=== PATIENT | male | born 1975 | race Caucasian/White ===

== ENCOUNTER 2022-02-27 11:15 | Outpatient (RCR) | payer OTHER, SELFPAY ==
--- NOTE | 2022-01-15 12:59 | OT.OPOE ---
OT Outpatient Ortho Eval OT Outpatient Ortho Eval Start: 01/15/22 12:11 Freq: Status: Active Protocol: Document 01/15/22 12:11 LCN (Rec: 01/15/22 12:46 LCN [id number]) E-signed By Baylee Ledezma, OTR/L, CLT OT OP Ortho Eval Details Type Type Eval Complexity Low Insurance Information Insurance Information [facility] Out[facility] History/Precautions Current Condition/Medical Diagnosis Referring Provider Steven Sutherland MD Treatment Diagnosis R lateral epicondylitis Date of Onset 01/09/22 Medical Conditions Depression Other Conditions H/O frozen shoulder with pt described surgical manipulation and PT. Similar small episode in R shoulder. Chronic pelvic pain after prostatitis, manages with Urology and Pelvic PT/[facility]. ( last episode 1 year ago). Pt noticing some distal ulnar wrist pain at TFCC area today as well. Bi Polar disorder. L QL SI pain episodes that come and go. 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 Fitness lighting free weights at home inclined bench and nesting dumb scott set Oriented Mental Status No Concerns Mental Status Comments Gets anxious in big box stores . Ortho Subjective Subjective Subjective Homero Patel is an active 46 y /o male who has been having increasing R lateral epicondyle, triceps insert and medial epicondyle pain in the past 6 months. 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 Terminal elbow extension and elbow extended gripping of R side is painful, 3-4/10. Pain Assessment Pain Present Pain Present Pain Reported Location R elbow Description Pressure,Dull, Achy,Throbbing, Pulling,With Movement Intensity 4 Goniometric Comments Goniometric Comments Goniometric Comments Pos 1 Gameplay Programmer is 78# R (2/10 tender at lat epicondyle) and 90 # L. Pos 2 is 18# R (2/10 tender at lat epicondyle) and 82# L. Bundy pinch is 21# R and 25# L, 3 point pinch is 20# B, no pain with pinching. MMT is 5/5 SH FL, ABD, IR and biceps flexion for R UE; SH ER and EL EX are 4+/ 5 with 3/ 10 tender at lat epicondyle and triceps insert. WR EX, RD and pronation are WNL 5/5 no pain. WR FL ( triceps insert /10), UD ( medial epic 3/10) and supination 4+/5 with 2/10 tender at lat epicondyle. Palpation-- moderate tenderness along posterior superior asp of lateral and medial epicondyle, triceps insert of R side. Also, L TFCC area during resisted pronation. OT Objective Data Hand Hand Dominance Right Observations/Posture Objective Observations No evidence of hypermobility, but moves quickly, hikes shoulder with motor patterns and muscle testing, Needs to work on core stabilization and scapular stability to support reduction of compensatory movement patterns. Upper Extremity Special Tests Upper Extremity Special Tests Comments Comments Provocative with Pos 2 Gripping. Placement of compression cuff at R lateral forearm reduces pn patttern and improves strength back to 90# in pos 1 and 86# in pos 2. OT Problems Problems Problems Decreased Strength,Decreased Range of Motion,Sensory Sensitivity,Lifting,Gripping, Pinching Other Problems Opening Containers,Fasteners Assessment Assessment Assessment Given Homero's s diagnosis of R lateral epicondylitis and ? difficulty with edema, pain, ROM and strength loss of R wrist/elbow, he would benefit from skilled OT to address these areas. Pt's history of using free weights at home with prior shoulder injuries support further need to work on core control/proximal stabilization more deeply to reduce compensatory patterns at distal wrist/forearm/elbow planes. Occupational Therapy Treatment Plan - OP Potential Rehabilitation Potential Good Set Goals Goals Set with Patient Yes Goals Goals In 12 weeks, pt will demonstrate:? 1) Decreased pn to <2/10 80% of the time with sustained gripping, carrying groceries, reading books and playing guitar. 2) I HEP for stretching, gradual strengthening ( including core/scapular stability) and self mgmt strategies. 3) improved R track laying supervisor strength to 85# in pos1 and pos 2 with R EL pain < 1/10. 4) ??Pt to be fit with functional bracing (for elbow, wrist,) and use adaptive strategies to protect joint integrity to support less pain with ADL. Target Date 04/16/22 Progress set Treatment Plan Treatment Plan Evaluation,Edema Control, Iontophoresis,Joint Mobilization,Manual Therapy, Splinting,Ultrasound, Therapeutic Exercise,Self-Care /Home Management,Education Expected Frequency 1-2x Week Expected Duration 8-10 Weeks Certification Certification I Certify That: Therapy Services Provided, Therapy Plan Established, Therapy Plan Reviewed
== END 2022-11-01 23:59 | disposition home or self-care (01) ==
PROVIDERS: PCP Family Medicine; Visit Provider Family Medicine
DX: M77.11 Lateral epicondylitis, right elbow (principal); Z51.89 Encounter for other specified aftercare
CPT/HCPCS: 97033; 97035; 97110; 97140; 97165; 97535; X5282

== ENCOUNTER 2022-11-16 13:06 | Outpatient (CLI) | payer OTHER, SELFPAY | END 2022-11-16 13:07 | disposition home or self-care (01) | PROVIDERS: PCP Family Medicine; Visit Provider Family Medicine | DX: Z00.00 Encounter for general adult medical examination without abnormal findings (principal); E53.8 Deficiency of other specified B group vitamins; R82.90 Unspecified abnormal findings in urine; F41.9 Anxiety disorder, unspecified; F31.9 Bipolar disorder, unspecified; Z13.6 Encounter for screening for cardiovascular disorders | CPT/HCPCS: 80053; 80061; 87086 ==

== ENCOUNTER 2022-12-06 15:26 | Outpatient (CLI) | payer OTHER, SELFPAY ==
--- NOTE | 2022-12-06 15:45 | CRLHL7_ITS ---
For Patients: As a result of the Century Cures Act, medical imaging exams and procedure reports are released immediately into your electronic medical record. You may view this report before your referring provider. If you have questions, please contact your health care provider. Indication: Skin anesthesia. Technique: Multiplanar, multisequence MRI of the lumbar spine was performed without intravenous contrast. Comparison: None relevant available. Findings: There are 5 lumbar type vertebral segments identified. The vertebral body heights are maintained without evidence of fracture. There is no discrete T1 hypointense marrow infiltrating process. The conus medullaris terminates at T12-L1, normal. Cauda equina appears unremarkable. T12-L1: No spinal canal or neural foraminal stenosis. L1-2: No spinal canal or neural foraminal stenosis. L2-3: No spinal canal or neural foraminal stenosis. L3-4: Mild disc degeneration. Minimal disc bulge with minimal spinal canal narrowing. There is a small left foraminal disc protrusion which abuts the exiting left L3 nerve. Mild right neural foraminal narrowing. Mild to moderate left facet arthropathy with small facet joint effusion and slight reactive osseous and soft tissue edema. L4-5: Mild disc degeneration. Minimal disc bulge with minimal spinal canal narrowing. Mild neural foraminal narrowing secondary to disc bulging facet hypertrophy. Mild facet arthropathy. L5-S1: Mild disc degeneration. Minimal disc bulge without spinal canal narrowing. Mild neural foraminal narrowing. Mild facet arthropathy. The visualized sacroiliac joints appear patent. Impression: 1. At L3-4, small left foraminal disc protrusion abuts the exiting left L3 nerve. 2. At L4-5 and L5-S1, mild neural foraminal narrowing. 3. Mild to moderate lower lumbar spine facet arthropathy. Dictated by Santana Bunn MD @ 12/07/2022 9:57:38 AM (Electronically Signed)
== END 2022-12-06 15:27 | disposition home or self-care (01) ==
LOC: MRI 15:26
PROVIDERS: PCP Family Medicine; Visit Provider Family Medicine
DX: R20.0 Anesthesia of skin (principal); M51.26 Other intervertebral disc displacement, lumbar region; M51.27 Other intervertebral disc displacement, lumbosacral region
CPT/HCPCS: 72148

== ENCOUNTER 2023-06-12 11:00 | Outpatient (CLI) | payer OTHER, SELFPAY | END 2023-06-12 11:01 | disposition home or self-care (01) | PROVIDERS: PCP Family Medicine; Visit Provider Family Medicine | DX: E53.8 Deficiency of other specified B group vitamins (principal); R10.11 Right upper quadrant pain | CPT/HCPCS: 80053; 83516; 86140 ==

== ENCOUNTER 2023-06-20 10:40 | Outpatient (CLI) | payer OTHER, SELFPAY ==
--- NOTE | 2023-06-20 11:00 | CT_ITS ---
[facility] Facility:?[facility] Patient ID:?[id number] Site Patient ID:?[id number]. Site :?[id number] Study:?CT-Abdomen/Pelvis w/ 103cc [id number]/7/2024 11:26:49 AM Ordering Physician:?Steven Olivares Final Report: Indication: Right upper quadrant pain Technique: CT Abdomen/Pelvis w/ 103cc [id number] Please note that all CT scans at this facility use dose modulation, iterative reconstruction, and/or weight-based dosing when appropriate to reduce radiation dose to as low as reasonably achievable. Comparison: 02/10/2020 Findings: Lung bases are clear with the exception of minimal atelectasis within the left lower lobe. No intrahepatic mass. Normal gallbladder. Spleen normal. Normal pancreas. Adrenal glands and kidneys normal. No adenopathy. Bladder normal. No pelvic mass. Normal appendix. No free air, free fluid or abscess. No adenopathy. No bowel obstruction. Minimal spurring at both hips. Impression: Unremarkable CT of the abdomen and pelvis. No acute findings. Please note that all CT scans at this facility use dose modulation, iterative reconstruction, and/or weight-based dosing when appropriate to reduce radiation dose to as low as reasonably achievable. Dictated by Sly Valencia MD @ 06/20/2023 12:06:58 PM Signed by:?Sly Valencia MD @06/20/2023 12:06:58 PM (Electronic Signature)
== END 2023-06-20 10:41 | disposition home or self-care (01) ==
LOC: CT 10:40
PROVIDERS: PCP Family Medicine; Visit Provider Family Medicine
DX: R10.11 Right upper quadrant pain (principal)
CPT/HCPCS: 74177; Q9967

== ENCOUNTER 2023-07-03 13:11 | Outpatient (CLI) | payer OTHER, SELFPAY | END 2023-07-03 13:12 | disposition home or self-care (01) | LOC: NFLDREF 07-05 08:40 | PROVIDERS: PCP Family Medicine; Referring Provider Family Medicine; Visit Provider Family Medicine | DX: R31.9 Hematuria, unspecified (principal); R10.11 Right upper quadrant pain; R80.9 Proteinuria, unspecified | CPT/HCPCS: 87086 ==

== ENCOUNTER 2023-07-22 08:05 | Outpatient (CLI) | payer OTHER, SELFPAY ==
--- NOTE | 2023-07-22 08:00 | CT_ITS ---
Patient: CHRIS RODRIGUEZ Facility:?[facility] Patient ID:?[id number] Site Patient ID:?[id number] Site :?[id number] Study:?CT-Chest 75CC ISOVUE 370-07/22/2023 8:52:29 AM Ordering Physician:?DR. MAGDALENO Final Report: INDICATION: Weight loss. Follow-up abnormal CT. TECHNIQUE: CT chest was acquired with 75 cc Isovue 370 IV contrast. COMPARISON: None. FINDINGS: Lungs and pleura: Trace atelectasis at the left posterior lung base. Lungs otherwise clear. No suspicious nodules or infiltrates. Airways patent. No pleural effusions, pleural thickening, or pneumothorax. Heart and vasculature: Heart size is normal. Thoracic aorta and pulmonary artery are normal in caliber. Lymph nodes/mediastinum: No mediastinal, hilar, or axillary adenopathy. Chest wall: No masses. Upper abdomen: Normal. Bones: Unremarkable for age. IMPRESSION: Trace subsegmental atelectasis at the left posterior lung base. Lungs otherwise clear. Please note that all CT scans at this facility use dose modulation, iterative reconstruction, and/or weight-based dosing when appropriate to reduce radiation dose to as low as reasonably achievable. Dictated by Jhon Pichardo MD @ 07/22/2023 9:35:46 AM Signed by:?Jhon Pichardo MD @07/22/2023 9:35:46 AM (Electronic Signature)
--- OUTSIDE RECORDS SUMMARY | 2023-07-22 08:10 | XMS_ITS | Encounter Summary ---
Author Name Unknown Organization [facility] Address [address] [place] [id number] Care Team Providers Care Toll Collector Name Role Phone Elsewhere, Pcp Primary Care Provider Unavailabl e Reason for Referral * Outpatient (Routine) - Closed Specialty Diagnoses / Procedures Referred By Beatrice boss Referred To Contact Diagnoses Snoring Procedures Home sleep apnea test (HSAT) Eagle Bee III, M.D. 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 [address] [place] [phone] [facility] Referral ID Status Reason Start Date Expiration Date Visits Re quested Visits Authorized [id number] Closed 03/26/2023 03/25/2024 1 1 Encounter Details Date Type Department Care Team (Latest Contact Info) Description 04/16/2023 11:30 AM FIREFIGHTER MARINE - 04/19/2023 11:59 PM FIREFIGHTER MARINE [facility] [place], [place] [address] [place] [phone] Eagle Bee III, M.D. [address] [place] [phone] Snoring Discharge Disposition: Home or Self Care Social History Tobacco Use Types Packs/Day Years Used Date Smoking Tobacco: Former Cigarettes 0 04/15/2002 - 04/15/2009 Smokeless Tobacco: Never Alcohol Use Standard Drinks/Week Comments Yes 0 (1 standard drink = 0.6 oz pur e alcohol) once a month Humiliation, Afraid, Rape, and Kick questionnair e Answer Date Recorded Within the last year, have y ou been afraid of your partner or ex-partner? No 06/09/2022 Within the last year, have y ou been humiliated or emotionally abused in other ways by your partner or ex-partner? No Within the last year, have y ou been kicked, hit, slapped, or otherwise physically hurt by your partner or ex-partner? No 06/09/2022 Within the last year, have y ou been raped or forced to have any kind of sexual activity by your partner or ex-partner? No 06/09/2022 Social Connection and Isolation Panel [NHANES] A nswer Date Recorded In a typical week, how many times do you talk on the phone with family, friends, or neighbors? Three times a week 06/09/2022 How often do you get togethe r with friends or relatives? Never 06/09/2022 How often do you attend chur or christian services? Never 06/09/2022 Do you belong to any clubs o r organizations such as zoroastrian groups, unions, fraternal or athletic groups, or school groups? No 06/09/2022 How often do you attend meet ings of the clubs or organizations you belong to? Patient declined 06/09/2022 Are you , , di vorced, , never , or living with a partner? 06/09/2022 AUDIT-C Answer Date Recorded Q1: How often do you have a drink containing alc ohol? Never 06/09/2022 Q2: How many drinks containi ng alcohol do you have on a typical day when you are drinking? 1 or 2 06/09/2022 Q3: How often do you have six or more drinks on one occasion? Never 06/09/2022 Overall Financial Resource Strain (CARDIA) Answe r Date Recorded How hard is it for you to pa y for the very basics like food, housing, medical care, and heating? Not hard at all 06/09/2022 [facility] Occupational Stress Questionnaire Answer Date Recorded Do you feel stress - tense, restless, nervous, or anxious, or unable to sleep at night because your mind is troubled all the time - these days? Only a little 06/09/2022 Exercise Vital Sign Answer Date Recorde d On average, how many days pe r week do you engage in moderate to strenuous exercise (like a brisk walk)? 1 day 06/09/2022 On average, how many minutes do you engage in exercise at this level? 40 min 06/09/2022 Hunger Vital Sign Answer Date Recorded Within the past 12 months, y ou worried that your food would run out before you got the money to buy more. Never true 06/09/19 23 Within the past 12 months, t he food you bought just didn't last and you didn't have money to get more. Never true 06/09/2022 PRAPARE - Transportation Answer Date Re corded In the past 12 months, has l ack of transportation kept you from medical appointments or from getting medications? No 05/17 In the past 12 months, has l ack of transportation kept you from meetings, work, or from getting things needed for daily living? No 06/09/2022 Housing Stability Vital Sign Answer Robert e Recorded In the last 12 months, was t here a time when you were not able to pay the mortgage or rent on time? No 06/09/2022 In the last 12 months, how many places have you lived? 1 06/09/2022 In the last 12 months, was t here a time when you did not have a steady place to sleep or slept in a residential (including now)? No 06/09/2022 Nutrition Answer Date Recorded Nutrition: EVOO Fat Source Yes 06/09 On average, how many serving s of fruits and vegetables do you eat per day (serving size is equal to 1 cup or approximately the size of a tennis ball)? 2-3 06/09/2022 Dental Answer Date Recorded Dental: Regular Dentist Yes 04/30/19 Employment Answer Date Recorded Employment status Unemployed/not in th e paid workforce but seeking employment 06/09/2022 Education Answer Date Recorded What is the highest level of school you have completed or the highest degree you have received? Bachelor's degree (e.g., BA, AB, BS) 02/18/2019 Sex and Gender Information Value Date Recorded Sex Assigned at Male 06/23/2017 6:13 PM CDT Gender Identity Male 06/23/2017 6:13 PM CDT Sexual Orientation Straight 06/23/2017 6: 13 PM CDT documented as of this encounter Medications at Time of Discharge Medication Sig Dispensed Refills Start Date End Date buPROPion XL (WELLBUTRIN XL) 150 mg 24 hr tablet Take 1 tablet (150 mg total) by mouth every morning. 90 tablet 0 09/18/2022 clindamycin phos/benzoyl perox (CLINDAMYCIN-BENZOYL PEROXIDE TOP) Apply topically. 0 11/19/2022 clindamycin-benzoyl peroxide (BENZACLIN) 1-5 % gelIndications:Acne Vulgaris APPLY TOPICALLY TO FACE DAILY 50 g 11 01/28/2023 clobetasoL (TEMOVATE) 0.05 % ointment Apply 1 application topically 2 (two) times a day. Apply to areas of eczema as needed/ 0 doxycycline hyclate (VIBRAMYCIN) 100 mg capsule Take 100 mg by mouth 2 (two) times a day. for 7 days 0 10/28/2022 gabapentin (NEURONTIN) 300 mg capsule Take 300 mg by mouth 3 (three) times a day. 0 11/19/2022 lamoTRIgine (LaMICtaL) 200 mg tablet Take 1 tablet (200 mg total) by mouth 2 (two) times a day. 60 tablet 2 10/08/2022 latanoprost (XALATAN) 0.005 % ophthalmic solution INSTILL 1 DROP IN BOTH EYES AT BEDTIME 10 mL 3 01/21/2023 multivitamin/iron/fol ic acid (CENTRUM ORAL) 0 12/28/2019 oxymetazoline (Rhofade) 1 % cream creamIndications:Afrida cea Apply 1 application topically daily. Apply to face for rosacea. 30 g 3 05/22/2021 QUEtiapine (SEROquel) 200 mg tablet Take 1 tablet (200 mg total) by mouth at bedtime. 90 tablet 0 12/17/2022 tretinoin (RETIN-A) 0.05 % creamIndications:Prur itus,Acne Vulgaris Apply 1 application topically at bedtime. Apply to face. 45 g 11 11/08/2020 triamcinolone (KENALOG) 0.1 % creamIndications:Derm atitis Apply 1 application topically 2 (two) times a day. Apply to affected areas 2 times a day as needed after Clobetasol treatment. 45 g 11 05/22/2021 zolpidem (AMBIEN) 5 mg tablet Takes 5 mg sometimes, other times 10 mg. 0 04/10/2022 buPROPion XL (WELLBUTRIN XL) 150 mg 24 hr tablet 2 (two) times a day. 0 06/01/2022 03/0 07/2023 gabapentin (NEURONTIN) 300 mg capsule Take 1 capsule (300 mg total) by mouth 3 (three) times a day. 90 capsule 5 11/19/2022 06/17/2023 lamoTRIgine (LaMICtaL) 150 mg tablet Take 200 mg by mouth 2 (two) times a day. 0 05/31/2022 06/17/2023 QUEtiapine (SEROquel) 50 mg tablet 5 tablets once daily 0 05/08/2022 03 024 QUEtiapine (SEROquel) 50 mg tablet Take 1 tablet (50 mg total) by mouth at bedtime as needed. 90 tablet 0 09/18/2022 06/17/2023 documented as of this encounter Plan of Treatment Upcoming Encounters Date Type Department Care Team (Latest Contact Info) Description 07/29/2023 9:00 AM CDT Clinical Communication Virtual Review in [place], [place] [address] [place] [address] 07/31/2023 7:30 AM CDT Ancillary Procedure Department of Op[facility]mology in [place], [place] [address] [place] [phone] Annie Lamas O.D. [address] [place] [phone] 07/31/2023 8:00 AM CDT Ancillary Procedure [facility] in [place], [place] [address] [place] [phone] Annie Lamas O.D. [address] [place] [phone] 07/31/2023 8:30 AM CDT Ancillary Procedure [facility] in [place], [place] [address] [place] [phone] Annie Lamas O.D. [address] [place] [phone] 07/31/2023 9:00 AM CDT Office Visit [facility] of [facility] in [place], [place] [address] [place] [phone] Annie Lamas O.D. [address] [place] [phone] documented as of this encounter Procedures Procedure Name Priority Date/Time Associated Diagnosis Comments MA HOME SLEEP TEST TYPE KEYANNA 4 Routine 04/22/2023 7:33 AM FIREFIGHTER MARINE Snoring documented in this encounter Results * Home sleep apnea test (HSAT) (04/22/2023 7:33 AM FIREFIGHTER MARINE) Narrative ONBASE - 04/23/2023 9:11 AM FIREFIGHTER MARINE SUMMARY: Home sleep apnea test was performed utilizing the ABB[employer] Language ServicesPAT device. The device recorded a total sleep time of 477.5 minutes. ??Patient slept for a majority of the time in the left side position. ??The device recorded an pAHI of 3.4 and an pRDI of 14.3. ??Supine pAHI was 12.0. ??Snoring was heard for 10.6 % of time . ??The mean oxygen saturation was 94 %. ??The nancy was 85 %. ??A total of ??0.2 minutes were spent with saturation below 88%. CLINICAL INTERPRETATION: Home sleep apnea test performed utilizing the WatchPAT device was suggestive of mild obstructive sleep apnea, more severe supine and in REM sleep.. Eagle Bee III, M.D. SLEEP KERRY TER ORDERABLES ONBASE NA documented in this encounter Visit Diagnoses Diagnosis Snoring documented in this encounter Care Teams Toll Collector Relationship Specialty Start Date End Date Elsewhere, Pcp PCP - General Family Medicine 08/21/17 documented as of this encounter
--- OUTSIDE RECORDS SUMMARY | 2023-07-22 08:10 | XMS_ITS | Encounter Summary ---
Author Name Unknown Organization [facility] Address [address] [place] [address] Care Team Providers Care Box Order Person Name Role Phone Elsewhere, Pcp Primary Care Provider Unavailabl e Reason for Visit * Reason Comments Prostatitis * Appointment Request (Routine) - Closed Specialty Diagnoses / Procedures Referred By Beatrice t Referred To Contact Urology Referral ID Status Reason Start Date Expiration Date Visits Re quested Visits Authorized [id number] Closed 06/17/2023 06/16/2024 1 1 Encounter Details Date Type Department Care Team (Late st Contact Info) Description 06/17/2023 11:30 AM MINING PLANT OPERATOR Office Visit Department of Urology in [place] [address] [place] [address] Kristal Leon, JD, C.N.P. [address] [phone] Prostatitis Chronic (Primary Dx); Pain Pelvic Male Social History Tobacco Use Types Packs/Day Years Used Date Smoking Tobacco: Former Cigarettes 0 04/15/2002 - 04/15/2009 Smokeless Tobacco: Never Alcohol Use Standard Drinks/Week Comments Yes 0 (1 standard drink = 0.6 oz pur e alcohol) once a month [facility] Utilities Answer Date Recorded In the past 12 months has e electric, gas, oil, or water company threatened to shut off services in your home? No 06/17/2023 Humiliation, Afraid, Rape, and Kick questionnair e [...] How often do you attend chur or jewish services? Never 06/09/2022 Do you belong to any clubs o r organizations such as holiness groups, unions, fraternal or athletic groups, or [...] and heating? Not hard at all 06/09/2022 [facility] Occupat ional Health - Occupational Stress Questionnaire Answer Date Recorded [...] to strenuous exercise (like a brisk walk)? 2 days 06/17/2023 On average, how many minutes do you engage in exercise at this level? 30 min 06/17/2023 Hunger Vital Sign Answer Date Recorded Within the past 12 months, y ou worried that your food would run out before you got the money to buy more. Never true 06/17/19 24 Within the past 12 months, t he food you bought just didn't last and you didn't have money to get more. Never true 06/17/2023 PRAPARE - Transportation Answer Date Re corded In the past 12 months, has l ack of transportation kept you from medical appointments or from getting medications? No 07/2023 In the past 12 months, has l ack of transportation kept you from meetings, work, or from getting things needed for daily living? No 06/17/2023 Nutrition Answer Date Recorded Nutrition: EVOO Fat Source Yes 06/16 On average, how many serving s of fruits and vegetables do you eat per day (serving size is equal to 1 cup or approximately the size of a tennis ball)? 0-2 06/17/2023 Dental Answer Date Recorded Dental: Regular Dentist Yes 04/30/19 Employment Answer Date Recorded Employment status Temporarily disabled Housing Stability Answer Date Recorded What is your living situation today? I have a [facility] place to live 06/17/2023 Education Answer Date Recorded What is the highest level of school you have completed or the highest degree you have received? Bachelor's degree (e.g., BA, AB, BS) 02/18/2019 Sex and Gender Information Value Date Recorded Sex Assigned at Male 06/23/2017 6:13 PM CDT Gender Identity Male 06/23/2017 6:13 PM CDT Sexual Orientation Straight 06/23/2017 6: 13 PM CDT documented as of this encounter Progress Notes * Kristal Leon APRN, C.N.P. - 06/17/2023 11:30 AM CST SUBJECTIVE CHIEF COMPLAINT/REASON FOR VISIT Chief Complaint Patient presents with Prostatitis HISTORY OF PRESENT ILLNESS Homero is a pleasant 47-year-old male here today for an acute visit. He has history of chronic prostatitis, 1st diagnosed in 2010. He has had numerous recurrences in the past, last in October of last year. He states that he started having pain on Saturday. His urine is more dark, with more bubbles and foam. He reports pain in the bladder, pain in the testicles. His bowels have been regular. He states he has had quite a bit of stress lately. He denies any pain with ejaculation or erections. He feels like it takes him longer to empty his bladder, often needing to double void. His stream is generally fairly strong. Starting last night he was having pain in the epididymis. He drinks 2 cups of coffee and 4-5 16 ounces glasses of water. His Seroquel dosage was increased about 3-1/2 weeks ago. In the last month or so he has been exercising more and has been doing more squats and core exercises. He has attended pelvic floor physical therapy in the past. The following portions of the patient's history were reviewed and updated as appropriate: allergies, current medications, family history, medical history, social history, surgical history, and problem list. REVIEW OF SYSTEMS Gastrointestinal: - Negative for constipation and diarrhea. Genitourinary: Positive for pain with urination. OBJECTIVE There were no vitals filed for this visit. PHYSICAL EXAM Vitals and nursing note reviewed. General: Well developed, well nourished, well groomed male in no acute distress. Neurological: Alert, cooperative, oriented x3. Appropriate mood and affect. Abdomen: Soft, non-tender, non-distended Extremities: Warm, without edema or ulcerations. ASSESSMENT / PLAN 1. Prostatitis Chronic 2. Pain Pelvic Male Prescription for Bactrim twice daily for 21 days is sent to his pharmacy. If symptoms do not improve, he should contact us. He is encouraged to have follow- up with physical therapy to make sure that the exercises he has been working on are not causing his pelvic floor to have more tension and pain.Follow-up as needed. All questions answered today. Signed by: Kristal Leon APRN, C.N.P. 06/17/2023 7:44 PM MINING PLANT OPERATOR NG PLANT OPERATOR documented in this encounter Plan of Treatment Upcoming Encounters Date Type Department Care Team (Latest Contact Info) Description 07/29/2023 9:00 AM CDT Clinical Communication Virtual Review in [place], [place] [address] [place] [address] 07/31/2023 7:30 AM CDT Ancillary Procedure Department of Ophthalmology in [place], [place] [address] [place] [phone] Annie Lamas O.D. [address] [place] [phone] 07/31/2023 8:00 AM CDT Ancillary Procedure Department of Ophthalmology in [place], [place] [address] [place] [phone] Annie Lamas O.D. [address] [place] [phone] 07/31/2023 8:30 AM CDT Ancillary Procedure Department of Ophthalmology in [place], [place] [address] [place] [phone] Annie Lamas O.D. [address] [place] [phone] 07/31/2023 9:00 AM CDT Office Visit Department of Ophthalmology in [address] [phone] Annie Lamas O.D. [address] [place] [phone] documented as of this encounter Visit Diagnoses Diagnosis Prostatitis Chronic- Primary Pain Pelvic Male documented in this encounter Care Teams Box Order Person Relationship Specialty Start Date End Date Elsewhere, Pcp PCP - General Family Medicine 08/21/17 documented as of this encounter
--- OUTSIDE RECORDS SUMMARY | 2023-07-22 08:10 | XMS_ITS | Encounter Summary ---
Author Name Unknown Organization [facility] Address [address] [place] [id number] Care Team Providers Care X Ray Inspector Name Role Phone Elsewhere, Pcp Primary Care Provider Unavailabl e Reason for Referral * Outpatient (Routine) - Authorized Specialty Diagnoses / Procedures Referred By Beatrice boss Referred To Contact Sleep Eagle Ponce III, M.D. [address] [place] [phone] [facility] Referral ID Status Reason Start Date Expiration Date V isits Requested Visits Authorized [id number] Authorized 06/06/2023 12/05/2024 1 1 OR TUG CAPTAIN Reason for Visit * Outpatient (Routine) - Closed Specialty Diagnoses / Procedures Referred By Beatrice boss Referred To Contact Sleep Eagle Ponce III, M.D. [address] [place] [phone] [facility] Referral ID Status Reason Start Date Expiration Date Visits Re quested Visits Authorized [id number] Closed 04/30/2023 04/29/2026 1 1 Encounter Details Date Type Department Care Team (Latest Contact Info) Description 06/06/2023 11:00 AM HARBOR TUG CAPTAIN [facility] in [place], [place] [address] [place] [address] Eagle Bee III, M.D. [address] [place] [phone] Obstructive Sleep Apnea Adult (Primary Dx); Insomnia Mental Disorder Related; Stenosis Nasal Valve; Chronic Insomnia Disorder; Bipolar Disorder Current Episode Mixed Mild (HCC); Obstruction Nasal; Cannabis Use Unspecified Uncomplicated Social History Tobacco Use Types Packs/Day Years [...] Never 06/09/2022 How often do you attend formerly [facility] or zoroastrianism services? Never 06/09/2022 Do you belong to any clubs o r organizations such as orthodox groups, unions, fraternal or athletic groups, or [...] and heating? Not hard at all 06/09/2022 [facility] - Occupational Stress Questionnaire Answer Date [...] place to sleep or slept in a alf (including now)? No 06/09/2022 Nutrition Answer Date [...] as of this encounter Progress Notes * Eagle Bee III, M.D. - 06/06/2023 11:00 AM CST SUBJECTIVE REASON FOR VISIT Follow-up for managing obstructive sleep apnea. Follow-up conducted via real-time audio/video technology by Eagle Bee III, M.D. in [facility] to the patient in the patient's home. HISTORY OF PRESENT ILLNESS Homero Patel is a 47 y.o. male tells me that he tried the Flonase for couple of weeks and did not make any difference in his nasal airflow function. He is tried Neti pot in the past without benefit. He has not interested in further surgery after a good discussion with Dr. Timo Gage in ENT sleep medicine. He wants to discuss what is next. STANDARDIZED INSTRUMENTS: EPWORTH SCORE: 0 (06/06/23 1054 : Patient, Online Services) Scores of less than 10 are considered within the normal range. DETAILS: () - would never doze; 1 - slight chance of dozing; - moderate chance of dozing; 3 - high chance ofdozing) Sitting and readin - Would never doze Watching TV: 0 - Would never doze Sitting inactive in a public place (e.g. A theater or meetin - Would never doze As a passenger in a car for an hour without a break: 0 - Would never doze Lying down to rest in the afternoon when circumstances permit: 0 - Would never doze Sitting and talking to someone: 0 - Would never doze Sitting quietly after a lunch without alcohol: 0 - Would never doze In a car, while stopped for a few minutes in traffic: 0 - Would never doze Leela Segura., A new method for measuring daytime sleepiness: the Vallejo sleepiness scale. Sleep, 1991. 14(6): p. 540-5. Current Outpatient Medications Medication Sig Dispense Refill buPROPion XL (WELLBUTRIN XL) 150 mg 24 hr tablet 2 (two) times a day. buPROPion XL (WELLBUTRIN XL) 150 mg 24 hr tablet Take 1 tablet (150 mg total) by mouth every morning. 90 tablet 0 clindamycin-benzoyl peroxide (BENZACLIN) 1-5 % gel APPLY TOPICALLY TO FACE DAILY 50 g 11 clobetasoL (TEMOVATE) 0.05 % ointment Apply 1 application topically 2 (two) times a day. Apply to areas of eczema as needed/ DME CPAP DME Order 1 each 0 doxycycline hyclate (VIBRAMYCIN) 100 mg capsule Take 100 mg by mouth 2 (two) times a day. for 7 days fluticasone propionate (FLONASE) 50 mcg/actuation nasal spray Administer 2 sprays into each nostrildaily. Prior to sleep gabapentin (NEURONTIN) 300 mg capsule Take 300 mg by mouth 3 (three) times a day. gabapentin (NEURONTIN) 300 mg capsule Take 1 capsule (300 mg total) by mouth 3 (three) times a day.90 capsule 5 lamoTRIgine (LaMICtaL) 150 mg tablet Take 200 mg by mouth 2 (two) times a day. lamoTRIgine (LaMICtaL) 200 mg tablet Take 1 tablet (200 mg total) by mouth 2 (two) times a day. 60 tablet 2 latanoprost (XALATAN) 0.005 % ophthalmic solution INSTILL 1 DROP IN BOTH EYES AT BEDTIME 10 mL 3 multivitamin/iron/folic acid (CENTRUM ORAL) oxymetazoline (Rhofade) 1 % cream cream Apply 1 application topically daily. Apply to face for rosacea. 30 g 3 QUEtiapine (SEROquel) 200 mg tablet Take 1 tablet (200 mg total) by mouth at bedtime. 90 tablet 0 QUEtiapine (SEROquel) 50 mg tablet 5 tablets once daily QUEtiapine (SEROquel) 50 mg tablet Take 1 tablet (50 mg total) by mouth at bedtime as needed. 90 tablet 0 tretinoin (RETIN-A) 0.05 % cream Apply 1 application topically at bedtime. Apply to face. 45 g 11 triamcinolone (KENALOG) 0.1 % cream Apply 1 application topically 2 (two) times a day. Apply to affected areas 2 times a day as needed after Clobetasol treatment. 45 g 11 zolpidem (AMBIEN) 5 mg tablet No current facility-administered medications for this visit. Allergies Allergen Reactions Levofloxacin Other (see comments) leg pain, panic attack Milk Other (see comments) showed on blood allergy testing Pollen Extracts Other (see comments) OBJECTIVE PHYSICAL EXAMINATION Wt Readings from Last 1 Encounters: 03/26/23 95.6 kg Temp Readings from Last 1 Encounters: 12/28/20 36.1 ??C (Tympanic) BP Readings from Last 1 Encounters: 03/26/23 126/70 Pulse Readings from Last 1 Encounters: 03/26/23 66 BMI Readings from Last 1 Encounters: 03/26/23 28.83 kg/m?? Appearance: Well groomed, in no apparent distress. Good eye contact. No abnormal movements noted. Consciousness: Alert and oriented, without psychomotor abnormalities. Cooperation: Cooperative, reliable informant. Mood: Euthymic mood, with a mood-congruent and fully-reactive affect. Speech: Of regular rate, rhythm, prosody and volume. Thought Form: Goal-oriented and linear with no indication of a formal-thought disorder. Cognition: Cognition was not formally assessed, but based on the form and content of the interview and discussion appears intact. Attention: No apparent abnormalities in attention or concentration. Fund of Knowledge: Knowledge base appears within normal limits. Abstraction: Abstraction abilities appear within normal limits. Insight: Good insight and motivation. ASSESSMENT / PLAN #1 Obstructive Sleep Apnea Adult #2 Insomnia Mental Disorder Related #3 Stenosis Nasal Valve #4 Chronic Insomnia Disorder #5 Bipolar Disorder Current Episode Mixed Mild (HCC) #6 Obstruction Nasal #7 Cannabis Use Unspecified Uncomplicated Homero Patel is a 47 y.o. male has mild obstructive sleep apnea that has not responded to nonsurgical efforts to improve his nasal airflow and nasal obstruction. We discussed the following options: Obstructive sleep apnea: Options for addressing obstructive sleep apnea: Do nothing. This is not recommended based on management of cardiovascular and glucose tolerance risk as well as sleep symptomatology. Optimize weight. This is recommended. Medical and surgical strategies are available. Upper airway exercises. Evidence for this approach is emerging as an adjunct. Positional Therapy CPAP. 80% of people can achieve satisfactory results with coaching and support. Oral appliance therapy. 75% of people can achieve satisfactory result. Upper airway surgery. Consultation with an ENT sleep specialist would be the 1st step to pursue this. Upper airway stimulation therapy. There are certain criteria to consider prior to this referral. He is not interested in oral appliance because he is already having expensive dental work done on his teeth. I offered for him to work on the upper airway exercises diligently as the next step but he acknowledged that it is probably time to proceed with CPAP therapy. He said he thinks his would push for him to go ahead and do something now. He will identify for me the DME provider he wants to use and send that through a portal message. I will prescribe auto PAP 5-20 cm of water pressure and set up a follow-up visit once he has the device. I urged him to allow us to project coach him during this initiation phase to achieve optimal outcome. He said he would like a another psychiatric opinion including I would only bipolar disorder but an obsessive disorder that is emerged for which he is aware that ERPT is the standard. His mother works at the [facility] at [facility] and he says his works at [employer] as well. He will get back to me whether he wants to proceed with the evaluation at the mood Center and I canassure him it would be someone besides his family involved. PATIENT EDUCATION Learning needs assessment was performed. No learning barriers were identified. Explained diagnosis and treatment plan. Patient expressed understanding and was able to teach back. I personally spent 30 minutes in care of the patient today. Time includes both non face to face andface to face patient care. Eagle Bee III, M.D. OR TUG CAPTAIN documented in this encounter Plan of Treatment Upcoming Encounters Date Type Department Care Team (Latest Contact Info) Description 07/29/2023 9:00 AM CDT Clinical Communication Virtual Review in [address] [address] 07/31/2023 7:30 AM CDT Ancillary Procedure Department of Ophthalmology in [place], [place] [address] [place] [address] Annie Lamas O.D. [address] [place] [phone] 07/31/2023 8:00 AM CDT Ancillary Procedure Department of Ophthalmology in [place], [place] [address] [place] [phone] Annie Lamas O.D. [address] [place] [phone] 07/31/2023 8:30 AM CDT Ancillary Procedure Department of Ophthalmology in [place], [place] [address] [place] [phone] Annie Lamas O.D. [address] [place] [phone] 07/31/2023 9:00 AM CDT Office Visit Department of Ophthalmology in [place], [place] [address] [place] [phone] Annie Lamas O.D. [address] [place] [phone] Scheduled Referrals Name Type Priority Associated Diagnoses Orde r Schedule Sleep Medicine office visit (clinic) Outpatient Referral Routine Expected: 06/06/2024 (Approximate), Expires: 09/03/2024 documented as of this encounter Visit Diagnoses Diagnosis Obstructive Sleep Apnea Adult- Primary Insomnia Mental Disorder Related Stenosis Nasal Valve Chronic Insomnia Disorder Bipolar Disorder Current Episode Mixed Mild (HCC) Obstruction Nasal Cannabis Use Unspecified Uncomplicated documented in this encounter Care Teams X Ray Inspector Relationship Specialty Start Date End Date Elsewhere, Pcp PCP - General Family Medicine 08/21/17 documented as of this encounter
--- OUTSIDE RECORDS SUMMARY | 2023-07-22 08:10 | XMS_ITS | Encounter Summary ---
Author Name Unknown Organization [facility] Address [address] [place] [address] Care Team Providers Care Cleaner And Trimmer Name Role Phone Elsewhere, Pcp Primary Care Provider Unavailabl e Encounter Details Date Type Department Care Team (Late Contact Info) Description 2017 [facility] [address] [place] [address] Milo Albarado M.D. [address], [place] [phone] Personal History Of Other Diseases Of Male Genital Organs (Primary Dx); Torsion Testis Social History Tobacco Use Types Packs/Day Years Used Date Smoking Tobacco: Unknown Smokeless Tobacco: Never Alcohol Use Standard Drinks/Week Comments Yes 0 (1 standard drink = 0.6 oz pur e alcohol) twice a month Sex and Gender Information Value Date Recorded Sex Assigned at Male 06/23/2017 6:13 PM CDT Gender Identity Male 06/23/2017 6:13 PM CDT Sexual Orientation Straight 06/23/2017 6: 13 PM CDT documented as of this encounter Plan of Treatment Upcoming Encounters Date Type Department Care Team (Latest Contact Info) Description 07/29/2023 9:00 AM CDT Clinical Communication Virtual Review in [place], [place] [address] [place] [address] 07/31/2023 7:30 AM CDT Ancillary Procedure Department of Ophthalmology in [place], [place] [address] [place] [phone] Annie Lamas O.D. [address] [place] [phone] 07/31/2023 8:00 AM CDT Ancillary Procedure Department of Ophthalmology in [place], [place] [address] [place] [phone] Annie Lamas O.D. [address] [place] [phone] 07/31/2023 8:30 AM CDT Ancillary Procedure Department of Ophthalmology in [place], [place] [address] [place] [phone] Annie Lamas O.D. [address] [place] [phone] 07/31/2023 9:00 AM CDT Office Visit Department of Ophthalmology in [place], [place] [address] [place] [phone] Annie Lamas O.D. [address] [place] [phone] documented as of this encounter Visit Diagnoses Diagnosis Personal History Of Other Diseases Of Male Genital Organs- Primary Torsion Testis documented in this encounter Care Teams Cleaner And Trimmer Relationship Specialty Start Date End Date Elsewhere, Pcp PCP - General Family Medicine 08/21/17 documented as of this encounter
--- OUTSIDE RECORDS SUMMARY | 2023-07-22 08:10 | XMS_ITS | Encounter Summary ---
Author Name Unknown Organization [facility] Address [address] [place] [address] Care Team Providers Care Consulting Manager Name Role Phone Elsewhere, Pcp Primary Care Provider Unavailabl e Reason for Referral * Outpatient (Routine) - Closed Specialty Diagnoses / Procedures Referred By Beatrice boss Referred To Contact Sleep Medicine Eagle Bee III, M.D. [address] [place] [phone] [facility] Referral ID Status Reason Start Date Expiration Date Visits Re quested Visits Authorized [id number] Closed 04/30/2023 04/29/2026 1 1 LY CHAIN TECHNICIAN Reason for Visit * Reason Comments Sleep Apnea * Outpatient (Routine) - Closed Specialty Diagnoses / Procedures Referred By Beatrice boss Referred To Contact Sleep Eagle Ponce III, M.D. [address] [place] [phone] [facility] Referral ID Status Reason Start Date Expiration Date Visits Re quested Visits Authorized [id number] Closed 03/26/2023 03/25/2026 1 1 Encounter Details Date Type Department Care Team (Latest Contact Info) Description 04/30/2023 9:00 AM SUPPLY CHAIN TECHNICIAN [facility] in [place], [place] [address] [place] [phone] Eagle Bee III, M.D. [address] [place] [address] [place] [phone] Obstructive Sleep Apnea Adult (Primary Dx); Snoring; Chronic Insomnia Disorder; Bipolar Disorder Current Episode Mixed Mild (HCC); Insomnia Mental Disorder Related; Stenosis Nasal Valve; Obstruction Nasal; Cannabis Use Unspecified Uncomplicated Social [...] How often do you attend chur or oriental orthodox services? Never 06/09/2022 Do you belong to any clubs o r organizations such as latter-day groups, unions, fraternal or athletic groups, or [...] and heating? Not hard at all 06/09/2022 [facility] - Occupational Stress Questionnaire Answer Date Recorded [...] place to sleep or slept in a [place] health care facility (including now)? No 06/09/2022 Nutrition Answer Date [...] Notes * Eagle Bee III, M.D. - 04/30/2023 9:00 AM CST SUBJECTIVE REASON FOR VISIT Chief Complaint Patient presents with Sleep Apnea Follow-up conducted via real-time audio/video technology by Eagle Bee III, M.D. in [facility] to the patient in the patient's home. HISTORY OF PRESENT ILLNESS Homero Patel is a 47 y.o. male who has been struggling with snoring and snort arousals and sleep disruption for quite some time. He has had careful care from Dr. Timo Gage in ENT. Mr. Patel is not interested in further surgical intervention. He agrees with my observation that the snoring and disordered breathing are likely disruptive. He sleeps mostly on his side but he does notice that if he physically stretches his cheeks around his nose his airway opens more. Breathe right and other interventions have not been affective. This visit is to review home sleep apnea test. Current Outpatient Medications Medication Sig Dispense Refill [...] Apply to areas of eczema as needed/ doxycycline hyclate (VIBRAMYCIN) 100 mg capsule Take [...] and motivation. 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 male continues to experience disruptive snoring and stop breathingepisodes. I personally reviewed with him interpreted the home sleep apnea test that was done April 19 2023. Please see home sleep apnea test report for further detail #1 Mild obstructive sleep apnea. SUMMARY: Home sleep apnea test was performed utilizing the WatchPAT device. The device recorded a total sleep time of 477.5 minutes. Patient slept for a majority of the time in the left side position. The device recorded an pAHI of 3.4 and an pRDI of 14.3. Supine pAHI was 12.0. Snoring was heard for 10.6 % of time . The mean oxygen saturation was 94 %. The nancy was 85 %. A total of 0.2 minutes were spent with saturation below 88%. CLINICAL INTERPRETATION: Home sleep apnea test performed utilizing the WatchPAT device was suggestive of mild obstructive sleep apnea, more severe supine and in REM sleep.. We collaboratively agreed that the next step would be for him to try Flonase before bedtime every night for couple of weeks. He will let me know if that has helped things substantially. In the past he is tried Neti pot and says that is just produced more nasal airflow and has not beenhelpful. He asked if we could visit again in a few weeks and I placed an order for a video visit in a few weeks. In the meantime he will use the portal to communicate. He is open to considering CPAP if need be. He qualifies that based on the home sleep apnea test done April 2023.. He is also open to consider an oral appliance if we need to go in that direction even though he says he has a very sensitive mouth in his dentist did not think he could tolerate an oral appliance when they discussed it past. #2 Chronic Insomnia Disorder #3 Bipolar Disorder Current Episode Mixed Mild (HCC) #4 Insomnia Mental Disorder Related With regard insomnia, he said the since gabapentin was started for pain his sleep has been much improved he does not feel the need for further focus on insomnia with CBT I at this time. PATIENT EDUCATION Learning needs assessment was performed. No learning barriers were identified. Explained diagnosis and treatment plan. Patient expressed understanding and was able to teach back. I personally spent 30 minutes in care of the patient today. Time includes both non face to face andface to face patient care. Eagle Bee III, M.D. LY CHAIN TECHNICIAN documented in this encounter Plan of Treatment Upcoming Encounters Date Type Department Care Team (Latest Contact Info) Description 07/29/2023 9:00 AM CDT Clinical Communication Virtual Review in [place], [place] [address] [place] [address] 07/31/2023 7:30 AM CDT Ancillary Procedure Department of Ophthalmology in [address] [phone] Annie Lamas O.D. [address] [place] [phone] 07/31/2023 8:00 AM CDT Ancillary Procedure Department of Ophthalmology in [place], [place] [address] [place] [address] Annie Lamas O.D. [address] [place] [phone] 07/31/2023 8:30 AM CDT Ancillary Procedure Department of Ophthalmology in [place], [place] [address] [place] [phone] Annie Lamas O.D. [address] [place] [phone] 07/31/2023 9:00 AM CDT Office Visit Department of Ophthalmology in [place], [place] [address] [place] [address] Annie Lamas O.D. [address] [place] [phone] Scheduled Referrals Name Type Priority Associated Diagnoses Orde r Schedule Sleep Medicine office visit (clinic) Outpatient Referral Routine Expected: 05/21/2023 (Approximate), Expires: 07/29/2024 documented as of this encounter Visit Diagnoses Diagnosis Obstructive Sleep Apnea Adult- Primary Snoring Chronic Insomnia Disorder Bipolar Disorder Current Episode Mixed Mild (HCC) Insomnia Mental Disorder Related Stenosis Nasal Valve Obstruction Nasal Cannabis Use Unspecified Uncomplicated documented in this encounter Care Teams Consulting Manager Relationship Specialty Start Date End Date Elsewhere, Pcp PCP - General Family Medicine 08/21/17 documented as of this encounter
--- OUTSIDE RECORDS SUMMARY | 2023-07-22 08:10 | XMS_ITS | Referral Summary ---
Author Name Unknown Organization [facility] Address [address] [place] [address] Care Team Providers Care Deicer Inspector Pneumatic Name Role Phone Elsewhere, Pcp Primary Care Provider Unavailabl e Source Comments Patient records contain information from all sites at [facility]. For routine questions regarding patient records, call [phone] during business hours, M-F 8:00 AM - 5:00 PM Central Time. Record requests for emergency care only can be directed to [phone] at any time.[facility] Encounters Date Type Department Care Team Description 07/18/2023 [facility] [address] [place] [address] Steven Olivares M.D. Family History Of Malignant Neoplasm Of Trachea Bronchus And Lung (Primary Dx); Loss Weight Abnormal 06/17/2023 11:30 AM DIRECT SUPPORT PROFESSIONAL CAREGIVER Office Visit Department of Urology in [place], [place] [address] [place] [phone] Kristal Leon APRN, C.N.P. Prostatitis Chronic (Primary Dx); Pain Pelvic Male 06/17/2023 Clinical Communication Department of Urology in [place], [place] [address] [place] [address] Kristal Leon APRN, C.N.P. 06/06/2023 11:00 AM DIRECT SUPPORT PROFESSIONAL CAREGIVER [facility] in [place], [place] [address] [place] [address] Eagle Bee III, M.D. Obstructive Sleep Apnea Adult (Primary Dx); Insomnia Mental Disorder Related; Stenosis Nasal Valve; Chronic Insomnia Disorder; Bipolar Disorder Current Episode Mixed Mild (HCC); Obstruction Nasal; Cannabis Use Unspecified Uncomplicated 04/30/2023 9:00 AM [facility] Telemedicine [facility] in [place], [place] [address] [place] [address] Eagle Bee III, M.D. Obstructive Sleep Apnea Adult (Primary Dx); Snoring; Chronic Insomnia Disorder; Bipolar Disorder Current Episode Mixed Mild (HCC); Insomnia Mental Disorder Related; Stenosis Nasal Valve; Obstruction Nasal; Cannabis Use Unspecified Uncomplicated 04/22/2023 7:30 AM DIRECT SUPPORT PROFESSIONAL CAREGIVER - 04/25/2023 11:59 PM [facility] Hospital Encounter [facility] in [place], [place] [address] [place] [address] Eagle Bee III, M.D. Discharge Disposition: Home or Self Care from Last 3 Months Allergies Active Allergy Reactions Criticality Noted Date Comments Levofloxacin Other (see comments) 10/15/2016 leg pain, panic attack Milk Other (see comments) 12/21/2016 showed on blood allergy testing Pollen Extracts Other (see comments) 10/15/2016 Medications Medication Sig Dispensed Refills Start Date End Date Status tretinoin (RETIN-A) 0.05 % creamIndications:Pr uritus,Acne Vulgaris Apply 1 application topically at bedtime. Apply to face. 45 g 11 11/08/2020 Active multivitamin/iron/f olic acid (CENTRUM ORAL) 0 12/28/2019 Active triamcinolone (KENALOG) 0.1 % creamIndications:De rmatitis Apply 1 application topically 2 (two) times a day. Apply to affected areas 2 times a day as needed after Clobetasol treatment. 45 g 11 05/22/2021 Active Additional Information Patient not taking.Reported on 06/17/2023 oxymetazoline (Rhofade) 1 % cream creamIndications:Ro sacea Apply 1 application topically daily. Apply to face for rosacea. 30 g 3 05/22/2021 Active zolpidem (AMBIEN) 5 mg tablet Takes 5 mg sometimes, other times 10 mg. 0 04/10/2022 Active clobetasoL (TEMOVATE) 0.05 % ointment Apply 1 application topically 2 (two) times a day. Apply to areas of eczema as needed/ 0 Active doxycycline hyclate (VIBRAMYCIN) 100 mg capsule Take 100 mg by mouth 2 (two) times a day. for 7 days 0 10/28/2022 Active gabapentin (NEURONTIN) 300 mg capsule Take 300 mg by mouth 3 (three) times a day. 0 11/19/2022 Active buPROPion XL (WELLBUTRIN XL) 150 mg 24 hr tablet Take 1 tablet (150 mg total) by mouth every morning. 90 tablet 0 09/18/2022 Active QUEtiapine (SEROquel) 200 mg tablet Take 1 tablet (200 mg total) by mouth at bedtime. 90 tablet 0 12/17/2022 Active lamoTRIgine (LaMICtaL) 200 mg tablet Take 1 tablet (200 mg total) by mouth 2 (two) times a day. 60 tablet 2 10/08/2022 Active latanoprost (XALATAN) 0.005 % ophthalmic solution INSTILL 1 DROP IN BOTH EYES AT BEDTIME 10 mL 3 01/21/2023 Active clindamycin-benzoyl peroxide (BENZACLIN) 1-5 % gelIndications:Acne Vulgaris APPLY TOPICALLY TO FACE DAILY 50 g 11 01/28/2023 Active fluticasone propionate (FLONASE) 50 mcg/actuation nasal spray Administer 2 sprays into each nostril daily. Prior to sleep 0 Active DME CPAPIndications:Obs tructive Sleep Apnea Adult,Insomnia Mental Disorder Related,Stenosis Nasal Valve,Chronic Insomnia Disorder,Bipolar Disorder Current Episode Mixed Mild (HCC),Cannabis Use Unspecified Uncomplicated DME Order 1 each 0 06/06/2023 Active Additional Information Patient not taking.Reported on 06/17/2023 clindamycin phos/benzoyl perox (CLINDAMYCIN-BENZOY L PEROXIDE TOP) Apply topically. 0 11/19/2022 Act ky QUEtiapine (SEROquel) 100 mg tablet Take 100 mg by mouth at bedtime. 0 Active sulfamethoxazole-tr imethoprim (BACTRIM DS) 800-160 mg per tablet Take 1 tablet by mouth every 12 (twelve) hours for 21 days. 42 tablet 0 06/17/2023 07/08/2023 Active Problems Problem Noted Date Diagnosed Date Obstructive Sleep Apnea Adult 04/30/2023 Snoring 03/26/2023 Insomnia Mental Disorder Related 03/26/2023 Chronic Insomnia Disorder 03/26/2023 Bipolar Disorder Current Episode Mixed Mild 03/15 Pain Shoulder Left 03/26/2023 Cannabis Use Unspecified Uncomplicated Obstruction Nasal 12/26/2017 Overview: Added automatically from request for surgery [id number] Tendonitis Ankle Left 10/14/2017 Prostatitis Chronic 10/14/2017 Pain Shoulder 10/08/2016 Social History Tobacco Use Types Packs/Day Years Used Date Smoking Tobacco: Former Cigarettes 0 04/15/2002 - 04/15/2009 Smokeless Tobacco: Never Tobacco Cessation:Counseling Given: Not Answered Alcohol Use Standard Drinks/Week Comments Yes 0 (1 standard drink = 0.6 oz pur e alcohol) once a month [facility] [employer] Answer Date Recorded In the past 12 months has e [employer], gas, oil, or water [employer] threatened to shut off services in your [...] 06/09/2022 How often do you attend [facility] or hoahaoism services? Never 06/09/2022 Do you belong to any clubs o r organizations such as religious groups, unions, fraternal or athletic groups, or [...] and heating? Not hard at all 06/09/2022 [facility] - Occupational Stress Questionnaire Answer Date Recorded [...] your living situation today? I have a [facility] place to live 06/17/2023 Education Answer Date Recorded What is the highest level of school you have completed or the highest degree you have received? Bachelor's degree (e.g., BA, AB, BS) 02/18/2019 Sex and Gender Information Value Date Recorded Sex Assigned at Male 06/23/2017 6:13 PM CDT Gender Identity Male 06/23/2017 6:13 PM CDT Sexual Orientation Straight 06/23/2017 6: 13 PM CDT Last Filed Vital Signs Vital Sign Reading Time Taken Comments Blood Pressure 126/70 03/26/2023 2:10 PM DIRECT SUPPORT PROFESSIONAL CAREGIVER Pulse 66 03/26/2023 2:10 PM DIRECT SUPPORT PROFESSIONAL CAREGIVER Temperature 36.1 ??C (97 ??F) 12/28/2020 2:47 PM CDT Respiratory Rate 15 07/04/2020 1:45 PM CDT Oxygen Saturation 95% 07/04/2020 1:45 PM CDT Inhaled Oxygen Concentration - - Weight 95.6 kg (210 lb 12.2 oz) 03/26/2023 2:10 PM DIRECT SUPPORT PROFESSIONAL CAREGIVER Height 182.1 cm (5' 11.69) 03/26/2023 2:[address] Body Mass Index 28.83 03/26/2023 2:10 PM DIRECT SUPPORT PROFESSIONAL CAREGIVER Plan of Treatment Upcoming Encounters Date Type Department Care Team (Latest Contact Info) Description 07/29/2023 9:00 AM CDT Clinical Communication Virtual Review in [place], [place] [address] [place], [place] [phone] 07/31/2023 7:30 AM CDT Ancillary Procedure Department of Ophthalmology in [place], [place] [address] [place] [phone] Annei Lamas O.D. [address] [place] [phone] 07/31/2023 8:00 AM CDT Ancillary Procedure Department of Ophthalmology in [place], [place] [address] [place] [phone] Annie Lamas O.D. [address] [place] [phone] 07/31/2023 8:30 AM CDT Ancillary Procedure Department of Ophthalmology in [place], [place] [address] [place] [phone] Annie Lamas O.D. [address] [place] [phone] 07/31/2023 9:00 AM CDT Office Visit Department of Ophthalmology in [place], [place] [address] [place] [phone] Annie Lamas O.D. [address] [place] [phone] Procedures Procedure Name Priority Date/Time Associated Diagnosis Comments IA HOME SLEEP TEST TYPE KEYANNA 4 Routine 04/22/2023 7:33 AM DIRECT SUPPORT PROFESSIONAL CAREGIVER Snoring from Last 3 Months Results * Home sleep apnea test (HSAT) (04/22/2023 7:33 AM DIRECT SUPPORT PROFESSIONAL CAREGIVER) Narrative ONBASE - 04/23/2023 9:11 AM DIRECT SUPPORT PROFESSIONAL CAREGIVER SUMMARY: Home sleep apnea test was performed utilizing the NichePAT device. The device recorded a total sleep [...] M.D. SLEEP KERRY TER ORDERABLES ONBASE NA from Last 3 Months Care Teams Deicer Inspector Pneumatic Relationship Specialty Start Date End Date Elsewhere, Pcp PCP - General Family Medicine 08/21/17
--- OUTSIDE RECORDS SUMMARY | 2023-07-22 08:10 | XMS_ITS | Encounter Summary ---
Author Name Unknown Organization [facility] Address [address] [place] [address] Care Team Providers Care Product Planner Name Role Phone Elsewhere, Pcp Primary Care Provider Unavailabl e Encounter Details Date Type Department Care Team (Late st Contact Info) Description 10/29/2017 [facility] [address] [place] [address] Steven Olivares M.D. [address], [place] [address] Tendonitis Ankle Left (Primary Dx) Social History Tobacco Use Types Packs/Day Years Used Date Smoking Tobacco: Former Smokeless Tobacco: Never Alcohol Use Standard Drinks/Week Comments Yes 0 (1 standard drink = 0.6 oz pur e alcohol) once a month Sex and Gender Information Value [...] Virtual Review in [place], [place] [address] [place] [address] 07/31/2023 7:30 AM CDT Ancillary Procedure Department of Ophthalmology in [place], [place] [address] [place] [phone] Annie Lamas O.D. [address] [place] [phone] 07/31/2023 8:00 AM CDT Ancillary Procedure Department of Ophthalmology in [place], [place] [address] [place] [phone] Annie Lamas O.D. [address] [place] [phone] 07/31/2023 8:30 AM CDT Ancillary Procedure Department of Ophthalmology in [place], [place] [address] [place] [phone] Annie Lamas O.D. [address] [place] [phone] 07/31/2023 9:00 AM CDT Office Visit Department of Ophthalmology in [place], [place] [address] [place] [phone] Annie Lamas O.D. [address] [place] [phone] documented as of this encounter Visit Diagnoses Diagnosis Tendonitis Ankle Left- Primary documented in this encounter Care Teams Product Planner Relationship Specialty Start Date End Date Elsewhere, Pcp PCP - General Family Medicine 08/21/17 documented as of this encounter
--- OUTSIDE RECORDS SUMMARY | 2023-07-22 08:10 | XMS_ITS ---
Author Name Unknown Organization [facility] Address [address] [place] [address] Care Team Providers Care Solder Making Laborer Name Role Phone Unavailable Unavailable Unavailable Surgery Details Not on file Complications Check Surgery Details section. Procedure Estimated Blood Loss Check Surgery Details section. Procedure Findings Check Surgery Details section. Procedure Specimens Taken Check Surgery Details section.
--- OUTSIDE RECORDS SUMMARY | 2023-07-22 08:10 | XMS_ITS | Encounter Summary ---
Author Name Unknown Organization [facility] Address [address] [place] [address] Care Team Providers Care Ultrasound Tech Name Role Phone Elsewhere, Pcp Primary Care Provider Unavailabl e Reason for Referral * Outpatient (Routine) - Closed Specialty Diagnoses / Procedures Referred By Contac t Referred To Contact Otorhinolaryngology Diagnoses Obstructive Sleep Apnea Adult Snoring Congestion Nasal Kelby Fuentes M.D. [address] [place] [address] [facility] Referral ID Status Reason Start Date Expiration Date Visits Re quested Visits Authorized [id number] Closed 12/19/2017 12/19/2018 1 1 Encounter Details Date Type Department Care Team (Late st Contact Info) Description 12/18/2017 [facility] [address] [place] [address] Kelby Fuentes M.D. [address] [place] [address] Obstructive Sleep Apnea Adult (Primary Dx); Snoring; Congestion Nasal Social History Tobacco Use Types Packs/Day Years [...] AM CDT Clinical Communication Virtual Review in [address] [address] 07/31/2023 7:30 AM CDT Ancillary Procedure Department of Ophthalmology in [address] [phone] Annie Lamas O.D. [address] [place] [phone] 07/31/2023 8:00 AM CDT Ancillary Procedure Department of Ophthalmology in [address] [phone] Annie Lamas O.D. [address] [place] [phone] 07/31/2023 8:30 AM CDT Ancillary Procedure Department of Ophthalmology in [address] [phone] Annie Lamas O.D. [address] [place] [phone] 07/31/2023 9:00 AM CDT Office Visit Department of Ophthalmology in [address] [phone] Annie Lamas O.D. [address] [place] [phone] Scheduled Referrals Name Type Priority Associated Diagnoses Order Schedule Otolaryngology Referral Outpatient Referral Routine Obstructive Sleep Apnea Adult Snoring Congestion Nasal Expected: 12/19/2017 (Approximate), Expires: 12/19/2020 documented as of this encounter Visit Diagnoses Diagnosis Obstructive Sleep Apnea Adult- Primary Snoring Congestion Nasal documented in this encounter Care Teams Ultrasound Tech Relationship Specialty Start Date End Date Elsewhere, Pcp PCP - General Family Medicine 08/21/17 documented as of this encounter
--- OUTSIDE RECORDS SUMMARY | 2023-07-22 08:10 | XMS_ITS | Encounter Summary ---
Author Name Unknown Organization [facility] Address [address] [place] [address] Care Team Providers Care Environmental Health Specialist Name Role Phone Elsewhere, Pcp Primary Care Provider Unavailabl e Encounter Details Date Type Department Care Team (Late st Contact Info) Description 07/18/2023 [facility] [address] [place] [address] Steven Olivares M.D. [address], [place] [phone] Family History Of Malignant Neoplasm Of Trachea Bronchus And Lung (Primary Dx); Loss Weight Abnormal Social History Tobacco Use Types Packs/Day Years Used Date Smoking Tobacco: Former Cigarettes 0 04/15/2002 - 04/15/2009 Smokeless Tobacco: Never Alcohol Use Standard Drinks/Week Comments Yes 0 (1 standard drink = 0.6 oz pur e alcohol) once a month [facility] Utilities Answer Date Recorded In the past 12 months has e [employer], gas, oil, or water [employer] threatened to shut off services in your [...] 06/09/2022 How often do you attend chur ch or sikh services? Never 06/09/2022 Do you belong to any clubs o r organizations such as protestant groups, unions, fraternal or athletic groups, or [...] Not hard at all 06/09/2022 [facility] [place] of Occupat ional Health - Occupational Stress [...] have a [facility] place to live 06/17/2023 Education Answer Date [...] AM CDT Clinical Communication Virtual Review in [place], [place] [address] [place] [address] 07/31/2023 7:30 AM CDT Ancillary Procedure Department of Ophthalmology in [place], [place] [address] [place] [phone] Annie Lamas O.D. [address] [place] [phone] 07/31/2023 8:00 AM CDT Ancillary Procedure Department of Ophthalmology in [place], [place] [address] [place] [address] Annie Lamas O.D. [address] [place] [phone] 07/31/2023 8:30 AM CDT Ancillary Procedure Department of Ophthalmology in [place], [place] [address] [place] [phone] Annie Lamas O.D. [address] [place] [phone] 07/31/2023 9:00 AM CDT Office Visit Department of Ophthalmology in [place], [place] [address] [place] [phone] Annie Lamas O.D. [address] [place] [phone] documented as of this encounter Visit Diagnoses Diagnosis Family History Of Malignant Neoplasm Of Trachea Bronchus And Lung- Primary Loss Weight Abnormal documented in this encounter Care Teams Environmental Health Specialist Relationship Specialty Start Date End Date Elsewhere, Pcp PCP - General Family Medicine 08/21/17 documented as of this encounter
--- OUTSIDE RECORDS SUMMARY | 2023-07-22 08:10 | XMS_ITS | Clinical Summary ---
Author Name Unknown Organization [facility] Address [address] [place] [address] Care Team Providers Care Physical Education Professor Name Role Phone Elsewhere, Pcp Primary Care Provider Unavailabl e Source Comments Patient records contain information from all sites at [facility]. For routine questions regarding patient records, call [phone] during business hours, M-F 8:00 AM - 5:00 PM Central Time. Record requests for emergency care only can be directed to [phone] at any time.[facility] Allergies Active Allergy Reactions Criticality Noted Date [...] Overview: Added automatically from request for surgery [id number] Tendonitis Ankle Left 10/14/2017 Prostatitis Chronic 10/14/2017 Pain Shoulder 10/08/2016 Encounters Date Type Department Care Team Description 07/18/2023 [facility] [address] [place] [address] Steven Olivares M.D. Family History Of Malignant Neoplasm Of Trachea Bronchus And Lung (Primary Dx); Loss Weight Abnormal 06/17/2023 11:30 AM HAT MODEL Office Visit Department of Urology in [place], [place] [address] [place] [address] Kristal Leon APRN, C.N.P. Prostatitis Chronic (Primary Dx); Pain Pelvic Male 06/17/2023 Clinical Communication Department of Urology in [place], [place] [address] [address] Kristal Leon APRN, C.N.P. 06/06/2023 11:00 AM HAT MODEL [facility] in [place], [place] [address] [place] [phone] Eagle Bee III, M.D. Obstructive Sleep Apnea Adult (Primary Dx); Insomnia Mental Disorder Related; Stenosis Nasal Valve; Chronic Insomnia Disorder; Bipolar Disorder Current Episode Mixed Mild (HCC); Obstruction Nasal; Cannabis Use Unspecified Uncomplicated 04/30/2023 9:00 AM [facility] in [place], [place] [address] [place] [phone] Eagle Bee III, M.D. Obstructive Sleep Apnea Adult (Primary Dx); Snoring; Chronic Insomnia Disorder; Bipolar Disorder Current Episode Mixed Mild (HCC); Insomnia Mental Disorder Related; Stenosis Nasal Valve; Obstruction Nasal; Cannabis Use Unspecified Uncomplicated 04/22/2023 7:30 AM HAT MODEL - 04/25/2023 11:59 PM [facility] Hospital Encounter [facility] in [place], [place] [address] [place] [address] Eagle Bee III, M.D. Discharge Disposition: Home or Self Care from Last 3 Months Family History Medical History Relation Name Comments Leukemia Father Mickey Carrero can't remember the type, is curable with expensive pills, not severe Lung cancer Father Mickey Carrero Skin cancer Father Mickey Carrero Suicide Attempts Maternal Grandfather laws Hypertension Mother Jeannette Carrero Lung cancer Mother Jeannette Carrero Skin cancer Mother Jeannette Carrero Coronary artery disease Mother's Brother 1 braulio Coronary artery disease Mother's Brother 2 joesph Coronary artery disease Mother's Sister 1 jaunita Diabetes Mother's Sister 2 lori Suicide Attempts Mother's Sister 3 betsy Lung cancer Paternal Grandfather Reagan Carrero Dementia Paternal Grandmother yash carrero Relation Name Status Comments Father Mickey Carrero Maternal Grandfather laws Mother Jeannette Carrero Mother's Brother 1 braulio Mother's Brother 2 joesph Mother's Sister 1 jaunita Mother's Sister 2 lori Mother's Sister 3 betsy Paternal Grandfather Reagan Carrero Paternal Grandmother yash carrero Social History Tobacco Use Types Packs/Day Years Used Date Smoking Tobacco: Former Cigarettes 0 04/15/2002 - 04/15/2009 Smokeless Tobacco: Never Tobacco Cessation:Counseling Given: Not Answered Alcohol Use Standard Drinks/Week Comments Yes 0 (1 standard drink = 0.6 oz pur e alcohol) once a month [facility] Utilities Answer Date Recorded In the past 12 months has e [employer], gas, oil, or water [employer] threatened to shut off services in your [...] How often do you attend chur or yazidi services? Never 06/09/2022 Do you belong to any clubs o r organizations such as anabaptism groups, unions, fraternal or athletic groups, or [...] and heating? Not hard at all 06/09/2022 [facility] of Occupat ional Health - Occupational Stress [...] your living situation today? [facility] 06/17/2023 Education Answer [...] Comments Blood Pressure 126/70 03/26/2023 2:10 PM HAT MODEL Pulse 66 03/26/2023 2:10 PM HAT MODEL Temperature 36.1 ??C (97 ??F) 12/28/2020 2:47 PM CDT Respiratory Rate 15 07/04/2020 1:45 PM CDT Oxygen Saturation 95% 07/04/2020 1:45 PM CDT Inhaled Oxygen Concentration - - Weight 95.6 kg (210 lb 12.2 oz) 03/26/2023 2:10 PM HAT MODEL Height 182.1 cm (5' 11.69) 03/26/2023 2:10 PM C Body Mass Index 28.83 03/26/2023 2:10 PM HAT MODEL Plan of Treatment Upcoming Encounters Date Type Department Care Team (Latest Contact Info) Description 07/29/2023 9:00 AM CDT Clinical Communication Virtual Review in [place], [place] 200 [place] [address] 07/31/2023 7:30 AM CDT Ancillary Procedure Department of Ophthalmology in [address] [phone] Annie Lamas O.D. [address] [place] [phone] 07/31/2023 8:00 AM CDT Ancillary Procedure Department of Ophthalmology in [address] [phone] Annie Lamas O.D. [address] [place] [phone] 07/31/2023 8:30 AM CDT Ancillary Procedure Department of Ophthalmology in [address] [phone] Annie Lamas O.D. [address] [place] [phone] 07/31/2023 9:00 AM CDT Office Visit Department of Ophthalmology in [address] [phone] Annie Lamas O.D. [address] [place] [phone] Health Maintenance Due Date Last Done Comments CT Colonography 1973 Cologuard 1975 FIT 1973 Lipid (Cholesterol) Screening 1973 Hepatitis A Vaccines (1 of 2 - Risk 2-dose series) 1992 Hepatitis B Vaccines (1 of 3 - 19+ 3-dose series) 1992 Depression Screening (Annual PHQ-2) 04/15/2023 Fasting Glucose for Diabetes Screening 11/09/2023 11/08/2020 DTaP,Tdap,and Td Vaccines (2 - Td or Tdap) 11/13/2025 11/14/2015 Colonoscopy 07/04/2030 07/04/2020, 07/04/2020 Colorectal Cancer Screening 07/04/2030 HIV Screening Completed 11/08/2020 COVID-19 Vaccine Completed 01/08/2023, , 07/13/2021, Additional history exists Influenza Vaccine Completed 01/08/2023, , 01/01/2022, Additional history exists Pneumococcal vaccine (0-64 years) Aged Out No longer eligible based on patient's age to complete this topic Procedures Procedure Name Priority Date/Time Associated Diagnosis Comments DC HOME SLEEP TEST TYPE KEYANNA 4 Routine 04/22/2023 7:33 AM HAT MODEL Snoring from Last 3 Months Results * Home sleep apnea test (HSAT) (04/22/2023 7:33 AM HAT MODEL) Narrative ONBASE - 04/23/2023 9:11 AM HAT MODEL SUMMARY: Home sleep apnea test was performed [...] NA from Last 3 Months Care Teams Physical Education Professor Relationship Specialty Start Date End Date Elsewhere, Pcp PCP - General Family Medicine 08/21/17
--- OUTSIDE RECORDS SUMMARY | 2023-07-22 08:10 | XMS_ITS | Encounter Summary ---
Author Name Unknown Organization [facility] Address [address] [place] [address] Care Team Providers Care Jewelry Sales Name Role Phone Elsewhere, Pcp Primary Care Provider Unavailabl e Reason for Visit * Outpatient (Routine) - Closed Specialty Diagnoses / Procedures Referred By Contac t Referred To Contact Diagnoses Snoring Procedures Home sleep apnea test (HSAT) Eagle Bee III, M.D. [address] [place] [phone] [facility] Referral ID Status Reason Start Date Expiration Date Visits Re quested Visits Authorized [id number] Closed 03/26/2023 03/25/2024 1 1 Encounter Details Date Type Department Care Team (Latest Contact Info) Description 04/22/2023 7:30 AM FISH LIVER SORTER - 04/25/2023 11:[address] [facility] Hospital En[facility] in [place], [place] [address] [place] [phone] Eagle Bee III, M.D. [address] [place] [phone] Discharge Disposition: Home or Self Care Social [...] How often do you attend chur or catholic services? Never 06/09/2022 Do you belong to [...] and heating? Not hard at all 06/09/2022 [facility] of Occupat ional Health - Occupational Stress [...] money to buy more. Never true 06/09/19 Within the past 12 months, t he [...] place to sleep or slept in a prison (including now)? No 06/09/2022 Nutrition Answer Date [...] 0 12/28/2019 oxymetazoline (Rhofade) 1 % cream creamIndications:Farida cea Apply 1 application topically daily. Apply [...] tablet 5 tablets once daily 0 05/08/2022 024 QUEtiapine (SEROquel) 50 mg tablet Take 1 tablet (50 mg total) by mouth at bedtime as needed. 90 tablet 0 09/18/2022 06/17/2023 documented as of this encounter Plan of Treatment Upcoming Encounters Date Type Department Care Team (Latest Contact Info) Description 07/29/2023 9:00 AM CDT Clinical Communication Virtual Review in [place], [place] 200 [place] [address] 07/31/2023 7:30 AM CDT Ancillary Procedure Department of Ophthalmology in [address] [phone] Annie Lamas O.D. [address] [place] [phone] 07/31/2023 8:00 AM CDT Ancillary Procedure Department of Ophthalmology in [address] [phone] Annie Lamas O.D. [address] [place] [phone] 07/31/2023 8:30 AM CDT Ancillary Procedure Department of Ophthalmology in [address] [phone] Annie Lamas O.D. [address] [place] [address] 07/31/2023 9:00 AM CDT Office Visit Department of Ophthalmology in [place], [place] [address] [place] [address] Annie Lamas O.D. [address] [place] [address] documented as of this encounter Procedures Procedure Name Priority Date/Time Associated Diagnosis Comments NE HOME SLEEP TEST TYPE KEYANNA 4 Routine 04/22/2023 7:33 AM FISH LIVER SORTER Snoring documented in this encounter Results * Home sleep apnea test (HSAT) (04/22/2023 7:33 AM FISH LIVER SORTER) Narrative ONBASE - 04/23/2023 9:11 AM FISH LIVER SORTER SUMMARY: Home sleep apnea test was performed [...] NA documented in this encounter Visit Diagnoses Not on filedocumented in this encounter Care Teams Jewelry Sales Relationship Specialty Start Date End Date Elsewhere, Pcp PCP - General Family Medicine 08/21/17 documented as of this encounter
--- OUTSIDE RECORDS SUMMARY | 2023-07-22 08:10 | XMS_ITS | Encounter Summary ---
Author Name Unknown Organization [facility] Address [address] [place] [address] Care Team Providers Care Commercial Lines Assistant Name Role Phone Elsewhere, Pcp Primary Care Provider Unavailabl e Encounter Details Date Type Department Care Team (Late st Contact Info) Description 06/17/2023 Clinical Communication Department of Urology in [place], [place] [address] [phone] Kristal Leon, JD, C.N.P. [address] [place] [address] [phone] Social History Tobacco Use Types Packs/Day Years Used Date Smoking Tobacco: Former Cigarettes 0 04/15/2002 - 04/15/2009 Smokeless Tobacco: Never Alcohol Use Standard Drinks/Week Comments Yes 0 (1 standard drink = 0.6 oz pur e alcohol) once a month [facility] Utilities Answer Date Recorded In the past 12 months has [employer], gas, oil, or water [employer] threatened to shut off services in your [...] often do you attend chur ch or nondenominational services? Never 06/09/2022 Do you belong to any clubs o r organizations such as episcopalian groups, unions, fraternal or athletic groups, or [...] and heating? Not hard at all 06/09/2022 [facility] [place] of Occupat ional Health - Occupational Stress [...] your living situation today? I have a [facility] place to live 06/17/2023 Education Answer [...] AM CDT Clinical Communication Virtual Review in [place], [place] [address] [place] [address] 07/31/2023 7:30 AM CDT Ancillary Procedure Department of Ophthalmology in [place], [place] [address] [place] [phone] Annie Lamas O.D. [address] [place] [phone] 07/31/2023 8:00 AM CDT Ancillary Procedure Department of Ophthalmology in [place], [place] [address] [place] [address] Annie Lamas O.D. [address] [place] [phone] 07/31/2023 8:30 AM CDT Ancillary Procedure Department of Ophthalmology in [place], [place] [address] [place] [phone] Annie Lamas O.D. [address] [place] [phone] 07/31/2023 9:00 AM CDT Office Visit Department of Ophthalmology in [place], [place] [address] [place] [phone] Annie Lamas O.D. [address] [place] [phone] documented as of this encounter Visit Diagnoses Not on filedocumented in this encounter Care Teams Commercial Lines Assistant Relationship Specialty Start Date End Date Elsewhere, Pcp PCP - General Family Medicine 08/21/17 documented as of this encounter
== END 2023-07-22 08:06 | disposition home or self-care (01) ==
PROVIDERS: PCP Family Medicine; Visit Provider Family Medicine
DX: R63.4 Abnormal weight loss (principal); J98.11 Atelectasis; Z80.1 Family history of malignant neoplasm of trachea, bronchus and lung
CPT/HCPCS: 71260; Q9967

== ENCOUNTER 2023-08-01 12:04 | Outpatient (CLI) | payer OTHER, SELFPAY ==
--- NOTE | 2023-08-01 12:00 | NM_ITS ---
Patient: CHRIS Aleman [facility] Facility:?[facility] Patient ID:?[id number] Site Patient ID:?[id number]. Site :?1975 Study:?NM-Gallbladder Procedure ZOË martinez/ GBEF-08/01/2023 2:53:30 PM Ordering Physician:WEN CHAVEZ Final Report: Indication: Right upper quadrant pain Technique: Nuclear medicine hepatobiliary scan with gallbladder ejection fraction per protocol after the intravenous administration of 5.2 millicuries technetium 99 M Mebrofenin and 1.9 micrograms of Kinevac. No symptoms with CCK. Comparison: CT abdomen and pelvis June 20, 2023 Findings: Normal hepatic extraction and excretion of the radiopharmaceutical is present. There is prompt visualization of the common bile duct followed by the gallbladder and then the small-bowel. Visually there is decreased contractility of the gallbladder. Calculated gallbladder ejection fraction is 18 percent. Impression: Gallbladder dysfunction. Dictated by Malik Cunningham MD @ 08/01/2023 5:17:38 PM Signed by:?Malik Cunningham MD @08/01/2023 5:17:38 PM (Electronic Signature)
--- OUTSIDE RECORDS SUMMARY | 2023-08-01 12:07 | XMS_ITS | Clinical Summary ---
Author Name Unknown Organization [facility] Address [address] [place] [address] Care Team Providers Care Cage/Vault Supervisor Name Role Phone Elsewhere, Pcp Primary Care Provider Unavailabl e Source Comments Patient records contain information from all sites at [facility]. For routine questions regarding patient records, call [phone] during business hours, M-F 8:00 AM - 5:00 PM Central Time. Record requests for emergency care only can be directed to [phone] at any time.[facility] Allergies Active Allergy Reactions Criticality Noted [...] 11/08/2020 Active multivitamin/iron/f olic acid (CENTRUM ORAL) 12/28/2019 Active triamcinolone (KENALOG) 0.1 % creamIndications:De [...] 5 mg sometimes, other times 10 mg. 04/10/2022 Active clobetasoL (TEMOVATE) 0.05 % ointment Apply 1 application topically 2 (two) times a day. Apply to areas of eczema as needed/ Active doxycycline hyclate (VIBRAMYCIN) 100 mg capsule Take 100 mg by mouth 2 (two) times a day. for 7 days 10/28/2022 Active gabapentin (NEURONTIN) 300 mg capsule Take 300 mg by mouth 3 (three) times a day. 11/19/2022 Active buPROPion XL (WELLBUTRIN XL) 150 mg 24 hr tablet Take 1 tablet (150 mg total) by mouth every morning. 90 tablet 09/18/2022 Active QUEtiapine (SEROquel) 200 mg tablet Take 1 tablet (200 mg total) by mouth at bedtime. 90 tablet 12/17/2022 Active lamoTRIgine (LaMICtaL) 200 mg tablet [...] into each nostril daily. Prior to sleep Active DME CPAPIndications:Obs tructive Sleep Apnea Adult,Insomnia Mental Disorder Related,Stenosis Nasal Valve,Chronic Insomnia Disorder,Bipolar Disorder Current Episode Mixed Mild (HCC),Cannabis Use Unspecified Uncomplicated DME Order 1 each 06/06/2023 Active Additional Information Patient not taking.Reported on 06/17/2023 clindamycin phos/benzoyl perox (CLINDAMYCIN-BENZOY L PEROXIDE TOP) Apply topically. 11/19/2022 Act ky QUEtiapine (SEROquel) 100 mg tablet Take 100 mg by mouth at bedtime. Active sulfamethoxazole-tr imethoprim (BACTRIM DS) 800-160 mg per tablet Take 1 tablet by mouth every 12 (twelve) hours for 21 days. 42 tablet 06/17/2023 07/08/2023 Active Problems Problem Noted Date Diagnosed Date Obstructive Sleep Apnea Adult 04/30/2023 Snoring 03/26/2023 Insomnia Mental Disorder Related 03/26/2023 Chronic Insomnia Disorder 03/26/2023 Bipolar Disorder Current Episode Mixed Mild 03/15 Pain Shoulder Left 03/26/2023 Cannabis Use Unspecified Uncomplicated Obstruction Nasal 12/26/2017 Overview: Added automatically from request for surgery [id number] Tendonitis Ankle Left 10/14/2017 Prostatitis Chronic 10/14/2017 Pain Shoulder 10/08/2016 Encounters Date Type Department Care Team Description 08/01/2023 Clinical Communication Department of Urology in [place], [place] [address] [place] [address] Kristal Leon APRN, C.N.P. Urgent Appt Request 07/18/2023 [facility] [address] [place] [address] Steven Olivares M.D. Family History Of Malignant Neoplasm Of Trachea Bronchus And Lung (Primary Dx); Loss Weight Abnormal 06/17/2023 11:30 AM INSIDE SALES DIRECTOR Office Visit Department of Urology in [place], [place] [address] [place] [address] Kristal Leon APRN, C.N.P. Prostatitis Chronic (Primary Dx); Pain Pelvic Male 06/17/2023 Clinical Communication Department of Urology in [place], [place] [address] [place] [address] Kristal Leon APRN, C.N.P. 06/06/2023 11:00 AM INSIDE SALES DIRECTOR [facility] in [place], [place] [address] [place] [address] Eagle Bee III, M.D. Obstructive Sleep Apnea Adult (Primary Dx); Insomnia Mental Disorder Related; Stenosis Nasal Valve; Chronic Insomnia Disorder; Bipolar Disorder Current Episode Mixed Mild (HCC); Obstruction Nasal; Cannabis Use Unspecified Uncomplicated from Last 3 Months Family History Medical [...] oz pur e alcohol) once a month [facility] Utilities Answer Date Recorded In the past 12 months has e [employer], gas, oil, or water [employer] threatened to shut off services in your [...] often do you attend chur ch or sabianism services? Never 06/09/2022 Do you belong to any clubs o r organizations such as caodaism groups, unions, fraternal or athletic groups, or [...] and heating? Not hard at all 06/09/2022 [facility] of Occupat ional Health - Occupational Stress [...] your living situation today? I have a [facility] place to live 06/17/2023 Education Answer [...] Comments Blood Pressure 126/70 03/26/2023 2:10 PM INSIDE SALES DIRECTOR Pulse 66 03/26/2023 2:10 PM INSIDE SALES DIRECTOR Temperature 36.1 ??C (97 ??F) 12/28/2020 2:47 PM CDT Respiratory Rate 15 07/04/2020 1:45 PM CDT Oxygen Saturation 95% 07/04/2020 1:45 PM CDT Inhaled Oxygen Concentration - - Weight 95.6 kg (210 lb 12.2 oz) 03/26/2023 2:10 PM INSIDE SALES DIRECTOR Height 182.1 cm (5' 11.69) 03/26/2023 2:[address] Body Mass Index 28.83 03/26/2023 2:10 PM INSIDE SALES DIRECTOR Plan of Treatment Upcoming Encounters Date Type Department Care Team (Late st Contact Info) Description 09/02/2023 11:00 AM CDT Office Visit Department of Urology in [address] [phone] Kristal Leon APRN, C.N.P. [address] [place] [phone] Health Maintenance Due Date Last Done Comments [...] Procedure Name Priority Date/Time Associated Diagnosis Comments BASIC METABOLIC PANEL, S/P Routine 11/08/2020 11:55 AM CDT Pruritus HIV-1/-2 AG AND AB SCREEN, PLASMA Routine 11/08/2020 11:55 AM CDT Pruritus COLONOSCOPY Routine 07/04/2020 12:39 PM CDT Abdominal Pain Constipation from Last 3 Months or Most Recently Relevant to Health Maintenance Results * HIV-1/-2 Ag and Ab Screen, Plasma (11/08/2020 11:55 AM CDT) HIV-1/-2 Ag and Ab Screen, P Negative Negative 11/08/2020 4:24 PM CDT [facility] Comment: Negative result does not rule out HIV infection. If exposure to HIV infection occurred <14 days ago, contact the laboratory to request addition of HIV-1 RNA detection / quantification test (HIVQN). Blood (Blood, Venous) 11/08/2020 11:55 AM CDT 11/08/2020 3:50 PM CDT Sylvie Sidhu M.D. LAB MICROBIOLOGY - BLOOD ORDERABLES [facility] [address] [place] [address] [facility] Dept. of Laboratory Medicine and Pathology [address] [place] [address] * (ABNORMAL) Basic Metabolic Panel (11/08/2020 11:55 AM CDT) Potassium, S 4.3 3.6 - 5.2 mmol/L 11/08/2020 1:00 PM CDT DTL Sodium, S 147(H) 135 - 145 mmol/L 11/08/2020 1:00 PM CDT DTL Chloride, S 104 98 - 107 mmol/L 11/08/2020 1:00 PM CDT DTL Bicarbonate, S 30(H) 22 - 29 mmol/L 11/08/2020 1:00 PM CDT DTL Anion Gap 13 7 - 15 11/08/2020 1:00 PM CDT DTL BUN (Blood Urea Nitrogen), S 13 8 - 24 mg/dL 11/08/2020 1:00 PM CDT DTL Creatinine 0.99 0.74 - 1.35 mg/dL 11/08/2020 1:00 PM CDT DTL eGFR-Non Black/ >90 >=60 mL/min/BSA 11/08/2020 1:00 PM CDT DTL Comment: ----ADDITIONAL INFORMATION---- Estimated GFR calculated using the 2009 CKD_EPI creatinine equation. eGFR-Black/Afri can [place] >90 >=60 mL/min/BSA 11/08/2020 1:00 PM CDT DTL Comment: ----ADDITIONAL INFORMATION---- Estimated GFR calculated using the 2009 CKD_EPI creatinine equation. Calcium, Total, S 10.3(H) 8.6 - 10.0 mg/dL 11/08/2020 1:00 PM CDT DTL Glucose, S 96 70 - 140 mg/dL 11/08/2020 1:00 PM CDT DTL Blood (Blood, Venous) 11/08/2020 11:55 AM CDT 11/08/2020 12:11 PM CDT Sylvie Sidhu M.D. LAB BLOOD ADD-ON [facility] [address] [place] [address], [facility] [address] [place] [address] from Last 3 Months or Most Recently Relevant to Health Maintenance Care Teams Cage/Vault Supervisor Relationship Specialty Start Date End Date Elsewhere, Pcp PCP - General Family Medicine 08/21/17
--- OUTSIDE RECORDS SUMMARY | 2023-08-01 12:07 | XMS_ITS | Encounter Summary ---
Author Name Unknown Organization [facility] Address [address] [place] [address] Care Team Providers Care Player Development Executive Name Role Phone Elsewhere, Pcp Primary Care Provider Unavailabl e Reason for Referral * Outpatient (Routine) - Authorized Specialty Diagnoses / Procedures Referred By Beatrice boss Referred To Contact Sleep Eagle Ponce III, M.D. [address] [place] [phone] [facility] Referral ID Status Reason Start Date Expiration Date V isits Requested Visits Authorized [id number] Authorized 06/06/2023 12/05/2024 1 1 OMIZER Reason for Visit * Outpatient (Routine) - Closed Specialty Diagnoses / Procedures Referred By Beatrice boss Referred To Contact Sleep Eagle Ponce III, M.D. [address] [place] [phone] [facility] Referral ID Status Reason Start Date Expiration Date Visits Re quested Visits Authorized [id number] Closed 04/30/2023 04/29/2026 1 1 Encounter Details Date Type Department Care Team (Latest Contact Info) Description 06/06/2023 11:00 AM CUSTOMIZER [facility] in [place], [place] [address] [place] [address] Eagle Bee III, M.D. [address] [place] [phone] Obstructive Sleep Apnea Adult (Primary Dx); Insomnia [...] Never 06/09/2022 How often do you attend [facility] or shinto services? Never 06/09/2022 Do you belong to any clubs o r organizations such as confucianism groups, unions, fraternal or athletic groups, or [...] and heating? Not hard at all 06/09/2022 [facility] - Occupational Stress Questionnaire Answer Date Recorded [...] place to sleep or slept in a fpc (including now)? No 06/09/2022 Nutrition Answer Date [...] technology by Eagle Bee III, M.D. in [facility] to the patient in the patient's [...] new method for measuring daytime sleepiness: the [place] sleepiness scale. Sleep, 1991. 14(6): p. 540-5. [...] I urged him to allow us to executive business coach him during this initiation phase to achieve optimal outcome. He said he would like a another psychiatric opinion including I would only bipolar disorder but an obsessive disorder that is emerged for which he is aware that ERPT is the standard. His mother works at the [facility] at [facility] and he says his works at [employer] as well. He will get back to [...] face patient care. Eagle Bee III, M.D. OMIZER documented in this encounter Plan of Treatment Upcoming Encounters Date Type Department Care Team (Late st Contact Info) Description 09/02/2023 11:00 AM CDT Office Visit Department of Urology in [address] [phone] ZiKristal davis APRN, C.N.P. [address] [phone] Scheduled Referrals Name Type Priority Associated Diagnoses [...] Uncomplicated documented in this encounter Care Teams Player Development Executive Relationship Specialty Start Date End Date Elsewhere, Pcp PCP - General Family Medicine 08/21/17 documented as of this encounter
--- OUTSIDE RECORDS SUMMARY | 2023-08-01 12:07 | XMS_ITS | Encounter Summary ---
Author Name Unknown Organization [facility] Address [address] [place] [address] Care Team Providers Care Mosaicist Name Role Phone Elsewhere, Pcp Primary Care Provider Unavailabl e Reason for Referral * Outpatient (Routine) - Closed Specialty Diagnoses / Procedures Referred By Contac t Referred To Contact Otorhinolaryngology Diagnoses Obstructive Sleep Apnea Adult Snoring Congestion Nasal Kelby Fuentes M.D. [address] [place] [address] [facility] Referral ID Status Reason Start Date Expiration Date Visits Re quested Visits Authorized [id number] Closed 12/19/2017 12/19/2018 1 1 Encounter Details Date Type Department Care Team (Late st Contact Info) Description 12/18/2017 [facility] [address] [place] [address] Kelby Fuentes M.D. [address] [place] [address] Obstructive Sleep Apnea Adult (Primary [...] CDT Office Visit Department of Urology in [address] [phone] Kristal Leon, JD, C.N.P. [address] [phone] Scheduled Referrals Name Type Priority Associated Diagnoses Order Schedule Otolaryngology Referral Outpatient Referral Routine Obstructive Sleep Apnea Adult Snoring Congestion Nasal Expected: 12/19/2017 (Approximate), Expires: 12/19/2020 documented as of this encounter Visit Diagnoses Diagnosis Obstructive Sleep Apnea Adult- Primary Snoring Congestion Nasal documented in this encounter Care Teams Mosaicist Relationship Specialty Start Date End Date Elsewhere, Pcp PCP - General Family Medicine 08/21/17 documented as of this encounter
--- OUTSIDE RECORDS SUMMARY | 2023-08-01 12:07 | XMS_ITS | Referral Summary ---
Author Name Unknown Organization [facility] Address [address] [place] [address] Care Team Providers Care Bed And Breakfast Cook Name Role Phone Elsewhere, Pcp Primary Care Provider Unavailabl e Source Comments Patient records contain information from all sites at [facility]. For routine questions regarding patient records, call [phone] during business hours, M-F 8:00 AM - 5:00 PM Central Time. Record requests for emergency care only can be directed to [phone] at any time.[facility] Encounters Date Type Department Care Team Description 08/01/2023 Clinical Communication Department of Urology in [place], [place] [address] [place] [phone] Kristal Leon APRN, C.N.P. Urgent Appt Request 07/18/2023 [facility] [address] [place] [address] Steven Olivares M.D. Family History Of Malignant Neoplasm Of Trachea Bronchus And Lung (Primary Dx); Loss Weight Abnormal 06/17/2023 11:30 AM ENGLISH FACULTY MEMBER Office Visit Department of Urology in [place], [place] [address] [place] [phone] Kristal Leon APRN, C.N.P. Prostatitis Chronic (Primary Dx); Pain Pelvic Male 06/17/2023 Clinical Communication Department of Urology in [place], [place] [address] [place] [address] Kristal Leon APRN, COusmaneNOusmaneP. 06/06/2023 11:00 AM [facility] Tele[facility]icine Center for [facility] Medicine in [place], [place] [address] [place] [address] Eagle Bee III, M.D. Obstructive Sleep Apnea Adult (Primary Dx); Insomnia Mental Disorder Related; Stenosis Nasal Valve; Chronic Insomnia Disorder; Bipolar Disorder Current Episode Mixed Mild (HCC); Obstruction Nasal; Cannabis Use Unspecified Uncomplicated from Last 3 Months Allergies Active Allergy [...] Overview: Added automatically from request for surgery [id number] Tendonitis Ankle Left 10/14/2017 Prostatitis Chronic 10/14/2017 Pain Shoulder 10/08/2016 Social History Tobacco Use Types Packs/Day Years Used Date Smoking Tobacco: Former Cigarettes 0 04/15/2002 - 04/15/2009 Smokeless Tobacco: Never Tobacco Cessation:Counseling Given: Not Answered Alcohol Use Standard Drinks/Week Comments Yes 0 (1 standard drink = 0.6 oz pur e alcohol) once a month [facility] [employer] Answer Date Recorded In the past 12 months has e [employer], oil, or water [employer] threatened to shut off services in your [...] Never 06/09/2022 How often do you attend [facility] or taoist services? Never 06/09/2022 Do you belong to any clubs o r organizations such as amish groups, unions, fraternal or athletic groups, or [...] and heating? Not hard at all 06/09/2022 [facility] - Occupational Stress Questionnaire Answer [...] your living situation today? [facility] 06/17/2023 Education Answer Date [...] Comments Blood Pressure 126/70 03/26/2023 2:10 PM ENGLISH FACULTY MEMBER Pulse 66 03/26/2023 2:10 PM ENGLISH FACULTY MEMBER Temperature 36.1 ??C (97 ??F) 12/28/2020 2:47 PM CDT Respiratory Rate 15 07/04/2020 1:45 PM CDT Oxygen Saturation 95% 07/04/2020 1:45 PM CDT Inhaled Oxygen Concentration - - Weight 95.6 kg (210 lb 12.2 oz) 03/26/2023 2:10 PM ENGLISH FACULTY MEMBER Height 182.1 cm (5' 11.69) 03/26/2023 2:[address] Body Mass Index 28.83 03/26/2023 2:10 PM ENGLISH FACULTY MEMBER Plan of Treatment Upcoming Encounters Date Type Department Care Team (Late st Contact Info) Description 09/02/2023 11:00 AM CDT Office Visit Department of Urology in [address] [phone] Kristal Leon, JD, C.N.P. [address] [place] [phone] Procedures Procedure Name Priority Date/Time Associated Diagnosis Comments BASIC METABOLIC PANEL, S/P Routine 11/08/2020 11:55 AM CDT Pruritus HIV-1/-2 AG AND AB SCREEN, PLASMA Routine 11/08/2020 11:55 AM CDT Pruritus COLONOSCOPY Routine 07/04/2020 12:39 PM CDT Abdominal Pain Constipation from Last 3 Months or Most Recently Relevant to Health Maintenance Results * HIV-1/-2 Ag and Ab Screen, Plasma (11/08/2020 11:55 AM CDT) Pathologist [facility] HIV-1/-2 Ag and Ab Screen, P Negative Negative 11/08/2020 4:24 PM CDT [facility] Comment: Negative result does not rule out HIV infection. If exposure to HIV infection occurred <14 days ago, contact the laboratory to request addition of HIV-1 RNA detection / quantification test (HIVQN). Blood (Blood, Venous) 11/08/2020 11:55 AM CDT 11/08/2020 3:50 PM CDT Sylvie Sidhu M.D. LAB MICROBIOLOGY - BLOOD ORDERABLES [facility] [address] [place] [address] [facility] Dept. of Laboratory Medicine and Pathology [address] [place] [address] * (ABNORMAL) Basic Metabolic Panel (11/08/2020 11:55 AM CDT) Pathologist [facility] Potassium, S 4.3 3.6 - 5.2 mmol/L [...] the 2009 CKD_EPI creatinine equation. eGFR-Black/Afri can [place] >90 >=60 mL/min/BSA 11/08/2020 1:00 PM CDT DTL Comment: ----ADDITIONAL INFORMATION---- Estimated GFR calculated using the 2009 CKD_EPI creatinine equation. Calcium, Total, S 10.3(H) 8.6 - 10.0 mg/dL 11/08/2020 1:00 PM CDT DTL Glucose, S 96 70 - 140 mg/dL 11/08/2020 1:00 PM CDT DTL Blood (Blood, Venous) 11/08/2020 11:55 AM CDT 11/08/2020 12:11 PM CDT Sylvie Sidhu M.D. LAB BLOOD ADD-ON [facility] [address] [place] [address], [facility] [address] [place] [address] from Last 3 Months or Most Recently Relevant to Health Maintenance Care Teams Bed And Breakfast Cook Relationship Specialty Start Date End Date Elsewhere, Pcp PCP - General Family Medicine 08/21/17
--- OUTSIDE RECORDS SUMMARY | 2023-08-01 12:07 | XMS_ITS | Encounter Summary ---
Author Name Unknown Organization [facility] Address [address] [place] [address] Care Team Providers Care Delivery Truck Driver Name Role Phone Elsewhere, Pcp Primary Care Provider Unavailabl e Encounter Details Date Type Department Care Team (Late st Contact Info) Description 06/17/2023 Clinical Communication Department of Urology in [place], [place] [address] [phone] Kristal Leon, JD, C.N.P. [address] [phone] Social History Tobacco Use Types Packs/Day Years Used Date Smoking Tobacco: Former Cigarettes 0 04/15/2002 - 04/15/2009 Smokeless Tobacco: Never Alcohol Use Standard Drinks/Week Comments Yes 0 (1 standard drink = 0.6 oz pur e alcohol) once a month [facility] Utilities Answer Date Recorded In the past 12 months has [employer], gas, oil, or water [employer] threatened to shut off services in your [...] often do you attend chur ch or roman catholic services? Never 06/09/2022 Do you belong to any clubs o r organizations such as synagogue groups, unions, fraternal or athletic groups, or [...] and heating? Not hard at all 06/09/2022 [facility] [place] of Occupat ional Health - Occupational Stress [...] your living situation today? I have a [facility] place to live 06/17/2023 Education Answer [...] CDT Office Visit Department of Urology in [address] [phone] Kristal Leon APRN, C.N.P. [address] [phone] documented as of this encounter Visit Diagnoses Not on filedocumented in this encounter Care Teams Delivery Truck Driver Relationship Specialty Start Date End Date Elsewhere, Pcp PCP - General Family Medicine 08/21/17 documented as of this encounter
--- OUTSIDE RECORDS SUMMARY | 2023-08-01 12:07 | XMS_ITS | Encounter Summary ---
Author Name Unknown Organization [facility] Address [address] [place] [address] Care Team Providers Care Field Service Technician Name Role Phone Elsewhere, Pcp Primary Care Provider Unavailabl e Reason for Referral * Outpatient (Routine) - Closed Specialty Diagnoses / Procedures Referred By Beatrice boss Referred To Contact Sleep Medicine Eagle Bee III, M.D. [address] [place] [phone] [facility] Referral ID Status Reason Start Date Expiration Date Visits Re quested Visits Authorized [id number] Closed 04/30/2023 04/29/2026 1 1 THER Reason for Visit * Reason Comments Sleep Apnea * Outpatient (Routine) - Closed Specialty Diagnoses / Procedures Referred By Beatrice boss Referred To Contact Sleep Eagle Ponce III, M.D. [address] [place] [phone] [facility] Referral ID Status Reason Start Date Expiration Date Visits Re quested Visits Authorized [id number] Closed 03/26/2023 03/25/2026 1 1 Encounter Details Date Type Department Care Team (Latest Contact Info) Description 04/30/2023 9:00 AM SHEATHER [facility] in [place], [place] [address] [place] [phone] Eagle Bee III, M.D. [address] [place] [address] [place] [address] Obstructive Sleep Apnea Adult (Primary Dx); Snoring; [...] How often do you attend chur or mu-ism services? Never 06/09/2022 Do you belong to any clubs o r organizations such as baptism groups, unions, fraternal or athletic groups, or [...] and heating? Not hard at all 06/09/2022 [facility] - Occupational Stress Questionnaire Answer Date [...] technology by Eagle Bee III, M.D. in [facility] to the patient in the patient's [...] face patient care. Eagle Bee III, M.D. THER documented in this encounter Plan of Treatment Upcoming Encounters Date Type Department Care Team (Late st Contact Info) Description 09/02/2023 11:00 AM CDT Office Visit Department of Urology in [place], [place] [address] [place] [address] Kristal Leon, JD, C.N.P. [address] [facility] [place] [phone] Scheduled Referrals Name Type Priority Associated Diagnoses [...] Uncomplicated documented in this encounter Care Teams Field Service Technician Relationship Specialty Start Date End Date Elsewhere, Pcp PCP - General Family Medicine 08/21/17 documented as of this encounter
--- OUTSIDE RECORDS SUMMARY | 2023-08-01 12:07 | XMS_ITS | Encounter Summary ---
Author Name Unknown Organization [facility] Address [address] [place] [address] Care Team Providers Care Medical Device Sales Consultant Name Role Phone Elsewhere, Pcp Primary Care Provider Unavailabl e Reason for Visit * Reason Comments Prostatitis * Appointment Request (Routine) - Closed Specialty Diagnoses / Procedures Referred By Beatrice t Referred To Contact Urology Referral ID Status Reason Start Date Expiration Date Visits Re quested Visits Authorized [id number] Closed 06/17/2023 06/16/2024 1 1 Encounter Details Date Type Department Care Team (Late st Contact Info) Description 06/17/2023 11:30 AM LABORATORY GENETICIST Office Visit Department of Urology in [place] [address] [place] [address] Kristal Leon, JD, C.N.P. [address] [phone] Prostatitis Chronic (Primary Dx); Pain Pelvic Male Social History Tobacco Use Types Packs/Day Years Used Date Smoking Tobacco: Former Cigarettes 0 04/15/2002 - 04/15/2009 Smokeless Tobacco: Never Alcohol Use Standard Drinks/Week Comments Yes 0 (1 standard drink = 0.6 oz pur e alcohol) once a month [facility] Utilities Answer Date Recorded In the [...] How often do you attend chur or latter-day services? Never 06/09/2022 Do you belong to any clubs o r organizations such as jehovah's witness groups, unions, fraternal or athletic groups, or [...] and heating? Not hard at all 06/09/2022 [facility] [place] of Occupat ional Health - Occupational Stress [...] your living situation today? I have a [facility] place to live 06/17/2023 Education Answer Date [...] Kristal Leon APRN, C.N.P. 06/17/2023 7:44 PM LABORATORY GENETICIST RATORY GENETICIST documented in this encounter Plan of Treatment Upcoming Encounters Date Type Department Care Team (Late st Contact Info) Description 09/02/2023 11:00 AM CDT Office Visit Department of Urology in [place], [place] [address] [place] [address] Kristal Leon, JD, C.N.P. 0 [place] [phone] documented as of this encounter Visit Diagnoses Diagnosis Prostatitis Chronic- Primary Pain Pelvic Male documented in this encounter Care Teams Medical Device Sales Consultant Relationship Specialty Start Date End Date Elsewhere, Pcp PCP - General Family Medicine 08/21/17 documented as of this encounter
--- OUTSIDE RECORDS SUMMARY | 2023-08-01 12:07 | XMS_ITS | Encounter Summary ---
Author Name Unknown Organization [facility] Address [address] [place] [address] Care Team Providers Care Sustainable Design Consultant Name Role Phone Elsewhere, Pcp Primary Care Provider Unavailabl e Encounter Details Date Type Department Care Team (Late Contact Info) Description 10/29/2017 [facility] [address] [place] [address] Steven Olivares M.D. [address] [place] [phone] Tendonitis Ankle Left (Primary Dx) Social History [...] CDT Office Visit Department of Urology in [place], [place] [address] [place] [address] Kristal Leon APRN, C.N.P. [address], [place] [address] documented as of this encounter Visit Diagnoses Diagnosis Tendonitis Ankle Left- Primary documented in this encounter Care Teams Sustainable Design Consultant Relationship Specialty Start Date End Date Elsewhere, Pcp PCP - General Family Medicine 08/21/17 documented as of this encounter
--- OUTSIDE RECORDS SUMMARY | 2023-08-01 12:07 | XMS_ITS | Encounter Summary ---
Author Name Unknown Organization [facility] Address [address] [place] [address] Care Team Providers Care Jacquard Card Cutter Name Role Phone Elsewhere, Pcp Primary Care Provider Unavailabl e Encounter Details Date Type Department Care Team (Late st Contact Info) Description 07/18/2023 [facility] [address] [place] [address] Steven Olivares M.D. [address] [place] [address] Family History Of Malignant Neoplasm Of Trachea Bronchus And Lung (Primary Dx); Loss Weight Abnormal Social History Tobacco Use Types Packs/Day Years Used Date Smoking Tobacco: Former Cigarettes 0 04/15/2002 - 04/15/2009 Smokeless Tobacco: Never Alcohol Use Standard Drinks/Week Comments Yes 0 (1 standard drink = 0.6 oz pur e alcohol) once a month [facility] Utilities Answer Date Recorded In the past 12 months has e [employer], gas, oil, or water [employer] threatened to shut off services in your [...] often do you attend chur ch or christian services? Never 06/09/2022 Do you belong to any clubs o r organizations such as jew groups, unions, fraternal or athletic groups, or [...] and heating? Not hard at all 06/09/2022 [facility] [place] of Occupat ional Health - Occupational Stress [...] your living situation today? I have a [facility] place to live 06/17/2023 Education Answer Date [...] CDT Office Visit Department of Urology in [address] [phone] Kristal Leon APRN, C.N.P. [address] [place] [phone] documented as of this encounter Visit Diagnoses Diagnosis Family History Of Malignant Neoplasm Of Trachea Bronchus And Lung- Primary Loss Weight Abnormal documented in this encounter Care Teams Jacquard Card Cutter Relationship Specialty Start Date End Date Elsewhere, Pcp PCP - General Family Medicine 08/21/17 documented as of this encounter
--- OUTSIDE RECORDS SUMMARY | 2023-08-01 12:07 | XMS_ITS | Encounter Summary ---
Author Name Unknown Organization [facility] Address [address] [place] [address] Care Team Providers Care Brand Ambassadors Promotional Sales Name Role Phone Elsewhere, Pcp Primary Care Provider Unavailabl e Encounter Details Date Type Department Care Team (Late Contact Info) Description 2017 [facility] [address] [place] [address] Milo Albarado M.D. [address], [place] [phone] Personal History Of Other Diseases Of Male [...] Encounters Date Type Department Care Team (Late Contact Info) Description 09/02/2023 11:00 AM CDT Office Visit Department of Urology in [address] [phone] Kristal Leon APRN, C.N.P. [address] [place] [phone] documented as of this encounter Visit Diagnoses Diagnosis Personal History Of Other Diseases Of Male Genital Organs- Primary Torsion Testis documented in this encounter Care Teams Brand Ambassadors Promotional Sales Relationship Specialty Start Date End Date Elsewhere, Pcp PCP - General Family Medicine 08/21/17 documented as of this encounter
--- OUTSIDE RECORDS SUMMARY | 2023-08-01 12:07 | XMS_ITS ---
Author Name Unknown Organization [facility] Address [address] [place] [address] Care Team Providers Care Centerpuncher Name Role Phone Unavailable Unavailable Unavailable Surgery Details Not on file Complications Check Surgery Details section. Procedure Estimated Blood Loss Check Surgery Details section. Procedure Findings Check Surgery Details section. Procedure Specimens Taken Check Surgery Details section.
--- OUTSIDE RECORDS SUMMARY | 2023-08-01 12:07 | XMS_ITS | Encounter Summary ---
Author Name Unknown Organization [facility] Address [address] [place] [address] Care Team Providers Care Awning Maker And Installer Name Role Phone Elsewhere, Pcp Primary Care Provider Unavailabl e Reason for Visit * Outpatient (Routine) - Closed Specialty Diagnoses / Procedures Referred By Contac t Referred To Contact Diagnoses Snoring Procedures Home sleep apnea test (HSAT) Eagle Bee III, M.D. [address] [place] [phone] [facility] Referral ID Status Reason Start Date Expiration Date Visits Re quested Visits Authorized [id number] Closed 03/26/2023 03/25/2024 1 1 Encounter Details Date Type Department Care Team (Latest Contact Info) Description 04/22/2023 7:30 AM POURER CRANE LADLE - 04/25/2023 11:59 PM [facility] in [place], [place] [address] [place] [phone] Eagle Bee III, M.D. [address] [place] [phone] Discharge Disposition: Home or Self Care Social [...] How often do you attend chur or druze services? Never 06/09/2022 Do you belong to any clubs o r organizations such as buddhist groups, unions, fraternal or athletic groups, or [...] and heating? Not hard at all 06/09/2022 [facility] [place] of Occupat ional Health - Occupational Stress [...] place to sleep or slept in a long term (including now)? No 06/09/2022 Nutrition Answer Date [...] by mouth every morning. 90 tablet 09/18/2022 clindamycin phos/benzoyl perox (CLINDAMYCIN-BENZOYL PEROXIDE TOP) Apply topically. 11/19/2022 clindamycin-benzoyl peroxide (BENZACLIN) 1-5 % gelIndications:Acne Vulgaris APPLY TOPICALLY TO FACE DAILY 50 g 11 01/28/2023 clobetasoL (TEMOVATE) 0.05 % ointment Apply 1 application topically 2 (two) times a day. Apply to areas of eczema as needed/ doxycycline hyclate (VIBRAMYCIN) 100 mg capsule Take 100 mg by mouth 2 (two) times a day. for 7 days 10/28/2022 gabapentin (NEURONTIN) 300 mg capsule Take 300 mg by mouth 3 (three) times a day. 11/19/2022 lamoTRIgine (LaMICtaL) 200 mg tablet Take 1 tablet (200 mg total) by mouth 2 (two) times a day. 60 tablet 2 10/08/2022 latanoprost (XALATAN) 0.005 % ophthalmic solution INSTILL 1 DROP IN BOTH EYES AT BEDTIME 10 mL 3 01/21/2023 multivitamin/iron/fol ic acid (CENTRUM ORAL) 12/28/2019 oxymetazoline (Rhofade) 1 % cream creamIndications:Farida cea Apply 1 application topically daily. Apply to face for rosacea. 30 g 3 05/22/2021 QUEtiapine (SEROquel) 200 mg tablet Take 1 tablet (200 mg total) by mouth at bedtime. 90 tablet 12/17/2022 tretinoin (RETIN-A) 0.05 % creamIndications:Prur itus,Acne [...] mg sometimes, other times 10 mg. 04/10/2022 buPROPion XL (WELLBUTRIN XL) 150 mg 24 hr tablet 2 (two) times a day. 06/01/2022 03/07/2023 gabapentin (NEURONTIN) 300 mg capsule Take 1 capsule (300 mg total) by mouth 3 (three) times a day. 90 capsule 5 11/19/2022 06/17/2023 lamoTRIgine (LaMICtaL) 150 mg tablet Take 200 mg by mouth 2 (two) times a day. 05/31/2022 06/17/2023 QUEtiapine (SEROquel) 50 mg tablet 5 tablets once daily 05/08/2022 024 QUEtiapine (SEROquel) 50 mg tablet Take 1 tablet (50 mg total) by mouth at bedtime as needed. 90 tablet 09/18/2022 06/17/2023 documented as of this encounter Plan of Treatment Upcoming Encounters Date Type Department Care Team (Late st Contact Info) Description 09/02/2023 11:00 AM CDT Office Visit Department of Urology in [address] [phone] Kristal Leon, JD, C.N.P. [address] [phone] documented as of this encounter Procedures Procedure Name Priority Date/Time Associated Diagnosis Comments IN HOME SLEEP TEST TYPE KEYANNA 4 Routine 04/22/2023 7:33 AM POURER CRANE LADLE Snoring documented in this encounter Results * Home sleep apnea test (HSAT) (04/22/2023 7:33 AM POURER CRANE LADLE) Narrative ONBASE - 04/23/2023 9:11 AM POURER CRANE LADLE SUMMARY: Home sleep apnea test was performed [...] on filedocumented in this encounter Care Teams Awning Maker And Installer Relationship Specialty Start Date End Date Elsewhere, Pcp PCP - General Family Medicine 08/21/17 documented as of this encounter
--- OUTSIDE RECORDS SUMMARY | 2023-08-01 12:07 | XMS_ITS | Encounter Summary ---
Author Name Unknown Organization [facility] Address [address] [place] [address] Care Team Providers Care Policy Advisor Name Role Phone Elsewhere, Pcp Primary Care Provider Unavailabl e Reason for Visit * Reason Onset Date Comments Urgent Appt Request 08/01/2023 Encounter Details Date Type Department Care Team (Latest Contact Info) Description 08/01/2023 Clinical Communication Department of Urology in [address] [phone] Kristal Leon, EMPLOYEE DEVELOPMENT SPECIALIST, C.N.P. [address] [phone] Urgent Appt Request Social History Tobacco Use Types Packs/Day Years Used Date Smoking Tobacco: Former Cigarettes 0 04/15/2002 - 04/15/2009 Smokeless Tobacco: Never Alcohol Use Standard Drinks/Week Comments Yes 0 (1 standard drink = 0.6 oz pur e alcohol) once a month [facility] Utilities Answer Date Recorded In the [...] How often do you attend chur or spiritism services? Never 06/09/2022 Do you belong to any clubs o r organizations such as congregation groups, unions, fraternal or athletic groups, or [...] and heating? Not hard at all 06/09/2022 [facility] of Occupat ional Health - Occupational [...] your living situation today? I have a [facility] place to live 06/17/2023 Education Answer [...] CDT Office Visit Department of Urology in [address] [phone] Kristal Leon APRN, C.N.P. [address], [place] [address] documented as of this encounter Visit Diagnoses Not on filedocumented in this encounter Care Teams Policy Advisor Relationship Specialty Start Date End Date Elsewhere, Pcp PCP - General Family Medicine 08/21/17 documented as of this encounter
== END 2023-08-01 12:05 | disposition home or self-care (01) ==
LOC: NM 12:05
PROVIDERS: PCP Family Medicine; Visit Provider Family Medicine
DX: R10.11 Right upper quadrant pain (principal); K82.9 Disease of gallbladder, unspecified
CPT/HCPCS: 78227; A9537; J2805

== ENCOUNTER 2023-12-18 07:40 | Outpatient (CLI) | payer OTHER, SELFPAY ==
--- OUTSIDE RECORDS SUMMARY | 2023-12-18 07:44 | XMS_ITS | Encounter Summary ---
Author Organization [facility] Address [address] [place] [address] Care Team Providers Care Home Office Representative Name Role Phone Elsewhere, Pcp Primary Care Provider Unavailabl e Reason for Visit * Auth/Cert (Routine) Specialty Diagnoses / Procedures Referred By Beatrice boss Referred To Contact Diagnoses Colic Biliary Colic Biliary [K80.50] Procedures [place] LAPAROSCOPY CHOLECYSTECTOMY LAPAROSCOPIC CHOLECYSTECTOMY Vinh Light M.D. Referral ID Status Reason Start Date Expiration Date Visits Re quested Visits Authorized [id number] 1 1 Encounter Details Date Type Department Care Team (Late st Contact Info) Description 11/01/2023 7:37 AM CDT - 11/01/2023 10:30 AM CDT Surgery [facility] OR [address] [place] [phone] Olga Gold M.D. [address] [place] [address] LAPAROSCOPIC CHOLECYSTECTOMY Social History Tobacco Use Types Packs/Day Years Used Date Smoking Tobacco: Former Cigarettes 0 04/15/2002 - 04/15/2009 Smokeless Tobacco: Never Alcohol Use Standard Drinks/Week Comments Yes 0 (1 standard drink = 0.6 oz pur e alcohol) once a month [facility] Utilities Answer Date Recorded In the past 12 months has e electric, gas, oil, or water [employer] threatened to shut off services in your [...] How often do you attend chur or pentecostalism services? Never 06/09/2022 Do you belong to any clubs o r organizations such as scientologist groups, unions, fraternal or athletic groups, or [...] heating? Not hard at all 06/09/2022 [facility] [place] of Occupat ional Health - Occupational Stress [...] living? No 06/17/2023 Nutrition Answer Date Recorded On average, how many serving s of [...] PM CDT documented as of this encounter Last Filed Vital Signs Vital Sign Reading Time Taken Comments Blood Pressure 115/62 11/01/2023 7:07 AM CDT Pulse 75 11/01/2023 7:07 AM CDT Temperature 36.5 ??C (97.7 ??F) 11/01/2023 7:07 AM CD T Respiratory Rate 17 11/01/2023 7:07 AM CDT Oxygen Saturation 100% 11/01/2023 7:07 AM CDT Inhaled Oxygen Concentration - - Weight 90.7 kg (199 lb 15.3 oz) 11/01/2023 7:07 AM CDT Height 183 cm (6' 0.05) 11/01/2023 7:07 AM CDT Body Mass Index 27.08 11/01/2023 7:07 AM CDT documented in this encounter Medications at Time of Discharge Medication Sig Dispensed Refills Start Date End Date acetaminophen (TylenoL) 500 mg tablet Take 2 tablets (1,000 mg total) by mouth every 6 (six) hours as needed for pain. Take on a scheduled basis for the first 3 days after surgery. Then as needed. 11/01/2023 buPROPion XL (WELLBUTRIN XL) 150 mg 24 [...] to areas of eczema as needed/ DME CPAPIndications:Obstruc tive Sleep Apnea Adult,Insomnia Mental Disorder Related,Stenosis Nasal Valve,Chronic Insomnia Disorder,Bipolar Disorder Current Episode Mixed Mild (HCC),Cannabis Use Unspecified Uncomplicated DME Order 1 each 06/06/2023 fluticasone propionate (FLONASE) 50 mcg/actuation nasal spray Administer 2 sprays into each nostril daily. Prior to sleep gabapentin (NEURONTIN) 300 mg capsule Take 300 mg by mouth 3 (three) times a day. 11/19/2022 ibuprofen 200 mg capsule Take 3 capsules (600 mg total) by mouth every 6 (six) hours as needed for pain. Alternate with Tylenol every 3 hours on a scheduled basis for the first 3 days. 11/01/2023 lamoTRIgine (LaMICtaL) 200 mg tablet Take 1 tablet (200 mg total) by mouth 2 (two) times a day. 60 tablet 2 10/08/2022 latanoprost (XALATAN) 0.005 % ophthalmic solution INSTILL 1 DROP IN BOTH EYES AT BEDTIME 10 mL 3 01/21/2023 multivitamin/iron/folic acid (CENTRUM ORAL) 12/28/2019 oxyCODONE (Roxicodone) 5 mg immediate release tabletIndications:Acute Pain Take 1 tablet (5 mg total) by mouth every 4 (four) hours as needed for pain Indication: Acute Pain. 5 tablet 11/01/2023 oxymetazoline (Rhofade) 1 % cream creamIndications:Rosace a Apply 1 application topically daily. Apply to face for rosacea. 30 g 3 05/22/2021 QUEtiapine (SEROquel) 100 mg tablet Take 100 mg by mouth at bedtime. QUEtiapine (SEROquel) 200 mg tablet Take 1 tablet (200 mg total) by mouth at bedtime. 90 tablet 12/17/2022 QUEtiapine (SEROqueL) 50 mg tablet 10/13/2023 sennosides (senna) 8.6 mg tablet Take 1 tablet (8.6 mg total) by mouth daily. Take while using prescription pain medication to avoid constipation. 11/01/2023 tretinoin (RETIN-A) 0.05 % creamIndications:Prurit us,Acne Vulgaris Apply 1 application topically at bedtime. Apply to face. 45 g 11 11/08/2020 triamcinolone (KENALOG) 0.1 % creamIndications:Dermat itis Apply 1 application topically 2 (two) times a day. Apply to affected areas 2 times a day as needed after Clobetasol treatment. 45 g 11 05/22/2021 zolpidem (Ambien) 10 mg tablet TAKE 1 TABLET BY MOUTH DAILY AT BEDTIME NEEDED 09/13/2023 documented as of this encounter H&P Notes * Olga Gold M.D. - 11/01/2023 8:10 AM CDT INTERVAL HISTORY AND PHYSICAL PRE-PROCEDURE UPDATE H&P reviewed. The patient was examined and there are no significant changes to the H&P. Discussed technical aspects of laparoscopic cholecystectomy, as well as benefits, risks, and alternatives. Risks include but are not limited to anesthesia (heart attack, stroke, thromboembolic events, and ), bleeding, infection/abscess requiring percutaneous drain placement or additional operative procedures, bile leak requiring ERCP and stent placement, bile duct injury requiring additionaloperative intervention, hernia, and converting to open procedure. We discussed postoperative expectations as well as lifting restrictions. Additionally, discussed the potential for post cholecystectomy syndrome. This is characterized by diarrhea, particularly with fatty foods. In 1% of the population this is a permanent occurrence. If permanent, the condition can be managed with prescription medication. Olga Gold M.D., FACS Window Unit Air Conditioning Mechanic Operating Room Scheduler Division of Trauma, Critical Care, and General Surgery Department of Surgery Pager: [phone] Email: [email or web address] Olga Gold M.D. Source Note - Angel Mcdaniel M.D. - 10/16/2023 1:00 PM CDT History and Physical CHIEF COMPLAINT/REASON FOR VISIT: Recurring episodes of right upper quadrant pain. SUBJECTIVE Homero Patel is a 48 y.o. male who presents for evaluation of recurrent episodes of right upper quadrant pain. Describes the pain as burning/throbbing/cramping. The pain is intermittent in nature, when it comes in episodes it fluctuates from a 4/10 to a 8/10 during the episode. Patient denies radiation of pain. There is associated nausea with episodes. The pain is exacerbated by some foods (pasta). It is relieved by analgesics. Patient underwent a HIDA scan, ejection fraction of the gallbladder was 18%, no stones found. Pertinent History Review: MEDICAL HISTORY 1. OCD 2. Depressive disorder 3. Bipolar 4. Eczema 5. GERD 6. Headaches 7. Multiple episodes of pneumonia 8. LUIS EDUARDO (on CPAP) 9. Chronic prostatitis SURGICAL HISTORY Arthroscopy shoulder acromioplasty in 2017, reduction turbinate bilateral and septoplasty in 2019. CURRENT MEDICATIONS Pertinent Medications: Bupropion, gabapentin, lamotrigine, quetiapine, and zolpidem. Denies use of blood thinners or immunomodulators including steroids. ALLERGIES/CONTRAINDICATIONS Pertinent allergies to current consultation: Levofloxacin, milk, pollen. SOCIAL HISTORY Smokes Marijuana. Minimal alcohol intake (once a month or two). No other illicit drugs. Full History per EMR: Past Medical History: Diagnosis Date Depressive Disorder 2009 Eczema 1988 toes, fingers Gastroesophageal Reflux Disease NOS 2008 Headache Unspecified Pain Abdominal NOS Pneumonia may 2015, nov 2015, 1987, 19xx? Past Surgical History: Procedure Laterality Date ARTHROSCOPY SHOULDER Left 12/21/2016 arthroscopy shoulder ARTHROSCOPY SHOULDER ACROMIOPLASTY Left 12/21/2016 arthroscopy shoulder acromioplasty OTHER SURGICAL HISTORY 2016 oct adhesive capsulitis release REDUCTION TURBINATE Bilateral 11/27/2018 Procedure: REDUCTION TURBINATE.; Surgeon: Timo Gage M.D.; Location: [facility] OR SEPTOPLASTY N/A 11/27/2018 Procedure: SEPTOPLASTY.; Surgeon: Timo Gage M.D.; Location: [facility] OR Current Outpatient Medications: buPROPion XL (WELLBUTRIN XL) 150 mg 24 hr tablet, Take 1 tablet (150 mg total) by mouth every morning., Disp: 90 tablet, Rfl: 0 clindamycin phos/benzoyl perox (CLINDAMYCIN-BENZOYL PEROXIDE TOP), Apply topically., Disp: , Rfl: clindamycin-benzoyl peroxide (BENZACLIN) 1-5 % gel, APPLY TOPICALLY TO FACE DAILY, Disp: 50 g, Rfl:11 clobetasoL (TEMOVATE) 0.05 % ointment, Apply 1 application topically 2 (two) times a day. Apply to areas of eczema as needed/, Disp: , Rfl: DME CPAP, DME Order, Disp: 1 each, Rfl: 0 fluticasone propionate (FLONASE) 50 mcg/actuation nasal spray, Administer 2 sprays into each nostril daily. Prior to sleep, Disp: , Rfl: gabapentin (NEURONTIN) 300 mg capsule, Take 300 mg by mouth 3 (three) times a day., Disp: , Rfl: lamoTRIgine (LaMICtaL) 200 mg tablet, Take 1 tablet (200 mg total) by mouth 2 (two) times a day., Disp: 60 tablet, Rfl: 2 latanoprost (XALATAN) 0.005 % ophthalmic solution, INSTILL 1 DROP IN BOTH EYES AT BEDTIME, Disp: 10mL, Rfl: 3 multivitamin/iron/folic acid (CENTRUM ORAL), , Disp: , Rfl: oxymetazoline (Rhofade) 1 % cream cream, Apply 1 application topically daily. Apply to face for rosacea., Disp: 30 g, Rfl: 3 QUEtiapine (SEROquel) 100 mg tablet, Take 100 mg by mouth at bedtime., Disp: , Rfl: QUEtiapine (SEROquel) 200 mg tablet, Take 1 tablet (200 mg total) by mouth at bedtime., Disp: 90 tablet, Rfl: 0 QUEtiapine (SEROqueL) 50 mg tablet, , Disp: , Rfl: tretinoin (RETIN-A) 0.05 % cream, Apply 1 application topically at bedtime. Apply to face., Disp: 45 g, Rfl: 11 triamcinolone (KENALOG) 0.1 % cream, Apply 1 application topically 2 (two) times a day. Apply to affected areas 2 times a day as needed after Clobetasol treatment., Disp: 45 g, Rfl: 11 zolpidem (Ambien) 10 mg tablet, TAKE 1 TABLET BY MOUTH DAILY AT BEDTIME NEEDED, Disp: , Rfl: Allergies Allergen Reactions Levofloxacin Other (see comments) leg pain, panic attack Milk Other (see comments) showed on blood allergy testing Pollen Extracts Other (see comments) reports that he quit smoking about 14 years ago. His smoking use included cigarettes. He started smoking about 21 years ago. He has never used smokeless tobacco. He reports current alcohol use. He reports that he does not use drugs. family history includes Coronary artery disease in his mother's brother, mother's brother, and mother's sister; Dementia in his paternal grandmother; Diabetes in his mother's sister; Hypertension in his mother; Leukemia in his father; Lung cancer in his father, mother, and paternal grandfather; Skin cancer in his father and mother; Suicide Attempts in his maternal grandfather and mother's sister. REVIEW OF SYSTEMS A complete 10 system review of systems was completed. Pertinent positive and negative are noted in the HPI above, all other systems were reviewed and were negative. OBJECTIVE PHSYICAL EXAM Constitutional General: He is awake. Appearance: Normal appearance. Interventions: Face mask in place. Abdominal General: Abdomen is flat. Bowel sounds are normal. There is no distension. Palpations: Abdomen is soft. There is no hepatomegaly or mass. Tenderness: There is no abdominal tenderness. Negative signs include Miller's sign. Neurological Mental Status: He is alert. Psychiatric Behavior: Behavior is cooperative. DIAGNOSTICS No recent labs. IMAGING HIDA scan shows 18% EF gallbladder. ASSESSMENT / PLAN #1 Other Specified Diseases Of Gallbladder #2 Abnormal Results Of Function Studies Of Other Organs And Systems #3 Pain Shoulder #4 Tendinitis Ankle Left #5 Prostatitis Chronic #6 Obstruction Nasal #7 Snoring #8 Insomnia Mental Disorder Related #9 Chronic Insomnia Disorder #10 Bipolar Disorder Current Episode Mixed Mild (HCC) #11 Pain Shoulder Left #12 Cannabis Use Unspecified Uncomplicated #13 Obstructive Sleep Apnea Adult Mr. Patel is a 48-year-old male who presented to the clinic for a consult regarding recurrent rightupper quadrant pain. He displayed typical signs and symptoms of biliary colic. No significant findings on his abdominal exam. His HIDA scan showed an ejection fraction of 18% for his gallbladder. We have discussed that his symptoms might be relieved with a cholecystectomy and therefore it is reasonable moving ahead. Vice versa, it is also possible that some symptom of pain might persist despite the procedure and we can not guarantee of being 100% successful from this perspective. We have discussed the risks and benefits for a minimally invasive cholecystectomy which entails butare not limited to bleeding possibly requiring transfusion, conversion to open, infection, hernia. The patient wishes to think more on the surgical plan before booking an operative date. PLAN: - not scheduled for surgery for now - patient has the HSS B card - he will book another appointment at the end of the summer to rediscuss the surgical option should he be interested in proceeding with surgery. Discussed with Dr. Clinton, who was in agreement. Angel Mcdaniel MD PGY-1 General Surgery resident (prelim). Pager: [phone] Sandip Saini PGY5 documented in this encounter OR Notes * Op Note - Olga Gold M.D. - 11/01/2023 8:52 AM CDT Pre-op Diagnosis Colic Biliary Post-op Diagnosis Colic Biliary [employer] Data Entry A sampler first actively participated and was necessary for one or more of the following: opening, exposure and visualization, maintaining hemostasis, wound closure resulting in its safe and expeditious completion. Findings Critical view of safety Right hepatic artery branch within fossa, protected and preserved Complications None Operative Note Narrative Patient was brought to OR 105 where he was correctly identified and placed supine on the operating table. After successful induction of general endotracheal anesthesia, the patient was prepped and draped in the usual sterile fashion. A procedural pause was performed to identify correct patient, proc edure, operative site, and administration of antibiotics. I was present for the entirety of the case. A right subcostal 10-mm transverse incision was created after infiltration of local anesthetic in the skin and subcutaneous tissue. The anterior rectus fascia was exposed and divided with electrocautery. The rectus muscle was spread atraumatically. The posterior fascia was identified, incised sharply, and the abdomen was entered safely. A Cristofer trocar was placed, and pneumoperitoneum was established. A 30-degree laparoscope was inserted. Initial exploration of the abdomen revealed safe initialtrocar placement. Two additional 5-mm trocars were placed in the right upper quadrant and one additional 5 mm trocar was placed to the right of the umbilicus. All trocars were placed under direct visualization. The gallbladder was normal in appearance, consistent with diagnosis of biliary dyskinesia. The peritoneum overlying the hepatocystic triangle was then incised, extending medially and laterally along the gallbladder fossa. With a combination of blunt dissection and electrocautery, the cystic duct and cystic artery were isolated. During dissection, mild oozing was encountered while dissecting the cystic artery. This was controlled with a combination of Surgicel resident programs assistant direct pressure, and eventually a distal 5 mm clip on the artery to prevent black bleeding. The critical view of safety was obtained. The cystic duct was triply clipped with Hem-o-elba clips and transected sharply, leaving 2 clips in situ. The cystic artery was then triply clipped and divided leaving 2 clips in situ. The gallbladderwas dissected from the hepatic fossa with a combination of electrocautery and blunt dissection. During dissection, a large tubular structure was seen within the gallbladder fossa. Blunt dissection was carried out predominantly around this structure to avoid injury. [place] through dissection, we could see that this structure was pulsatile, likely either the right hepatic artery, or large branch ofthe right hepatic artery. This was preserved and no bleeding was encountered from this arterial branch. During dissection, a small cholecystotomy was created due to the thin wall of the gallbladder. Bile was spilled, but promptly aspirated. No stones or sludge was noted to emanate from the gallbladder. The gallbladder was placed in an EndoCatch bag and removed through the Crsitofer port. Bleeding points on the liver were minimal and controlled with electrocautery. The clips were reinspected and found to be intact. We removed the 5 mm ports under direct vision, no bleeding noted. Laparoscopic Exparel TAP blocks were performed. Pneumoperitoneum was released. The Cristofer port site was closed in layers, posterior and anterior fascia, using 0-Vicryl suture in a [id number] fashion. All port sites were closed with running 4-0 Monocryl. Dermabond applied. There were no immediate complications.The patient tolerated the operation well. Sponge, instrument, and needle counts were correct. The patient emerged from anesthesia in a satisfactory manner and was transported to the PACU in stable condition. Olga Gold M.D. * Brief Op Note - Olga Gold M.D. - 11/01/2023 8:52 AM CDT Pre-op Diagnosis Colic Biliary Post-op Diagnosis Colic Biliary Findings Critical view of safety Right hepatic artery branch within fossa, protected and preserved Complications None Olga Gold M.D. documented in this encounter Plan of Treatment Upcoming Encounters Date Type Department Care Team (Late st Contact Info) Description 12/23/2023 11:30 AM CDT Appointment Department of Radiology in [address] [phone] Kristal Leon APRN, C.N.P. [address] [place] [phone] Discharge Disposition: Home or Self Care Scheduled Referrals Name Type Priority Associated Diagnoses Orde r Schedule Trauma Critical Care and General Surgery - Nurse phone visit (clinic) Outpatient Referral Routine Expected: 11/15/2023 (Approximate), Expires: 10/31/2026 documented as of this encounter Procedures Procedure Name Priority Date/Time Associated Diagnosis Comments ADULT OXYGEN THERAPY Routine 11/01/2023 10:49 AM CDT SURGICAL PATHOLOGY, [facility]EN LAB Routine 11/01/2023 10:17 AM CDT Colic Biliary BLOCK - TRANSVERSUS ABDOMINIS PLANE 11/01/2023 7:53 AM CDT Colic Biliary LAPAROSCOPIC CHOLECYSTECTOMY 11/01/2023 7:53 AM CDT Colic Biliary documented in this encounter Results * Surgical Pathology, Frozen Lab (11/01/2023 10:17 AM CDT) 11/04/2023 3:43 PM CDT [facility] Participated in the Interpretation Latosha Blackwell M.D.-Pathology Fellow 11/04/2023 3:43 PM CDT [facility] Report electronically signed by David Dodge M.D. I verify that I have examined all relevant slides/materials for the specimen(s) and rendered or confirmed the diagnosis. 11/04/2023 3:43 PM CDT [facility] Gross Description A. ??Received fresh labeled gallbladder is a 6.3 x 3.2 x 0.3 cm gallbladder with a 0.2 cm maximum wall thickness, and patent cystic duct. ??A cystic duct lymph node is not identified. ??No stones are present within the lumen. Cholesterolosis is identified. ??No masses are identified. Hemorrhagic mucosa present. ??Flatwork Finisher Hand tissue submitted for permanent sections. ??Grossed by Sj Tejada M.D.-Pathology Resident / Marko Shaw M.S., PA([facility]). 11/04/2023 3:43 PM CDT [facility] Block Summary A Gallbladder A1 Gallbladder 11/04/2023 3:43 PM CDT [facility] Interpretation FINAL DIAGNOSIS A. ??Gallbladder, cholecystectomy: ??Chronic cholecystitis with cholesterolosis. Digital imaging was used in the diagnostic assessment of this case. 11/04/2023 3:43 PM CDT [facility] Tissue (Gallbladder) 11/01/2023 10:17 AM CDT Olga Gold M.D. LAB SURG PATH ORD ERABLES [facility] [address] [place] [address], [facility] [address] [place] [address] documented in this encounter Visit Diagnoses Diagnosis Colic Biliary Colic Biliary documented in this encounter Administered Medications Inactive Administered Medications - up to 3 most recent administrations Medication Order MAR Action Action Date Dose Rate Site acetaminophen injection 1,000 mg 1,000 mg, intravenous, at 400 mL/hr, Administer over 15 Minutes, Once as needed, other, If patient has not received in previous 6 hours, Starting on Sat11/01/23 at 1049, For 1 dose, PACU (only), Oral unless RASS less than -1 or nausea/vomiting. Do not use if given in last 6 hours, Restriction Criteria (Pharmacy will review and approve if criteria met): Unable to take or tolerate medications administered via the enteral route or orally (not just NPO) acetaminophen tablet 1,000 mg (TylenoL) 1,000 mg, oral, Once as needed, other, If patient has not received in the previous 6 hours, Starting on Sat11/01/23 at 1049, For 1 dose, PACU (only), Oral unless RASS less than -1 or nausea/vomiting. Do not use if given in last 6 hours acetaminophen tablet 1,000 mg (TylenoL) 1,000 mg, oral, Once, On Sat11/01/23 at 0730, For 1 dose, Pre-Op Given 11/01/2023 7:34 AM CDT 1,000 mg BUPivacaine liposome (PF) 20 mL, BUPivacaine 30 mL 50 mL injection As needed, Starting on Sat11/01/23 at 1019, Intra-Op Given 11/01/2023 10:19 AM CDT 50 mL Abdominal Tissue caffeine tablet 200 mg 200 mg, oral, Once, On Sat11/01/23 at 0730, For 1 dose, Pre-Op Given 11/01/2023 7:34 AM CDT 200 mg cellulose, oxidized 2 X 3 pad (Surgicel) As needed, Starting on Sat11/01/23 at 0915, Intra-Op Given 11/01/2023 9:15 AM CDT 1 each Abdominal Tissue chlorhexidine 0.12 % mouthwash 15 mL (Peridex) 15 mL, swish & spit, Once as needed, Chlorhexidine mouthwash (Peridex) should be given if patient did not complete oral care, if completion is greater than 4 hours prior to surgery or procedure start time and they do not have the opportunity to brush their teeth now (or at this time)., Starting on Sat11/01/23 at 0654, For 1 dose, Pre-Op, Instruct patient to swish entire content of Chlorhexidine 0.12% mouthwash (PERIDEX) 15 mL cup for 30 seconds, then spit, swish & spit. If patient is at risk for aspiration, apply Chlorhexidine 0.12% mouthwash to a swab and gently swab the patient's teeth and gums. Ensure swab is not oversaturated. fentaNYL injection 25 mcg (Sublimaze) 25 mcg, intravenous, Every 2 min PRN, For pain 4 or greater (maximum 100 mcg). If max dose of Fentanyl is reached and if pain is greater than 4, discontinue Fentanyl: give Hydromorphone, Starting on Sat11/01/23 at 1049, PACU (only) Given 11/01/2023 11:12 AM CDT 25 mcg Given 11/01/2023 11:09 AM CDT 25 mcg Given 11/01/2023 11:03 AM CDT 25 mcg indocyanine green injection 1.875 mg (IC Green) 1.875 mg, intravenous, Once, On Sat11/01/23 at 0715, For 1 dose, Pre-Op, Reconstitution of 25 mg of ICG and 10 mL of sterile water (concentration: 2.5 mg/mL). Administer in pre-op area Given 11/01/2023 7:37 AM CDT 1.875 mg metoprolol tablet 12.5 mg (Lopressor) 12.5 mg, oral, Once as needed, if patient did not take their last scheduled dose of beta santiago prior to arrival, Starting on Sat11/01/23 at 0654, For 1 dose, Pre-Op, Do not give if patient does not take scheduled beta blockers, if patient is receiving intravenous vasopressors or inotropes, if heart rate is less than 50 beats per minute, if systolic blood pressure is less than 90 mmHg or if diastolic blood pressure is less than 40 mmHg, or if patient has an allergy to metoprolol. oxyCODONE IR tablet 5 mg (Roxicodone) 5 mg, oral, Once as needed, For pain 4 or greater, Starting on Sat11/01/23 at 1049, For 1 dose, PACU (only) Given 11/01/2023 11:17 AM CDT 5 mg sodium chloride 0.9 % injection 10 mL 10 mL, intravenous, As needed, line care, Starting on Sat11/01/23 at 0654, Pre-Op, Peripheral Intravenous Catheter and Rapid Infusion Catheter, prior to blood sampling, post blood transfusion or post blood sampling sodium chloride 0.9 % injection 3 mL 3 mL, intravenous, As needed, line care, Starting on Sat11/01/23 at 0654, Pre-Op, Prior to and following infusion and between multiple consecutive infusions: sodium chloride 0.9 % injection sodium chloride 0.9 % injection 3 mL 3 mL, intravenous, Every 12 hours scheduled, First dose on Sat11/01/23 at 0900, Pre-Op, Peripheral Intravenous Catheter and Rapid Infusion Catheter, when no infusion to maintain patency documented in this encounter Active and Recently Administered Medications Times are shown in CDT. Scheduled Medication Order 10/30/2023 10/31/2023 11/01/2023 acetaminophen tablet 1,000 mg (TylenoL) (COMPLETED) 1,000 mg, oral, Once, On Sat11/01/23 at 0730, For 1 dose, Pre-Op 0734 (Given - Provid er: Leeann Wang, R.N.) caffeine tablet 200 mg (COMPLETED) 200 mg, oral, Once, On Sat11/01/23 at 0730, For 1 dose, Pre-Op 0734 (Given - Provid er: Leeann Wang, R.N.) ceFAZolin injection 2,000 mg (Ancef) (COMPLETED) 2,000 mg (rounded from 2,260 mg = 25 mg/kg ? 90.4 kg), intravenous, Once, On Sat11/01/23 at 0800, For 1 dose, Intra-Op, Administer within 1 hour prior to surgical incision For immediate IV push administration, reconstitute vial per IVAG or package insert instructions. See IVAG for administration guidelines., Drug Monitoring Program: Pharmacist to adjust medication dosing based on indication and drug clearance factors., Indications: Prophylaxis, surgical 0840 (Given - Provid er: Carlos A Olivas, Avila., B.A.O.) heparin (porcine) injection 5,000 Units (COMPLETED) 5,000 Units, subcutaneous, Once, On Sat11/01/23 at 0800, For 1 dose, Intra-Op, Administer prior to induction of anesthesia. 0840 (Given - Provid er: Carlos A Olivas, Cata, B.A.O.) indocyanine green injection 1.875 mg (IC Green) (COMPLETED) 1.875 mg, intravenous, Once, On Sat11/01/23 at 0715, For 1 dose, Pre-Op, Reconstitution of 25 mg of ICG and 10 mL of sterile water (concentration: 2.5 mg/mL). Administer in pre-op area 0737 (Given - Provid er: Leeann Wang R.N.) sodium chloride 0.9 % injection 3 mL 3 mL, intravenous, Every 12 hours scheduled, First dose on Sat11/01/23 at 0900, Pre-Op, Peripheral Intravenous Catheter and Rapid Infusion Catheter, when no infusion to maintain patency 0900 (Due) Continuous Medication Order 10/30/2023 10/31/2023 11/01/2023 Lactated Ringer's 20 mL/hr, intravenous, Continuous, Starting on Sat11/01/23 at 0930, PACU & Post-Op 0930 (Due) PRN Medication Order 10/30/2023 10/31/2023 11/01/2023 acetaminophen injection 1,000 mg(Linked Group 1) 1,000 mg, intravenous, at 400 mL/hr, Administer over 15 Minutes, Once as needed, other, If patient has not received in previous 6 hours, Starting on Sat11/01/23 at 1049, For 1 dose, PACU (only), Oral unless RASS less than -1 or nausea/vomiting. Do not use if given in last 6 hours, Restriction Criteria (Pharmacy will review and approve if criteria met): Unable to take or tolerate medications administered via the enteral route or orally (not just NPO) acetaminophen tablet 1,000 mg (TylenoL)(Linked Group 1) 1,000 mg, oral, Once as needed, other, If patient has not received in the previous 6 hours, Starting on Sat11/01/23 at 1049, For 1 dose, PACU (only), Oral unless RASS less than -1 or nausea/vomiting. Do not use if given in last 6 hours BUPivacaine liposome (PF) 20 mL, BUPivacaine 30 mL 50 mL injection (CANCELED) As needed, Starting on Sat11/01/23 at 1019, Intra-Op 1019 (Given - Provid er: Jose Mock M.D.) cellulose, oxidized 2 X 3 pad (Surgicel) (CANCELED) As needed, Starting on Sat11/01/23 at 0915, Intra-Op 0915 (Given - Provid er: Jose Mock M.D.) chlorhexidine 0.12 % mouthwash 15 mL (Peridex) 15 mL, swish & spit, Once as needed, Chlorhexidine mouthwash (Peridex) should be given if patient did not complete oral care, if completion is greater than 4 hours prior to surgery or procedure start time and they do not have the opportunity to brush their teeth now (or at this time)., Starting on Sat11/01/23 at 0654, For 1 dose, Pre-Op, Instruct patient to swish entire content of Chlorhexidine 0.12% mouthwash (PERIDEX) 15 mL cup for 30 seconds, then spit, swish & spit. If patient is at risk for aspiration, apply Chlorhexidine 0.12% mouthwash to a swab and gently swab the patient's teeth and gums. Ensure swab is not oversaturated. fentaNYL injection 25 mcg (Sublimaze) 25 mcg, intravenous, Every 2 min PRN, For pain 4 or greater (maximum 100 mcg). If max dose of Fentanyl is reached and if pain is greater than 4, discontinue Fentanyl: give Hydromorphone, Starting on Sat11/01/23 at 1049, PACU (only) 1103 (Given - Provid er: Angi Antunez R.N.)1109 (Given - Provider: Angi Antunez R.N.)1112 (Given - Provider: Uday Stroud haloperidol lactate injection 1 mg (HaldoL) 1 mg, intravenous, Every 6 hours PRN, nausea, vomiting, Starting on Sat11/01/23 at 1049, PACU (only), Total of 3 doses in 24 hour period. RASS must be -2 or higher to administer. If nausea and vomiting persists, move to granisteron. (order of antiemetic administration - ondansetron then haloperidol then granisetron) HYDROmorphone (PF) injection 0.2 mg (Dilaudid) 0.2 mg, intravenous, Every 5 min PRN, moderate pain or score 4-6 of 10, severe pain or score 7-10 of 10, Starting on Sat11/01/23 at 1049, PACU (only), Up to maximum total dose of 2 mg ipratropium-albuteroL 0.5-2.5 mg/3 mL nebulizer solution 3 mL (DuoNeb) 3 mL, nebulization, Once as needed, shortness of breath, Starting on Sat11/01/23 at 1049, For 1 dose, PACU (only) meperidine (PF) injection 12.5 mg (DemeroL) 12.5 mg, intravenous, Every 2 min PRN, shivering, May repeat once, Starting on Sat11/01/23 at 1049, For 2 doses, PACU (only), Restriction Criteria (Pharmacy will review and approve if criteria met): Prevention or treatment of post-anesthesia shivering metoprolol tablet 12.5 mg (Lopressor) 12.5 mg, oral, Once as needed, if patient did not take their last scheduled dose of beta santiago prior to arrival, Starting on Sat11/01/23 at 0654, For 1 dose, Pre-Op, Do not give if patient does not take scheduled beta blockers, if patient is receiving intravenous vasopressors or inotropes, if heart rate is less than 50 beats per minute, if systolic blood pressure is less than 90 mmHg or if diastolic blood pressure is less than 40 mmHg, or if patient has an allergy to metoprolol. ondansetron (PF) injection 4 mg (Zofran) 4 mg, intravenous, Every 6 hours PRN, nausea, vomiting, (If patient has not received in the previous 6 hours), Starting on Sat11/01/23 at 1049, PACU (only), Administer first. If nausea and vomiting persists, proceed with haloperidol. (order of antiemetic administration - ondansetron then haloperidol then granisetron) oxyBUTYnin tablet 5 mg (Ditropan) 5 mg, oral, Once as needed, If patient is not required to void prior to dismissal, Starting on Sat11/01/23 at 1049, For 1 dose, PACU (only) oxyCODONE IR tablet 5 mg (Roxicodone) (COMPLETED) 5 mg, oral, Once as needed, For pain 4 or greater, Starting on Sat11/01/23 at 1049, For 1 dose, PACU (only) 1117 (Given - Provid er: Angi Antunez R.N.) sodium chloride 0.9 % injection 10 mL 10 mL, intravenous, As needed, line care, Starting on Sat11/01/23 at 0654, Pre-Op, Peripheral Intravenous Catheter and Rapid Infusion Catheter, prior to blood sampling, post blood transfusion or post blood sampling sodium chloride 0.9 % injection 3 mL 3 mL, intravenous, As needed, line care, Starting on Sat11/01/23 at 0654, Pre-Op, Prior to and following infusion and between multiple consecutive infusions: sodium chloride 0.9 % injection Linked Groups Order Group 1: acetaminophen tablet 1,000 mg (TylenoL)Jump to med 1,000 mg, oral, Once as needed, other, If patient has not received in the previous 6 hours, Starting on Sat11/01/23 at 1049, For 1 dose, PACU (only), Oral unless RASS less than -1 or nausea/vomiting. Do not use if given in last 6 hours Or acetaminophen injection 1,000 mgJump to med 1,000 mg, intravenous, at 400 mL/hr, Administer over 15 Minutes, Once as needed, other, If patient has not received in previous 6 hours, Starting on Sat11/01/23 at 1049, For 1 dose, PACU (only), Oral unless RASS less than -1 or nausea/vomiting. Do not use if given in last 6 hours, Restriction Criteria (Pharmacy will review and approve if criteria met): Unable to take or tolerate medications administered via the enteral route or orally (not just NPO) documented in this encounter Care Teams Home Office Representative Relationship Specialty Start Date End Date Elsewhere, Pcp PCP - General Family Medicine 08/21/17 documented as of this encounter
--- OUTSIDE RECORDS SUMMARY | 2023-12-18 07:44 | XMS_ITS | Encounter Summary ---
Author Organization [facility] Address [address] [place] [address] Care Team Providers Care Business Process Architect Name Role Phone Elsewhere, Pcp Primary Care Provider Unavailabl e Reason for Visit * Reason Onset Date Comments Post Hospital Follow-up 11/14/2023 * Outpatient (Routine) - Closed Specialty Diagnoses / Procedures Referred By Beatrice boss Referred To Contact Jose Mock M.D. [address] [place] [address] [facility] Referral ID Status Reason Start Date Expiration Date Visits Re quested Visits Authorized [id number] Closed 11/01/2023 05/02/2025 1 1 Encounter Details Date Type Department Care Team (Latest Contact Info) Description 11/14/2023 1:45 PM CDT Clinical Communication Division of Trauma Critical Care and General Surgery in [place], [place] [address] [place] [address] [phone] Jose Mock M.D. [address] [place] [address] [phone] Post Hospital Follow-up Social History Tobacco Use Types Packs/Day Years Used Date Smoking Tobacco: Former Cigarettes 0 04/15/2002 - 04/15/2009 Smokeless Tobacco: Never Alcohol Use Standard Drinks/Week Comments Yes 0 (1 standard drink = 0.6 oz pur e alcohol) once a month [facility] Utilities Answer Date Recorded In the past 12 months has [facility] [employer] gas, oil, or water [employer] threatened to shut off services in your [...] often do you attend chur ch or synagogue services? Never 06/09/2022 Do you belong to [...] and heating? Not hard at all 06/09/2022 [facility] [employer] - Occupational Stress [...] your living situation today? I have a [facility] place to live 06/17/2023 Education [...] PM CDT documented as of this encounter Miscellaneous Notes * Telephone Encounter - Meredith Voss R.N. - 11/19/2023 8:53 AM CDT SUBJECTIVE CHIEF COMPLAINT / REASON FOR CALL Post Hospital Follow-up INFORMATION DISCUSSED Homero Patel is a 48 y.o. male How are you feeling today: better Pain level (0-10): 2 patient reports he still has a sensation of the gallbladder squeezing. How is your pain: intermittent Narcotic usage: none Fever: None Surgical wound status: healing well Incisional drainage:none Nausea/vomiting: None Eating/drinking tolerance: within normal limits Urination: within normal limits Bowel function: within normal limits Post surgical activity: able to return to pre-surgical daily routines following recommended restrictions Case specific questions: Jaundice No and Pathology: Patient Aware of results. I have suggested to the patient that he should reach back to his local PCP to assist him with the diagnostic of the abdominal discomfort. PLAN Disposition/Recommendation: self-care appropriate at this time and dismissed from care. If concerns, call number indicated in discharge packet. Education: patient/caller able to teach back Caller agreeable to plan of care: yes The following references were used: nursing clinical judgement * Telephone Encounter - Roe Brown - 11/14/2023 3:04 PM CDT Patient has questions about how much pain they should still have. They can get to a 3-4 out of 10 when getting up from a chair. They also still have swelling and throbbing under the incisions. Patient is no longer taking any medication for pain. Please call back and advise. Thank you * Telephone Encounter - Meredith Voss R.N. - 11/14/2023 2:57 PM CDT Attempted to contact the patient twice today for post-hospitalization follow-up phone call. After confirming all information and verification of phone number, I left a message with voice mail to return call if questions or concerns. Following contact information given: Laurita, . documented in this encounter Plan of Treatment Upcoming Encounters Date Type Department Care Team (Late st Contact Info) Description 12/23/2023 11:30 AM CDT Appointment Department of Radiology in [place], [place] [address] [place] [address] Kristal Leon APRN, C.N.P. [address] [place] [phone] Discharge Disposition: Home or Self Care documented as of this encounter Visit Diagnoses Diagnosis Cholecystectomy Laparoscopic Status Post- Primary documented in this encounter Care Teams Business Process Architect Relationship Specialty Start Date End Date Elsewhere, Pcp PCP - General Family Medicine 08/21/17 documented as of this encounter
--- OUTSIDE RECORDS SUMMARY | 2023-12-18 07:44 | XMS_ITS ---
Author Organization [facility] Address [address] [place] [address] Care Team Providers Care Mud Jack Operator Name Role Phone Unavailable Unavailable Unavailable Surgery Details Not on file Complications Check Surgery Details section. Procedure Estimated Blood Loss Check Surgery Details section. Procedure Findings Check Surgery Details section. Procedure Specimens Taken Check Surgery Details section.
--- OUTSIDE RECORDS SUMMARY | 2023-12-18 07:44 | XMS_ITS | Referral Summary ---
Author Organization [facility] Address [address] [place] [address] Care Team Providers Care Configuration Developer Name Role Phone Elsewhere, Pcp Primary Care Provider Unavailabl e Source Comments Patient records contain information from all sites at [facility]. For routine questions regarding patient records, call [phone] during business hours, M-F 8:00 AM - 5:00 PM Central Time. Record requests for emergency care only can be directed to [phone] at any time.[facility] Encounters Date Type Department Care Team Description 12/06/2023 2:30 PM CDT Office Visit Department of Urology in [place], [place] [address] [phone] Kristal Leon, JD, C.N.P. Pain Scrotum (Primary Dx) 11/14/2023 1:45 PM CDT Clinical Communication Division of Trauma Critical Care and General Surgery in [address] [phone] Jose Mock M.D. Post Hospital Follow-up 11/01/2023 8:10 AM CDT Ancillary Procedure Department of General Surgery 11/01/2023 8:13 AM CDT Anesthesia Event [facility] OR [address] [place] [phone] Addi Meng M.D. 11/01/2023 7:37 AM CDT - 11/01/2023 10:30 AM CDT Surgery [facility] OR [address] [place] [phone] Olga Gold M.D. LAPAROSCOPIC CHOLECYSTECTOMY 11/01/2023 6:46 AM CDT - 11/01/2023 1:10 PM CDT Hospital Encounter [facility] [address] [place] [phone] Rikki Birmingham M.D. Colic Biliary Discharge Disposition: Home or Self Care 10/21/2023 Clinical Communication Division of Trauma Critical Care and General Surgery in [address] [phone] Vinh Light M.D. 10/18/2023 Clinical Communication Division of Trauma Critical Care and General Surgery in [address] [phone] Sly Clinton M.D., Ph.D. 10/16/2023 1:00 PM CDT Comprehensive Visit Division of Trauma Critical Care and General Surgery in [address] [phone] Steven Olivares M.D. Sly Clinton M.D., Ph.D. Other Specified Diseases Of Gallbladder; Abnormal Results Of Function Studies Of Other Organs And Systems from Last 3 Months Allergies Active Allergy Reactions Criticality Noted Date Comments Levofloxacin Other (see comments) 10/15/2016 leg pain, panic attack Milk Other (see comments) 12/21/2016 showed on blood allergy testing Pollen Extracts Other (see comments) 10/15/2016 Medications Medication Sig Dispensed Refills Start Date End Date Status tretinoin (RETIN-A) 0.05 % creamIndications:Pru ritus,Acne Vulgaris Apply 1 application topically at bedtime. Apply to face. 45 g 11 11/08/2020 Active multivitamin/iron/fo lic acid (CENTRUM ORAL) 12/28/2019 Active triamcinolone (KENALOG) 0.1 % creamIndications:Alo matitis Apply 1 application topically 2 (two) times a day. Apply to affected areas 2 times a day as needed after Clobetasol treatment. 45 g 11 05/22/2021 Active oxymetazoline (Rhofade) 1 % cream creamIndications:Ros acea Apply 1 application topically daily. Apply to face for rosacea. 30 g 3 05/22/2021 Active clobetasoL (TEMOVATE) 0.05 % ointment Apply 1 application topically 2 (two) times a day. Apply to areas of eczema as needed/ Active gabapentin (NEURONTIN) 300 mg capsule Take [...] nostril daily. Prior to sleep Active DME CPAPIndications:Obst ructive Sleep Apnea Adult,Insomnia Mental Disorder Related,Stenosis Nasal Valve,Chronic Insomnia Disorder,Bipolar Disorder Current Episode Mixed Mild (HCC),Cannabis Use Unspecified Uncomplicated DME Order 1 each 06/06/2023 Active clindamycin phos/benzoyl perox (CLINDAMYCIN-BENZOYL PEROXIDE TOP) Apply topically. 11/19/2022 Activ e QUEtiapine (SEROquel) 100 mg tablet Take 100 mg by mouth at bedtime. Active zolpidem (Ambien) 10 mg tablet TAKE 1 TABLET BY MOUTH DAILY AT BEDTIME NEEDED 09/13/2023 Active QUEtiapine (SEROqueL) 50 mg tablet 10/13/2023 Active acetaminophen (TylenoL) 500 mg tablet Take 2 tablets (1,000 mg total) by mouth every 6 (six) hours as needed for pain. Take on a scheduled basis for the first 3 days after surgery. Then as needed. 11/01/2023 Active ibuprofen 200 mg capsule Take 3 capsules (600 mg total) by mouth every 6 (six) hours as needed for pain. Alternate with Tylenol every 3 hours on a scheduled basis for the first 3 days. 11/01/2023 Active oxyCODONE (Roxicodone) 5 mg immediate release tabletIndications:Ac [place] Pain Take 1 tablet (5 mg total) by mouth every 4 (four) hours as needed for pain Indication: Acute Pain. 5 tablet 11/01/2023 Active sennosides (senna) 8.6 mg tablet Take 1 tablet (8.6 mg total) by mouth daily. Take while using prescription pain medication to avoid constipation. 11/01/2023 Active Active Problems Problem Noted Date Diagnosed Date Obstructive Sleep Apnea Adult 04/30/2023 Snoring 03/26/2023 Insomnia Mental Disorder Related 03/26/2023 Chronic Insomnia Disorder 03/26/2023 Bipolar Disorder Current Episode Mixed Mild 03/15 Pain Shoulder Left 03/26/2023 Cannabis Use Unspecified Uncomplicated Obstruction Nasal 12/26/2017 Overview (12/26/2017): Added automatically from request for surgery [id number] Tendinitis Ankle Left 10/14/2017 Prostatitis Chronic 10/14/2017 Pain [...] In the past 12 months has e [employer], gas, oil, or water [employer] threatened to shut off services in [...] How often do you attend chur or lutheran services? Never 06/09/2022 Do you belong to any clubs o r organizations such as confucianist groups, unions, fraternal or athletic groups, or [...] and heating? Not hard at all 06/09/2022 [facility] [place] of Occupat ional Health - Occupational Stress [...] your living situation today? I have a [facility] place to live 06/17/2023 Education Answer Date [...] Sign Reading Time Taken Comments Blood Pressure 137/72 11/01/2023 1:05 PM CDT Pulse 51 11/01/2023 12:15 PM CDT Temperature 36.3 ??C (97.3 ??F) 11/01/2023 1 0:50 AM CDT Respiratory Rate 13 11/01/2023 11:3 0 AM CDT Oxygen Saturation 98% 11/01/2023 12: 15 PM CDT Inhaled Oxygen Concentration - - Weight 90.7 kg (199 lb 15.3 oz) 11/01/2023 7:07 AM CDT Height 183 cm (6' 0.05) 11/01/2023 7:07 AM CDT Body Mass Index 27.08 11/01/2023 7:07 AM CDT Plan of Treatment Upcoming Encounters Date Type Department Care Team (Late st Contact Info) Description 12/23/2023 11:30 AM CDT Appointment Department of Radiology in [address] [facility] [place] [address] Kristal Leon APRN, C.N.P. [address] [place] [address] Discharge Disposition: Home or Self Care Medical Devices Implanted Type Area Medical Service Representative Device Identifier Shelf Expiration Date Model / Serial / Lot Clp Apr End Intnl Endo 5x11 - [id number] Implanted:Qt y: 1 on 11/01/2023 by Olga Gold M.D. at [facility] Hardware e.g. pins/screws /rods N/A: Abdomen [employer] [id number] / / Clp Hmol Plmr Lg - [id number] Implanted:Qt y: 1 on 11/01/2023 by Olga Gold M.D. at [facility] Hardware e.g. pins/screws /rods N/A: Abdomen [employer] [id number] 07/01/2028 [id number] / / [id number] Procedures Procedure Name Priority Date/Time Associated Diagnosis Comments ADULT OXYGEN THERAPY Routine 11/01/2023 10:49 AM CDT SURGICAL PATHOLOGY, FROZEN LAB Routine 11/01/2023 10:17 AM CDT Colic Biliary AIRWAY MANAGEMENT Routine 11/01/2023 8:2 8 AM CDT SURGERY IMAGE EXAM Routine 11/01/2023 8: 10 AM CDT BLOCK - TRANSVERSUS ABDOMINIS PLANE 11/01/2023 7:53 AM CDT Colic Biliary LAPAROSCOPIC CHOLECYSTECTOMY 11/01/2023 7:53 AM CDT Colic Biliary BASIC METABOLIC PANEL, S/P Routine 11/08/2020 11:55 AM CDT Pruritus HIV-1/-2 AG AND AB SCREEN, PLASMA Routine 11/08/2020 11:55 AM CDT Pruritus COLONOSCOPY Routine 07/04/2020 12:39 PM CDT Abdominal Pain Constipation from Last 3 Months or Most Recently Relevant to Health Maintenance Results * Surgical Pathology, Frozen Lab (11/01/2023 [...] ??No masses are identified. Hemorrhagic mucosa present. ??Clam Sorter tissue submitted for permanent sections. ??Grossed by Sj Tejaad M.D.-Pathology Resident / Marko Shaw M.S., PA([facility]). 11/04/2023 3:43 PM CDT STMA Block Summary A Gallbladder A1 Gallbladder 11/04/2023 3:43 PM CDT STMA Interpretation FINAL DIAGNOSIS A. ??Gallbladder, cholecystectomy: ??Chronic cholecystitis with cholesterolosis. Digital imaging was used in the diagnostic assessment of this case. 11/04/2023 3:43 PM CDT STMA Tissue (Gallbladder) 11/01/2023 10:17 AM CDT Olga Gold M.D. LAB SURG PATH ORD ERABLES [facility] [address] [place] [address], [facility] [address] [facility] [address] [place] [address] * Airway (11/01/2023 8:28 AM CDT) Narrative Jose Pantoja M.B., Cata, B.A.O. - 11/01/2023 8:28 AM CDT Jose Pantoja M.B., Cata, B.A.O. ? 11/01/2023 ??8:44 AM Airway Date/Time: 11/01/2023 8:28 AM Performed by: Jose Pantoja M.B., Cata, B.A.O. Authorized by: Addi Meng M.D. ?? Patient location during procedure: OR / Procedure Area PROCEDURE DETAILS: Mask difficulty assessment: easy mask Final airway type: video laryngoscope Laryngeal Manipulation: no ?? Final best view of glottic structures - Cormack/Lehane Score: grade 2A ETT location: oral VL device: glide scope [place] scope blade size: 4 Tube size: 7.5 ETT distance at teeth/gum: 22 Oral tube type: standard ETT Cuffed: yes Leak Test Performed: no ?? Number of attempt to successful placement: 2 Airway confirmation: bilateral breath sounds, positive ETCO2 and bilateral chest rise Other previous techniques attempted: direct laryngoscopy, intubation Number of other approaches attempted: 1 Previous direct laryngoscopy: best view of glottic structures: grade 3A PRE PROCEDURE DETAILS: Pre evaluation for airway management: procedure Urgency: elective Preop assessment of probable difficulty: no difficulty anticipated Preoxygenation: bag valve mask SEDATION / ANESTHESIA Anesthesia method: anesthesia POST PROCEDURE DETAILS: ? Procedure outcome: successful ?? Notable Events: no complications Addi Meng M.D. ANESTHESIA ORDERA BLES * Lap zarina-Surgery Image Exam (11/01/2023 8:10 AM CDT) 11/01/2023 8:09 AM CDT Narrative [facility]IM[facility] - 11/01/2023 10:29 AM CDT This order has been created and auto-finalized to support the import of images acquired without order. The clinical documentation to support these images can be found on the encounter that produced images. Provider Not In System IMG NON RAD IMAGI NG PROCEDURES Performing Organization Address City/[facility]/ZIP Co de Phone Number IIMS NA * HIV-1/-2 Ag and Ab Screen, Plasma (11/08/2020 11:55 AM CDT) HIV-1/-2 Ag and Ab Screen, P Negative Negative 11/08/2020 4:24 PM CDT [facility] Comment: Negative result does not rule out HIV infection. If exposure to HIV infection occurred <14 days ago, contact the laboratory to request addition of HIV-1 RNA detection / quantification test (HIVQN). Blood (Blood, Venous) 11/08/2020 11:55 AM CDT 11/08/2020 3:50 PM CDT Sylvie Sidhu M.D. LAB MICROBIOLOGY - BLOOD ORDERABLES Performing Organization Address City/[facility]/ZIP Co de Phone Number [facility] [address] [place] [address] [facility] Dept. of Laboratory Medicine and Pathology [address] [place] [address] * (ABNORMAL) Basic Metabolic Panel (11/08/2020 11:55 [...] the 2009 CKD_EPI creatinine equation. eGFR-Black/Afri can Egyptian >90 >=60 mL/min/BSA 11/08/2020 1:00 PM CDT DTL Comment: ----ADDITIONAL INFORMATION---- Estimated GFR calculated using the 2009 CKD_EPI creatinine equation. Calcium, Total, S 10.3(H) 8.6 - 10.0 mg/dL 11/08/2020 1:00 PM CDT DTL Glucose, S 96 70 - 140 mg/dL 11/08/2020 1:00 PM CDT DTL Blood (Blood, Venous) 11/08/2020 11:55 AM CDT 11/08/2020 12:11 PM CDT Sylvie Sidhu M.D. LAB BLOOD ADD-ON [facility] [address] [place] [address], [facility] [address] [place] [address] from Last 3 Months or Most Recently Relevant to Health Maintenance Advance Directives For more information, please contact: [phone] * Full Code (Latest Code Status on File) Date Activated Date Inactivated Comments 11/01/2023 7:28 AM 11/01/2023 3:10 PM Question Answer Comments Full Code: Discussed Care Teams Configuration Developer Relationship Specialty Start Date End Date Elsewhere, Pcp PCP - General Family Medicine 08/21/17
--- OUTSIDE RECORDS SUMMARY | 2023-12-18 07:44 | XMS_ITS | Encounter Summary ---
Author Organization [facility] Address [address] [place] [address] Care Team Providers Care Pill Coater Name Role Phone Elsewhere, Pcp Primary Care Provider Unavailabl e Encounter Details Date Type Department Care Team (Late st Contact Info) Description 11/01/2023 8:10 AM CDT Ancillary Procedure Department of General Surgery Social History Tobacco Use Types Packs/Day Years Used Date Smoking Tobacco: Former Cigarettes 0 04/15/2002 - 04/15/2009 Smokeless Tobacco: Never Alcohol Use Standard Drinks/Week Comments Yes 0 (1 standard drink = 0.6 oz pur e alcohol) once a month [facility] Utilities Answer Date Recorded In the past 12 months has e electric, gas, oil, or water [employer] threatened to shut off services in your [...] often do you attend chur ch or amish services? Never 06/09/2022 Do you belong to any clubs o r organizations such as anglican groups, unions, fraternal or athletic groups, or [...] and heating? Not hard at all 06/09/2022 [facility] of Occupat ional Health - Occupational Stress [...] your living situation today? I have a [facility] place to live 06/17/2023 Education [...] AM CDT Appointment Department of Radiology in [address] [phone] Kristal Leon, JD, C.N.P. [address] [phone] Discharge Disposition: Home or Self Care documented as of this encounter Procedures Procedure Name Priority Date/Time Associated Diagnosis Comments SURGERY IMAGE EXAM Routine 11/01/2023 8: 10 AM CDT documented in this encounter Results * Lap zarina-Surgery Image Exam (11/01/2023 8:10 AM CDT) 11/01/2023 8:09 AM CDT Narrative IIM[facility] - 11/01/2023 10:29 AM CDT This order has been created and auto-finalized to support the import of images acquired without order. The clinical documentation to support these images can be found on the encounter that produced images. Provider Not In System IMG NON RAD IMAGI NG PROCEDURES [facility] NA documented in this encounter Visit Diagnoses Not on filedocumented in this encounter Care Teams Pill Coater Relationship Specialty Start Date End Date Elsewhere, Pcp PCP - General Family Medicine 08/21/17 documented as of this encounter
--- OUTSIDE RECORDS SUMMARY | 2023-12-18 07:44 | XMS_ITS | Encounter Summary ---
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 Referral ID Status Reason Start Date Expiration Date Visits Re quested Visits Authorized [id number] 1 1 Encounter Details Date Type Department Care Team (Late st Contact Info) Description 11/01/2023 8:13 AM CDT Anesthesia Event RST ROMB MAIN OR [address] [place] [phone] Addi Meng M.D. [address] [place] [phone] Anesthesia Record Procedure Summary Procedure Name Responsible Anesthesiologist Anesthesia Start Time Anesthesia Stop Time LAPAROSCOPIC CHOLECYSTECTOMY Addi Meng M.D. 11/01/23 0813 11/01/23 1044 Events Date Time Event Comment 11/01/2023 0813 An Start Machine/Equipme nt Checked Infection Precautions Followed Procedure/Site Verified NPO Status Verified Supine Standard ASA Monitors Applied 0825 An Induction 0828 An Intubation 0843 Turnover to Proceduralist 0852 Proc Start 0904 Anes CS Handoff I, Ru Henry., B.Ch., B.A.O., attest that I have reconciled the controlled substances and that I have reviewed all the significant information with the next anesthesia provider assuming care of this patient. 0920 Anes CS Handoff I, Chastity Saul, HOUSING COURT JUDGE, WIND TURBINE BLADE REPAIR TECHNICIAN, DNAP, attest that I have reconciled the controlled substances and that I have reviewed all the significant information with the next anesthesia provider assuming care of this patient. 1038 Turnover to ANE Staff 1038 Airway Removal Criteria Met 1038 Extubation/Airway Removed 1038 Proc Fin 1044 an stop data 1044 An End I completed my handoff to the receiving staff during which we 1. Identified the patient 2. Identified the responsible provider 3. Reviewed the pertinent medical history 4. Discussed the surgical course 5. Reviewed intra-op anesthesia management and issues during anesthesia 6. Set expectations for post-procedure period 7. Allowed opportunity for questions and acknowledgement of understanding. Meds Name Total fentanyl injection 50 mcg/mL 200 mcg lidocaine 2% (mg) injection 100 mg rocuronium 10 mg/mL injection 130 mg ondansetron 4 mg/2 mL injection 4 mg sugammadex 100 mg/mL injection 200 mg propofol 10 mg/mL infusion 1,039.42 mg propofol 10 mg/mL injection 200 mg ceFAZolin injection 2,000 mg (Ancef) 2 g heparin (porcine) injection 5,000 Units 5,000 Units dexAMETHasone (Decadron) injection 4 mg/ mL 8 mg ketorolac (TORADOL) injection 30 mg/mL 1 5 mg Lactated Ringers Free Drip 1,300 mL * Agents No agents on file. * Blood No blood administrations on file. Lines, Drains, and Airways Type Details Placement Removal Scope Sites 11/01/23; Abdomen; 1 ; Right, Lateral; 2; Right, Medial; 3; Umbilicus; 4; Mid, Upper 11/01/23 0000 by Padmaja Maza, R.N. Peripheral IV Placement Date: 10/13 01/06; Placement Time: 0704; Catheter Size: 20 G; Orientation: Left, Lower, Posterior; Location: Forearm; Site Prep: Chlorhexidine (Preferred); Technique: Anatomical landmarks; Inserted by: hre; Insertion Attempts: 1; Removal Date: 11/01/23; Removal Time: 1304; Removal Reason: Patient discharged 11/01/23 0704 by Abiola Schumacher, M.S.N., R.N. 11/01/23 1304 by Angi Antunez R.N. ETT Placement Date: 10/13 01/06; Placement Time: 827 (created via procedure documentation); Mask Ventilation: Easy mask; Technique: Video laryngoscopy; Type: Standard ETT; Single Lumen Tube Size: 7.5 mm; Cuffed: Yes; Location: Oral; Grade View: Grade 2A; Insertion Attempts: 2; Placement Verification: Bilateral breath sounds, Positive ETCO2, Symmetrical chest wall movement; Removal Date: 11/01/23; Removal Time: 1038 11/01/23 0828 by Jose Pantoja M.B., B.Ch., B.A.O. 11/01/23 1038 by Jose Pantjoa M.B., B.Ch., B.A.O. NG/OG Tube 11/01/23; 0830; 16 F r; 11/01/23; 1042 11/01/23 0830 by Jose Pantoja M.B., B.Ch., B.A.O. 11/01/23 1042 by Jose Pantoja M.B., B.Ch., B.A.O. documented in this encounter Social History Tobacco Use Types Packs/Day Years Used Date Smoking Tobacco: Former Cigarettes 0 04/15/2002 - 04/15/2009 Smokeless Tobacco: Never Alcohol Use Standard Drinks/Week Comments Yes 0 (1 standard drink = 0.6 oz pur e alcohol) once a month [facility] Utilities Answer Date Recorded In the past 12 months has [facility] [employer], [employer], or water [employer]Port threatened to shut off services in your [...] How often do you attend chur or episcopal services? Never 06/09/2022 Do you belong to any clubs o r organizations such as buddhism groups, unions, fraternal or athletic groups, or [...] and heating? Not hard at all 06/09/2022 [facility] - Occupational [...] your living situation today? I have a [facility] place to live 06/17/2023 Education Answer [...] PM CDT documented as of this encounter OR Notes * Anesthesia Postprocedure Evaluation - Addi Meng M.D. - 11/01/2023 5:53 PM CDT Patient: Homero Patel Procedure Summary Date: 11/01/23 Room / Location: [address] 01 [facility] in [place], [place] Anesthesia Start: 812 Anesthesia Stop: 1043 Procedures: LAPAROSCOPIC CHOLECYSTECTOMY LAPAROSCOPIC BLOCK - TRANSVERSUS ABDOMINIS PLANE (Bilateral) Diagnosis: Colic Biliary (Colic Biliary [K80.50]) Providers: Olga Gold M.D. Responsible Provider: Addi Meng M.D. Anesthesia Type: general ASA Status: 2 Anesthesia Type: general Last vitals Vitals Value Taken Time BP 153/72 11/01/23 1115 Temp 36.3 ??C 11/01/23 1050 Pulse 70 11/01/23 1122 Resp 17 11/01/23 1122 SpO2 98 % 11/01/23 1122 Vitals shown include unfiled device data. Please reference Vitals flowsheet for most recent vital signs. Anesthesia Post Evaluation Patient Disposition: dismissal Cardiovascular status: hemodynamics (HR & BP) acceptable Respiratory status: patent airway with spontaneous effort Temperature: normothermic Oxygen requirements: room air Level of consciousness: awake Pain score: pain adequately controlled and/or at baseline Post Op nausea/vomiting: none Hydration status: euvolemic * Anesthesia Procedure Notes - Jose Pantoja M.B., Cata, B.A.O. - 11/01/2023 8:43 AM CDTAssociated Order(s): Airway Airway Date/Time: 11/01/2023 8:28 AM Performed by: Jose Pantoja M.B., Cata, B.A.O. Authorized by: Addi Meng M.D. Patient location during procedure: OR / Procedure Area PROCEDURE DETAILS: Mask difficulty assessment: easy mask Final airway type: video laryngoscope Laryngeal Manipulation: no Final best view of glottic structures - Cormack/Lehane Score: grade 2A ETT location: oral VL device: glide scope [place] scope blade size: 4 Tube size: 7.5 ETT distance at teeth/gum: 22 Oral tube type: standard ETT Cuffed: yes Leak Test Performed: no Number of attempt to successful placement: 2 [...] ANESTHESIA Anesthesia method: anesthesia POST PROCEDURE DETAILS: Procedure outcome: successful Notable Events: no complications * Anesthesia Preprocedure Evaluation - Addi Meng M.D. 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 Pertinent components of the patient's history including current problem list, medical history, surgical history, family history, social history, medications and allergies were reviewed. Present illness and pre-op diagnosis were confirmed. The planned surgery / procedure was verified with the patient / legal guardian. The patient's general health condition remains unchanged RELEVANT COMORBID CONDITIONS RESP (+) Obstructive Sleep Apnea Adult Psychiatric (+) Bipolar Disorder Current Episode Mixed Mild (HCC) OBJECTIVE PHYSICAL EXAMINATION Airway (HEENT) Mallampati: II TM Distance: >3 FB Neck ROM: Full Mouth Opening: >3 cm Upper Lip Bite Test Class: II Facies (pediatrics): normal Cardiovascular Rhythm: Regular Rate: Normal Cardiovascular Assessment: cardiovascular normal Functional Capacity: >4 METS Pulmonary Pulmonary Assessment: Clear General / Constitutional Constitutional Assessment: Normal General State of Health:: healthy appearing and calm Neurological Neurologic Assessment: alert Dental Dental Assessment: dentition intact ASSESSMENT / PLAN ANESTHESIA PLAN ASA: 2 Anesthesia Plan: general Patient seen and allergies reviewed; anesthesia plan and risks discussed directly with patient / legal guardian, or through an web site developer; patient evaluated and approved for anesthesia / sedation Risks/Benefits/Alternatives of Blood transfusion discussed with patient / legal guardian, includingan opportunity to ask questions and/or decline some or all transfusion therapies. The patient / legal guardian consented to the use of all blood products, as deemed medically necessary Approval to Proceed: approved for anesthesia documented in this encounter Plan of Treatment Upcoming Encounters Date Type Department Care Team (Late st Contact Info) Description 12/23/2023 11:30 AM CDT Appointment Department of Radiology in [place] [address] [facility] [place] [phone] Kristal Leon APRN, C.N.P. [address] [place] [phone] Discharge Disposition: Home or Self Care documented as of this encounter Procedures Procedure Name Priority Date/Time Associated Diagnosis Comments AIRWAY MANAGEMENT Routine 11/01/2023 8:2 8 AM CDT documented in this encounter Results * Airway (11/01/2023 8:28 AM CDT) Narrative Jose Pantoja M.B., Cata, B.A.O. - 11/01/2023 8:28 AM CDT Jose Pantoja M.B., Cata, B.A.O. ? 11/01/2023 ??8:44 AM Airway Date/Time: 11/01/2023 8:28 AM Performed by: Jose Pantoja M.B., BKaruna, B.A.O. Authorized by: Addi Meng M.D. ?? Patient location during procedure: OR / Procedure Area PROCEDURE DETAILS: Mask difficulty assessment: easy mask Final airway type: video laryngoscope Laryngeal Manipulation: no ?? Final best view of glottic structures - Cormack/Lehane Score: grade 2A ETT location: oral VL device: glide scope [place] scope blade size: 4 Tube size: 7.5 [...] complications Addi Meng M.D. ANESTHESIA ORDERA BLES documented in this encounter Visit Diagnoses Not on filedocumented in this encounter Administered Medications Inactive Administered Medications - up to 3 most recent administrations Medication Order MAR Action Action Date Dose Rate Site ceFAZolin injection 2,000 mg (Ancef) 2,000 mg (rounded from 2,260 mg = [...] and drug clearance factors., Indications: Prophylaxis, surgical Given 11/01/2023 8:40 AM CDT 2 g dexAMETHasone injection (Decadron) intravenous, As needed, Starting on Sat11/01/23 at 0840, Anesthesia Intra-op Given 11/01/2023 8:40 AM CDT 8 mg fentaNYL injection (Sublimaze) intravenous, As needed, Starting on Sat11/01/23 at 0851, Anesthesia Intra-op Given 11/01/2023 10:47 AM CDT 50 mcg Given 11/01/2023 9:56 AM CDT 25 mcg Given 11/01/2023 9:19 AM CDT 50 mcg heparin (porcine) injection 5,000 Units 5,000 Units, subcutaneous, Once, On Sat11/01/23 at 0800, For 1 dose, Intra-Op, Administer prior to induction of anesthesia. Given 11/01/2023 8:40 AM CDT 5,000 Units ketorolac injection (ToradoL) intravenous, As needed, Starting on Sat11/01/23 at 1025, Anesthesia Intra-op Given 11/01/2023 10:25 AM CDT 15 mg Lactated Ringer's intravenous, Continuous Infusion: Per Instructions PRN, Starting on Sat11/01/23 at 0825, Anesthesia Intra-op New Bag 11/01/2023 8:25 AM CDT lidocaine (PF) (cardiac) injection intravenous, As needed, Starting on Sat11/01/23 at 0825, Anesthesia Intra-op Given 11/01/2023 8:25 AM CDT 100 mg ondansetron (PF) injection (Zofran) intravenous, As needed, Starting on Sat11/01/23 at 1025, Anesthesia Intra-op Given 11/01/2023 10:25 AM CDT 4 mg propofol 10 mg/mL infusion (Diprivan) intravenous, Continuous Infusion: Per Instructions PRN, Starting on Sat11/01/23 at 0825, Anesthesia Intra-op Rate/Dose Change 11/01/2023 10:10 AM CDT 80 mcg/kg/min 43.536 mL/hr New Bag 11/01/2023 8:25 AM CDT 100 mcg/kg/min 54.42 mL/ hr propofoL injection (Diprivan) intravenous, As needed, Starting on Sat11/01/23 at 0825, Anesthesia Intra-op Given 11/01/2023 8:25 AM CDT 200 mg rocuronium injection (Zemuron) intravenous, As needed, Starting on Sat11/01/23 at 0826, Anesthesia Intra-op Given 11/01/2023 10:15 AM CDT 10 mg Given 11/01/2023 9:54 AM CDT 10 mg Given 11/01/2023 9:39 AM CDT 10 mg sugammadex injection (Bridion) intravenous, As needed, Starting on Sat11/01/23 at 1031, Anesthesia Intra-op Given 11/01/2023 10:31 AM CDT 200 mg documented in this encounter Care Teams Supply Chain Director Relationship Specialty Start Date End Date Elsewhere, Pcp PCP - General Family Medicine 08/21/17 documented as of this encounter
--- OUTSIDE RECORDS SUMMARY | 2023-12-18 07:44 | XMS_ITS | Clinical Summary ---
Author Organization [facility] Address [address] [place] [address] Care Team Providers Care Shear Operator Name Role Phone Elsewhere, Pcp Primary Care Provider Unavailabl e Source Comments Patient records contain information from all sites at [facility]. For routine questions regarding patient records, call [phone] during business hours, M-F 8:00 AM - 5:00 PM Central Time. Record requests for emergency care only can be directed to [phone] at any time.[facility] Allergies Active Allergy Reactions Criticality Noted Date [...] oxyCODONE (Roxicodone) 5 mg immediate release tabletIndications:Ac nakul Pain Take 1 tablet (5 mg total) [...] Shoulder Left 03/26/2023 Cannabis Use Unspecified Uncomplicated 3 Obstruction Nasal 12/26/2017 Overview (12/26/2017): Added automatically from request for surgery [id number] Tendinitis Ankle Left 10/14/2017 Prostatitis Chronic 10/14/2017 Pain Shoulder 10/08/2016 Encounters Date Type Department Care Team Description 12/06/2023 2:30 PM CDT Office Visit Department of Urology in [place], [place] [address] [place] [phone] Kristal Leon APRN, C.N.P. Pain Scrotum (Primary Dx) 11/14/2023 1:45 PM CDT Clinical Communication Division of Trauma Critical Care and General Surgery in [address] [phone] Jose Mock M.D. Post Hospital Follow-up 11/01/2023 8:13 AM CDT Anesthesia Event RST ROMB MAIN OR [address] [place] [phone] Addi Meng M.D. 11/01/2023 8:10 AM CDT Ancillary Procedure Department of General Surgery 11/01/2023 7:37 AM CDT - 11/01/2023 10:30 AM CDT Surgery RST ROMB MAIN OR [address] [place] [phone] Olga Gold M.D. LAPAROSCOPIC CHOLECYSTECTOMY 11/01/2023 6:46 AM CDT - 11/01/2023 1:10 PM CDT Hospital Encounter RST ROMB MAIN OR [address] [place] [phone] Rikki Birmingham M.D. Colic Biliary Discharge Disposition: Home or Self Care 10/21/2023 Clinical Communication Division of Trauma Critical Care and General Surgery in [address] [phone] Vinh Light M.D. 10/18/2023 Clinical Communication Division of Trauma Critical Care and General Surgery in [address] [phone] Sly Clinton M.D., Ph.D. 10/16/2023 1:00 PM CDT Comprehensive Visit Division of Trauma Critical Care and General Surgery in [address] [phone] Steven Olivares M.D. Sly Clinton M.D., Ph.D. Other Specified Diseases Of Gallbladder; Abnormal Results Of Function Studies Of Other Organs And Systems from Last 3 Months Family History Medical [...] Mother's Brother 2 joesph Mother's Sister 1 johana Mother's Sister 2 lori Mother's Sister 3 betsy Paternal Grandfather Reagan Carrero Paternal Grandmother yash carrero Social History Tobacco Use Types Packs/Day Years Used Date Smoking Tobacco: Former Cigarettes 0 04/15/2002 - 04/15/2009 Smokeless Tobacco: Never Tobacco Cessation:Counseling Given: Not Answered Alcohol Use Standard Drinks/Week Comments Yes 0 (1 standard drink = 0.6 oz pur e alcohol) once a month [facility] Utilities Answer Date Recorded In the past 12 months has e [employer], gas, oil, or water [employer] threatened to shut off services in your [...] often do you attend chur ch or buddhism services? Never 06/09/2022 Do you belong to any clubs o r organizations such as mosque groups, unions, fraternal or athletic groups, or [...] and heating? Not hard at all 06/09/2022 [facility] of Occupat ional [facility] - Occupational Stress Questionnaire Answer Date [...] your living situation today? I have a [facility] place to live 06/17/2023 Education Answer [...] AM CDT Appointment Department of Radiology in [address] [phone] Kristal Leon, LNA, C.N.P. [address] [phone] Discharge Disposition: Home or Self Care Health Maintenance Due Date Last Done Comments CT Colonography 1973 Cologuard 1973 FIT 1973 Lipid (Cholesterol) Screening 1973 Hepatitis A Vaccines (1 of 2 - Risk 2-dose series) 1992 Hepatitis B Vaccines (1 of 3 - 19+ 3-dose series) 1992 Depression Screening (Annual PHQ-2) 04/15/2023 Zoster Vaccines (1 of 2) 08/20/2023 Fasting Glucose for Diabetes Screening 11/09/2023 11/08/2020 Influenza Vaccine (#1) 2024 , 01/08/2023, 01/01/2022, Additional history exists DTaP,Tdap,and Td Vaccines (2 - Td or Tdap) 11/13/2025 11/14/2015 Colonoscopy 07/04/2030 07/04/2020, 07/04/2020 Colorectal Cancer Screening 07/04/2030 HIV Screening Completed 11/08/2020 COVID-19 Vaccine Completed 01/08/2023, , 07/13/2021, Additional history exists Pneumococcal vaccine (0-64 years) Aged Out No longer eligible based on patient's age to complete this topic Medical Devices Implanted Type Area Hospice Spiritual Care Coordinator Device Identifier Shelf Expiration Date Model / Serial / Lot Clp Apr End Intnl Endo 5x11 - [id number] Implanted:Qt y: 1 on 11/01/2023 by Olga Gold M.D. at [facility] Hardware e.g. pins/screws /rods N/A: Abdomen Medtronic [id number] / / Clp Hmol Plmr Lg - [id number] Implanted:Qt y: 1 on 11/01/2023 by Olga Gold M.D. at [facility] Hardware e.g. pins/screws /rods N/A: Abdomen Teleflex VipVenta [id number] 07/01/2028 [id number] / / [id number] Procedures Procedure Name Priority Date/Time Associated [...] ??No masses are identified. Hemorrhagic mucosa present. ??Manager Demand tissue submitted for permanent sections. ??Grossed by Sj Tejada M.D.-Pathology Resident / Marko Shaw M.S., PA([facility]). 11/04/2023 3:43 PM CDT STMA Block Summary A Gallbladder A1 Gallbladder 11/04/2023 3:43 PM CDT STMA Interpretation FINAL DIAGNOSIS A. ??Gallbladder, cholecystectomy: ??Chronic cholecystitis with cholesterolosis. Digital imaging was used in the diagnostic assessment of this case. 11/04/2023 3:43 PM CDT STMA Tissue (Gallbladder) 11/01/2023 10:17 AM CDT Olga Gold M.D. LAB SURG PATH ORD ERABLES [facility] [address] [place] [address], [facility] 200 [facility] 200 [place] [address] * Airway (11/01/2023 8:28 AM CDT) Narrative [...] ETT location: oral VL device: glide scope [place] scope blade size: 4 Tube size: 7.5 [...] RAD IMAGI NG PROCEDURES Performing Organization Address [facility] Co de Phone Number [facility] NA * HIV-1/-2 Ag and Ab Screen, Plasma (11/08/2020 11:55 AM CDT) HIV-1/-2 Ag and Ab Screen, P Negative Negative 11/08/2020 4:24 PM CDT [facility] Comment: Negative result does not rule out HIV infection. If exposure to HIV infection occurred <14 days ago, contact the laboratory to request addition of HIV-1 RNA detection / quantification test (HIVQN). Blood (Blood, Venous) 11/08/2020 11:55 AM CDT 11/08/2020 3:50 PM CDT Sylvie Sidhu M.D. LAB MICROBIOLOGY - BLOOD ORDERABLES Performing Organization Address City/[facility]/ZIP Co de Phone Number [facility] [address] [place] [address] [facility] Dept. of Laboratory Medicine and Pathology [address] [place] [address] * (ABNORMAL) Basic Metabolic Panel (11/08/2020 11:55 [...] the 2009 CKD_EPI creatinine equation. eGFR-Black/Afri can Grenadian >90 >=60 mL/min/BSA 11/08/2020 1:00 PM CDT DTL Comment: ----ADDITIONAL INFORMATION---- Estimated GFR calculated using the 2009 CKD_EPI creatinine equation. Calcium, Total, S 10.3(H) 8.6 - 10.0 mg/dL 11/08/2020 1:00 PM CDT DTL Glucose, S 96 70 - 140 mg/dL 11/08/2020 1:00 PM CDT DTL Blood (Blood, Venous) 11/08/2020 11:55 AM CDT 11/08/2020 12:11 PM CDT Sylvie Sidhu M.D. LAB BLOOD ADD-ON [facility] [address] [place] [address], [facility] [address] [place] [address] from Last 3 Months or Most Recently Relevant to Health Maintenance Advance Directives For more information, please contact: [phone] * Full Code (Latest Code Status on File) Date Activated Date Inactivated Comments 11/01/2023 7:28 AM 11/01/2023 3:10 PM Question Answer Comments Full Code: Discussed Care Teams Shear Operator Relationship Specialty Start Date End Date Elsewhere, Pcp PCP - General Family Medicine 08/21/17
--- OUTSIDE RECORDS SUMMARY | 2023-12-18 07:44 | XMS_ITS | Encounter Summary ---
Author Organization [facility] Address [address] [place] [address] Care Team Providers Care Stenographic Court Reporter Name Role Phone Elsewhere, Pcp Primary Care Provider Unavailabl e Reason for Referral * Outpatient (Routine) - Authorized Specialty Diagnoses / Procedures Referred By Contac t Referred To Contact Diagnoses Pain Scrotum Procedures US Scrotum with Doppler Kristal Leon APRN, C.N.P. [address], [place] [address] [facility] Region Referral ID Status Reason Start Date Expiration Date V isits Requested Visits Authorized [id number] Authorized 12/06/2023 12/05/2024 1 1 Reason for Visit * Reason Comments Testicular Mass * Appointment Request (Routine) - Closed Specialty Diagnoses / Procedures Referred By Contac t Referred To Contact Urology Referral ID Status Reason Start Date Expiration Date Visits Re quested Visits Authorized [id number] Closed 08/01/2023 07/31/2024 1 1 Encounter Details Date Type Department Care Team (Late st Contact Info) Description 12/06/2023 2:30 PM CDT Office Visit Department of Urology in [place], [place] [address] [place] [phone] Kristal Leon APRN, C.N.P. [address] [phone] Pain Scrotum (Primary Dx) Social History Tobacco Use Types Packs/Day Years Used Date Smoking Tobacco: Former Cigarettes 0 04/15/2002 - 04/15/2009 Smokeless Tobacco: Never Alcohol Use Standard Drinks/Week Comments Yes 0 (1 standard drink = 0.6 oz pur e alcohol) once a month [facility] Utilities Answer Date Recorded In the past 12 months has e [employer], gas, oil, or water [employer] threatened to shut off services in [...] often do you attend chur ch or spiritism services? Never 06/09/2022 Do you belong to any clubs o r organizations such as jewish groups, unions, fraternal or athletic groups, or [...] and heating? Not hard at all 06/09/2022 [facility] - Occupational Stress Questionnaire Answer Date [...] living situation today? I have a [facility] [place] place to live 06/17/2023 Education Answer Date [...] AM CDT Appointment Department of Radiology in [address] [phone] Kristal Leon, JD, C.N.P. [address] [phone] Discharge Disposition: Home or Self Care Scheduled Orders Name Type Priority Associated Diagnoses Orde r Schedule US Scrotum with Doppler Imaging RAD - Routine (most inpatients and all outpatients) Pain Scrotum Expected: 12/06/2023, Expires: 03/07/2025 documented as of this encounter Visit Diagnoses Diagnosis Pain Scrotum- Primary documented in this encounter Care Teams Stenographic Court Reporter Relationship Specialty Start Date End Date Elsewhere, Pcp PCP - General Family Medicine 08/21/17 documented as of this encounter
--- OUTSIDE RECORDS SUMMARY | 2023-12-18 07:45 | XMS_ITS | Encounter Summary ---
Author Organization [facility] Address [address] [place] [address] Care Team Providers Care Auto Tune Up Mechanic Name Role Phone Elsewhere, Pcp Primary Care Provider Unavailabl e Encounter Details Date Type Department Care Team (Late st Contact Info) Description 10/29/[address] [facility] [address] [place] [address] Steven Olivares M.D. [address] [place] [phone] Tendonitis Ankle Left (Primary Dx) Social History [...] AM CDT Appointment Department of Radiology in [place], [place] [address] [place] [phone] Kristal Leon, JD, C.N.P. [address] [place] [phone] Discharge Disposition: Home or Self Care documented as of this encounter Visit Diagnoses Diagnosis Tendinitis Ankle Left- Primary documented in this encounter Care Teams Auto Tune Up Mechanic Relationship Specialty Start Date End Date Elsewhere, Pcp PCP - General Family Medicine 08/21/17 documented as of this encounter
--- OUTSIDE RECORDS SUMMARY | 2023-12-18 07:45 | XMS_ITS | Encounter Summary ---
Author Organization [facility] Address [address] [place] [address] Care Team Providers Care Medical Administrative Name Role Phone Elsewhere, Pcp Primary Care Provider Unavailabl e Reason for Visit * Reason Comments Consult * Outpatient (Routine) - Closed Specialty Diagnoses / Procedures Referred By Contac t Referred To Contact General Surgery Diagnoses Other Specified Diseases Of Gallbladder Abnormal Results Of Function Studies Of Other Organs And Systems Steven Olivares M.D. [address] [place] [address] [facility] Referral ID Status Reason Start Date Expiration Date Visits Re quested Visits Authorized [id number] Closed 2023 02/17/2025 1 1 Encounter Details Date Type Department Care Team (Latest Contact Info) Description 10/16/2023 1:00 PM CDT Comprehensive Visit Division of Trauma Critical Care and General Surgery in [place], [place] [address] [place] [address] Steven Olivares M.D. [address] [address] Sly Clinton M.D., Ph.D. [address] [place] [address] Other Specified Diseases Of Gallbladder; Abnormal Results Of Function Studies Of Other Organs And Systems Social History Tobacco Use Types Packs/Day Years Used Date Smoking Tobacco: Former Cigarettes 0 04/15/2002 - 04/15/2009 Smokeless Tobacco: Never Alcohol Use Standard Drinks/Week Comments Yes 0 (1 standard drink = 0.6 oz pur e alcohol) once a month [facility] Utilities Answer Date Recorded In the past 12 months has th e electric, gas, oil, or water company [...] How often do you attend chur or moravian services? Never 06/09/2022 Do you belong to any clubs o r organizations such as worship groups, unions, fraternal or athletic groups, or [...] and heating? Not hard at all 06/09/2022 [facility] [place] of Occupat ional Health - Occupational Stress [...] Date Recorded Dental: Regular Dentist Yes 04/30/19 23 Employment Answer Date Recorded Employment status Temporarily disabled Housing Stability Answer Date Recorded What is your living situation today? [facility] 06/17/2023 Education Answer Date [...] Sign Reading Time Taken Comments Blood Pressure - - Pulse - - Temperature - - Respiratory Rate - - Oxygen Saturation - - Inhaled Oxygen Concentration - - Weight 90.4 kg (199 lb 4.7 oz) 10/16/2023 12:53 PM CDT Height - - Body Mass Index 27.26 03/26/2023 2:10 PM MOBILE SECURITY SPECIALIST documented in this encounter Progress Notes * Sly Clinton M.D., Ph.D. - 10/16/2023 1:00 PM CDT GENERAL SURGERY CONSULTING STAFF ADDENDUM: I have discussed the care of Mr. Patel with the resident/MONEY MARKET DEALER-PA team. Please see the team's documentation from today for further details as I reviewed pertinent history, physical exam, labs, and imaging and agree with the history, physical exam, assessment, and plan. I have personally seen and evaluated the patient and formulated his care plan as a team. In brief this is a 48-year-old male who was seen in the clinic today for symptoms of right upper quadrant pain. The patient's pain is intermittent, crescendo decrescendo in nature and could reach intensity of 8/10. She has minimal associated symptoms. The pain is not typically related with fatty meals. One distinct episode patient recalls that the pain was provoked by eating a fairly large amountof faster.The patient stated that he had pain just before coming to clinic today. He had scrambled legs and the bar for breakfast and lunch respectively. His last meal was several hours ago. On exam the patient's abdomen is soft with only minimal discomfort to palpation in right upper quadrant. The pain is not reproducible. His abdomen is otherwise benign. The rest of his exam is as documented by the resident staff. Images reviewed for this visit are a CT scan of the abdomen and pelvis completed on 06/20/2023. Gallbladder is mildly distended but no signs of inflammation. No stones visible although this may not be a more sensitive test for assessing stones in the biliary tree. Knowing that the patient's symptoms are atypical, he was referred for a nuclear medical scan which demonstrated a CCK ejection fraction of 18% consistent with biliary dyskinesia. ASSESSMENT/PLAN. Atypical abdominal pain. Biliary dyskinesia could be a possible diagnosis for thispatient. However I did make it known to the patient that his symptoms are atypical and that there is a probability that he may go on to have pain even after a cholecystectomy. Patient seems agreeable to proceed with a cholecystectomy but may need some time to organize the rest of his summer activities and find an appropriate timing for surgery. We have given him a card to call the clinic number once he is ready for surgery and he will be scheduled as availability permits. All of the patient's questions were satisfactorily answered. documented in this encounter Consult Notes * Angel Mcdaniel M.D. - 10/16/2023 1:00 PM CDT History and Physical CHIEF COMPLAINT/REASON FOR VISIT: Recurring episodes of right upper quadrant pain. JULIA Patel is a 48 y.o. male who [...] Past Medical History: Diagnosis Date Depressive Disorder 2008 Eczema 1988 toes, fingers Gastroesophageal Reflux Disease NOS 2008 Headache Unspecified Pain Abdominal NOS Pneumonia may 2015, nov 2015, 1987, 19xx? Past Surgical History: Procedure Laterality Date ARTHROSCOPY SHOULDER Left 12/21/2016 arthroscopy shoulder ARTHROSCOPY SHOULDER ACROMIOPLASTY Left 12/21/2016 arthroscopy shoulder acromioplasty OTHER SURGICAL HISTORY 2016 adhesive capsulitis release REDUCTION TURBINATE Bilateral 11/27/2018 [...] Angel Mcdaniel MD PGY-1 General Surgery resident ([facility]). Pager: [phone] Sandip Saini PGY5 documented in this encounter Plan of Treatment Upcoming Encounters Date Type Department Care Team (Late st Contact Info) Description 12/23/2023 11:30 AM CDT Appointment Department of Radiology in [place] [address] [place] [address] Kristal Leon APRN, C.N.P. [address] [place] [address] Discharge Disposition: Home or Self Care documented as of this encounter Visit Diagnoses Diagnosis Other Specified Diseases Of Gallbladder Abnormal Results Of Function Studies Of Other Organs And Systems documented in this encounter Care Teams Medical Administrative Relationship Specialty Start Date End Date Elsewhere, Pcp PCP - General Family Medicine 08/21/17 documented as of this encounter
--- OUTSIDE RECORDS SUMMARY | 2023-12-18 07:45 | XMS_ITS | Encounter Summary ---
Author Organization [facility] Address [address] [place] [address] Care Team Providers Care Heel Scourer Name Role Phone Elsewhere, Pcp Primary Care Provider Unavailabl e Encounter Details Date Type Department Care Team (Late st Contact Info) Description 10/18/2023 Clinical Communication Division of Trauma Critical Care and General Surgery in [place], [place] [address] [place] [phone] Sly Clinton M.D., Ph.D. [address] [place] [phone] Social History Tobacco Use Types Packs/Day Years Used Date Smoking Tobacco: Former Cigarettes 0 04/15/2002 - 04/15/2009 Smokeless Tobacco: Never Alcohol Use Standard Drinks/Week Comments Yes 0 (1 standard drink = 0.6 oz pur e alcohol) once a month [facility] Utilities Answer Date Recorded In the past 12 months has [employer], gas, oil, or water [employer] threatened to shut off services in [...] often do you attend chur ch or oriental orthodox services? Never 06/09/2022 Do you belong to any clubs o r organizations such as quaker groups, unions, fraternal or athletic groups, or [...] all 06/09/2022 [facility] of Occupat ional Health - [...] your living situation today? I have a [facility] place to live 06/17/2023 Education [...] CDT Appointment Department of Radiology in [address] [phone] Kristal Leon APRN, C.N.P. [address], [place] [phone] Discharge Disposition: Home or Self Care documented as of this encounter Visit Diagnoses Not on filedocumented in this encounter Care Teams Heel Scourer Relationship Specialty Start Date End Date Elsewhere, Pcp PCP - General Family Medicine 08/21/17 documented as of this encounter
--- OUTSIDE RECORDS SUMMARY | 2023-12-18 07:45 | XMS_ITS | Encounter Summary ---
Author Organization [facility] Address [address] [place] [address] Care Team Providers Care Decoration Checker Name Role Phone Elsewhere, Pcp Primary Care Provider Unavailabl e Encounter Details Date Type Department Care Team (Late st Contact Info) Description 10/21/2023 Clinical Communication Division of Trauma Critical Care and General Surgery in [place], [place] [address] [place] [phone] Vinh Light M.D. Social History Tobacco Use Types Packs/Day Years Used Date Smoking Tobacco: Former Cigarettes 0 04/15/2002 - 04/15/2009 Smokeless Tobacco: Never Alcohol Use Standard Drinks/Week Comments Yes 0 (1 standard drink = 0.6 oz pur e alcohol) once a month [facility] Utilities Answer Date Recorded In the past 12 months has [facility] [employer], gas, oil, or water [employer] threatened to shut off services in your [...] often do you attend chur ch or baptism services? Never 06/09/2022 Do you belong to any clubs o r organizations such as presybeterian groups, unions, fraternal or athletic groups, or [...] and heating? Not hard at all 06/09/2022 [facility] of Occupat ional Health - Occupational [...] your living situation today? I have a [facility] place to live 06/17/2023 Education Answer [...] encounter Miscellaneous Notes * Telephone Encounter - Laurita Bee - 10/21/2023 11:48 AM CDT Patient called needing to reschedule his surgery listed for tomorrow. He would like to have surgeryon Saturday, October 31 if possible. Please confirm with him or me if October 31 will work. His phone number is [phone]. Thanks- documented in this encounter Plan of Treatment Upcoming Encounters Date Type Department Care Team (Late st Contact Info) Description 12/23/2023 11:30 AM CDT Appointment Department of Radiology in [address] [phone] Kristal Leon APRN, C.N.P. [address] [facility] [address] Discharge Disposition: Home or Self Care documented as of this encounter Visit Diagnoses Not on filedocumented in this encounter Care Teams Decoration Checker Relationship Specialty Start Date End Date Elsewhere, Pcp PCP - General Family Medicine 08/21/17 documented as of this encounter
--- OUTSIDE RECORDS SUMMARY | 2023-12-18 07:45 | XMS_ITS | Encounter Summary ---
Author Organization [facility] Address [address] [place] [address] Care Team Providers Care Olap Developer Name Role Phone Elsewhere, Pcp Primary Care Provider Unavailabl e Reason for Referral * Outpatient (Routine) - Closed Specialty Diagnoses / Procedures Referred By Beatrice boss Referred To Contact Jose Mock M.D. [address] [place] [phone] [facility] Referral ID Status Reason Start Date Expiration Date Visits Re quested Visits Authorized [id number] Closed 11/01/2023 05/02/2025 1 1 Reason for Visit * Auth/Cert (Routine) Specialty Diagnoses / Procedures Referred By Beatrice boss Referred To Contact Diagnoses Colic Biliary Colic Biliary [K80.50] Procedures IA LAPAROSCOPY CHOLECYSTECTOMY LAPAROSCOPIC CHOLECYSTECTOMY Vinh Light M.D. Referral ID Status Reason Start Date Expiration Date Visits Re quested Visits Authorized [id number] 1 1 Encounter Details Date Type Department Care Team (Latest Contact Info) Description 11/01/2023 6:46 AM CDT - 11/01/2023 1:10 PM CDT Hospital Encounter [facility] [address] [place] [phone] Rikki Birmingham M.D. [address] [place] [phone] Colic Biliary Discharge Disposition: Home or Self Care Social History Tobacco Use Types Packs/Day Years Used Date Smoking Tobacco: Former Cigarettes 0 04/15/2002 - 04/15/2009 Smokeless Tobacco: Never Alcohol Use Standard Drinks/Week Comments Yes 0 (1 standard drink = 0.6 oz pur e alcohol) once a month [facility] Utilities Answer Date Recorded In the [...] How often do you attend chur or mandaen services? Never 06/09/2022 Do you belong to [...] and heating? Not hard at all 06/09/2022 [facility] [place] of Occupat ional Health - Occupational Stress [...] with prescription medication. Olga Gold M.D., FACS [address] Traffic Controller Division of Trauma, Critical Care, and General Surgery Department of Surgery Pager: [phone] Email: [email or web address] Olga Gold M.D. Source Note - Angel [...] prostatitis SURGICAL HISTORY Arthroscopy shoulder acromioplasty in 2016, reduction turbinate bilateral and septoplasty in 2019. [...] MD PGY-1 General Surgery resident (prelim). Pager: [phone] Sandip Saini PGY5 documented in this encounter OR Notes * Op Note - Olga Gold M.D. - 11/01/2023 8:52 AM CDT Pre-op Diagnosis Colic Biliary Post-op Diagnosis Colic Biliary Embedded Engineer A kennel assistant actively participated and was necessary for one [...] was controlled with a combination of Surgicel assistant printer floor covering direct pressure, and eventually a distal 5 [...] predominantly around this structure to avoid injury. Joes through dissection, we could see that this [...] an EndoCatch bag and removed through the Cristofer port. Bleeding points on the liver were minimal and controlled with electrocautery. The clips were reinspected and found to be intact. We removed the 5 mm ports under direct vision, no bleeding noted. Laparoscopic Exparel TAP blocks were performed. Pneumoperitoneum was released. The Cristofer port site was closed in layers, posterior and anterior fascia, using 0-Vicryl suture in a [id number] fashion. All port sites were closed with [...] AM CDT Appointment Department of Radiology in [place] [address] [address] [facility] [place] [address] Kristal Leon APRN, C.N.P. [address] [place] [phone] Discharge Disposition: Home or Self Care Scheduled [...] ??No masses are identified. Hemorrhagic mucosa present. ??Insurance Actuary tissue submitted for permanent sections. ??Grossed by Sj Tejada M.D.-Pathology Resident / Marko Shaw M.S., PA([facility]). 11/04/2023 3:43 PM CDT STMA Block Summary A Gallbladder A1 Gallbladder 11/04/2023 3:43 PM CDT STMA Interpretation FINAL DIAGNOSIS A. ??Gallbladder, cholecystectomy: ??Chronic cholecystitis with cholesterolosis. Digital imaging was used in the diagnostic assessment of this case. 11/04/2023 3:43 PM CDT STMA Tissue (Gallbladder) 11/01/2023 10:17 AM CDT Olga Gold M.D. LAB SURG PATH ORD ERABLES [facility] [address] [place] [address], [facility] 200 [facility] [address] [place] [address] documented in this encounter Visit Diagnoses Diagnosis Colic Biliary documented in this encounter Administered [...] Given 11/01/2023 7:34 AM CDT 1,000 mg caffeine tablet 200 mg 200 mg, oral, Once, On Sat11/01/23 at 0730, For 1 dose, Pre-Op Given 11/01/2023 7:34 AM CDT 200 mg chlorhexidine 0.12 % mouthwash 15 mL (Peridex) [...] Provid er: Carlos A Olivas, Cata, B.A.O.) heparin (porcine) injection 5,000 Units (COMPLETED) [...] Provider: Angi Antunez R.N.)1112 (Given - Provider: Angi Antunez R.N.) haloperidol lactate injection 1 mg (HaldoL) 1 [...] take their last scheduled dose of beta santaigo prior to arrival, Starting on Sat11/01/23 at [...] NPO) documented in this encounter Care Teams Olap Developer Relationship Specialty Start Date End Date Elsewhere, Pcp PCP - General Family Medicine 08/21/17 documented as of this encounter
--- OUTSIDE RECORDS SUMMARY | 2023-12-18 07:45 | XMS_ITS | Encounter Summary ---
Author Organization [facility] Address [address] [place] [address] Care Team Providers Care Stock Unloader Name Role Phone Elsewhere, Pcp Primary Care Provider Unavailabl e Encounter Details Date Type Department Care Team (Late Contact Info) Description 2017 [facility] [address] [place] [address] Milo Albarado M.D. [address], [place] [phone] Personal History Of Other Diseases Of Male [...] Department Care Team (Late Contact Info) Description 12/23/2023 11:30 AM CDT Appointment Department of Radiology in [place], [place] [address] [place] [phone] Kristal Leon APRN, C.N.P. [address] [phone] Discharge Disposition: Home or Self Care documented as of this encounter Visit Diagnoses Diagnosis Personal History Of Other Diseases Of Male Genital Organs- Primary Torsion Testis documented in this encounter Care Teams Stock Unloader Relationship Specialty Start Date End Date Elsewhere, Pcp PCP - General Family Medicine 08/21/17 documented as of this encounter
--- OUTSIDE RECORDS SUMMARY | 2023-12-18 07:45 | XMS_ITS | Encounter Summary ---
Author Organization [facility] Address [address] [place] [address] Care Team Providers Care Vessel Scrapper Helper Name Role Phone Elsewhere, Pcp Primary Care Provider Unavailabl e Reason for Referral * Outpatient (Routine) - Closed Specialty Diagnoses / Procedures Referred By Contac t Referred To Contact Otorhinolaryngology Diagnoses Obstructive Sleep Apnea Adult Snoring Congestion Nasal Kelby Fuentes M.D. [address] [place] [address] [facility] Referral ID Status Reason Start Date Expiration Date Visits Re quested Visits Authorized [id number] Closed 12/19/2017 12/19/2018 1 1 Encounter Details Date Type Department Care Team (Late st Contact Info) Description 12/18/2017 [facility] [address] [place] [address] Kelby Fuentes M.D. [address] [place] [address] Obstructive Sleep Apnea Adult (Primary [...] AM CDT Appointment Department of Radiology in [address] [phone] Kristal Leon, JD, C.N.P. [address] [phone] Discharge Disposition: Home or Self Care Scheduled Referrals Name Type Priority Associated Diagnoses Order Schedule Otolaryngology Referral Outpatient Referral Routine Obstructive Sleep Apnea Adult Snoring Congestion Nasal Expected: 12/19/2017 (Approximate), Expires: 12/19/2020 documented as of this encounter Visit Diagnoses Diagnosis Obstructive Sleep Apnea Adult- Primary Snoring Congestion Nasal documented in this encounter Care Teams Vessel Scrapper Helper Relationship Specialty Start Date End Date Elsewhere, Pcp PCP - General Family Medicine 08/21/17 documented as of this encounter
--- OUTSIDE RECORDS SUMMARY | 2023-12-18 07:45 | XMS_ITS | Encounter Summary ---
Author Organization [facility] Address [address] [place] [phone] Care Team Providers Care Retail Salesperson Name Role Phone Elsewhere, Pcp Primary Care Provider Unavailabl e Encounter Details Date Type Department Care Team (Latest Contact Info) Description 08/29/2023 Clinical Communication Department of Ophthalmology in [place], [place] [address] [place] [phone] Annie Lamas O.D. [address] [place] [address] Social History Tobacco Use Types Packs/Day Years Used Date Smoking Tobacco: Former Cigarettes 0 04/15/2002 - 04/15/2009 Smokeless Tobacco: Never Alcohol Use Standard Drinks/Week Comments Yes 0 (1 standard drink = 0.6 oz pur e alcohol) once a month [facility] Utilities Answer Date Recorded In the past 12 months has [employer], gas, oil, or water [employer] threatened to shut off services in your [...] often do you attend chur ch or moravian services? Never 06/09/2022 Do you [...] and heating? Not hard at all 06/09/2022 [facility] - Occupational Stress Questionnaire Answer Date [...] your living situation today? I have a [facility] place to live 06/17/2023 Education [...] AM CDT Appointment Department of Radiology in [address] [phone] Kristal Leon, JD, C.N.P. [address] [phone] Discharge Disposition: Home or Self Care documented as of this encounter Visit Diagnoses Not on filedocumented in this encounter Care Teams Retail Salesperson Relationship Specialty Start Date End Date Elsewhere, Pcp PCP - General Family Medicine 08/21/17 documented as of this encounter
== END 2023-12-18 07:41 | disposition home or self-care (01) ==
PROVIDERS: PCP Family Medicine; Visit Provider Family Medicine
DX: E53.8 Deficiency of other specified B group vitamins (principal); R53.83 Other fatigue; Z12.5 Encounter for screening for malignant neoplasm of prostate; Z13.220 Encounter for screening for lipoid disorders; Z13.21 Encounter for screening for nutritional disorder
CPT/HCPCS: 80053; 80061; 82306; 82607; 82746; 84443; G0103

== ENCOUNTER 2024-02-16 15:46 | Emergency (ER) | payer OTHER, SELFPAY ==
[2024-02-16 15:51] VITALS: BP 133/75; PULSE 65; RESP 20; TEMP 36.7; O2SAT 98; BMI 26.7
--- NOTE | 2024-02-16 16:20 | CRLHL7_ITS ---
For Patients: As a result of the Century Cures Act, medical imaging exams and procedure reports are released immediately into your electronic medical record. You may view this report before your referring provider. If you have questions, please contact your health care provider. INDICATION: Right-sided abdominal pain. TECHNIQUE: CT abdomen and pelvis acquired with 96 cc Isovue 370 IV contrast. COMPARISON: None. FINDINGS: Lower chest: Unremarkable. Liver: Unremarkable. Normal in size and attenuation. No suspicious masses. Gallbladder and bile ducts: Prior cholecystectomy. Pancreas: Unremarkable. No mass or inflammation. Spleen: Unremarkable. Normal in size. No masses. Adrenal glands: Unremarkable. No nodules. Kidneys: Unremarkable. No suspicious masses, stones, or hydronephrosis. GI tract: Moderate colonic stool burden.. Normal in caliber. No sign of mass or inflammation. Normal appendix. Vasculature: Abdominal aorta is normal in caliber. Mesenteric arteries are patent. Lymph nodes: No lymphadenopathy. Peritoneum/Abdominal Wall: Unremarkable. No sign of mass or infiltration. No free air or significant free fluid. Pelvis: Prominent prostate gland.. Bones: Unremarkable for age. IMPRESSION: No acute intra-abdominal/pelvic abnormality including appendicitis as questioned. Moderate colonic stool burden. Please note that all CT scans at this facility use dose modulation, iterative reconstruction, and/or weight-based dosing when appropriate to reduce radiation dose to as low as reasonably achievable. Dictated by Vinh Navarro MD @ 02/16/2024 4:40:17 PM (Electronically Signed)
[2024-02-16 16:38] LABS: Basophils Percent Auto 0.2 % (0.0-3.0); Hematocrit 35.8 % (37.0-53.0); Hemoglobin* 12.3 gm/dL (13.5-17.5); Immature Granulocytes Pct Auto 0.2 %; Mean Corpuscular HGB Conc 34 gm/dL (32-36); Mean Corpuscular Hemoglobin 30 pg (26-34); Mean Corpuscular Volume 88 fL (80-100); Monocytes Percent Auto 7.4 % (0.0-11.0); Neutrophils Percent Auto 58.2 % (42.0-72.0); Platelet Count* 147 K/uL (140-440); RDW Coefficient of Variation % 11.7 % (11.5-15.5); Red Blood Count 4.05 m/uL (4.30-5.90); White Blood Count* 4.06 K/uL (4.50-11.00)
[2024-02-16 16:45] LABS: Slide Review Reflex No
--- OUTSIDE RECORDS SUMMARY | 2024-02-16 16:46 | XMS_ITS | Encounter Summary ---
Author Organization [facility] Address [address] [place] [phone] Care Team Providers Care Brick Machine Operator Name Role Phone Elsewhere, Pcp Primary Care Provider Unavailabl e Reason for Referral * Outpatient (Routine) - Authorized Specialty Diagnoses / Procedures Referred By Contac t Referred To Contact Trauma Critical Care and General Surgery Yahaira Gonsalez P.A.-C. [address] [place] [phone] Phone: tel: fax: [facility] Referral ID Status Reason Start Date Expiration Date V isits Requested Visits Authorized [id number] Authorized 02/14/2024 08/15/2025 1 1 Scheduling Instructions [facility] clinic (after CT scan) * MRI/CAT/PET Scan (Routine) - Authorized Specialty Diagnoses / Procedures Referred By Contac t Referred To Contact Radiology Diagnoses Pain Right Lower Quadrant Procedures CT Abdomen Pelvis with IV Contrast Yahaira Gonsalez P.A.-Sagar [address] [place] [address] Phone: tel: fax: [facility] Referral ID Status Reason Start Date Expiration Date V isits Requested Visits Authorized [id number] Authorized 02/14/2024 02/13/2025 1 1 Reason for Visit * Reason Onset Date Comments Issues after his surgery 02/14/2024 Encounter Details Date Type Department Care Team (Latest Contact Info) Description 02/14/2024 Clinical Communication Division of Trauma Critical Care and General Surgery in [place], [place] [address] [place] [phone] Olga Gold M.D. [address] [place], [place] [phone] Issues after his surgery Social History Tobacco Use Types Packs/Day Years Used Date Smoking Tobacco: Former Cigarettes 0 04/15/2002 - 04/15/2009 Smokeless Tobacco: Never Alcohol Use Standard Drinks/Week Comments Yes 0 (1 standard drink = 0.6 oz pur e alcohol) once a month [facility] Utilities Answer Date Recorded In the past 12 months has [employer], gas, oil, or water [employer] threatened to shut off services in your [...] a drink containing alc ohol? Never 06/09/2022 Average Number of Drinks Not on file 023 Frequency of Binge Drinking Not on file 05/17 Overall Financial Resource Strain (CARDIA) Answe r Date Recorded How hard is it for you to pa y for the very basics like food, housing, medical care, and heating? Not hard at all 06/09/2022 [facility] - Occupational [...] Answer Date Recorded Dental: Regular Dentist Yes 01/16/20 23 Employment Answer Date Recorded Employment status [...] Assigned at Male 06/23/2017 6:13 PM CDT Legal Sex Male 8:38 AM CDT Gender Identity Male 06/23/2017 6:13 PM CDT Sexual Orientation Straight 06/23/2017 6: 13 PM CDT documented as of this encounter Miscellaneous Notes * Telephone Encounter - Yahaira Gonsalez P.A.-C. - 02/14/2024 2:26 PM CDT Mr. Homero Patel is a 48-year-old male [facility] He called today due to ongoing abdominal pain He has called a few times due to abdominal pain. He was last seen on January 29 in the [facility] at which time no abdominal wall hernias were noted on physical examination. Therefore an ultrasound was ordered. This was obtained yesterday, February 12, and showed a right lower anterior abdominal wall 4 mm fascial defect with a fat-containing hernia. This may be in the proximity of one of his 5 mm port site; however, a hernia from one of these port sites is extremely rare. He also notes he has pain in the right upper quadrant at the largest incision, subxiphoid pain and a ???gurgling?? inhis left upper quadrant. He denies fever, chills and nausea. He notes he is able to tolerate a dietwith only minimal increased pain and that he is passing flatus and having soft but adequate bowel movements. After discussion and review of the ultrasound with Dr. Olga Gold, he will have a CT scan to further evaluate his abdominal concerns followed by a clinic appointment. Attempt will be made to obtain a CT scan and have [facility] Clinic follow-up next week. He was instructed should he develop fever, chills, increasing abdominal pain, inability to tolerate food and/or stops passing flatus to either call or present to the local ED. He noted understanding and in agreement with this plan. All questionswere answered to apparent satisfaction. * Telephone Encounter - BeeLaurita Lois - 02/14/2024 11:09 AM CDT Patient called stating that there is herniation where he has pain after his surgery and would like to talk with someone about that. Please call him back at [phone]. Thanks- documented in this encounter Plan of Treatment Upcoming Encounters Date Type Department Care Team (Latest Contact Info) Description 03/17/2024 1:00 PM CURRICULUM CONSULTANT Comprehensive Visit Department of Dermatology in [place], [place] [address] [place] [phone] Katrin Causey APRN, C.N.P., D.N.P. [address] [place] [phone] Elizabeth Max M.D., Ph.D. [address] [place] [phone] 04/17/2024 2:30 PM CURRICULUM CONSULTANT Clinical Communication Virtual Review in [place], [place] 200 [place] [phone] 04/20/2024 10:00 AM CURRICULUM CONSULTANT Ancillary Procedure Department of Ophthalmology in [place], [place] [address] [place] [address] Annie Lamas O.D. [address] [place] [phone] 04/21/2024 7:15 AM CURRICULUM CONSULTANT Ancillary Procedure Department of Ophthalmology in [place], [place] [address] [place] [phone] 04/21/2024 7:45 AM CURRICULUM CONSULTANT Ancillary Procedure Department of Ophthalmology in [place], [place] [address] [place] [phone] Annie Lamas O.D. 200 [place] [address] 04/21/2024 8:00 AM CURRICULUM CONSULTANT Office Visit Department of Ophthalmology in [place], [place] [address] [place] [phone] Annie Lamas O.D. [address] [place] [phone] Scheduled Orders Name Type Priority Associated Diagnoses Orde r Schedule CT Abdomen Pelvis with IV Contrast Imaging RAD - Routine (most inpatients and all outpatients) Pain Right Lower Quadrant Expected: 02/19/2024, Expires: 05/16/2025 Scheduled Referrals Name Type Priority Associated Diagnoses Orde r Schedule Trauma Critical Care and General Surgery office visit (clinic) Outpatient Referral Routine Expected: 02/19/2024, Expires: 05/16/2025 documented as of this encounter Visit Diagnoses Diagnosis Pain Right Lower Quadrant- Primary documented in this encounter Care Teams Brick Machine Operator Relationship Specialty Start Date End Date Elsewhere, Pcp PCP - General Family Medicine 08/21/17 documented as of this encounter
--- OUTSIDE RECORDS SUMMARY | 2024-02-16 16:46 | XMS_ITS | Clinical Summary ---
Author Organization [facility] Address [address] [place] [address] Care Team Providers Care Shredding Specialist Name Role Phone Elsewhere, Pcp Primary Care Provider Unavailabl e Source Comments Patient records contain information from all sites at [facility]. For routine questions regarding patient records, call [phone] during business hours, M-F 8:00 AM - 5:00 PM Central Time. Record requests for emergency care only can be directed to [phone] at any time.[facility] Allergies Active Allergy Reactions Criticality Noted Date Comments Levofloxacin Other (see comments) 10/15/2016 leg pain, panic attack Milk Other (see comments) 12/21/2016 showed on blood allergy testing Pollen Extracts Other (see comments) 10/15/2016 Medications tretinoin (RETIN-A) 0.05 % creamIndications :Pruritus,Acne Vulgaris Apply 1 application topically at bedtime. Apply to face. 45 g 11 021 Active multivitamin/iro n/folic acid (CENTRUM ORAL) 020 Active triamcinolone (KENALOG) 0.1 % creamIndications :Dermatitis Apply 1 application topically 2 (two) times a day. Apply to affected areas 2 times a day as needed after Clobetasol treatment. 45 g 11 022 Active oxymetazoline (Rhofade) 1 % cream creamIndications :Rosacea Apply 1 application topically daily. Apply to face for rosacea. 30 g 3 022 Active clobetasoL (TEMOVATE) 0.05 % ointment Apply 1 application topically 2 (two) times a day. Apply to areas of eczema as needed/ Active gabapentin (NEURONTIN) 300 mg capsule Take 300 mg by mouth 3 (three) times a day. Active buPROPion XL (WELLBUTRIN XL) 150 mg 24 hr tablet Take 1 tablet (150 mg total) by mouth every morning. 90 tablet 023 Active QUEtiapine (SEROquel) 200 mg tablet Take 1 tablet (200 mg total) by mouth at bedtime. 90 tablet 023 Active lamoTRIgine (LaMICtaL) 200 mg tablet Take 1 tablet (200 mg total) by mouth 2 (two) times a day. 60 tablet 2 023 Active clindamycin-yaa oyl peroxide (BENZACLIN) 1-5 % gelIndications:A cne Vulgaris APPLY TOPICALLY TO FACE DAILY 50 g 11 Active fluticasone propionate (FLONASE) 50 mcg/actuation nasal spray Administer 2 sprays into each nostril daily. Prior to sleep Active DME CPAPIndications: Obstructive Sleep Apnea Adult,Insomnia Mental Disorder Related,Stenosis Nasal Valve,Chronic Insomnia Disorder,Bipolar Disorder Current Episode Mixed Mild (HCC),Cannabis Use Unspecified Uncomplicated DME Order 1 each Active clindamycin phos/benzoyl perox (CLINDAMYCIN-BAKARI ZOYL PEROXIDE TOP) Apply topically. Active QUEtiapine (SEROquel) 100 mg tablet Take 100 mg by mouth at bedtime. Active zolpidem (Ambien) 10 mg tablet TAKE 1 TABLET BY MOUTH DAILY AT BEDTIME NEEDED Active QUEtiapine (SEROqueL) 50 mg tablet Active acetaminophen (TylenoL) 500 mg tablet Take 2 tablets (1,000 mg total) by mouth every 6 (six) hours as needed for pain. Take on a scheduled basis for the first 3 days after surgery. Then as needed. Active ibuprofen 200 mg capsule Take 3 capsules (600 mg total) by mouth every 6 (six) hours as needed for pain. Alternate with Tylenol every 3 hours on a scheduled basis for the first 3 days. Active oxyCODONE (Roxicodone) 5 mg immediate release tabletIndication s:Acute Pain Take 1 tablet (5 mg total) by mouth every 4 (four) hours as needed for pain Indication: Acute Pain. 5 tablet 4 1:40 PM CDT Active sennosides (senna) 8.6 mg tablet Take 1 tablet (8.6 mg total) by mouth daily. Take while using prescription pain medication to avoid constipation. Active lurasidone (Latuda) 20 mg tablet TAKE 1 TABLET BY MOUTH DAILY FOR 6 WEEKS Active latanoprost (Xalatan) 0.005 % ophthalmic solution INSTILL 1 DROP BOTH EYES AT BEDTIME 10 mL Active latanoprost (XALATAN) 0.005 % ophthalmic solution INSTILL 1 DROP IN BOTH EYES AT BEDTIME 10 mL 3 023 2023 Discontinued Active Problems Problem Noted Date Diagnosed Date Obstructive Sleep Apnea Adult 04/30/2023 Snoring 03/26/2023 Insomnia Mental Disorder Related 03/26/2023 Chronic Insomnia Disorder 03/26/2023 Bipolar Disorder Current Episode Mixed Mild 03/15 Pain Shoulder Left 03/26/2023 Cannabis Use Unspecified Uncomplicated 3 Obstruction Nasal 12/26/2017 Overview (12/26/2017): Added automatically from request for surgery [id number] Tendinitis Ankle Left 10/14/2017 Prostatitis Chronic 10/14/2017 Pain Shoulder 10/08/2016 Encounters Date Type Department Care Team Description 02/14/2024 Clinical Communication Division of Trauma Critical Care and General Surgery in [address] [phone] Olga Gold M.D. Issues after his surgery 02/13/2024 9:14 AM CDT - 02/13/2024 11:59 PM CDT Hospital Encounter Department of Radiology in [place], [place] [address] [place] [address] Lita Jacob, ACCOUNT DIRECTOR, C.N.P. Pain Right Lower Quadrant; Cholecystectomy Laparoscopic Status Post Discharge Disposition: Home or Self Care 02/10/2024 Orders Only Department of Ophthalmology in [place], [place] [address] [place] [address] Annie Lamas O.D. Glaucoma (Primary Dx) 02/09/2024 Refill Department of Ophthalmology in [place], [place] [address] [place] [address] Annie Lamas O.D. Med Refill 02/05/2024 Orders Only Division of Trauma Critical Care and General Surgery in [place], [place] [address] [place] [phone] Lita Jacob APRN, C.N.P. Pain Right Lower Quadrant (Primary Dx); Cholecystectomy Laparoscopic Status Post 01/30/2024 1:15 PM CDT Office Visit Division of Trauma Critical Care and General Surgery in [place], [place] [address] [place] [phone] Sukhdev Ahumada APRN, C.N.P., M.S.N. Lita Jacob APRN, C.N.P. Cholecystectomy Laparoscopic Status Post (Primary Dx); Pain Right Lower Quadrant 01/30/2024 11:30 AM CDT - 01/30/2024 11:59 PM CDT Hospital Encounter Department of Laboratory Medicine and Pathology, [facility] in [place], [place] [address] [place] [address] Sukhdev Ahumada APRN, C.N.P., M.S.N. Other Specified Diseases Of Gallbladder; Cholecystectomy Laparoscopic Status Post Discharge Disposition: Home or Self Care 01/27/2024 Orders Only Division of Trauma Critical Care and General Surgery in [place], [place] [address] [place] [phone] Sukhdev Ahumada APRN, C.N.P., M.S.N. Other Specified Diseases Of Gallbladder (Primary Dx); Cholecystectomy Laparoscopic Status Post 12/23/2023 11:30 AM CDT - 12/23/2023 11:59 PM CDT Hospital Encounter Department of Radiology in [place], [place] [address] [place] [address] Kristal Leon APRN, C.NOusmanePOusmane Pain Scrotum Discharge Disposition: Home or Self Care 12/06/2023 2:30 PM CDT Office Visit Department of Urology in [place], [place] [address] [facility] [place] [address] Kristal Leon APRN, C.NOusmanePOusmane Pain Scrotum (Primary Dx) from Last 3 Months Family History Medical [...] oz pur e alcohol) once a month [facility] Utilities Answer Date Recorded In the past 12 months has e [employer], gas, oil, or water [employer] threatened to shut off services in your [...] often do you attend chur ch or yazdanism services? Never 06/09/2022 Do you belong to any clubs o r organizations such as judaism groups, unions, fraternal or athletic groups, or [...] and heating? Not hard at all 06/09/2022 [facility] of Occupat ional Health - Occupational Stress [...] (Latest Contact Info) Description 03/17/2024 1:00 PM LAW FIRM ADMINISTRATOR Comprehensive Visit Department of Dermatology in [place], [place] [address] [place] [phone] Katrin Causey APRN, C.N.P., D.N.P. [address] [place] [phone] Elizabeth Max M.D., Ph.D. [address] [place] [phone] 04/17/2024 2:30 PM LAW FIRM ADMINISTRATOR Clinical Communication Virtual Review in [place], [place] [address] [place] [address] 04/20/2024 10:00 AM LAW FIRM ADMINISTRATOR Ancillary Procedure Department of Ophthalmology in [place] [address] [place] [address] Annie Lamas O.D. [address] [place] [phone] 04/21/2024 7:15 AM LAW FIRM ADMINISTRATOR Ancillary Procedure Department of Ophthalmology in [place] [address] [place] [address] 04/21/2024 7:45 AM LAW FIRM ADMINISTRATOR Ancillary Procedure Department of Ophthalmology in [place] [address] [place] [address] Annie Lamas O.D. [address] [place] [phone] 04/21/2024 8:00 AM LAW FIRM ADMINISTRATOR Office Visit Department of Ophthalmology in [place] [address] [place] [phone] Annie Lamas O.D. [address] [place] [address] Health Maintenance Due Date Last Done Comments CT Colonography 1973 Cologuard 1973 FIT 1973 Lipid (Cholesterol) Screening 1973 Hepatitis A Vaccines (1 of 2 - Risk 2-dose series) 1992 Hepatitis B Vaccines (1 of 3 - 19+ 3-dose series) 1992 Depression Screening (Annual PHQ-2) 04/15/2023 Zoster Vaccines (2 of 2) 02/12/2024 12/18/2023 DTaP,Tdap,and Td Vaccines (2 - Td or Tdap) 11/13/2025 11/14/2015 Fasting Glucose for Diabetes Screening 01/29/2027 01/30/2024, 11/08/2020 Colonoscopy 07/04/2030 07/04/2020, 07/04/2020 Colorectal Cancer Screening 07/04/2030 HIV Screening Completed 11/08/2020 COVID-19 Vaccine Completed 12/21/2023, , 01/01/2022, Additional history exists Influenza Vaccine Completed 12/21/2023, , 01/08/2023, Additional history exists IPV Vaccines Aged Out No longer eligi ble based on patient's age to complete this topic Pneumococcal vaccine (0-64 years) Aged Out No longer eligible based on patient's age to complete this topic Medical Devices Implanted Type Area Musical Instrument Mechanic Device Identifier Shelf Expiration Date Model / Serial / Lot Clp Jul End Intnl Endo 5x11 - [id number] Implanted:Qt y: 1 on 11/01/2023 by Olga Gold M.D. at [facility] Hardware e.g. pins/screws /rods N/A: Abdomen Medtronic [id number] / / Clp Hmol Pl Lg - [id number] Implanted:Qt y: 1 on 11/01/2023 by Olga Gold M.D. at [facility] Hardware e.g. pins/screws /rods N/A: Abdomen IP Street [id number] 07/01/2028 [id number] / / [id number] Procedures Procedure Name Priority Date/Time Associated Diagnosis Comments US ABDOMEN LIMITED SOFT TISSUE RAD - Routine (most inpatients and all outpatients) 02/13/2024 10:52 AM CDT Pain Right Lower Quadrant Cholecystectomy Laparoscopic Status Post COMPREHENSIVE METABOLIC PANEL, S/P Routine 01/30/2024 11:37 AM CDT Other Specified Diseases Of Gallbladder Cholecystectomy Laparoscopic Status Post US SCROTUM WITH DOPPLER RAD - Routine (most inpatients and all outpatients) 12/23/2023 1:20 PM CDT Pain Scrotum HIV-1/-2 AG AND AB SCREEN, PLASMA Routine 11/08/2020 11:55 AM CDT Pruritus COLONOSCOPY Routine 07/04/2020 12:39 PM CDT Abdominal Pain Constipation from Last 3 Months or Most Recently Relevant to Health Maintenance Results * US Abdomen Limited Soft Tissue (02/13/2024 10:52 AM CDT) Anatomical Region Laterality Modality Abdomen, Ultrasound RST LOS, Ultrasound ARZ LOS, Ultrasound FLA LOS N/A Ultrasound Impressions 02/13/2024 11:29 AM CDT 1. ??Targeted ultrasound of the right lower anterior abdominal wall at the area of pain/surgical incision demonstrates a 4 mm fascial defect through which a small amount of fat herniates. No bowel contained within this hernia. No change with Valsalva. 2. ??Targeted ultrasound of the second area of pain about the right upper/mid abdominal wall overlying a surgical incision shows a small amount of edematous tissue and a 3 mm tiny pocket of fluid. No drainable fluid collection. No hernia. No foreign body. Narrative 02/13/2024 11:29 AM CDT EXAM: US ABDOMEN LIMITED SOFT TISSUE COMPARISON: CT abdomen/pelvis 06/20/2023 FINDINGS: See impression. Procedure Note Alok Liriano M.D. - 02/13/2024 EXAM: US ABDOMEN LIMITED SOFT TISSUE COMPARISON: CT abdomen/pelvis 06/20/2023 FINDINGS: See impression. IMPRESSION: 1. Targeted ultrasound of the right lower anterior abdominal wall at thearea of pain/surgical incision demonstrates a 4 mm fascial defect throughwhich a small amount of fat herniates. No bowel contained within thishernia. No change with Valsalva. 2. Targeted ultrasound of the second area of pain about the rightupper/mid abdominal wall overlying a surgical incision shows a smallamount of edematous tissue and a 3 mm tiny pocket of fluid. No drainablefluid collection. No hernia. No foreign body. us Lita Jacob APRN C.N.P. IMG US PROCEDURES Final Result * (ABNORMAL) Comprehensive Metabolic Panel (01/30/2024 11:37 AM CDT) Pathologist [facility] Potassium, S 4.7 3.6 - 5.2 mmol/L 01/30/2024 12:35 PM CDT DTL Sodium, S 145 135 - 145 mmol/L 01/30/2024 12:35 PM CDT DTL Chloride, S 105 98 - 107 mmol/L 01/30/2024 12:35 PM CDT DTL Bicarbonate, S 31(H) 22 - 29 mmol/L 01/30/2024 12:35 PM CDT DTL Anion Gap 9 7 - 15 01/30/2024 12:35 PM CDT DTL BUN (Blood Urea Nitrogen), S 14 8 - 24 mg/dL 01/30/2024 12:35 PM CDT DTL Creatinine 1.05 0.74 - 1.35 mg/dL 01/30/2024 12:35 PM CDT DTL Estimated GFR (eGFR) 86 >=60 mL/min/BS A 01/30/2024 12:35 PM CDT DTL Comment: Estimated GFR calculated using the 2020 CKD_EPI creatinine equation. Calcium, Total, S 10.1(H) 8.6 - 10.0 mg/dL 01/30/2024 12:35 PM CDT DTL Glucose, S 104 70 - 140 mg/dL 01/30/2024 12:35 PM CDT DTL Protein, Total, S 6.4 6.3 - 7.9 g/dL 01/30/2024 12:35 PM CDT DTL Albumin, S 4.8 3.5 - 5.0 g/dL 01/30/2024 12:35 PM CDT DTL Aspartate Aminotransferase (AST), S 20 8 - 48 U/L 01/30/2024 12:35 PM CDT DTL Alkaline Phosphatase, S 87 40 - 129 U/L 01/30/2024 12:35 PM CDT DTL Alanine Aminotransferase (ALT), S 21 7 - 55 U/L 01/30/2024 12:35 PM CDT DTL Bilirubin, Total, S 0.6 0.0 - 1.2 mg/dL 01/30/2024 12:35 PM CDT DTL Blood (Blood, Venous) 01/30/2024 11:37 AM CDT 01/30/2024 12:15 PM CDT us Sukhdev Ahumada APRN, C.N.P., M.S.N. LAB [place]LOOD [place] [address], [facility] [place] [address] * US Scrotum with Doppler (12/23/2023 1:20 PM CDT) Anatomical Region Laterality Modality Testes, Ultrasound RST LOS, Ultrasound ARZ LOS, Ultrasound FLA LOS N/A Ultrasound Impressions 12/23/2023 2:09 PM CDT Normal scrotal ultrasound. No abnormality in the area of interest to account for palpable abnormality. Imaging of the area of interest in the right corresponds with normal-appearing epididymis. No cyst or mass. Narrative 12/23/2023 2:09 PM CDT EXAM: US SCROTUM WITH DOPPLER Exam performed with color and spectral Doppler analysis. COMPARISON: No prior for comparison FINDINGS: Right testicle: Normal size, echotexture, and blood flow pattern. No focal mass. Right testis volume: 12.1 ml Epididymis: Normal. No mass or hyperemia. Other: No hydrocele. No varicocele. Left testicle: Normal size, echotexture, and blood flow pattern. No focal mass. Left testis volume: 14.8 ml Epididymis: Normal. No mass or hyperemia. Other: No hydrocele. No varicocele. Procedure Note Jose Stevenson M.D. - 12/23/2023 EXAM: US SCROTUM WITH DOPPLER Exam performed with color and spectral Doppler analysis. COMPARISON: No prior for comparison FINDINGS: Right testicle: Normal size, echotexture, and blood flow pattern. No focalmass. Right testis volume: 12.1 ml Epididymis: Normal. No mass or hyperemia. Other: No hydrocele. No varicocele. Left testicle: Normal size, echotexture, and blood flow pattern. No focalmass. Left testis volume: 14.8 ml Epididymis: Normal. No mass or hyperemia. Other: No hydrocele. No varicocele. IMPRESSION: Normal scrotal ultrasound. No abnormality in the area of interest toaccount for palpable abnormality. Imaging of the area of interest in theright corresponds with normal-appearing epididymis. No cyst or mass. us Kristal Leon APRN C.N.P. IMG US PROCEDURES Final Result * HIV-1/-2 Ag and Ab Screen, Plasma (11/08/2020 11:55 AM CDT) Pathologist [facility] HIV-1/-2 Ag and Ab Screen, P Negative Negative 11/08/2020 4:24 PM CDT [facility] Comment: Negative result does not rule out HIV infection. If exposure to HIV infection occurred <14 days ago, contact the laboratory to request addition of HIV-1 RNA detection / quantification test (HIVQN). Blood (Blood, Venous) 11/08/2020 11:55 AM CDT 11/08/2020 3:50 PM CDT us Sylvie Sidhu M.D. LAB MICROBIOLOGY - BLOOD O RDERABLES Final Result [facility] [place] [address] [place] [address] [facility] Dept. of Laboratory Medicine and Pathology [address] [place] [address] from Last 3 Months or Most Recently Relevant to Health Maintenance Insurance [employer] Advance Directives For more information, please contact: [phone] * Full Code (Latest Code Status on File) Date Activated Date Inactivated Comments 11/01/2023 7:28 AM 11/01/2023 3:10 PM Question Answer Comments Full Code: Discussed Care Teams Shredding Specialist Relationship Specialty Start Date End Date Elsewhere, Pcp PCP - General Family Medicine 08/21/17
--- OUTSIDE RECORDS SUMMARY | 2024-02-16 16:46 | XMS_ITS | Referral Summary ---
Author Organization [facility] Address [address] [place] [address] Care Team Providers Care Business Manager [employer] Name Role Phone Elsewhere, Pcp Primary Care Provider Unavailabl e Source Comments Patient records contain information from all sites at [facility]. For routine questions regarding patient records, call [phone] during business hours, M-F 8:00 AM - 5:00 PM Central Time. Record requests for emergency care only can be directed to [phone] at any time.[facility] Encounters Date Type Department Care Team Description 02/14/2024 Clinical Communication Division of Trauma Critical Care and General Surgery in [place], [place] [address] [place] [address] Olga Gold M.D. Issues after his surgery 02/13/2024 9:14 AM CDT - 02/13/2024 11:59 PM CDT Hospital Encounter Department of Radiology in [place], [place] [address] [place] [phone] Lita Jacob, JD, C.N.P. Pain Right Lower Quadrant; Cholecystectomy Laparoscopic Status Post Discharge Disposition: Home or Self Care 02/10/2024 Orders Only Department of Ophthalmology in [place], [place] [address] [place] [phone] Annie Lamas O.D. Glaucoma (Primary Dx) 02/09/2024 Refill Department of Ophthalmology in [place], [place] [address] [place] [address] Annie Lamas O.D. Med Refill 02/05/2024 Orders Only Division of Trauma Critical Care and General Surgery in [address] [phone] Lita Jacob APRN, C.N.P. Pain Right Lower Quadrant (Primary Dx); Cholecystectomy Laparoscopic Status Post 01/30/2024 1:15 PM CDT Office Visit Division of Trauma Critical Care and General Surgery in [address] [phone] Sukhdev Ahumada APRN, C.N.P., M.S.N. Lita Jacob APRN, C.N.P. Cholecystectomy Laparoscopic Status Post (Primary Dx); Pain Right Lower Quadrant 01/30/2024 11:30 AM CDT - 01/30/2024 11:59 PM CDT Hospital Encounter Department of Laboratory Medicine and Pathology, [facility] in [place], [place] [address] [place] [phone] Sukhdev Ahumada APRN, C.N.P., M.S.N. Other Specified Diseases Of Gallbladder; Cholecystectomy Laparoscopic Status Post Discharge Disposition: Home or Self Care 01/27/2024 Orders Only Division of Trauma Critical Care and General Surgery in [address] [phone] Sukhdev Ahumada APRN, C.N.P., M.S.N. Other Specified Diseases Of Gallbladder (Primary Dx); Cholecystectomy Laparoscopic Status Post 12/23/2023 11:30 AM CDT - 12/23/2023 11:59 PM CDT Hospital Encounter Department of Radiology in [place], [place] [address] [place] [address] Kristal Leon APRN, C.N.P. Pain Scrotum Discharge Disposition: Home or Self Care 12/06/2023 2:30 PM CDT Office Visit Department of Urology in [place], [place] [address] [place] [address] Kristal Leon APRN, C.N.P. Pain Scrotum (Primary Dx) from Last 3 Months Allergies Active Allergy [...] by mouth 3 (three) times a day. 023 Active buPROPion XL (WELLBUTRIN XL) 150 mg [...] TOPICALLY TO FACE DAILY 50 g 11 023 Active fluticasone propionate (FLONASE) 50 mcg/actuation nasal [...] (12/26/2017): Added automatically from request for surgery [id number] Tendinitis Ankle Left 10/14/2017 Prostatitis Chronic 10/14/2017 Pain Shoulder 10/08/2016 Social History Tobacco Use Types Packs/Day Years Used Date Smoking Tobacco: Former Cigarettes 0 04/15/2002 - 04/15/2009 Smokeless Tobacco: Never Tobacco Cessation:Counseling Given: Not Answered Alcohol Use Standard Drinks/Week Comments Yes 0 (1 standard drink = 0.6 oz pur e alcohol) once a month [facility] [employer] Answer Date Recorded In the past 12 months has e [employer], gas, oil, or water [employer] threatened to shut off services in your [...] Never 06/09/2022 How often do you attend [facility] or cheondoism services? Never 06/09/2022 Do you belong to [...] and heating? Not hard at all 06/09/2022 [facility] of Occupat ional Health - Occupational Stress [...] your living situation today? I have a [facility] place to live 06/17/2023 Education [...] (Latest Contact Info) Description 03/17/2024 1:00 PM EXPLOSIVE TECHNICIAN Comprehensive Visit Department of Dermatology in [place], [place] [address] [place] [phone] Katrin Causey APRN, C.N.P., D.N.P. [address] [place] [phone] Elizabeth Max M.D., Ph.D. [address] [place] [address] 04/17/2024 2:30 PM EXPLOSIVE TECHNICIAN Clinical Communication Virtual Review in [place], [place] [address] [place] [address] 04/20/2024 10:00 AM EXPLOSIVE TECHNICIAN Ancillary Procedure Department of Ophthalmology in [place] [address] [place] [phone] Annie Lamas O.D. [address] [place] [phone] 04/21/2024 7:15 AM EXPLOSIVE TECHNICIAN Ancillary Procedure Department of Ophthalmology in [place] [address] [place] [phone] 04/21/2024 7:45 AM EXPLOSIVE TECHNICIAN Ancillary Procedure Department of Ophthalmology in [place] [address] [place] [phone] Annie Lamas O.D. [address] [place] [phone] 04/21/2024 8:00 AM EXPLOSIVE TECHNICIAN Office Visit Department of Ophthalmology in [place] [address] [place] [phone] Annie Lamas O.D. [address] [place] [phone] Medical Devices Implanted Type Area Supervisor Stage Carpentry Device Identifier Shelf Expiration Date Model / Serial / Lot Clp Jul End Intnl Endo 5x11 - [id number] Implanted:Qt y: 1 on 11/01/2023 by Olga Gold M.D. at [facility] Hardware e.g. pins/screws /rods N/A: Abdomen Medtronic [id number] / / [facility] [id number] Implanted:Qt y: 1 on 11/01/2023 by Olga Gold M.D. at [facility] Hardware e.g. pins/screws /rods N/A: Abdomen [employer] [id number] 07/01/2028 [id number] / / [id number] Procedures Procedure Name Priority Date/Time Associated [...] collection. No hernia. No foreign body. us Sagar Vasquez APRNNDany IMG US PROCEDURES Final Result * (ABNORMAL) Comprehensive Metabolic Panel (01/30/2024 11:37 AM CDT) Potassium, S 4.7 3.6 - 5.2 mmol/L [...] C.N.P., M.S.N. LAB BLOOD ADD-ON Final Result [facility] [address] [place] [address], [facility] DTL [facility] [address] [place] [address] * US Scrotum with Doppler (12/23/2023 1:20 [...] with normal-appearing epididymis. No cyst or mass. Kristal Leon APRN C.N.P. IMG US PROCEDURES Final Result * HIV-1/-2 Ag and Ab Screen, Plasma (11/08/2020 11:55 AM CDT) Pathologist [facility] HIV-1/-2 Ag and Ab Screen, P Negative Negative 11/08/2020 4:24 PM CDT [facility] Comment: Negative result does not rule out HIV infection. If exposure to HIV infection occurred <14 days ago, contact the laboratory to request addition of HIV-1 RNA detection / quantification test (HIVQN). Blood (Blood, Venous) 11/08/2020 11:55 AM CDT 11/08/2020 3:50 PM CDT Sylvie Sidhu M.D. LAB MICROBIOLOGY - BLOOD O RDERABLES Final Result [facility] [address] [place] [address] [facility] Dept. of Laboratory Medicine and Pathology [address] [place] [address] from Last 3 Months or Most Recently Relevant to Health Maintenance Insurance [employer] EMPLOYEE Advance Directives For more information, please contact: [phone] * Full Code (Latest Code Status on File) Date Activated Date Inactivated Comments 11/01/2023 7:28 AM 11/01/2023 3:10 PM Question Answer Comments Full Code: Discussed Care Teams Business Manager [employer] Relationship Specialty Start Date End Date Elsewhere, Pcp PCP - General Family Medicine 08/21/17
--- OUTSIDE RECORDS SUMMARY | 2024-02-16 16:46 | XMS_ITS ---
Author Organization [facility] Address [address] [place] [address] Care Team Providers Care Auto Body Repairman Name Role Phone Unavailable Unavailable Unavailable Surgery Details Not on file Complications Check Surgery Details section. Procedure Estimated Blood Loss Check Surgery Details section. Procedure Findings Check Surgery Details section. Procedure Specimens Taken Check Surgery Details section.
--- OUTSIDE RECORDS SUMMARY | 2024-02-16 16:47 | XMS_ITS | Encounter Summary ---
Author Organization [facility] Address [address] [place] [address] Care Team Providers Care Deputy Controller Name Role Phone Elsewhere, Pcp Primary Care Provider Unavailabl e Encounter Details Date Type Department Care Team (Late st Contact Info) Description 10/29/2017 [facility] [address] [place] [address] Steven Olivares M.D. [address], [place] [address] Tendonitis Ankle Left (Primary Dx) Social History [...] (Latest Contact Info) Description 03/17/2024 1:00 PM RESTAURANT EXPEDITOR Comprehensive Visit Department of Dermatology in [place], [place] [address] [place] [phone] Katrin Causey APRN, C.N.P., D.N.P. [address] [place] [phone] Elizabeth Max M.D., Ph.D. [address] [place] [phone] 04/17/2024 2:30 PM RESTAURANT EXPEDITOR Clinical Communication Virtual Review in [place], [place] [address] [place] [address] 04/20/2024 10:00 AM RESTAURANT EXPEDITOR Ancillary Procedure Department of Ophthalmology in [place] [address] [place] [address] Annie Lamas O.D. [address] [place] [phone] 04/21/2024 7:15 AM RESTAURANT EXPEDITOR Ancillary Procedure Department of Ophthalmology in [place] [address] [place] [phone] 04/21/2024 7:45 AM RESTAURANT EXPEDITOR Ancillary Procedure Department of Ophthalmology in [place] [address] [place] [phone] Annie Lamas O.D. [address] [place] [phone] 04/21/2024 8:00 AM RESTAURANT EXPEDITOR Office Visit Department of Ophthalmology in [place] [address] [place] [phone] Annie Lamas O.D. [address] [place] [phone] documented as of this encounter Visit Diagnoses Diagnosis Tendinitis Ankle Left- Primary documented in this encounter Care Teams Deputy Controller Relationship Specialty Start Date End Date Elsewhere, Pcp PCP - General Family Medicine 08/21/17 documented as of this encounter
--- OUTSIDE RECORDS SUMMARY | 2024-02-16 16:47 | XMS_ITS | Encounter Summary ---
Author Organization [facility] Address [address] [place] [address] Care Team Providers Care Cloth Trimmer Hand Name Role Phone Elsewhere, Pcp Primary Care Provider Unavailabl e Encounter Details Date Type Department Care Team (Late st Contact Info) Description 10/21/2023 Clinical Communication Division of Trauma Critical Care and General Surgery in [place], [place] [address] [place] [phone] Vinh Light M.D. Social History Tobacco Use Types Packs/Day Years Used Date Smoking Tobacco: Former Cigarettes 0 04/15/2002 - 04/15/2009 Smokeless Tobacco: Never Alcohol Use Standard Drinks/Week Comments Yes 0 (1 standard drink = 0.6 oz pur e alcohol) once a month [facility] Utilities Answer Date Recorded In the past 12 months has [facility] [employer], gas, oil, or water [employer] threatened to shut off services in your [...] often do you attend chur ch or orthodoxy services? Never 06/09/2022 Do you belong to [...] and heating? Not hard at all 06/09/2022 [facility] [place] of Occupat ional Health - Occupational Stress [...] your living situation today? I have a [facility] place to live 06/17/2023 Education [...] 29 will work. His phone number is [phone]. Thanks- documented in this encounter Plan of Treatment Upcoming Encounters Date Type Department Care Team (Latest Contact Info) Description 03/17/2024 1:00 PM BINGO WORKER Comprehensive Visit Department of Dermatology in [place], [place] [address] [place] [address] Katrin Causey APRN, C.N.P., D.N.P. [address] [place] [address] Elizabeth Max M.D., Ph.D. [address] [place] [phone] 04/17/2024 2:30 PM BINGO WORKER Clinical Communication Virtual Review in [place], [place] [address] [place] [address] 04/20/2024 10:00 AM BINGO WORKER Ancillary Procedure Department of Ophthalmology in [place] [address] [place] [phone] Annie Lamas O.D. [address] [place] [phone] 04/21/2024 7:15 AM BINGO WORKER Ancillary Procedure Department of Ophthalmology in [place] [address] [place] [address] 04/21/2024 7:45 AM BINGO WORKER Ancillary Procedure Department of Ophthalmology in [place] [address] [place] [address] Annie Lamas O.D. [address] [place] [phone] 04/21/2024 8:00 AM BINGO WORKER Office Visit Department of Ophthalmology in [place] [address] [place] [address] Annie Lamas O.D. [address] [place] [phone] documented as of this encounter Visit Diagnoses Not on filedocumented in this encounter Care Teams Cloth Trimmer Hand Relationship Specialty Start Date End Date Elsewhere, Pcp PCP - General Family Medicine 08/21/17 documented as of this encounter
--- OUTSIDE RECORDS SUMMARY | 2024-02-16 16:47 | XMS_ITS | Encounter Summary ---
Author Organization [facility] Address [address] [place] [address] Care Team Providers Care Log Preparer Name Role Phone Elsewhere, Pcp Primary Care Provider Unavailabl e Reason for Visit * Reason Comments Return Visit * Outpatient (Routine) - Closed Specialty Diagnoses / Procedures Referred By Beatrice t Referred To Contact Trauma Critical Care and General Surgery Sukhdev Ahumada APRN, C.N.P., M.S.N. [address] [place] [phone] Phone: tel: fax: [facility] Referral ID Status Reason Start Date Expiration Date Visits Re quested Visits Authorized [id number] Closed 01/27/2024 07/28/2025 1 1 Encounter Details Date Type Department Care Team (Late st Contact Info) Description 01/30/2024 1:15 PM CDT Office Visit Division of Trauma Critical Care and General Surgery in [place], [place] [address] [place] [phone] Sukhdev Ahumada APRN, C.N.P., M.S.N. [address] [place] [phone] Lita Jacob APRN, C.N.P. [address] [place] [phone] Cholecystectomy Laparoscopic Status Post (Primary Dx); Pain Right Lower Quadrant Social History Tobacco Use Types Packs/Day Years Used Date Smoking Tobacco: Former Cigarettes 0 04/15/2002 - 04/15/2009 Smokeless Tobacco: Never Alcohol Use Standard Drinks/Week Comments Yes 0 (1 standard drink = 0.6 oz pur e alcohol) once a month [facility] Utilities Answer Date Recorded In the past [...] often do you attend chur ch or gnosticist services? Never 06/09/2022 Do you belong to any clubs o r organizations such as cheondoism groups, unions, fraternal or athletic groups, or [...] and heating? Not hard at all 06/09/2022 [facility] [place] of Occupat ional Health - Occupational Stress [...] as of this encounter Progress Notes * Lita Jacob APRN, C.N.P. - 01/30/2024 1:15 PM CDT SUBJECTIVE CHIEF COMPLAINT / REASON FOR VISIT Referring provider: Sukhdev Ahumada APRN, C.N.P., M.S.N. Homero Patel is a 48 y.o. male seen in post-operative follow up. HISTORY OF PRESENT ILLNESS Homero Patel is a 48 y.o. male who presents for complaints of right lower quadrant throbbing. He is status post laparoscopic cholecystectomy in October,. He notes that the pain is in the right lower quadrant has been fairly consistent since the time of surgery. He denies fever and chills shortness breath or chest pain. He notes all of his incisions are closed and he had no difficulty with wound healing initially. OBJECTIVE PHYSICAL EXAM Constitutional General: He is not in acute distress. Eyes General: No scleral icterus. Conjunctiva/sclera: Conjunctivae normal. Cardiovascular Pulses: Normal pulses. Pulmonary Effort: Pulmonary effort is normal. No respiratory distress. Abdominal General: Abdomen is flat. There is no distension. Palpations: Abdomen is soft. Tenderness: There is no abdominal tenderness. Comments: With deep palpation I do not note any hernias Skin General: Skin is warm. Neurological General: No focal deficit present. Mental Status: He is alert and oriented to person, place, and time. Psychiatric Mood and Affect: Mood normal. Thought Content: Thought content normal. ASSESSMENT / PLAN #1 Cholecystectomy Laparoscopic Status Post #2 Pain Right Lower Quadrant Mr. Patel is postoperative nearly 12 weeks following surgery. We discussed the findings and expected course from this point and patient expressed understanding. On physical exam I can not explain his persistent right lower quadrant pain. I do not feel any typeof incisional or ventral hernia. I do not believe anything sinister is going on. I have ordered a ultrasound just to check for any hernias. This appears to be musculoskeletal in nature. All of his questions were answered to his satisfaction. He will contact us if he has any additionalquestions or concerns. We will plan to return after documented in this encounter Plan of Treatment Upcoming Encounters Date Type Department Care Team (Latest Contact Info) Description 03/17/2024 1:00 PM BOOK TRIMMER Comprehensive Visit Department of Dermatology in [place], [place] [address] [place] [phone] Katrin Causey APRN C.N.Joyce., D.N.P. [address] [place] [phone] Elizabeth Max M.D., Ph.D. [address] [place] [phone] 04/17/2024 2:30 PM BOOK TRIMMER Clinical Communication Virtual Review in [place], [place] [address] [place] [address] 04/20/2024 10:00 AM BOOK TRIMMER Ancillary Procedure Department of Ophthalmology in [place] [address] [place] [phone] Annie Lamas O.D. [address] [place] [phone] 04/21/2024 7:15 AM BOOK TRIMMER Ancillary Procedure Department of Ophthalmology in [place] [address] [place] [address] 04/21/2024 7:45 AM BOOK TRIMMER Ancillary Procedure Department of Ophthalmology in [place] [address] [place] [address] Annie Lamas O.D. [address] [place] [phone] 04/21/2024 8:00 AM BOOK TRIMMER Office Visit Department of Ophthalmology in [place] [address] [place] [phone] Annie Lamas O.D. [address] [place] [address] documented as of this encounter Visit Diagnoses Diagnosis Cholecystectomy Laparoscopic Status Post- Primary Pain Right Lower Quadrant documented in this encounter Care Teams Log Preparer Relationship Specialty Start Date End Date Elsewhere, Pcp PCP - General Family Medicine 08/21/17 documented as of this encounter
--- OUTSIDE RECORDS SUMMARY | 2024-02-16 16:47 | XMS_ITS | Encounter Summary ---
Author Organization [facility] Address [address] [place] [address] Care Team Providers Care Ux Design Lead Name Role Phone Elsewhere, Pcp Primary Care Provider Unavailabl e Reason for Referral * Outpatient (Routine) - Closed Specialty Diagnoses / Procedures Referred By Contac t Referred To Contact Diagnoses Pain Scrotum Procedures US Scrotum with Doppler Kristal Leon APRN, C.N.P. 0 [place] [address] Phone: tel: fax: [facility] Region Referral ID Status Reason Start Date Expiration Date Visits Re quested Visits Authorized [id number] Closed 12/06/2023 12/05/2024 1 1 Reason for Visit * Reason Comments Testicular Mass * Appointment Request (Routine) - Closed Specialty Diagnoses / Procedures Referred By Contac t Referred To Contact Urology Referral ID Status Reason Start Date Expiration Date Visits Re quested Visits Authorized [id number] Closed 08/01/2023 07/31/2024 1 1 Encounter Details Date Type Department Care Team (Late st Contact Info) Description 12/06/2023 2:30 PM CDT Office Visit Department of Urology in [place], [place] [address] [phone] Kristal Leon APRN, C.N.P. [address] [place] [address] Pain Scrotum (Primary Dx) Social History Tobacco Use Types Packs/Day Years Used Date Smoking Tobacco: Former Cigarettes 0 04/15/2002 - 04/15/2009 Smokeless Tobacco: Never Alcohol Use Standard Drinks/Week Comments Yes 0 (1 standard drink = 0.6 oz pur e alcohol) once a month [facility] Utilities Answer Date Recorded In the past 12 months has e [employer], gas, oil, or water [employer] threatened to shut off services in your [...] often do you attend chur ch or temple services? Never 06/09/2022 Do you belong to any clubs o r organizations such as muslim groups, unions, fraternal or athletic groups, or [...] and heating? Not hard at all 06/09/2022 [facility] - Occupational Stress Questionnaire Answer Date Recorded [...] living situation today? I have a [facility] place to live 06/17/2023 Education Answer [...] Notes * Kristal Leon APRN, C.N.P. - 12/06/2023 2:30 PM CDT SUBJECTIVE CHIEF COMPLAINT/REASON FOR VISIT Chief Complaint Patient presents with Testicular Mass HISTORY OF PRESENT ILLNESS Homero is a pleasant 48-year-old male here today for an acute visit. He has noticed a testicular lump and would like this to be assessed. It was not painful accept with palpation, he has not had any drainage from this. He is wearing masks today. He is not having any other symptoms of prostatitis. The following portions of the patient's history were reviewed and updated as appropriate: allergies, current medications, family history, medical history, social history, surgical history, and problem list. REVIEW OF SYSTEMS Gastrointestinal: - Negative for constipation. Genitourinary: - Negative for difficulty urinating and pain with urination. Psychiatric/Behavioral: Positive for not being able to stop or control worrying over past two weeksand feeling nervous, anxious, or on edge in past two weeks. OBJECTIVE There were no vitals filed for this visit. PHYSICAL EXAM Vitals and nursing note reviewed. General: Well developed, well nourished, well groomed male in no acute distress. Neurological: Alert, cooperative, oriented x3. Appropriate mood and affect. Abdomen: Soft, non-tender, non-distended : Normal penis, testicles descended bilaterally, no masses noted on testicles. No hydroceles or varicoceles. Epididymis is nontender. Extremities: Warm, without edema or ulcerations. ASSESSMENT / PLAN 1. Pain Scrotum Exam is fairly benign, he is very concerned. We will go forward with scrotal ultrasound. We will contact him with these results when available. He will contact us if he has further questions or concerns. - US Scrotum with Doppler; Future Signed by: Kristal Leon APRN, C.N.P. 12/23/2023 9:44 PM CDT documented in this encounter Plan of Treatment Upcoming Encounters Date Type Department Care Team (Latest Contact Info) Description 03/17/2024 1:00 PM DIRECTOR OF MAINTENANCE Comprehensive Visit Department of Dermatology in [place], [place] [address] [place] [phone] Katrin Causey APRN C.N.P., D.N.P. [address] [place] [phone] Elizabeth Max M.D., Ph.D. [address] [place] [phone] 04/17/2024 2:30 PM DIRECTOR OF MAINTENANCE Clinical Communication Virtual Review in [place], [place] 200 [place] [address] 04/20/2024 10:00 AM DIRECTOR OF MAINTENANCE Ancillary Procedure Department of Ophthalmology in [place] [address] [place] [address] Annie Lamas O.D. [address] [place] [phone] 04/21/2024 7:15 AM DIRECTOR OF MAINTENANCE Ancillary Procedure Department of Ophthalmology in [place], [place] [address] 04/21/2024 7:45 AM DIRECTOR OF MAINTENANCE Ancillary Procedure Department of Ophthalmology in [place], [place] [address] Annie Lamas O.D. [address] [place] [phone] 04/21/2024 8:00 AM DIRECTOR OF MAINTENANCE Office Visit Department of Ophthalmology in [place], [place] [phone] Annie Lamas O.D. [address] [place] [address] documented as of this encounter Results * US Scrotum with Doppler (12/23/2023 1:20 [...] No hydrocele. No varicocele. Procedure Note Jose Setvenson M.D. - 12/23/2023 EXAM: US SCROTUM WITH [...] normal-appearing epididymis. No cyst or mass. us Josafat Stratton APRN.N.P. IMG US PROCEDURES Final Result documented in this encounter Visit Diagnoses Diagnosis Pain Scrotum- Primary Pain Scrotum documented in this encounter Care Teams Ux Design Lead Relationship Specialty Start Date End Date Elsewhere, Pcp PCP - General Family Medicine 08/21/17 documented as of this encounter
--- OUTSIDE RECORDS SUMMARY | 2024-02-16 16:47 | XMS_ITS | Encounter Summary ---
Author Organization [facility] Address [address] [place] [address] Care Team Providers Care Outpatient Phlebotomist Name Role Phone Elsewhere, Pcp Primary Care Provider Unavailabl e Reason for Referral * Outpatient (Routine) - Closed Specialty Diagnoses / Procedures Referred By Contac t Referred To Contact Trauma Critical Care and General Surgery Sukhdev Ahumada APRN C.N.P., M.S.N. [address] [place] [phone] Phone: tel: fax: [facility] Referral ID Status Reason Start Date Expiration Date Visits Re quested Visits Authorized [id number] Closed 01/27/2024 07/28/2025 1 1 Scheduling Instructions Needs to be in [facility] clinic with the chief Encounter Details Date Type Department Care Team (Late st Contact Info) Description 01/27/2024 Orders Only Division of Trauma Critical Care and General Surgery in [place], [place] [address] [place] [phone] Sukhdev Ahumada APRN, C.N.P., M.S.N. [address] [place] [phone] Other Specified Diseases Of Gallbladder (Primary Dx); Cholecystectomy Laparoscopic Status Post Social History Tobacco Use Types Packs/Day Years Used Date Smoking Tobacco: Former Cigarettes 0 04/15/2002 - 04/15/2009 Smokeless Tobacco: Never Alcohol Use Standard Drinks/Week Comments Yes 0 (1 standard drink = 0.6 oz pur e alcohol) once a month [facility] Utilities Answer Date Recorded In the past [...] any clubs o r organizations such as oriental orthodox groups, unions, fraternal or athletic groups, [...] heating? Not hard at all 06/09/2022 [facility] [place] of Occupat ional [facility] - Occupational Stress Questionnaire Answer Date [...] (Latest Contact Info) Description 03/17/2024 1:00 PM LOWERATOR OPERATOR Comprehensive Visit Department of Dermatology in [place], [place] [address] [place] [phone] Katrin Causey APRN, C.N.P., D.N.P. [address] [place] [phone] Elizabeth Max M.D., Ph.D. [address] [place] [phone] 04/17/2024 2:30 PM LOWERATOR OPERATOR Clinical Communication Virtual Review in [place], [place] 200 [place] [phone] 04/20/2024 10:00 AM LOWERATOR OPERATOR Ancillary Procedure Department of Ophthalmology in [place] [address] [place] [phone] Annie Lamas O.D. [address] [place] [phone] 04/21/2024 7:15 AM LOWERATOR OPERATOR Ancillary Procedure Department of Ophthalmology in [place] [address] [place] [address] 04/21/2024 7:45 AM LOWERATOR OPERATOR Ancillary Procedure Department of Ophthalmology in [place] [address] [place] [address] Annie Lamas O.D. [address] [place] [phone] 04/21/2024 8:00 AM LOWERATOR OPERATOR Office Visit Department of Ophthalmology in [place] [address] [place] [phone] Annie Lamas O.D. [address] [place] [address] Scheduled Referrals Name Type Priority Associated Diagnoses Orde r Schedule Trauma Critical Care and General Surgery office visit (clinic) Outpatient Referral Routine Expected: 01/27/2024, Expires: 04/28/2025 documented as of this encounter Results * (ABNORMAL) Comprehensive Metabolic Panel (01/30/2024 11:37 AM CDT) [facility] Potassium, S 4.7 3.6 - 5.2 mmol/L [...] 11:37 AM CDT 01/30/2024 12:15 PM CDT Sukhdev Ahumada APRN, C.N.P., M.S.N. LAB BLOOD ADD-ON Final Result [facility] [address] [place] [address], [facility] DTL [facility] [address] [place] [address] documented in this encounter Visit Diagnoses Diagnosis Other Specified Diseases Of Gallbladder- Primary Cholecystectomy Laparoscopic Status Post documented in this encounter Care Teams Outpatient Phlebotomist Relationship Specialty Start Date End Date Elsewhere, Pcp PCP - General Family Medicine 08/21/17 documented as of this encounter
--- OUTSIDE RECORDS SUMMARY | 2024-02-16 16:47 | XMS_ITS | Encounter Summary ---
Author Organization [facility] Address [address] [place] [address] Care Team Providers Care Mixing Picker Tender Name Role Phone Elsewhere, Pcp Primary Care Provider Unavailabl e Encounter Details Date Type Department Care Team (Late st Contact Info) Description 2017 [facility] [address] [place] [address] Milo Albarado M.D. 1999 [place] [phone] Personal History Of Other Diseases Of Male [...] (Latest Contact Info) Description 03/17/2024 1:00 PM ROUTE RIDER SUPERVISOR Comprehensive Visit Department of Dermatology in [place], [place] [address] [place] [phone] Ktarin Causey APRN, C.N.P., D.N.P. [address] [place] [phone] Elizabeth Max M.D., Ph.D. [address] [place] [phone] 04/17/2024 2:30 PM ROUTE RIDER SUPERVISOR Clinical Communication Virtual Review in [place], [place] 200 [place] [address] 04/20/2024 10:00 AM ROUTE RIDER SUPERVISOR Ancillary Procedure Department of Ophthalmology in [place] [address] [place] [address] Annie Lamas O.D. [address] [place] [phone] 04/21/2024 7:15 AM ROUTE RIDER SUPERVISOR Ancillary Procedure Department of Ophthalmology in [place], [place] [address] [place] [phone] 04/21/2024 7:45 AM ROUTE RIDER SUPERVISOR Ancillary Procedure Department of Ophthalmology in [place] [address] [place] [phone] Annie Lamas O.D. [address] [place] [phone] 04/21/2024 8:00 AM ROUTE RIDER SUPERVISOR Office Visit Department of Ophthalmology in [place] [address] [place] [address] Annie Lamas O.D. [address] [place] [phone] documented as of this encounter Visit Diagnoses Diagnosis Personal History Of Other Diseases Of Male Genital Organs- Primary Torsion Testis documented in this encounter Care Teams Mixing Picker Tender Relationship Specialty Start Date End Date Elsewhere, Pcp PCP - General Family Medicine 08/21/17 documented as of this encounter
--- OUTSIDE RECORDS SUMMARY | 2024-02-16 16:47 | XMS_ITS | Encounter Summary ---
Author Organization [facility] Address [address] [place] [address] Care Team Providers Care E Marketing Specialist Name Role Phone Elsewhere, Pcp Primary Care Provider Unavailabl e Reason for Referral * Outpatient (Routine) - Authorized Specialty Diagnoses / Procedures Referred By Contjeffry t Referred To Contact Ophthalmology Annie Lamas O.D. [address] [place] [phone] Phone: tel: fax: [facility] Referral ID Status Reason Start Date Expiration Date V isits Requested Visits Authorized [id number] Authorized 02/10/2024 08/11/2025 1 1 Encounter Details Date Type Department Care Team (Late st Contact Info) Description 02/10/2024 Orders Only Department of Ophthalmology in [place], [place] [address] [place] [phone] Annie Lamas O.D. [address] [place] [phone] Glaucoma (Primary Dx) Social History Tobacco Use Types Packs/Day Years Used Date Smoking Tobacco: Former Cigarettes 0 04/15/2002 - 04/15/2009 Smokeless Tobacco: Never Alcohol Use Standard Drinks/Week Comments Yes 0 (1 standard drink = 0.6 oz pur e alcohol) once a month [facility] Utilities Answer Date Recorded In the [...] often do you attend chur ch or denominational services? Never 06/09/2022 Do you belong to any clubs o r organizations such as voodoo groups, unions, fraternal or athletic groups, or [...] and heating? Not hard at all 06/09/2022 [facility] of Occupat ional Health - Occupational Stress [...] (Latest Contact Info) Description 03/17/2024 1:00 PM OUTSIDE EVENT SALES SPECIALIST Comprehensive Visit Department of Dermatology in [place], [place] [address] [place] [phone] Katrin Causey APRN, C.N.P., D.N.P. [address] [place] [phone] Elizabeth Max M.D., Ph.D. [address] [place] [phone] 04/17/2024 2:30 PM OUTSIDE EVENT SALES SPECIALIST Clinical Communication Virtual Review in [place], [place] 200 [place] [phone] 04/20/2024 10:00 AM OUTSIDE EVENT SALES SPECIALIST Ancillary Procedure Department of Ophthalmology in [place] [address] [place] [phone] Annie Lamas O.D. [address] [place] [phone] 04/21/2024 7:15 AM OUTSIDE EVENT SALES SPECIALIST Ancillary Procedure Department of Ophthalmology in [place] [address] [place] [phone] 04/21/2024 7:45 AM OUTSIDE EVENT SALES SPECIALIST Ancillary Procedure Department of Ophthalmology in [place] [address] [place] [phone] Annie Lamas O.D. [address] [place] [phone] 04/21/2024 8:00 AM OUTSIDE EVENT SALES SPECIALIST Office Visit Department of Ophthalmology in [place] [address] [place] [phone] Annie Lamas O.D. [address] [place] [phone] Scheduled Orders Name Type Priority Associated Diagnoses Orde r Schedule Optical Coherence Tomography - Optic Nerve - OU - Both Eyes Ophthalmology Routine Glaucoma 1 Occurrences starting 02/10/2024 until 05/12/2025 Automated VF - Extended - OU - Both Eyes Ophthalmology Routine Glaucoma 1 Occurrences starting 02/10/2024 until 05/12/2025 Scheduled Referrals Name Type Priority Associated Diagnoses Order Schedule Ophthalmology office visit (clinic) Outpatient Referral Routine Expected: 02/10/2024 (Approximate), Expires: 05/12/2025 documented as of this encounter Visit Diagnoses Diagnosis Glaucoma- Primary documented in this encounter Care Teams E Marketing Specialist Relationship Specialty Start Date End Date Elsewhere, Pcp PCP - General Family Medicine 08/21/17 documented as of this encounter
--- OUTSIDE RECORDS SUMMARY | 2024-02-16 16:47 | XMS_ITS | Encounter Summary ---
Author Organization [facility] Address [address] [place] [address] Care Team Providers Care Global Security Architect Name Role Phone Elsewhere, Pcp Primary Care Provider Unavailabl e Reason for Visit * Reason Comments Med Refill Encounter Details Date Type Department Care Team (Late st Contact Info) Description 02/09/2024 Refill Department of Ophthalmology in [place], [place] [address] [place] [phone] Annie Lamas O.D. [address] [place] [phone] Med Refill Social History Tobacco Use Types Packs/Day Years Used Date Smoking Tobacco: Former Cigarettes 0 04/15/2002 - 04/15/2009 Smokeless Tobacco: Never Alcohol Use Standard Drinks/Week Comments Yes 0 (1 standard drink = 0.6 oz pur e alcohol) once a month [facility] Utilities Answer Date Recorded In the past 12 months has e [employer], gas, oil, or water [employer] threatened to shut off services in your [...] often do you attend chur ch or jewish services? Never 06/09/2022 Do you belong to any clubs o r organizations such as orthodoxy groups, unions, fraternal or athletic groups, or [...] and heating? Not hard at all 06/09/2022 [facility]at ional [facility] - Occupational Stress [...] living situation today? I have a [facility] place to live 06/17/2023 Education Answer [...] (Latest Contact Info) Description 03/17/2024 1:00 PM MIGRATORY WORKER Comprehensive Visit Department of Dermatology in [place], [place] 200 [place] [phone] Katrin Causey APRN, C.N.P., D.N.P. 200 [place] [phone] Elizabeth Max M.D., Ph.D. 200 [place] [phone] 04/17/2024 2:30 PM MIGRATORY WORKER Clinical Communication Virtual Review in [place], [place] [address] [place] [address] 04/20/2024 10:00 AM MIGRATORY WORKER Ancillary Procedure Department of Ophthalmology in [place], [place] [address] [place] [phone] Annie Lamas O.D. [address] [place] [phone] 04/21/2024 7:15 AM MIGRATORY WORKER Ancillary Procedure Department of Ophthalmology in [place], [place] [address] [place] [phone] 04/21/2024 7:45 AM MIGRATORY WORKER Ancillary Procedure Department of Ophthalmology in [place] [address] [place] [phone] Annie Lamsa O.D. [address] [place] [phone] 04/21/2024 8:00 AM MIGRATORY WORKER Office Visit Department of Ophthalmology in [place], [place] [address] [place] [phone] Annie Lamas O.D. [address] [place] [phone] documented as of this encounter Visit Diagnoses Not on filedocumented in this encounter Care Teams Global Security Architect Relationship Specialty Start Date End Date Elsewhere, Pcp PCP - General Family Medicine 08/21/17 documented as of this encounter
--- OUTSIDE RECORDS SUMMARY | 2024-02-16 16:47 | XMS_ITS | Encounter Summary ---
Author Organization [facility] Address [address] [place] [address] Care Team Providers Care Database Administrator Name Role Phone Elsewhere, Pcp Primary Care Provider Unavailabl e Encounter Details Date Type Department Care Team (Late st Contact Info) Description 10/18/2023 Clinical Communication Division of Trauma Critical Care and General Surgery in [place], [place] [address] [place] [phone] Sly Clinton M.D., Ph.D. [address] [place] [address] Social History Tobacco Use Types Packs/Day Years Used Date Smoking Tobacco: Former Cigarettes 0 04/15/2002 - 04/15/2009 Smokeless Tobacco: Never Alcohol Use Standard Drinks/Week Comments Yes 0 (1 standard drink = 0.6 oz pur e alcohol) once a month [facility] Utilities Answer Date Recorded In the past 12 months has e [employer], gas, oil, or water [employer] threatened to shut off services in your [...] often do you attend chur ch or uatsdin services? Never 06/09/2022 Do you belong to any clubs o r organizations such as baptist groups, unions, fraternal or athletic groups, or [...] and heating? Not hard at all 06/09/2022 [facility] [place] [facility] - Occupational Stress Questionnaire Answer [...] your living situation today? I have a [facility] place to live 06/17/2023 Education [...] (Latest Contact Info) Description 03/17/2024 1:00 PM OIL HEATER INSTALLER Comprehensive Visit Department of Dermatology in [place], [place] [address] [place] [phone] Katrin Causey APRN, C.N.P., D.N.P. 200 [place] [phone] Elizabeth Max M.D., Ph.D. [address] [place] [phone] 04/17/2024 2:30 PM OIL HEATER INSTALLER Clinical Communication Virtual Review in [place], [place] 200 [place] [address] 04/20/2024 10:00 AM OIL HEATER INSTALLER Ancillary Procedure Department of Ophthalmology in [place] [address] [place] [phone] Annie Lamas O.D. [address] [place] [phone] 04/21/2024 7:15 AM OIL HEATER INSTALLER Ancillary Procedure Department of Ophthalmology in [place], [place] [address] [place] [phone] 04/21/2024 7:45 AM OIL HEATER INSTALLER Ancillary Procedure Department of Ophthalmology in [place] [address] [place] [phone] Annie Lamas O.D. [address] [place] [phone] 04/21/2024 8:00 AM OIL HEATER INSTALLER Office Visit Department of Ophthalmology in [place] [address] [place] [phone] Annie Lamas O.D. [address] [place] [phone] documented as of this encounter Visit Diagnoses Not on filedocumented in this encounter Care Teams Database Administrator Relationship Specialty Start Date End Date Elsewhere, Pcp PCP - General Family Medicine 08/21/17 documented as of this encounter
--- OUTSIDE RECORDS SUMMARY | 2024-02-16 16:47 | XMS_ITS | Encounter Summary ---
Author Organization [facility] Address [address] [place] [id number] Care Team Providers Care Front Facer Name Role Phone Elsewhere, Pcp Primary Care Provider Unavailabl e Encounter Details Date Type Department Care Team (Latest Contact Info) Description 01/30/2024 11:30 AM CDT - 01/30/2024 11:59 PM T Hospital Encounter Department of Laboratory Medicine and Pathology, [facility] in [place], [place] [address] [place] [address] Sukhdev Ahumada APRN, C.N.P., M.S.N. [address] [place] [phone] Other Specified Diseases Of Gallbladder; Cholecystectomy Laparoscopic Status Post Discharge Disposition: Home or Self Care Social History Tobacco Use Types Packs/Day Years Used Date Smoking Tobacco: Former Cigarettes 0 04/15/2002 - 04/15/2009 Smokeless Tobacco: Never Alcohol Use Standard Drinks/Week Comments Yes 0 (1 standard drink = 0.6 oz pur e alcohol) once a month [facility] Utilities Answer Date Recorded In the past [...] often do you attend chur ch or jew services? Never 06/09/2022 Do you belong to any clubs o r organizations such as jain groups, unions, fraternal or athletic groups, or [...] and heating? Not hard at all 06/09/2022 [facility] of Occupat ional Health - Occupational Stress [...] your living situation today? I have a [facility] place to live 06/17/2023 Education Answer [...] this encounter Medications at Time of Discharge acetaminophen (TylenoL) 500 mg tablet Take 2 tablets (1,000 mg total) by mouth every 6 (six) hours as needed for pain. Take on a scheduled basis for the first 3 days after surgery. Then as needed. 11/01/2023 buPROPion XL (WELLBUTRIN XL) 150 mg 24 hr tablet Take 1 tablet (150 mg total) by mouth every morning. 90 tablet 09/18/2022 clindamycin phos/benzoyl perox (CLINDAMYCIN-BENZO YL PEROXIDE TOP) Apply topically. 11/19/2022 clindamycin-benzoy l peroxide (BENZACLIN) 1-5 % gelIndications:Acn e Vulgaris APPLY TOPICALLY TO FACE DAILY 50 g 11 01/28/2023 clobetasoL (TEMOVATE) 0.05 % ointment Apply 1 application topically 2 (two) times a day. Apply to areas of eczema as needed/ DME CPAPIndications:Ob structive Sleep Apnea Adult,Insomnia Mental Disorder Related,Stenosis Nasal [...] times a day. 60 tablet 2 10/08/2022 lurasidone (Latuda) 20 mg tablet TAKE 1 TABLET BY MOUTH DAILY FOR 6 WEEKS 01/15/2024 multivitamin/iron/ folic acid (CENTRUM ORAL) 12/28/2019 oxyCODONE (Roxicodone) 5 mg immediate release tabletIndications: Acute Pain Take 1 tablet (5 mg total) by mouth every 4 (four) hours as needed for pain Indication: Acute Pain. 5 tablet 11/01/2023 1:40 PM CDT 11/01/2023 oxymetazoline (Rhofade) 1 % cream creamIndications:R osacea Apply 1 application topically daily. Apply to [...] avoid constipation. 11/01/2023 tretinoin (RETIN-A) 0.05 % creamIndications:P ruritus,Acne Vulgaris Apply 1 application topically at bedtime. Apply to face. 45 g 11 11/08/2020 triamcinolone (KENALOG) 0.1 % creamIndications:D ermatitis Apply 1 application topically 2 (two) times a day. Apply to affected areas 2 times a day as needed after Clobetasol treatment. 45 g 11 05/22/2021 zolpidem (Ambien) 10 mg tablet TAKE 1 TABLET BY MOUTH DAILY AT BEDTIME NEEDED 09/13/2023 latanoprost (XALATAN) 0.005 % ophthalmic solution INSTILL 1 DROP IN BOTH EYES AT BEDTIME 10 mL 3 01/21/2023 02/10/20 24 documented as of this encounter Plan of Treatment Upcoming Encounters Date Type Department Care Team (Latest Contact Info) Description 03/17/2024 1:00 PM FLASH OVEN OPERATOR Comprehensive Visit Department of Dermatology in [place], [place] [address] [place] [phone] Katrin Causey, JD, C.N.P., D.N.P. [address] [place] [phone] Elizabeth Max M.D., Ph.D. [address] [place] [phone] 04/17/2024 2:30 PM FLASH OVEN OPERATOR Clinical Communication Virtual Review in [place], [place] 200 [place] [phone] 04/20/2024 10:00 AM FLASH OVEN OPERATOR Ancillary Procedure Department of Ophthalmology in [address] [place] [phone] Annie Lamas O.D. [address] [place] [phone] 04/21/2024 7:15 AM FLASH OVEN OPERATOR Ancillary Procedure Department of Ophthalmology in [place] [address] [place] [phone] 04/21/2024 7:45 AM FLASH OVEN OPERATOR Ancillary Procedure Department of Ophthalmology in [place] [address] [place] [phone] Annie Lamas O.D. [address] [place] [phone] 04/21/2024 8:00 AM FLASH OVEN OPERATOR Office Visit Department of Ophthalmology in [place] [address] [place] [phone] Annie Lamas O.D. [address] [place] [phone] documented as of this encounter Procedures Procedure Name Priority Date/Time Associated Diagnosis Comments COMPREHENSIVE METABOLIC PANEL, S/P Routine 01/30/2024 11:37 AM CDT Other Specified Diseases Of Gallbladder Cholecystectomy Laparoscopic Status Post documented in this encounter Results * (ABNORMAL) Comprehensive Metabolic [...] C.N.P., M.S.N. LAB BLOOD ADD-ON Final Result [facility] [address] [place] [address], [facility] DTL [facility] [address] [place] [address] documented in this encounter Visit Diagnoses Diagnosis Other Specified Diseases Of Gallbladder Cholecystectomy Laparoscopic Status Post documented in this encounter Care Teams Front Facer Relationship Specialty Start Date End Date Elsewhere, Pcp PCP - General Family Medicine 08/21/17 documented as of this encounter
--- OUTSIDE RECORDS SUMMARY | 2024-02-16 16:47 | XMS_ITS | Encounter Summary ---
Author Organization [facility] Address [address] [place] [address] Care Team Providers Care Enthone Solder Stripper Name Role Phone Elsewhere, Pcp Primary Care Provider Unavailabl e Reason for Referral * Outpatient (Routine) - Closed Specialty Diagnoses / Procedures Referred By Contac t Referred To Contact Diagnoses Pain Scrotum Procedures US Scrotum with Doppler Kristal Leon APRN, C.N.P. [address] [phone] Phone: tel: fax: [facility] Region Referral ID Status Reason Start Date Expiration Date Visits Re quested Visits Authorized [id number] Closed 12/06/2023 12/05/2024 1 1 Reason for Visit * Outpatient (Routine) - Closed Specialty Diagnoses / Procedures Referred By Contac t Referred To Contact Diagnoses Pain Scrotum Procedures US Scrotum with Doppler Kristal Leon APRN, C.N.P. [address] [place] [phone] Phone: tel: fax: [facility] Region Referral ID Status Reason Start Date Expiration Date Visits Re quested Visits Authorized [id number] Closed 12/06/2023 12/05/2024 1 1 Encounter Details Date Type Department Care Team (Latest Contact Info) Description 12/23/2023 11:30 AM CDT - 12/23/2023 11:59 PM CDT Hospital Encounter Department of Radiology in [place], [place] [address] [facility] [place] [address] Kristal Leon APRN, C.N.P. [address] [phone] Pain Scrotum Discharge Disposition: Home or Self Care Social History Tobacco Use Types Packs/Day Years Used Date Smoking Tobacco: Former Cigarettes 0 04/15/2002 - 04/15/2009 Smokeless Tobacco: Never Alcohol Use Standard Drinks/Week Comments Yes 0 (1 standard drink = 0.6 oz pur e alcohol) once a month [facility] Utilities Answer Date Recorded In the past 12 months has [employer], gas, oil, or water [employer] threatened to shut off services in your [...] How often do you attend chur or zoroastrianism services? Never 06/09/2022 Do you belong to any clubs o r organizations such as christian groups, unions, fraternal or athletic groups, or [...] and heating? Not hard at all 06/09/2022 [facility] of Occupat ional Health - Occupational Stress [...] times a day. 60 tablet 2 10/08/2022 multivitamin/iron/ folic acid (CENTRUM ORAL) 12/28/2019 oxyCODONE [...] (Latest Contact Info) Description 03/17/2024 1:00 PM HEALTH AND PHYSICAL EDUCATION TEACHER Comprehensive Visit Department of Dermatology in [place], [place] [address] [place] [phone] Katrin Causey APRN, C.N.P., D.N.P. [address] [place] [phone] Elizabeth Max M.D., Ph.D. [address] [place] [phone] 04/17/2024 2:30 PM HEALTH AND PHYSICAL EDUCATION TEACHER Clinical Communication Virtual Review in [place], [place] 200 [place] [phone] 04/20/2024 10:00 AM HEALTH AND PHYSICAL EDUCATION TEACHER Ancillary Procedure Department of Ophthalmology in [place] [address] [place] [phone] Annie Lamas O.D. [address] [place] [phone] 04/21/2024 7:15 AM HEALTH AND PHYSICAL EDUCATION TEACHER Ancillary Procedure Department of Ophthalmology in [place] [address] [place] [phone] 04/21/2024 7:45 AM HEALTH AND PHYSICAL EDUCATION TEACHER Ancillary Procedure Department of Ophthalmology in [place] [address] [place] [phone] Annie Lamas O.D. [address] [place] [phone] 04/21/2024 8:00 AM HEALTH AND PHYSICAL EDUCATION TEACHER Office Visit Department of Ophthalmology in [place] [address] [place] [address] Annie Lamas O.D. [address] [place] [phone] documented as of this encounter Procedures Procedure Name Priority Date/Time Associated Diagnosis Comments US SCROTUM WITH DOPPLER RAD - Routine (most inpatients and all outpatients) 12/23/2023 1:20 PM CDT Pain Scrotum documented in this encounter Results * US Scrotum with [...] in this encounter Visit Diagnoses Diagnosis Pain Scrotum documented in this encounter Care Teams Enthone Solder Stripper Relationship Specialty Start Date End Date Elsewhere, Pcp PCP - General Family Medicine 08/21/17 documented as of this encounter
--- OUTSIDE RECORDS SUMMARY | 2024-02-16 16:47 | XMS_ITS | Encounter Summary ---
Author Organization [facility] Address [address] [place] [address] Care Team Providers Care Slate Cutter Name Role Phone Elsewhere, Pcp Primary Care Provider Unavailabl e Reason for Referral * Outpatient (Routine) - Closed Specialty Diagnoses / Procedures Referred By Contac t Referred To Contact Diagnoses Pain Right Lower Quadrant Cholecystectomy Laparoscopic Status Post Procedures US Abdomen Limited Soft Tissue Lita Jacob APRN, C.N.P. 200 [place] [address] Phone: tel: fax: [facility] Region Referral ID Status Reason Start Date Expiration Date Visits Re quested Visits Authorized [id number] Closed 02/05/2024 02/04/2025 1 1 Reason for Visit * Outpatient (Routine) - Closed Specialty Diagnoses / Procedures Referred By Contac t Referred To Contact Diagnoses Pain Right Lower Quadrant Cholecystectomy Laparoscopic Status Post Procedures US Abdomen Limited Soft Tissue Lita Jacob APRN, C.N.P. 200 [place] [address] Phone: tel: fax: [facility] Region Referral ID Status Reason Start Date Expiration Date Visits Re quested Visits Authorized [id number] Closed 02/05/2024 02/04/2025 1 1 Encounter Details Date Type Department Care Team (Latest Contact Info) Description 02/13/2024 9:14 AM CDT - 02/13/2024 11:59 PM CDT Hospital Encounter Department of Radiology in [place], [place] [address] [place] [phone] Lita Jacob, JD, C.N.P. [address] [place] [address] Pain Right Lower Quadrant; Cholecystectomy Laparoscopic Status Post Discharge Disposition: Home or Self Care Social History Tobacco Use Types Packs/Day Years Used Date Smoking Tobacco: Former Cigarettes 0 04/15/2002 - 04/15/2009 Smokeless Tobacco: Never Alcohol Use Standard Drinks/Week Comments Yes 0 (1 standard drink = 0.6 oz pur e alcohol) once a month [facility] Utilities Answer Date Recorded In the past 12 months has e electric, gas, oil, or water [employer] threatened to shut off services in your [...] often do you attend chur ch or restoration services? Never 06/09/2022 Do you belong to [...] and heating? Not hard at all 06/09/2022 [facility] [place] of Occupat ional Health - Occupational Stress [...] a day. 60 tablet 2 10/08/2022 latanoprost (Xalatan) 0.005 % ophthalmic solution INSTILL 1 DROP BOTH EYES AT BEDTIME 10 mL 02/10/2024 lurasidone (Latuda) 20 mg tablet TAKE 1 [...] NEEDED 09/13/2023 documented as of this encounter Plan of Treatment Upcoming Encounters Date Type Department Care Team (Latest Contact Info) Description 03/17/2024 1:00 PM FULFILLMENT ASSOCIATE Comprehensive Visit Department of Dermatology in [place], [place] [address] [place] [phone] Katrin Causey APRN, C.N.P., D.N.P. [address] [place] [phone] Elizabeth Max M.D., Ph.D. [address] [place] [phone] 04/17/2024 2:30 PM FULFILLMENT ASSOCIATE Clinical Communication Virtual Review in [place], [place] 200 [place] [address] 04/20/2024 10:00 AM FULFILLMENT ASSOCIATE Ancillary Procedure Department of Ophthalmology in [place] [address] [place] [phone] Annie Lamas O.D. [address] [place] [phone] 04/21/2024 7:15 AM FULFILLMENT ASSOCIATE Ancillary Procedure Department of Ophthalmology in [place], [place] [address] [place] [phone] 04/21/2024 7:45 AM FULFILLMENT ASSOCIATE Ancillary Procedure Department of Ophthalmology in [place] [address] [place] [phone] Annie Lamas O.D. [address] [place] [phone] 04/21/2024 8:00 AM FULFILLMENT ASSOCIATE Office Visit Department of Ophthalmology in [place], [place] [address] [place] [address] Annie Lamas O.D. [address] [place] [phone] documented as of this encounter Procedures Procedure Name Priority Date/Time Associated Diagnosis Comments US ABDOMEN LIMITED SOFT TISSUE RAD - Routine (most inpatients and all outpatients) 02/13/2024 10:52 AM CDT Pain Right Lower Quadrant Cholecystectomy Laparoscopic Status Post documented in this encounter Results * US Abdomen Limited Soft Tissue [...] hernia. No foreign body. us Lita Jacob APRN, C.N.P. IMG US PROCEDURES Final Result documented in this encounter Visit Diagnoses Diagnosis Pain Right Lower Quadrant Cholecystectomy Laparoscopic Status Post documented in this encounter Care Teams Slate Cutter Relationship Specialty Start Date End Date Elsewhere, Pcp PCP - General Family Medicine 08/21/17 documented as of this encounter
--- OUTSIDE RECORDS SUMMARY | 2024-02-16 16:47 | XMS_ITS | Encounter Summary ---
Author Organization [facility] Address [address] [place] [address] Care Team Providers Care Endoscopy Specialty Technician Name Role Phone Elsewhere, Pcp Primary Care Provider Unavailabl e Reason for Referral * Outpatient (Routine) - Closed Specialty Diagnoses / Procedures Referred By Contac t Referred To Contact Otorhinolaryngology Diagnoses Obstructive Sleep Apnea Adult Snoring Congestion Nasal Kelby Fuentes M.D. Phone: tel: fax: [facility] Referral ID Status Reason Start Date Expiration Date Visits Re quested Visits Authorized [id number] Closed 12/19/2017 12/19/2018 1 1 Encounter Details Date Type Department Care Team (Late st Contact Info) Description 12/18/2017 [facility] [address] [place] [address] Kelby Fuentes M.D. [address] [place] [address] Obstructive Sleep Apnea Adult (Primary Dx); Snoring; [...] (Latest Contact Info) Description 03/17/2024 1:00 PM PUBLIC POLICY PROFESSOR Comprehensive Visit Department of Dermatology in [place], [place] [address] [place] [phone] Katrin Causey APRN, C.N.P., D.N.P. [address] [place] [phone] Elizabeth Max M.D., Ph.D. [address] [place] [phone] 04/17/2024 2:30 PM PUBLIC POLICY PROFESSOR Clinical Communication Virtual Review in [place], [place] 200 [place] [address] 04/20/2024 10:00 AM PUBLIC POLICY PROFESSOR Ancillary Procedure Department of Ophthalmology in [place] [address] [place] [phone] Annie Lamas O.D. [address] [place] [phone] 04/21/2024 7:15 AM PUBLIC POLICY PROFESSOR Ancillary Procedure Department of Ophthalmology in [place], [place] [address] [place] [address] 04/21/2024 7:45 AM PUBLIC POLICY PROFESSOR Ancillary Procedure Department of Ophthalmology in [place] [address] [place] [phone] Annie Lamas O.D. [address] [place] [phone] 04/21/2024 8:00 AM PUBLIC POLICY PROFESSOR Office Visit Department of Ophthalmology in [place], [place] [address] [place] [phone] Annie Lamas O.D. 200 [place] [address] Scheduled Referrals Name Type Priority Associated Diagnoses Order Schedule Otolaryngology Referral Outpatient Referral Routine Obstructive Sleep Apnea Adult Snoring Congestion Nasal Expected: 12/19/2017 (Approximate), Expires: 12/19/2020 documented as of this encounter Visit Diagnoses Diagnosis Obstructive Sleep Apnea Adult- Primary Snoring Congestion Nasal documented in this encounter Care Teams Endoscopy Specialty Technician Relationship Specialty Start Date End Date Elsewhere, Pcp PCP - General Family Medicine 08/21/17 documented as of this encounter
--- OUTSIDE RECORDS SUMMARY | 2024-02-16 16:47 | XMS_ITS | Encounter Summary ---
Author Organization [facility] Address [address] [place] [address] Care Team Providers Care Clinical Application Manager Name Role Phone Elsewhere, Pcp Primary Care Provider Unavailabl e Reason for Referral * Outpatient (Routine) - Closed Specialty Diagnoses / Procedures Referred By Contac t Referred To Contact Diagnoses Pain Right Lower Quadrant Cholecystectomy Laparoscopic Status Post Procedures US Abdomen Limited Soft Tissue Lita Jacob APRN, C.N.P. [address] [place] [phone] Phone: tel: fax: [facility] Region Referral ID Status Reason Start Date Expiration Date Visits Re quested Visits Authorized [id number] Closed 02/05/2024 02/04/2025 1 1 Encounter Details Date Type Department Care Team (Late st Contact Info) Description 02/05/2024 Orders Only Division of Trauma Critical Care and General Surgery in [place], [place] [address] [place] [phone] Lita Jacob APRN, C.N.P. [address] [place] [phone] Pain Right Lower Quadrant (Primary Dx); Cholecystectomy Laparoscopic Status Post Social [...] and heating? Not hard at all 06/09/2022 [facility] [place] of Occupat ional Health - Occupational Stress [...] your living situation today? I have a [facility] place to live 06/17/2023 Education Answer [...] (Latest Contact Info) Description 03/17/2024 1:00 PM SAND MILL OPERATOR Comprehensive Visit Department of Dermatology in [place], [place] [address] [place] [phone] Katrin Causey APRN, C.N.P., D.N.P. [address] [place] [phone] Elizabeth Max M.D., Ph.D. [address] [place] [phone] 04/17/2024 2:30 PM SAND MILL OPERATOR Clinical Communication Virtual Review in [place], [place] 200 [place] [phone] 04/20/2024 10:00 AM SAND MILL OPERATOR Ancillary Procedure Department of Ophthalmology in [place] [address] [place] [phone] Annie Lamas O.D. [address] [place] [phone] 04/21/2024 7:15 AM SAND MILL OPERATOR Ancillary Procedure Department of Ophthalmology in [place] [address] [place] [phone] 04/21/2024 7:45 AM SAND MILL OPERATOR Ancillary Procedure Department of Ophthalmology in [place] [address] [place] [phone] Annie Lamas O.D. [address] [place] [phone] 04/21/2024 8:00 AM SAND MILL OPERATOR Office Visit Department of Ophthalmology in [place] [address] [place] [address] Annie Lamas O.D. [address] [place] [phone] documented as of this encounter Results * US Abdomen Limited [...] drainablefluid collection. No hernia. No foreign body. Lita Jacob APRN, C.N.P. IMG US PROCEDURES Final Result documented in this encounter Visit Diagnoses Diagnosis Pain Right Lower Quadrant- Primary Cholecystectomy Laparoscopic Status Post Pain Right Lower Quadrant Cholecystectomy Laparoscopic Status Post documented in this encounter Care Teams Clinical Application Manager Relationship Specialty Start Date End Date Elsewhere, Pcp PCP - General Family Medicine 08/21/17 documented as of this encounter
--- OUTSIDE RECORDS SUMMARY | 2024-02-16 16:47 | XMS_ITS | Encounter Summary ---
Author Organization [facility] Address [address] [place] [phone] Care Team Providers Care Multiple Spindle Router Operator Name Role Phone Elsewhere, Pcp Primary Care Provider Unavailabl e Reason for Visit * Reason Onset Date Comments Post Hospital Follow-up 11/14/2023 * Outpatient (Routine) - Closed Specialty Diagnoses / Procedures Referred By Beatrice boss Referred To Contact Jose Mock M.D. [address] [place] [phone] Phone: tel: fax: [facility] Referral ID Status Reason Start Date Expiration Date Visits Re quested Visits Authorized [id number] Closed 11/01/2023 05/02/2025 1 1 Encounter Details Date Type Department Care Team (Latest Contact Info) Description 11/14/2023 1:45 PM CDT Clinical Communication Division of Trauma Critical Care and General Surgery in [place], [place] [address] [place] [phone] Jose Mock M.D. [address] [place] [phone] Post Hospital Follow-up Social History Tobacco Use Types Packs/Day Years Used Date Smoking Tobacco: Former Cigarettes 0 04/15/2002 - 04/15/2009 Smokeless Tobacco: Never Alcohol Use Standard Drinks/Week Comments Yes 0 (1 standard drink = 0.6 oz pur e alcohol) once a month [facility] Utilities Answer Date Recorded In the past 12 months has th e electric, gas, oil, or water [employer] threatened to shut off services in your [...] often do you attend chur ch or anabaptism services? Never 06/09/2022 Do you belong to any clubs o r organizations such as pentecostalism groups, unions, fraternal or athletic groups, or [...] and heating? Not hard at all 06/09/2022 [facility] [place] [facility] - Occupational [...] your living situation today? I have a [facility] place to live 06/17/2023 Education [...] Notes * Telephone Encounter - Meredith Voss ROusmaneNOusmane - 11/19/2023 8:53 AM CDT SUBJECTIVE CHIEF [...] (Latest Contact Info) Description 03/17/2024 1:00 PM ELEMENT WINDING MACHINE TENDER Comprehensive Visit Department of Dermatology in [place], [place] [address] [place] [phone] Katrin Causey APRN, C.N.P., D.N.P. [address] [place] [phone] Elizabeth Max M.D., Ph.D. [address] [place] [phone] 04/17/2024 2:30 PM ELEMENT WINDING MACHINE TENDER Clinical Communication Virtual Review in [place], [place] 200 [place] [phone] 04/20/2024 10:00 AM ELEMENT WINDING MACHINE TENDER Ancillary Procedure Department of Ophthalmology in [place] [address] [place] [phone] Annie Lamas O.D. [address] [place] [phone] 04/21/2024 7:15 AM ELEMENT WINDING MACHINE TENDER Ancillary Procedure Department of Ophthalmology in [place] [address] [place] [phone] 04/21/2024 7:45 AM ELEMENT WINDING MACHINE TENDER Ancillary Procedure Department of Ophthalmology in [place] [address] [place] [phone] Annie Lamas O.D. [address] [place] [phone] 04/21/2024 8:00 AM ELEMENT WINDING MACHINE TENDER Office Visit Department of Ophthalmology in [place] [address] [place] [address] Annie Lamas O.D. [address] [place] [phone] documented as of this encounter Visit Diagnoses Diagnosis Cholecystectomy Laparoscopic Status Post- Primary documented in this encounter Care Teams Multiple Spindle Router Operator Relationship Specialty Start Date End Date Elsewhere, Pcp PCP - General Family Medicine 08/21/17 documented as of this encounter
[2024-02-16 16:49] LABS: Albumin* 3.9 g/dL (3.3-5.0); Chloride* 103 mmol/L (96-114); Sodium* 138 mmol/L (135-149)
[2024-02-16 16:52] LABS: Alkaline Phosphatase* 79 U/L (40-150); Anion Gap 6 mEq/L (7-15); Aspartate Amino Transferase* 22 U/L (12-35); Bilirubin Direct* 0.2 mg/dL (0.0-0.5); Bilirubin Total* 0.2 mg/dL (0.1-1.5); Blood Urea Nitrogen* 15 mg/dL (7-30); Carbon Dioxide* 29 mmol/L (20-32); Creatinine* 0.8 mg/dL (0.5-1.5); Est. Creatinine Clearance* 121.25; Estimated Glomerular Filt Rate 108 ml/min; Potassium* 3.2 mmol/L (3.6-5.1); Total Protein* 5.7 g/dL (6.0-8.3)
[2024-02-16 16:53] LABS: Alanine Aminotransferase* 20 U/L (4-50); Calcium* 8.8 mg/dL (8.4-10.6); Glucose* 103 mg/dL (60-115); Lipase* 59 U/L (23-300)
[2024-02-16 16:55] LABS: C Reactive Protein* < 0.5 mg/dL (0.5-1.0)
[2024-02-16 16:56] LABS: Appearance Urine Clear (Clear); Bilirubin Urine Negative (Negative); Blood Urine Negative (Negative); Color Urine Yellow (Yellow); Glucose Urine Negative (Negative); Ketones Urine Trace (Negative); Leukocyte Esterase Urine Negative (Negative); Nitrite Urine Negative (Negative); Protein Urine Negative (Negative); Specific Gravity Urine 1.025 (1.000-1.030); Urobilinogen Urine 0.2 (0.2-1.0); pH Urine 5.5 (5.0-8.5)
[2024-02-16 17:10] LABS: Procalcitonin* < 0.03 ng/mL (<0.50)
--- NOTE | 2024-02-16 17:29 | ED_ITS ---
HPI - Abdominal Pain General Date Seen: 02/16/24 Chief Complaint: Abdominal Pain Stated Complaint: abdominal pain Time Seen by Provider: 02/16/24 15:50 Source: patient Mode of arrival: ambulatory Limitations: no limitations History of Present Illness HPI narrative: Patient is a 48-year-old gentleman who presents here with abdominal pain for the last week and a half, he describes the pain initially over his whole abdomen, he underwent an ultrasound here in the last few days that showed that he had a bit of a hernia through 1 of the portals of entry of his recent laparoscopic cholecystectomy. He has been also been having before this some abdominal pain and [facility] where he doctors ordered a CT, although it is not till next week. The pain he said became sharper today, so he presented here for help with this. He denies any fevers chills he is eating and drinking normally no dysuria frequency, denies any redness rashes. No history of diarrhea, or other issues. MD elicited complaint: abdominal pain Related Data Home Medications ?Medication ?Instructions ?Recorded ?Confirmed latanoprost 0.005 % eye drops 1 drp ophthalmic (eye) QPM 10/26/21 12/18/23 tretinoin 0.025 % topical cream 1 applic topical .Bedtime 10/26/21 12/18/23 clindamycin 1 %-benzoyl peroxide 5 1 applic topical QDAY 11/19/22 12/18/23 % topical gel lamotrigine 200 mg tablet 400 mg PO BID 08/28/23 12/18/23 quetiapine 200 mg tablet 200 mg PO .Bedtime 08/28/23 12/18/23 bupropion HCl 150 mg 24 hr tablet, 150 mg PO QAM 12/18/23 12/18/23 extended release quetiapine 100 mg tablet 100 mg PO QDAY 12/18/23 12/18/23 Previous Rx's ?Medication ?Instructions ?Recorded gabapentin 300 mg capsule 300 mg PO QID 3 months #360 caps 01/27/24 Allergies Allergy/AdvReac Type Severity Reaction Status Date / Time levofloxacin Allergy Intermediate panic Verified 12/18/23 07:15 attack, leg pain, chills Review of Systems Status of ROS Reports: 10 or more systems reviewed and unremarkable except as noted in History and below [facility] Medical History Abnormal biliary HIDA scan ?R94.8 - Abnormal results of function studies of other organs and systems (ICD-10) 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 - Other chronic pain (ICD-10) Bipolar depression ?F31.9 - Bipolar disorder, unspecified (ICD-10) Low vitamin B12 level ?E53.8 - Deficiency of other specified B group vitamins (ICD-10) Chronic pruritus ?L29.9 - Pruritus, unspecified (ICD-10) Anxiety ?F41.9 - Anxiety disorder, unspecified (ICD-10) Obstructive sleep apnea syndrome ?G47.33 - Obstructive sleep apnea (adult) (pediatric) (ICD-10) Adhesive capsulitis of shoulder ?M75.00 - Adhesive capsulitis of unspecified shoulder (ICD-10) Depression ?F32.A - Depression, unspecified (ICD-10) Surgical History History of cholecystectomy (09/2023) ?Z90.49 - Acquired absence of other specified parts of digestive tract (ICD- 10) History of testicular surgery (1985) ?Z98.890 - Other specified postprocedural states (ICD-10) Hx of nasal septoplasty (2018) ?Z98.890 - Other specified postprocedural states (ICD-10) Hx of arthroscopy of shoulder (2017) ?Z98.890 - Other specified postprocedural states (ICD-10) Family History Mother Coleman's granulomatosis Depression Father Personality disorder Skin cancer Aunt Myocardial infarction, Onset Age: 64 Diabetes Uncle Myocardial infarction, Onset Age: 65 Lung cancer Paternal Grandfather Lung cancer Other Leukemia Social History Narrative: 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 , 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, 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 Exercise once a week weights Nonsmoker, quit 2011, history of 20 pack years Rare alcohol use Prior history of drug use not anymore What is your current living situation?: declined to answer Problems where you live: declined to answer In the past 12 months, utilities in danger of being shut off: declined to answer In past 12 months, lack of transportation kept you from medical appts, meetings, work, or getting things needed for daily living: declined to answer In the past 12 mos, have been you worried that your food would run out before you had money to buy more?: declined to answer In the past 12 mos, the food you bought just didn't last and you didn't have money to buy more?: declined to answer Smoking Status: Former smoker How often does anyone, including family, friends and others, physically hurt you : decline to answer How often does anyone, including family, friends and others, insult or talk down to you: decline to answer How often does anyone, including family, friends and others, threaten you with harm: decline to answer How often does anyone, including family, friends and others, scream or curse at you: decline to answer Little interest or pleasure in doing things: more than half the days Feeling down, depressed, or hopeless: nearly every day Exam Narrative: Exam Narrative: On examination he is in no distress, pleasant alert pupils equal round reactive to light there is no scleral icterus redness is TMs are normal his oropharynx normal his neck is supple full range of motion chest is clear by with no wheezing crackles noted heart sounds are normal abdomen shows some very mild tenderness, over the upper epigastric portal of entry, he does have a bit of a defect here but is fully reducible. No other really significant tenderness is noted unless he twists and then he has some pain on the right side is bowel sounds are normal there is no organomegaly, no CVA tenderness, he moves all extremities independently well, no hernias are noted otherwise Const: Vital Signs, click to edit/add: Vital Signs - 24 hr 02/16/24 15:51 Temperature 98.0 F Pulse Rate [Left P ulse Oximeter] 65 Respiratory Rate 20 Blood Pressure [Ri ght Upper Arm] 133/75 Pulse Oximetry 98 Oxygen Delivery Me thod Room Air Documenting provider has reviewed patient's vital signs: yes Course Course ED Course: Discussed with the patient, that his CT is normal his blood tests normal. He he he was reassured by this, he will follow-up with primary care. Vital Signs Vital signs: Initial Vital Signs Temperature 98.0 F 02/16/24 15:51 Temperature Source Temporal Artery Scan 02/16/24 15:51 Pulse Rate 65 02/16/24 15:51 Pulse Rhythm Regular 02/16/24 15:51 Respiratory Rate 20 02/16/24 15:51 Blood Pressure 133/75 02/16/24 15:51 Blood Pressure Mean 94 02/16/24 15:51 Blood Pressure Position Sitting 02/16/24 15:51 Pulse Oximetry 98 02/16/24 15:51 Oxygen Delivery Method Room Air 02/16/24 15:51 Vital Signs Temperature 98.0 F 02/16/24 15:51 Pulse Rate 65 02/16/24 15:51 Respiratory Rate 20 02/16/24 15:51 Blood Pressure 133/75 02/16/24 15:51 Pulse Oximetry 98 02/16/24 15:51 Oxygen Delivery Method Room Air 02/16/24 15:51 Temperature 98.0 F 02/16/24 15:51 Pulse Rate 65 02/16/24 15:51 Respiratory Rate 20 02/16/24 15:51 Blood Pressure 133/75 02/16/24 15:51 Pulse Oximetry 98 02/16/24 15:51 Oxygen Delivery Method Room Air 02/16/24 15:51 MDM - Abdominal Pain MDM Narrative Medical decision making narrative: During this evaluation of this patient I considered multiple differential diagnosis is which included the life-threatening such as appendicitis, aortic aneurysm, mesenteric ischemia, bowel perforation, volvulus, and bowel obstruction. Other differential diagnosis is include but are not limited to cholecystitis, pancreatitis, hepatitis, gastritis, GERD, diverticulitis, peptic ulcer disease, pyelonephritis/UTI, renal colic/stone, testicular torsion as well as other acute scrotal processes, inflammatory bowel disease, as well as other etiologies Differential Diagnosis Differential diagnosis: Likely abdominal pain Medical Records Attestation: I reviewed the patient's medical records. Lab Data Attestation: I reviewed the patient's lab results. Labs: Lab Results 02/16/24 02/16/24 Range/Units 16:30 16:44 WBC 4.06 L (4.50-11.00) K/uL RBC 4.05 L (4.30-5.90) m/uL Hgb 12.3 L (13.5-17.5) gm/dL Hct 35.8 L (37.0-53.0) % MCV 88 (80-100) fL MCH 30 (26-34) pg MCHC 34 (32-36) gm/dL RDW Coeff of Gato 11.7 (11.5-15.5) % Plt Count 147 (140-440) K/uL Neut % (Auto) 58.2 (42.0-72.0) % Lymph % (Auto) 33.0 (20-44) % [place] % (Auto) 7.4 (0.0-11.0) % Eos % (Auto) 1.0 (0.0-7.0) % Baso % (Auto) 0.2 (0.0-3.0) % Neut # (Auto) 2.40 (1.7-7.0) K/uL Lymph # (Auto) 1.30 (0.90-2.90) K/uL [place] # (Auto) 0.30 (0.00-0.90) K/UL Eos # (Auto) 0.00 (0.00-0.50) K/uL Baso # (Auto) 0.00 (0.00-0.30) K/uL Abs Immat Gran (auto) 0.00 (0.00-0.30) K/uL Imm/Tot Granulo (auto) 0.2 % Sodium 138 (135-149) mmol/L Potassium 3.2 L (3.6-5.1) mmol/L Chloride 103 (96-114) mmol/L Carbon Dioxide 29 (20-32) mmol/L Anion Gap 6 L (7-15) mEq/L BUN 15 (7-30) mg/dL Creatinine 0.8 (0.5-1.5) mg/dL Estimated Creat Clear 121.25 Estimated GFR 108 ml/min Glucose 103 (60-115) mg/dL Calcium 8.8 (8.4-10.6) mg/dL Total Bilirubin 0.2 (0.1-1.5) mg/dL Direct Bilirubin 0.2 (0.0-0.5) mg/dL AST 22 (12-35) U/L ALT 20 (4-50) U/L Alkaline Phosphatase 79 (40-150) U/L C-Reactive Protein < 0.5 L (0.5-1.0) mg/dL Total Protein 5.7 L (6.0-8.3) g/dL Albumin 3.9 (3.3-5.0) g/dL Lipase 59 (23-300) U/L Procalcitonin < 0.03 L (<0.50) ng/mL Urine Color Yellow (Yellow) Urine Appearance Clear (Clear) Urine pH 5.5 (5.0-8.5) Ur Specific [place] 1.025 (1.000-1.030) Urine Protein Negative (Negative) Urine Glucose (UA) Negative (Negative) Urine Ketones Trace A (Negative) Urine Blood Negative (Negative) Urine Nitrite Negative (Negative) Urine Bilirubin Negative (Negative) Urine Urobilinogen 0.2 (0.2-1.0) Ur Leukocyte Esterase Negative (Negative) Urine RBC 0-2 (0-2) Urine WBC 0-2 (0-5) Ur Squamous Epith Cells None (None-Few) Urine Bacteria None (None) Imaging Data CT scan - abdomen: Radiologist's impression: No acute finding Discharge Plan Discharge Clinical Impression: Abdominal pain Patient Disposition: Home, Self-Care Condition: Stable Instructions: Abdominal Pain (ED) Additional Instructions: I would suggest following up with [facility], we will give you a copy of the CD, your laboratory work was all excellent also. I am not sure what is causing the pain but I bet it is likely muscle from which he describing to me. The hernia is definitely not protruding currently. Activity Level: Light activity Discharge Diet: Regular Prescriptions: No Action tretinoin 0.025 % cream 1 applic topical .Bedtime latanoprost 0.005 % drops 1 drp ophthalmic (eye) QPM quetiapine 200 mg tablet 200 mg PO .Bedtime bupropion HCl 150 mg tablet extended release 24 hr 150 mg PO QAM quetiapine 100 mg tablet 100 mg PO QDAY clindamycin-benzoyl peroxide 1-5 % gel 1 applic topical QDAY Patient Comments: APPLY TOPICALLY TO FACE DAILY lamotrigine 200 mg tablet 400 mg PO BID gabapentin 300 mg capsule 300 mg PO QID 90 Days Qty: 360 3RF Follow Up/Referrals: Kalina Rice MD [Primary Care Provider] - Stand Alone Forms: [employer] Info Instructions
[2024-02-16 17:36] LABS: RBC Urine 0-2 (0-2); WBC Urine 0-2 (0-5)
== END 2024-02-16 17:45 | disposition home or self-care (01) ==
PROVIDERS: Emergency Provider Family Medicine; PCP Family Medicine
DX: R10.9 Unspecified abdominal pain (principal)
CPT/HCPCS: 36415; 74177; 80048; 80076; 81001; 83690; 84145; 85025; 86140; 99283; 99284; Q9967

== ENCOUNTER 2024-03-03 08:58 | Outpatient (CLI) | payer OTHER, SELFPAY ==
--- OUTSIDE RECORDS SUMMARY | 2024-03-03 09:03 | XMS_ITS ---
Author Organization [facility] Address [address] [place] [address] Care Team Providers Care Rod Placer Name Role Phone Unavailable Unavailable Unavailable Surgery Details Not on file Complications Check Surgery Details section. Procedure Estimated Blood Loss Check Surgery Details section. Procedure Findings Check Surgery Details section. Procedure Specimens Taken Check Surgery Details section.
--- OUTSIDE RECORDS SUMMARY | 2024-03-03 09:03 | XMS_ITS | Encounter Summary ---
Author Organization [facility] Address [address] [place] [address] Care Team Providers Care Marketing Manager Health Communications Name Role Phone Elsewhere, Pcp Primary Care Provider Unavailabl e Reason for Visit * Reason Onset Date Comments Issues after surgery 02/17/2024 Encounter Details Date Type Department Care Team (Latest Contact Info) Description 02/17/2024 Clinical Communication Division of Trauma Critical Care and General Surgery in [place], [place] [address] [place] [phone] Olga Gold M.D. [address] [place] [phone] Issues after surgery Social History Tobacco Use Types Packs/Day Years Used Date Smoking Tobacco: Former Cigarettes 0 04/15/2002 - 04/15/2009 Smokeless Tobacco: Never Alcohol Use Standard Drinks/Week Comments Yes 0 (1 standard drink = 0.6 oz pur e alcohol) once a month [facility] Utilities Answer Date Recorded In the past 12 months has e electric, gas, oil, or water [employer] threatened to shut off services in your [...] often do you attend chur ch or judaism services? Never 06/09/2022 Do you belong to any clubs o r organizations such as mormon groups, unions, fraternal or athletic groups, or [...] and heating? Not hard at all 06/09/2022 [facility] - Occupational [...] your living situation today? I have a [facility] place to live 06/17/2023 Education Answer [...] encounter Miscellaneous Notes * Telephone Encounter - Neelam Sparrow, JD, C.N.P. - 02/17/2024 4:31 PM CST The patient called to let us know that he was recently seen in the emergency department locally. Heindicates that he has had lower abdominal pain that comes and goes at times. In the right lower abdomen he had quite severe pain the other day that required him to go to the local emergency department. He ended up having a CT done in the emergency department which he has been able to push to us. I did scroll through it I did not see any obvious cause of his abdominal pain. He has also had an ultrasound of the abdomen that demonstrates a small 4 mm fascial defect with no bowel in the hernia. This is in the right lower abdomen. I do not know if this corresponds to his discomfort. He is scheduled to see us in clinic later this week. He just wanted to let us know of these concerns and he is having and see if he needed any imaging prior to coming to the clinic appointment. At this point he hashad multiple labs CT and ultrasonic of the abdomen. I indicated I believe that he has all the imaging that we would require but certainly we would want to evaluate him first. He thanked me for listening to his concerns and documenting these in preparation for his appointment. KEEPER * Telephone Encounter - Laurita Bee - 02/17/2024 2:09 PM CST Patient called stating that he is continuing to have issues after his surgery. He thinks that he does not have control of his upper abdomen. He has appointment here with us on February 18 but wanted to talk with someone to see if there are any other tests that should be done. He had a CT done at home over the weekend which was pushed through to us. Please call him back at [phone]. Thanks- KEEPER documented in this encounter Plan of Treatment Upcoming Encounters Date Type Department Care Team (Latest Contact Info) Description 03/17/2024 1:00 PM TURF KEEPER Comprehensive Visit Department of Dermatology in [address] [phone] Katrin Causey APRN, C.N.P., D.N.P. [address] [place] [phone] Elizabeth Max M.D., Ph.D. [address] [place] [phone] 04/17/2024 2:30 PM TURF KEEPER Clinical Communication Virtual Review in [place], [place] [address] [facility] [place] [phone] 04/20/2024 10:00 AM TURF KEEPER Ancillary Procedure Department of Ophthalmology in [place] [address] [place] [phone] Annie Lamas O.D. [address] [place] [phone] 04/21/2024 7:15 AM TURF KEEPER Ancillary Procedure Department of Ophthalmology in [place] [address] [place] [phone] 04/21/2024 7:45 AM TURF KEEPER Ancillary Procedure Department of Ophthalmology in [place] [address] [place] [phone] Annie Lamas O.D. [address] [place] [phone] 04/21/2024 8:00 AM TURF KEEPER Office Visit Department of Ophthalmology in [place] [address] [place] [phone] Annie Lamas O.D. [address] [place] [phone] documented as of this encounter Visit Diagnoses Not on filedocumented in this encounter Care Teams Marketing Manager Health Communications Relationship Specialty Start Date End Date Elsewhere, Pcp PCP - General Family Medicine 08/21/17 documented as of this encounter
--- OUTSIDE RECORDS SUMMARY | 2024-03-03 09:03 | XMS_ITS | Encounter Summary ---
Author Organization [facility] Address [address] [place] [address] Care Team Providers Care School Bus Aide Name Role Phone Elsewhere, Pcp Primary Care Provider Unavailabl e Encounter Details Date Type Department Care Team (Late st Contact Info) Description 02/19/2024 3:55 PM CONTRACT LEAD Ancillary Procedure Department of Trauma and Surgery Social History Tobacco Use Types Packs/Day Years Used Date Smoking Tobacco: Former Cigarettes 0 04/15/2002 - 04/15/2009 Smokeless Tobacco: Never Alcohol Use Standard Drinks/Week Comments Yes 0 (1 standard drink = 0.6 oz pur e alcohol) once a month [facility] Utilities Answer Date Recorded In the past 12 months has e electric, gas, oil, or water [employer] threatened to shut off services in your [...] often do you attend chur ch or latter-day services? Never 06/09/2022 Do you belong to any clubs o r organizations such as temple groups, unions, fraternal or athletic groups, or [...] and heating? Not hard at all 06/09/2022 [facility] - Occupational [...] medical appointments or from getting medications? No 03/0 07/2023 In the past 12 months, has [...] your living situation today? I have a [facility] place to live 06/17/2023 Education Answer [...] (Latest Contact Info) Description 03/17/2024 1:00 PM CONTRACT LEAD Comprehensive Visit Department of Dermatology in [place], [place] [address] [place] [phone] Katrin Causey APRN, C.N.P., D.N.P. [address] [place] [phone] Elizabeth Max M.D., Ph.D. [address] [place] [phone] 04/17/2024 2:30 PM CONTRACT LEAD Clinical Communication Virtual Review in [place], [place] 200 [place] [phone] 04/20/2024 10:00 AM CONTRACT LEAD Ancillary Procedure Department of Ophthalmology in [place], [place] [address] [place] [phone] Annie Lamas O.D. [address] [place] [phone] 04/21/2024 7:15 AM CONTRACT LEAD Ancillary Procedure Department of Ophthalmology in [place] [address] [place] [phone] 04/21/2024 7:45 AM CONTRACT LEAD Ancillary Procedure Department of Ophthalmology in [place] [address] [place] [phone] Annie Lamas O.D. [address] [place] [phone] 04/21/2024 8:00 AM CONTRACT LEAD Office Visit Department of Ophthalmology in [place] [address] [place] [phone] Annie Lamas O.D. [address] [place] [phone] documented as of this encounter Procedures Procedure Name Priority Date/Time Associated Diagnosis Comments TRAUMA CC AND SURGERY IMAGE EXAM Routine 02/19/2024 3:53 PM CONTRACT LEAD documented in this encounter Results * Abdomen-Trauma CC And Surgery Image Exam (02/19/2024 3:53 PM CONTRACT LEAD) 02/19/2024 3:51 PM CONTRACT LEAD Narrative [facility] - 02/19/2024 3:53 PM CONTRACT LEAD This order has been created and auto-finalized to support the import of images acquired without order. The clinical documentation to support these images can be found on the encounter that produced images. us Provider Not In System IMG NON RAD IMAGING PROCE DURES Final Result [facility] NA documented in this encounter Visit Diagnoses Not on filedocumented in this encounter Care Teams School Bus Aide Relationship Specialty Start Date End Date Elsewhere, Pcp PCP - General Family Medicine 08/21/17 documented as of this encounter
--- OUTSIDE RECORDS SUMMARY | 2024-03-03 09:03 | XMS_ITS | Encounter Summary ---
Author Organization [facility] Address [address] [place] [phone] Care Team Providers Care Medical Receptionist Assistant Name Role Phone Elsewhere, Pcp Primary Care Provider Unavailabl e Reason for Referral * MRI/CAT/PET Scan (Routine) - Authorized Specialty Diagnoses / Procedures Referred By Contac t Referred To Contact Radiology Diagnoses Pain Right Upper Quadrant Procedures CT Abdomen Pelvis with IV Contrast Karyn Devlin M.D. 200 [place] [address] Phone: tel: fax: [facility] Referral ID Status Reason Start Date Expiration Date V isits Requested Visits Authorized [id number] Authorized 02/19/2024 02/18/2025 1 1 [place] INSPECTOR * Outpatient (Routine) - Authorized Specialty Diagnoses / Procedures Referred By Contac t Referred To Contact Trauma Critical Care and General Surgery Karyn Devlin M.D. 200 [place] [address] Phone: tel: fax: [facility] Referral ID Status Reason Start Date Expiration Date V isits Requested Visits Authorized [id number] Authorized 02/19/2024 08/20/2025 1 1 [place] INSPECTOR Reason for Visit * Reason Comments Return Visit * Outpatient (Routine) - Closed Specialty Diagnoses / Procedures Referred By Beatrice t Referred To Contact Trauma Critical Care and General Surgery Yahaira Gonsalez P.A.-C. [address] [place] [phone] Phone: tel: fax: [facility] Referral ID Status Reason Start Date Expiration Date Visits Re quested Visits Authorized [id number] Closed 02/14/2024 08/15/2025 1 1 Encounter Details Date Type Department Care Team (Late st Contact Info) Description 02/19/2024 1:45 PM PENCIL INSPECTOR Office Visit Division of Trauma Critical Care and General Surgery in [place], [place] [address] [place] [address] Yahaira Gonsalez P.A.-C. [address] [place] [phone] Rikki Birmingham M.D. [address] [place] [phone] Injury Abdominal Wall Initial (Primary Dx); Pain Right Upper Quadrant Social History Tobacco Use Types Packs/Day Years Used Date Smoking Tobacco: Former Cigarettes 0 04/15/2002 - 04/15/2009 Smokeless Tobacco: Never Alcohol Use Standard Drinks/Week Comments Yes 0 (1 standard drink = 0.6 oz pur e alcohol) once a month [facility] Utilities Answer Date Recorded In the past [address] [facility] [employer], gas, oil, or water [employer] threatened to shut off services in your [...] any clubs o r organizations such as shinto groups, unions, fraternal or athletic groups, or [...] and heating? Not hard at all 06/09/2022 [facility] Occupat ional [facility] - Occupational Stress [...] as of this encounter Progress Notes * Rikki Birmingham M.D. - 02/19/2024 1:45 PM CST The patient was seen and reviewed with S house officers. Briefly, this has a 48-year-old male whounderwent laparoscopic cholecystectomy in October. There was a small amount of bile spillage but no stones were spilled. Skin was closed with subcuticular sutures. His Moya trocar site was in the right subcostal region. He has had complaints of tenderness around the right subcostal scar and also some abdominal wall tenderness in the right lower quadrant adjacent to his lateral most 5 mm trocar site. He had ultrasound examination of the right lower quadrant trocar site with ultrasound and it was felt that there was fat herniating through the muscle. There was no hernia found at the right upper q uadrant. He has a subsequent CT scan from November 3rd when he presented to an outside emergency department with complaints of abdominal wall pain. CT scan shows no inflammation in the abdominal cavity. I have specifically looked at the rectus muscle in the upper abdomen. I can see subcutaneous scar and rectus muscle shows some postsurgical changes but there was no evidence of hernia formation. Gisselle examined cines of his ultrasound over the right lower quadrant area of pain. I do see some fatty density within internal oblique muscle but there is no defect in the transversus abdominis muscleand there does not appear to be fat herniating through from the peritoneum. I have also correlated images on CT scan with ultrasound and I do see a fatty density within the internal oblique musculature but the transversus abdominis is intact without evidence of hernia formation. Physical examination: Awake and alert Right subcostal scar with tenderness to light palpation consistent with some hyperesthesia. There is no evidence of infection. Scar still has some pink coloration. Patient was examined supine, supinewith Valsalva, and standing and I do not detect any hernia formation. Palpation of his 5 mm trocar sites in the right abdomen were likewise examined and I do not detect any hernia formation. There ismild tenderness to the lateral most scar which is located just cephalad to ASIS. I do not detect any hernias. Patient is able to deep breathe without pain. He is able to do simple bug exercise without discomfort. Photographs of trocar site scars was taken for the medical record. Impression/plan: 48-year-old male with ongoing abdominal wall discomfort after laparoscopic cholecystectomy. I spenta long time with the patient discussing symptoms and reviewing imaging. I do not think he has a hernia at the right lower quadrant lateral most 5 mm trocar site. I think this has likely fatty infiltration of muscle injured at the time of trocar placement. I think his symptoms are likely related to ongoing muscular pain similar to muscle tears. I have recommended that he begin a regimen of low resistance high repetition range of motion. We reviewed simple single leg lifts to accomplish this. I think deep breathing exercises would also accomplish this. I have also recommended massage therapy for desensitization of his right subcostal incision. I have instructed the patient to massage the areaseveral times a day with moisturizing cream. I think it is unlikely that he has a hernia but if he still has symptoms then I have recommended follow-up CT scan with Valsalva views in 6 months. Presumably, if he has a small fat containing hernia we may see progression over time. IL INSPECTOR * Karyn Devlin M.D. - 02/19/2024 1:45 PM CST SUBJECTIVE CHIEF COMPLAINT / REASON FOR VISIT Homero Patel is a 48 y.o. male who presents for evaluation of chronic pain HISTORY OF PRESENT ILLNESS Mr. Patel is a 48-year-old male presenting for evaluation of chronic pain following laparoscopic cholecystectomy in October. He had a right subcostal Moya trocar. He reports he has had sharp epigastric pain associated with coughing since right after his operation. Approximately 6 weeks postoperatively, he developed right lower quadrant aching. Both are exacerbated by movement. He has tried not to use his abdominal muscles since after his operation. He was seen at an outside ED for the pain on February [address] scan was obtained, with no acute findings. He had previously had an ultrasound on 02/12 that showed a possible right lower quadrant hernia. No hernia was noted at the RUQ port site. In addition to the pain, the patient reports diarrhea for the last 3 weeks as well as some nausea and poor appetite that he attributes to social factors. The following portions of the patient's history were reviewed and updated as appropriate: allergies, current medications, family history, medical history, social history, surgical history, and problem list. OBJECTIVE PHYSICAL EXAM General: resting in bed, no acute distress Neurologic: alert, oriented, appropriately conversant Respiratory: breathing comfortably on room air Abdominal: soft, nondistended. Healed port sites. Right subcostal 12 mm site is more pink in color,no apparent hernia. Remaining port sites with no palpable hernia. He is tender to palpation at the right subcostal port site. CT ABDOMEN PELVIS W CON-Outside CT Body Result Date: 02/17/2024 Reviewed and demonstrates no intra-abdominal fluid collections or hernias. There is some stranding at the port sites consistent with the scars. US Abdomen Limited Soft Tissue Result Date: 02/13/2024 Narrative: EXAM: US ABDOMEN LIMITED SOFT TISSUE COMPARISON: CT abdomen/pelvis 06/20/2023 FINDINGS: See impression. Impression: 1. Targeted ultrasound of the right lower anterior abdominal wall at the area of pain/surgical incision demonstrates a 4 mm fascial defect through which a small amount of fat herniates. No bowel contained within this hernia. No change with Valsalva. 2. Targeted ultrasound of the second area of pain about the right upper/mid abdominal wall overlying a surgical incision shows a small amount of edematous tissue and a 3 mm tiny pocket of fluid. No drainable fluid collection. No hernia. No foreign body. ASSESSMENT / PLAN #1 Injury Abdominal Wall Initial #2 Pain Shoulder #3 Tendinitis Ankle Left #4 Prostatitis Chronic #5 Obstruction Nasal #6 Snoring #7 Insomnia Mental Disorder Related #8 Chronic Insomnia Disorder #9 Bipolar Disorder Current Episode Mixed Mild (HCC) #10 Pain Shoulder Left #11 Cannabis Use Unspecified Uncomplicated #12 Obstructive Sleep Apnea Adult Mr. Patel is a 48-year-old male presenting with chronic pain nearly 4 months after laparoscopic cholecystectomy. Discussed with him that imaging demonstrates no acute concerns. We reviewed the CT andultrasound again and do not see evidence of hernia. Discussed that the pain is likely muscular. We discussed recommendations for low resistance, high repetition range of motion. Recommended bug exercises and deep breathing exercises. Additionally recommended massaging the right subcostal incision with moisturizing cream to help with the hyperalgesia. We discussed that we can plan for return visit and repeat CT scan with valsalva maneuvers in 6 months if he continues to have pain. He was amenable to this plan. Patient seen and discussed with Dr. Birmingham. Karyn Devlin M.D. IL INSPECTOR documented in this encounter Miscellaneous Notes * Addendum Note - Karyn Devlin M.D. - 02/19/2024 1:45 PM CSTAddended by: KARYN DEVLIN on: 02/19/2024 07:54 PM Modules accepted: Orders IL INSPECTOR documented in this encounter Plan of Treatment Upcoming Encounters Date Type Department Care Team (Latest Contact Info) Description 03/17/2024 1:00 PM PENCIL INSPECTOR Comprehensive Visit Department of Dermatology in [place] [address] [place] [phone] Katrin Causey APRN, C.N.P., D.N.P. [address] [place] [phone] Elizabeth Max M.D., Ph.D. [address] [place] [phone] 04/17/2024 2:30 PM PENCIL INSPECTOR Clinical Communication Virtual Review in [place], [place] 200 [place] [address] 04/20/2024 10:00 AM PENCIL INSPECTOR Ancillary Procedure Department of Ophthalmology in [place] [address] [place] [phone] Annie Lamas O.D. [address] [place] [phone] 04/21/2024 7:15 AM PENCIL INSPECTOR Ancillary Procedure Department of Ophthalmology in [place] [address] [place] [address] 04/21/2024 7:45 AM PENCIL INSPECTOR Ancillary Procedure Department of Ophthalmology in [place] [address] [place] [phone] Annie Lamas O.D. [address] [place] [phone] 04/21/2024 8:00 AM PENCIL INSPECTOR Office Visit Department of Ophthalmology in [place] [address] [place] [phone] Annie Lamas O.D. [address] [place] [phone] Scheduled Orders Name Type Priority Associated Diagnoses Orde r Schedule CT Abdomen Pelvis with IV Contrast Imaging RAD - Routine (most inpatients and all outpatients) Pain Right Upper Quadrant Expected: 08/18/2024, Expires: 05/21/2025 Scheduled Referrals Name Type Priority Associated Diagnoses Orde r Schedule Trauma Critical Care and General Surgery office visit (clinic) Outpatient Referral Routine Expected: 08/18/2024, Expires: 05/21/2025 documented as of this encounter Visit Diagnoses Diagnosis Injury Abdominal Wall Initial- Primary Pain Right Upper Quadrant documented in this encounter Care Teams Medical Receptionist Assistant Relationship Specialty Start Date End Date Elsewhere, Pcp PCP - General Family Medicine 08/21/17 documented as of this encounter
--- OUTSIDE RECORDS SUMMARY | 2024-03-03 09:03 | XMS_ITS | Encounter Summary ---
Author Organization [facility] Address [address] [place] [address] Care Team Providers Care Interactive Designer Name Role Phone Elsewhere, Pcp Primary Care Provider Unavailabl e Reason for Referral * Outpatient (Routine) - Closed Specialty Diagnoses / Procedures Referred By Beatrice t Referred To Contact Trauma Critical Care and General Surgery Yahaira Gonsalez P.A.-C. [address] [place] [phone] Phone: tel: fax: [facility] Referral ID Status Reason Start Date Expiration Date Visits Re quested Visits Authorized [id number] Closed 02/14/2024 08/15/2025 1 1 Scheduling Instructions HSS clinic (after CT scan) Reason for Visit * Reason Onset Date Comments Issues after his surgery 02/14/2024 Encounter Details Date Type Department Care Team (Latest Contact Info) Description 02/14/2024 Clinical Communication Division of Trauma Critical Care and General Surgery in [place], [place] [address] [place] [phone] Olga Gold M.D. [address] [place] [phone] Issues after his surgery Social History Tobacco Use Types Packs/Day Years Used Date Smoking Tobacco: Former Cigarettes 0 04/15/2002 - 04/15/2009 Smokeless Tobacco: Never Alcohol Use Standard Drinks/Week Comments Yes 0 (1 standard drink = 0.6 oz pur e alcohol) once a month [facility] Utilities Answer Date Recorded In the [...] often do you attend chur ch or cheondoism services? Never 06/09/2022 Do you belong to any clubs o r organizations such as episcopal groups, unions, fraternal or athletic groups, or [...] and heating? Not hard at all 06/09/2022 [facility] Occupat ional Health - [...] your living situation today? I have a [facility] children's place to live 06/17/2023 Education Answer Date [...] who underwent laparoscopic cholecystectomy on October 31 with[facility]. He called today due to ongoing abdominal pain He has called a few times due to abdominal pain. He was last seen on January 29 in the [facility] at which time no abdominal wall [...] to apparent satisfaction. * Telephone Encounter - Laurita Bee - 02/14/2024 11:09 AM CDT Patient called stating that there is herniation where he has pain after his surgery and would like to talk with someone about that. Please call him back at [phone]. Thanks- documented in this encounter Plan of Treatment Upcoming Encounters Date Type Department Care Team (Latest Contact Info) Description 03/17/2024 1:00 PM MILLSTONE CLEANER Comprehensive Visit Department of Dermatology in [place], [place] [address] [place] [phone] Katrin Causey APRN, C.N.P., D.N.P. [address] [place] [phone] Elizabeth Max M.D., Ph.D. [address] [place] [phone] 04/17/2024 2:30 PM MILLSTONE CLEANER Clinical Communication Virtual Review in [place], [place] 200 [place] [address] 04/20/2024 10:00 AM MILLSTONE CLEANER Ancillary Procedure Department of Ophthalmology in [place] [address] [place] [phone] Annie Lamas O.D. [address] [place] [phone] 04/21/2024 7:15 AM MILLSTONE CLEANER Ancillary Procedure Department of Ophthalmology in [place] [address] [place] [address] 04/21/2024 7:45 AM MILLSTONE CLEANER Ancillary Procedure Department of Ophthalmology in [place] [address] [place] [phone] Annie Lamas O.D. [address] [place] [phone] 04/21/2024 8:00 AM MILLSTONE CLEANER Office Visit Department of Ophthalmology in [place] [address] [place] [address] Annie Lamas O.D. [address] [place] [phone] Scheduled Referrals Name Type Priority Associated Diagnoses Orde r Schedule Trauma Critical Care and General Surgery office visit (clinic) Outpatient Referral Routine Expected: 02/19/2024, Expires: 05/16/2025 documented as of this encounter Visit Diagnoses Diagnosis Pain Right Lower Quadrant- Primary documented in this encounter Care Teams Interactive Designer Relationship Specialty Start Date End Date Elsewhere, Pcp PCP - General Family Medicine 08/21/17 documented as of this encounter
--- OUTSIDE RECORDS SUMMARY | 2024-03-03 09:03 | XMS_ITS | Encounter Summary ---
Author Organization [facility] Address [address] [place] [address] Care Team Providers Care Paper Machine Backtender Name Role Phone Elsewhere, Pcp Primary Care Provider Unavailabl e Reason for Referral * Outpatient (Routine) - Closed Specialty Diagnoses / Procedures Referred By Contac t Referred To Contact Diagnoses Pain Right Lower Quadrant Cholecystectomy Laparoscopic Status Post Procedures US Abdomen Limited Soft Tissue Lita Jacob APRN, C.N.P. 200 [place] [address] Phone: tel: fax: [facility] Region Referral ID Status Reason Start Date Expiration Date Visits Re quested Visits Authorized [id number] Closed 02/05/2024 02/04/2025 1 1 Reason for Visit * Outpatient (Routine) - Closed Specialty Diagnoses / Procedures Referred By Contac t Referred To Contact Diagnoses Pain Right Lower Quadrant Cholecystectomy Laparoscopic Status Post Procedures US Abdomen Limited Soft Tissue Lita Jacob APRN, C.N.P. 200 [place] [address] Phone: tel: fax[facility] Region Referral ID Status Reason Start Date Expiration Date Visits Re quested Visits Authorized [id number] Closed 02/05/2024 02/04/2025 1 1 Encounter Details Date Type Department Care Team (Latest Contact Info) Description 02/13/2024 9:14 AM CDT - 02/13/2024 11:59 PM CDT Hospital Encounter Department of Radiology in [place], [place] [address] [place] [phone] Lita Jacob, JD, C.N.P. [address] [place] [address] Pain Right Lower Quadrant; Cholecystectomy Laparoscopic Status Post Discharge Disposition: Home or Self Care Social History Tobacco Use Types Packs/Day Years Used Date Smoking Tobacco: Former Cigarettes 0 04/15/2002 - 04/15/2009 Smokeless Tobacco: Never Alcohol Use Standard Drinks/Week Comments Yes 0 (1 standard drink = 0.6 oz pur e alcohol) once a month [facility] Utilities Answer Date Recorded In the past 12 months has e electric, gas, oil, or water [employer] threatened to shut off services in your [...] and heating? Not hard at all 06/09/2022 [facility] Occupat ional Health - Occupational Stress [...] Apply to areas of eczema as needed/ gabapentin (NEURONTIN) 300 mg capsule Take 300 mg by mouth 4 (four) times a day. 11/19/2022 ibuprofen 200 mg [...] 01/15/2024 multivitamin/iron/ folic acid (CENTRUM ORAL) 12/28/2019 oxymetazoline (Rhofade) 1 % cream creamIndications:R osacea Apply 1 application topically daily. Apply to face for rosacea. 30 g 3 05/22/2021 QUEtiapine (SEROquel) 100 mg tablet Take 100 mg by mouth at bedtime. tretinoin (RETIN-A) 0.05 % creamIndications:P ruritus,Acne Vulgaris [...] BY MOUTH DAILY AT BEDTIME NEEDED 09/13/2023 DME CPAPIndications:Ob structive Sleep Apnea Adult,Insomnia Mental Disorder Related,Stenosis Nasal Valve,Chronic Insomnia Disorder,Bipolar Disorder Current Episode Mixed Mild (HCC),Cannabis Use Unspecified Uncomplicated DME Order 1 each 06/06/2023 02/19/20 24 fluticasone propionate (FLONASE) 50 mcg/actuation nasal spray Administer 2 sprays into each nostril daily. Prior to sleep 02/19/20 24 oxyCODONE (Roxicodone) 5 mg immediate release tabletIndications: Acute Pain Take 1 tablet (5 mg total) by mouth every 4 (four) hours as needed for pain Indication: Acute Pain. 5 tablet 11/01/2023 1:40 PM CDT 11/01/2023 02/19/20 24 QUEtiapine (SEROquel) 200 mg tablet Take 1 tablet (200 mg total) by mouth at bedtime. 90 tablet 12/17/2022 02/19/20 24 QUEtiapine (SEROqueL) 50 mg tablet 10/13/2023 02/19/20 24 sennosides (senna) 8.6 mg tablet Take 1 tablet (8.6 mg total) by mouth daily. Take while using prescription pain medication to avoid constipation. 11/01/2023 02/19/20 24 documented as of this encounter Plan of Treatment Upcoming Encounters Date Type Department Care Team (Latest Contact Info) Description 03/17/2024 1:00 PM SLED MAKER Comprehensive Visit Department of Dermatology in [place], [place] [address] [place] [phone] Katrin Causey APRN, C.N.P., D.N.P. [address] [place] [phone] Elizabeth Max M.D., Ph.D. [address] [place] [phone] 04/17/2024 2:30 PM SLED MAKER Clinical Communication Virtual Review in [place], [place] 200 [place] [phone] 04/20/2024 10:00 AM SLED MAKER Ancillary Procedure Department of Ophthalmology in [place] [address] [place] [phone] Annie Lamas O.D. [address] [place] [phone] 04/21/2024 7:15 AM SLED MAKER Ancillary Procedure Department of Ophthalmology in [place] [address] [place] [phone] 04/21/2024 7:45 AM SLED MAKER Ancillary Procedure Department of Ophthalmology in [place] [address] [place] [phone] Annie Lamas O.D. [address] [place] [phone] 04/21/2024 8:00 AM SLED MAKER Office Visit Department of Ophthalmology in [place] [address] [place] [phone] Annie Lamas O.D. [address] [place] [address] documented as of this encounter Procedures Procedure [...] Ultrasound Impressions 02/13/2024 11:29 AM CDT 1. Targeted ultrasound of the right lower [...] Post documented in this encounter Care Teams Paper Machine Backtender Relationship Specialty Start Date End Date Elsewhere, Pcp PCP - General Family Medicine 08/21/17 documented as of this encounter
--- OUTSIDE RECORDS SUMMARY | 2024-03-03 09:03 | XMS_ITS | Referral Summary ---
Author Organization [facility] Address [address] [place] [address] Care Team Providers Care Content Director Name Role Phone Elsewhere, Pcp Primary Care Provider Unavailabl e Source Comments Patient records contain information from all sites at [facility]. For routine questions regarding patient records, call [phone] during business hours, M-F 8:00 AM - 5:00 PM Central Time. Record requests for emergency care only can be directed to [phone] at any time.[facility] Encounters Date Type Department Care Team Description 02/19/2024 3:55 PM COMPLIANCE QUALITY PERFORMANCE ANALYST Ancillary Procedure Department of Trauma and Surgery 02/19/2024 1:45 PM COMPLIANCE QUALITY PERFORMANCE ANALYST Office Visit Division of Trauma Critical Care and General Surgery in [address] [phone] Yahaira Gonsalez P.A.-C. Schiller, Henry J, M.D. Injury Abdominal Wall Initial (Primary Dx); Pain Right Upper Quadrant 02/17/2024 Clinical Communication Division of Trauma Critical Care and General Surgery in [address] [phone] Olga Gold M.D. Issues after surgery 02/14/2024 Clinical Communication Division of Trauma Critical Care and General Surgery in [address] [address] Olga Gold M.D. Issues after his surgery 02/13/2024 9:14 AM CDT - 02/13/2024 11:59 PM CDT Hospital Encounter Department of Radiology in [place], [place] [address] [place] [address] Lita Jacob APRN, C.N.P. Pain Right Lower Quadrant; Cholecystectomy Laparoscopic Status Post Discharge Disposition: Home or Self Care 02/10/2024 Orders Only Department of Ophthalmology in [place], [place] [address] [place] [phone] Annie Lamas O.D. Glaucoma (Primary Dx) 02/09/2024 Refill Department of Ophthalmology in [place], [place] [address] [place] [phone] Annie Lamas O.D. Med Refill 02/05/2024 Orders Only Division of Trauma Critical Care and General Surgery in [place], [place] [address] [place] [phone] Lita Jacob APRN, C.N.POusmane Pain Right Lower Quadrant (Primary Dx); Cholecystectomy Laparoscopic Status Post 01/30/2024 1:15 PM CDT Office Visit Division of Trauma Critical Care and General Surgery in [address] [phone] Sukhdev Ahumada APRN, C.N.P., M.S.N. Lita Jacob APRN, C.N.P. Cholecystectomy Laparoscopic Status Post (Primary Dx); Pain Right Lower Quadrant 01/30/2024 11:30 AM CDT - 01/30/2024 11:59 PM CDT Hospital Encounter Department of Laboratory Medicine and Pathology, [facility], in [place], [place] [address] [place] [phone] Sukhdev Ahumada APRN, C.N.P., M.S.N. Other Specified Diseases Of Gallbladder; Cholecystectomy Laparoscopic Status Post Discharge Disposition: Home or Self Care 01/27/2024 Orders Only Division of Trauma Critical Care and General Surgery in [place], [place] [address] [place] [phone] Sukhdev Ahumada APRN, C.N.P., M.S.N. Other Specified Diseases Of Gallbladder (Primary Dx); Cholecystectomy Laparoscopic Status Post 12/23/2023 11:30 AM CDT - 12/23/2023 11:59 PM CDT Hospital Encounter Department of Radiology in [place], [place] [address] [address] Kristal Leon APRN, C.NOusmanePOusmane Pain Scrotum Discharge Disposition: Home or Self Care 12/06/2023 2:30 PM CDT Office Visit Department of Urology in [place], [place] [address] [place] [address] Kristal Leon APRN, C.NOusmanePOusmane Pain Scrotum (Primary [...] for rosacea. 30 g 3 022 Active Additional Information Patient not taking.Reported on 02/19/2024 clobetasoL (TEMOVATE) 0.05 % ointment Apply 1 application topically 2 (two) times a day. Apply to areas of eczema as needed/ Active gabapentin (NEURONTIN) 300 mg capsule Take 300 mg by mouth 4 (four) times a day. Active buPROPion XL (WELLBUTRIN XL) 150 mg 24 hr tablet Take 1 tablet (150 mg total) by mouth every morning. 90 tablet Active lamoTRIgine (LaMICtaL) 200 mg tablet Take 1 tablet (200 mg total) by mouth 2 (two) times a day. 60 tablet 2 Active Additional Information Patient taking differently: 300 mgoralDaily, Reported on 02/19/2024 clindamycin-yaa oyl peroxide (BENZACLIN) 1-5 % gelIndications:A cne Vulgaris APPLY TOPICALLY TO FACE DAILY 50 g 11 Active clindamycin phos/benzoyl perox (CLINDAMYCIN-BAKARI ZOYL PEROXIDE TOP) Apply topically. Active QUEtiapine (SEROquel) 100 mg tablet Take 100 mg by mouth at bedtime. Active zolpidem (Ambien) 10 mg tablet TAKE 1 TABLET BY MOUTH DAILY AT BEDTIME NEEDED Active acetaminophen (TylenoL) 500 mg tablet Take [...] basis for the first 3 days. Active lurasidone (Latuda) 20 mg tablet TAKE 1 TABLET BY MOUTH DAILY FOR 6 WEEKS Active latanoprost (Xalatan) 0.005 % ophthalmic solution INSTILL 1 DROP BOTH EYES AT BEDTIME 10 mL Active lurasidone (Latuda) 40 mg tablet Take 40 mg by mouth daily. Active QUEtiapine (SEROquel) 200 mg tablet Take 1 tablet (200 mg total) by mouth at bedtime. 90 tablet 023 2023 Discontinued(T herapy completed) latanoprost (XALATAN) 0.005 % ophthalmic solution INSTILL 1 DROP IN BOTH EYES AT BEDTIME 10 mL 3 28/ 2024 Discontinued fluticasone propionate (FLONASE) 50 mcg/actuation nasal spray Administer 2 sprays into each nostril daily. Prior to sleep 2023 Discontinued(T herapy completed) DME CPAPIndications: Obstructive Sleep Apnea Adult,Insomnia Mental Disorder Related,Stenosis Nasal Valve,Chronic Insomnia Disorder,Bipolar Disorder Current Episode Mixed Mild (HCC),Cannabis Use Unspecified Uncomplicated DME Order 1 each 024 2023 Discontinued(T herapy completed) QUEtiapine (SEROqueL) 50 mg tablet 024 2023 Discontinued(T herapy completed) oxyCODONE (Roxicodone) 5 mg immediate release tabletIndication s:Acute Pain Take 1 tablet (5 mg total) by mouth every 4 (four) hours as needed for pain Indication: Acute Pain. 5 tablet 11/01/19 24 1:40 PM CDT 024 2023 Discontinued(T herapy completed) sennosides (senna) 8.6 mg tablet Take 1 tablet (8.6 mg total) by mouth daily. Take while using prescription pain medication to avoid constipation. 024 2023 Discontinued(T herapy completed) Active Problems Problem Noted Date Diagnosed Date Obstructive Sleep Apnea Adult 04/30/2023 Snoring 03/26/2023 Insomnia Mental Disorder Related 03/26/2023 Chronic Insomnia Disorder 03/26/2023 Bipolar Disorder Current Episode Mixed Mild 03/15 Pain Shoulder Left 03/26/2023 Cannabis Use Unspecified Uncomplicated 3 Obstruction Nasal 12/26/2017 Overview (12/26/2017): Added automatically from request for surgery [id number] Tendinitis Ankle Left 10/14/2017 Prostatitis Chronic 10/14/2017 Pain Shoulder 10/08/2016 Social History Tobacco Use Types Packs/Day Years Used Date Smoking Tobacco: Former Cigarettes 0 04/15/2002 - 04/15/2009 Smokeless Tobacco: Never Tobacco Cessation:Counseling Given: Not Answered Alcohol Use Standard Drinks/Week Comments Yes 0 (1 standard drink = 0.6 oz pur e alcohol) once a month [facility] Utilities Answer Date Recorded In the past 12 months has th e electric, gas, oil, or water [employer] threatened to shut off services in your [...] often do you attend chur ch or mandaen services? Never 06/09/2022 Do you belong to any clubs o r organizations such as christianity groups, unions, fraternal or athletic groups, or [...] and heating? Not hard at all 06/09/2022 [facility] [place] of Occupat ional Health - Occupational Stress [...] your living situation today? I have a [facility] place to live 06/17/2023 Education Answer [...] 51 11/01/2023 12:15 PM CDT Temperature 36.3 C (97.3 F) 11/01/2023 10:50 AM CDT Respiratory Rate 13 11/01/2023 11:3 [...] (Latest Contact Info) Description 03/17/2024 1:00 PM COMPLIANCE QUALITY PERFORMANCE ANALYST Comprehensive Visit Department of Dermatology in [place], [place] [address] [place] [phone] Katrin Causey APRN, C.N.P., D.N.P. [address] [place] [phone] Elizabeth Max M.D., Ph.D. [address] [place] [phone] 04/17/2024 2:30 PM COMPLIANCE QUALITY PERFORMANCE ANALYST Clinical Communication Virtual Review in [place], [place] 200 [place] [address] 04/20/2024 10:00 AM COMPLIANCE QUALITY PERFORMANCE ANALYST Ancillary Procedure Department of Ophthalmology in [place] [address] [place] [phone] Annie Lamas O.D. [address] [place] [phone] 04/21/2024 7:15 AM COMPLIANCE QUALITY PERFORMANCE ANALYST Ancillary Procedure Department of Ophthalmology in [place] [address] [place] [phone] 04/21/2024 7:45 AM COMPLIANCE QUALITY PERFORMANCE ANALYST Ancillary Procedure Department of Ophthalmology in [place] [address] [place] [phone] Annie Lamas O.D. [address] [place] [address] 04/21/2024 8:00 AM COMPLIANCE QUALITY PERFORMANCE ANALYST Office Visit Department of Ophthalmology in [place], [place] [address] [facility] [place] [phone] Annie Lamas O.D. [address] [place] [address] Medical Devices Implanted Type Area Procurement Professional Device Identifier Shelf Expiration Date Model / Serial / Lot Clp Apr End Intnl Endo 5x11 - [id number] Implanted:Qt y: 1 on 11/01/2023 by Olga Gold M.D. at [facility] Hardware e.g. pins/screws /rods N/A: Abdomen Medtronic [id number] / / Clp Hmol Plmr - [id number] Implanted:Qt y: 1 on 11/01/2023 by Olga Gold M.D. at [facility] Hardware e.g. pins/screws /rods N/A: Abdomen [employer] [id number] 07/01/2028 [id number] / / [id number] Procedures Procedure Name Priority Date/Time Associated Diagnosis Comments TRAUMA CC AND SURGERY IMAGE EXAM Routine 02/19/2024 3:53 PM COMPLIANCE QUALITY PERFORMANCE ANALYST OUTSIDE CT BODY Routine 02/16/2024 5:35 PM COMPLIANCE QUALITY PERFORMANCE ANALYST US ABDOMEN LIMITED SOFT TISSUE RAD - [...] Recently Relevant to Health Maintenance Results * Abdomen-Trauma CC And Surgery Image Exam (02/19/2024 3:53 PM COMPLIANCE QUALITY PERFORMANCE ANALYST) 02/19/2024 3:51 PM COMPLIANCE QUALITY PERFORMANCE ANALYST Narrative IIMS - 02/19/2024 3:53 PM COMPLIANCE QUALITY PERFORMANCE ANALYST This order has been created and auto-finalized to support the import of images acquired without order. The clinical documentation to support these images can be found on the encounter that produced images. us Provider Not In System IMG NON RAD IMAGING PROCE DURES Final Result Performing Organization Address [facility] Co de Phone Number IIMS NA * CT ABDOMEN PELVIS W CON-Outside CT Body (02/16/2024 5:35 PM COMPLIANCE QUALITY PERFORMANCE ANALYST) Narrative IIMS - 02/17/2024 10:44 AM COMPLIANCE QUALITY PERFORMANCE ANALYST This order has been created and auto-finalized to support the import of outside images. If available, original interpretation can be found on the Media Tab in Chart Review, in Document Viewer, as an image in QREADS or as an Addendum. If a re-interpretation or overread is required please follow defined workflow. us Provider Not In System IMG CT PROCEDURES Final R esult Performing Organization Address [facility] Co de Phone Number IIMS NA * US Abdomen Limited Soft Tissue (02/13/2024 [...] APRN, C.N.P. IMG US PROCEDURES Final Result * [...] 01/30/2024 12:15 PM CDT us Sukhdev Ahumada APRN C.N.P., M.S.N. LAB BLOOD ADD-ON Final Result [facility] [address] [place] [address], [facility] DTL [facility] [address] [place] [address] * US Scrotum with Doppler (12/23/2023 1:20 [...] No cyst or mass. us Kristal Leon APRN, C.N.P. IMG US PROCEDURES Final Result * HIV-1/-2 Ag and Ab Screen, Plasma (11/08/2020 11:55 AM CDT) [facility] HIV-1/-2 Ag and Ab Screen, P Negative Negative 11/08/2020 4:24 PM CDT [facility] Comment: Negative result does not rule out HIV infection. If exposure to HIV infection occurred <14 days ago, contact the laboratory to request addition of HIV-1 RNA detection / quantification test (HIVQN). Blood (Blood, Venous) 11/08/2020 11:55 AM CDT 11/08/2020 3:50 PM CDT us Sylvie Sidhu M.D. LAB MICROBIOLOGY - BLOOD O RDERABLES Final Result [facility] [address] [place] [address] [facility] Dept. of Laboratory Medicine and Pathology [address] [place] [address] from Last 3 Months or Most Recently Relevant to Health Maintenance Insurance [employer] EMPLOYEE Advance Directives For more information, please contact: [phone] * Full Code (Latest Code Status on File) Date Activated Date Inactivated Comments 11/01/2023 7:28 AM 11/01/2023 3:10 PM Question Answer Comments Full Code: Discussed Care Teams Content Director Relationship Specialty Start Date End Date Elsewhere, Pcp PCP - General Family Medicine 08/21/17
--- OUTSIDE RECORDS SUMMARY | 2024-03-03 09:03 | XMS_ITS | Clinical Summary ---
Author Organization [facility] [place] [facility] Address [address] [place] [address] Care Team Providers Care Mushroom Spawn Maker Name Role Phone Elsewhere, Pcp Primary Care Provider Unavailabl e Source Comments Patient records contain information from all sites at [facility] [place] [facility]. For routine questions regarding patient records, call [phone] during business hours, M-F 8:00 AM - 5:00 PM Central Time. Record requests for emergency care only can be directed to [phone] at any time.[facility] [place] [facility] Allergies Active Allergy Reactions Criticality Noted Date [...] BEDTIME 10 mL 3 023 2023 Discontinued fluticasone propionate (FLONASE) 50 mcg/actuation nasal [...] (12/26/2017): Added automatically from request for surgery [id number] Tendinitis Ankle Left 10/14/2017 Prostatitis Chronic 10/14/2017 Pain Shoulder 10/08/2016 Encounters Date Type Department Care Team Description 02/19/2024 3:55 PM R PROGRAMMER Ancillary Procedure Department of Trauma and Surgery 02/19/2024 1:45 PM R PROGRAMMER Office Visit Division of Trauma Critical Care and General Surgery in [address] [phone] Yahaira Gonsalez P.A.-C. Schiller, Henry J, M.D. Injury Abdominal Wall Initial (Primary Dx); Pain Right Upper Quadrant 02/17/2024 Clinical Communication Division of Trauma Critical Care and General Surgery in [address] [phone] Olga Gold M.D. Issues after surgery 02/14/2024 Clinical Communication Division of Trauma Critical Care and General Surgery in [address] [phone] Olga Gold M.D. Issues after his surgery 02/13/2024 9:14 AM CDT - 02/13/2024 11:59 PM CDT Hospital Encounter Department of Radiology in [place], [place] [address] [place] [address] Lita Jacob APRN, C.N.P. Pain Right Lower Quadrant; Cholecystectomy Laparoscopic Status Post Discharge Disposition: Home or Self Care 02/10/2024 Orders Only Department of Ophthalmology in [place], [place] [address] [place] [address] Annie Lamas O.D. Glaucoma (Primary Dx) 02/09/2024 Refill Department of Ophthalmology in [place], [place] [address] [place] [phone] Annie Lamas O.D. Med Refill 02/05/2024 Orders Only Division of Trauma Critical Care and General Surgery in [address] [phone] Lita Jacob APRN, C.N.P. Pain Right Lower Quadrant (Primary Dx); Cholecystectomy Laparoscopic Status Post 01/30/2024 1:15 PM CDT Office Visit Division of Trauma Critical Care and General Surgery in [address] [place] [address] Sukhdev Ahumada APRN, C.N.P., M.S.N. Lita Jacob APRN, C.N.Joyce. Cholecystectomy Laparoscopic Status Post (Primary Dx); Pain Right Lower Quadrant 01/30/2024 11:30 AM CDT - 01/30/2024 11:59 PM CDT Hospital Encounter Department of Laboratory Medicine and Pathology, [facility] in [place], [place] [address] [place] [address] Sukhdev Ahumada APRN, C.N.P., M.S.N. Other Specified Diseases Of Gallbladder; Cholecystectomy Laparoscopic Status Post Discharge Disposition: Home or Self Care 01/27/2024 Orders Only Division of Trauma Critical Care and General Surgery in [place], [place] [address] [place] [phone] Sukhdev Ahumada APRN, C.N.Joyce., M.S.N. Other Specified Diseases Of Gallbladder (Primary Dx); Cholecystectomy Laparoscopic Status Post 12/23/2023 11:30 AM CDT - 12/23/2023 11:59 PM CDT Hospital Encounter Department of Radiology in [place], [place] [address] [place] [phone] Kristal Leon APRN, C.N.P. Pain Scrotum Discharge Disposition: Home or Self Care 12/06/2023 2:30 PM CDT Office Visit Department of Urology in [place], [place] [address], [place] [address] Kristal Leon APRN C.N.POusmane Pain Scrotum (Primary Dx) from Last 3 [...] oz pur e alcohol) once a month [facility] [employer] Answer Date Recorded In the past 12 months has [facility] [address], gas, oil, or water [employer] threatened to shut off services in your [...] Never 06/09/2022 How often do you attend [facility] or adventist services? Never 06/09/2022 Do you belong to any clubs o r organizations such as methodist groups, unions, fraternal or athletic groups, or [...] and heating? Not hard at all 06/09/2022 [facility] [place] of Occupat ional Health - Occupational Stress [...] your living situation today? I have a [facility] place to live 06/17/2023 Education [...] (Latest Contact Info) Description 03/17/2024 1:00 PM R PROGRAMMER Comprehensive Visit Department of Dermatology in [place], [place] 200 [place] [phone] Katrin Causey APRN, C.N.P., D.N.P. [address] [place] [phone] Elizabeth Max M.D., Ph.D. [address] [place] [phone] 04/17/2024 2:30 PM R PROGRAMMER Clinical Communication Virtual Review in [place], [place] [address] [place] [address] 04/20/2024 10:00 AM R PROGRAMMER Ancillary Procedure Department of Ophthalmology in [place], [place] [address] [place] [address] Annie Lamas O.D. [address] [place] [phone] 04/21/2024 7:15 AM R PROGRAMMER Ancillary Procedure Department of Ophthalmology in [place], [place] [address] [place] [phone] 04/21/2024 7:45 AM R PROGRAMMER Ancillary Procedure Department of Ophthalmology in [place] [address] [place] [phone] Annie Lamas O.D. [address] [place] [phone] 04/21/2024 8:00 AM R PROGRAMMER Office Visit Department of Ophthalmology in [place] [address] [place] [phone] Annie Lamas O.D. [address] [place] [phone] Health Maintenance Due Date Last Done Comments [...] this topic Medical Devices Implanted Type Area Certified Professional Ergonomist Device Identifier Shelf Expiration Date Model / Serial / Lot Clp Apr End Intnl Endo 5x11 - [id number] Implanted:Qt y: 1 on 11/01/2023 by Olga Gold M.D. at [facility] Hardware e.g. pins/screws /rods N/A: Abdomen Medtronic [id number] / / Clp Hmol Plmr Lg - [id number] Implanted:Qt y: 1 on 11/01/2023 by Olga Gold M.D. at [facility] Hardware e.g. pins/screws /rods N/A: Abdomen Teleflex TWIN[employer]X [id number] 07/01/2028 [id number] / / [id number] Procedures Procedure Name Priority Date/Time Associated Diagnosis Comments TRAUMA CC AND SURGERY IMAGE EXAM Routine 02/19/2024 3:53 PM R PROGRAMMER OUTSIDE CT BODY Routine 02/16/2024 5:35 PM R PROGRAMMER US ABDOMEN LIMITED SOFT TISSUE RAD - [...] And Surgery Image Exam (02/19/2024 3:53 PM R PROGRAMMER) 02/19/2024 3:51 PM R PROGRAMMER Narrative IIMS - 02/19/2024 3:53 PM R PROGRAMMER This order has been created and auto-finalized to support the import of images acquired without order. The clinical documentation to support these images can be found on the encounter that produced images. us Provider Not In System IMG NON RAD IMAGING PROCE DURES Final Result Performing Organization Address [facility] Co de Phone Number IIMS NA * CT ABDOMEN PELVIS W CON-Outside CT Body (02/16/2024 5:35 PM R PROGRAMMER) Narrative IIMS - 02/17/2024 10:44 AM R PROGRAMMER This order has been created and auto-finalized to support the import of outside images. If available, original interpretation can be found on the Media Tab in Chart Review, in Document Viewer, as an image in QREADS or as an Addendum. If a re-interpretation or overread is required please follow defined workflow. us Provider Not In System IMG CT PROCEDURES Final R esult IIMS NA * US Abdomen Limited Soft [...] CDT 01/30/2024 12:15 PM CDT Sukhdev Ahumada APRN C.N.P., M.S.N. LAB BLOOD ADD-ON Final Result [facility] [address] [place] [address], [facility] [address] [place] [address] * US Scrotum with Doppler (12/23/2023 1:20 [...] or mass. us Kristal Leon APRN, C.N.P. Jaiden US PROCEDURES Final Result * HIV-1/-2 Ag and Ab Screen, Plasma (11/08/2020 11:55 AM CDT) [facility] HIV-1/-2 Ag and Ab Screen, P Negative Negative 11/08/2020 4:24 PM CDT [facility] Comment: Negative result does not rule out HIV infection. If exposure to HIV infection occurred <14 days ago, contact the laboratory to request addition of HIV-1 RNA detection / quantification test (HIVQN). Blood (Blood, Venous) 11/08/2020 11:55 AM CDT 11/08/2020 3:50 PM CDT Sylvie Sidhu M.D. LAB MICROBIOLOGY - BLOOD O RDERABLES Final Result [facility] [address] [place] [phone] [facility] Dept. of Laboratory Medicine and Pathology [address] [place] [phone] from Last 3 Months or Most Recently Relevant to Health Maintenance Insurance [employer] EMPLOYEE Advance Directives For more information, please contact: [phone] * Full Code (Latest Code Status on File) Date Activated Date Inactivated Comments 11/01/2023 7:28 AM 11/01/2023 3:10 PM Question Answer Comments Full Code: Discussed Care Teams Mushroom Spawn Maker Relationship Specialty Start Date End Date Elsewhere, Pcp PCP - General Family Medicine 08/21/17
--- OUTSIDE RECORDS SUMMARY | 2024-03-03 09:04 | XMS_ITS | Encounter Summary ---
Author Organization [facility] Address [address] [place] [address] Care Team Providers Care Stitch Separator Name Role Phone Elsewhere, Pcp Primary Care Provider Unavailabl e Reason for Referral * Outpatient (Routine) - Closed Specialty Diagnoses / Procedures Referred By Contac t Referred To Contact Otorhinolaryngology Diagnoses Obstructive Sleep Apnea Adult Snoring Congestion Nasal Kelby Fuentes M.D. Phone: tel: fax: [facility] Referral ID Status Reason Start Date Expiration Date Visits Re quested Visits Authorized [id number] Closed 12/19/2017 12/19/2018 1 1 Encounter Details Date Type Department Care Team (Late st Contact Info) Description 12/18/2017 [facility] [address] [place] [address] Kelby Fuentes M.D. [address] [place] [address] Obstructive Sleep Apnea Adult (Primary Dx); Snoring; [...] (Latest Contact Info) Description 03/17/2024 1:00 PM SPRINKLER INSPECTOR Comprehensive Visit Department of Dermatology in [place], [place] [address] [place] [phone] Katrin Causey APRN, C.N.P., D.N.P. [address] [place] [phone] Elizabeth Max M.D., Ph.D. [address] [place] [phone] 04/17/2024 2:30 PM SPRINKLER INSPECTOR Clinical Communication Virtual Review in [place], [place] [address] [place] [address] 04/20/2024 10:00 AM SPRINKLER INSPECTOR Ancillary Procedure Department of Ophthalmology in [place] [address] [place] [phone] Annie Lamas O.D. [address] [place] [phone] 04/21/2024 7:15 AM SPRINKLER INSPECTOR Ancillary Procedure Department of Ophthalmology in [place], [place] [address] [place] [address] 04/21/2024 7:45 AM SPRINKLER INSPECTOR Ancillary Procedure Department of Ophthalmology in [place] [address] [place] [phone] Annie Lamas O.D. [address] [place] [phone] 04/21/2024 8:00 AM SPRINKLER INSPECTOR Office Visit Department of Ophthalmology in [place], [place] [address] [place] [phone] Annie Lamas O.D. 200 [place] [address] Scheduled Referrals Name Type Priority Associated Diagnoses Order Schedule Otolaryngology Referral Outpatient Referral Routine Obstructive Sleep Apnea Adult Snoring Congestion Nasal Expected: 12/19/2017 (Approximate), Expires: 12/19/2020 documented as of this encounter Visit Diagnoses Diagnosis Obstructive Sleep Apnea Adult- Primary Snoring Congestion Nasal documented in this encounter Care Teams Stitch Separator Relationship Specialty Start Date End Date Elsewhere, Pcp PCP - General Family Medicine 08/21/17 documented as of this encounter
--- OUTSIDE RECORDS SUMMARY | 2024-03-03 09:04 | XMS_ITS | Encounter Summary ---
Author Organization [facility] Address [address] [place] [address] Care Team Providers Care Juvenile Justice Officer Name Role Phone Elsewhere, Pcp Primary Care Provider Unavailabl e Reason for Referral * Outpatient (Routine) - Closed Specialty Diagnoses / Procedures Referred By Contac t Referred To Contact Diagnoses Pain Scrotum Procedures US Scrotum with Doppler Kristal Leon APRN, C.N.P. 0 [place] [address] Phone: tel: fax: [facility] Region Referral ID Status Reason Start Date Expiration Date Visits Re quested Visits Authorized [id number] Closed 12/06/2023 12/05/2024 1 1 Reason for Visit * Reason Comments Testicular Mass * Appointment Request (Routine) - Closed Specialty Diagnoses / Procedures Referred By Contac t Referred To Contact Urology Referral ID Status Reason Start Date Expiration Date Visits Re quested Visits Authorized [id number] Closed 08/01/2023 07/31/2024 1 1 Encounter Details Date Type Department Care Team (Late st Contact Info) Description 12/06/2023 2:30 PM CDT Office Visit Department of Urology in [place], [place] [address] [phone] Kristal Leon APRN, C.N.P. [address] [place] [address] Pain Scrotum (Primary Dx) Social History Tobacco Use Types Packs/Day Years Used Date Smoking Tobacco: Former Cigarettes 0 04/15/2002 - 04/15/2009 Smokeless Tobacco: Never Alcohol Use Standard Drinks/Week Comments Yes 0 (1 standard drink = 0.6 oz pur e alcohol) once a month [facility] Utilities Answer Date Recorded In the past 12 months has e [employer], gas, oil, or water [employer] threatened to shut off services in your [...] often do you attend chur ch or mosque services? Never 06/09/2022 Do you belong to [...] and heating? Not hard at all 06/09/2022 [facility] - Occupational Stress Questionnaire Answer Date [...] living situation today? I have a [facility] place to live 06/17/2023 Education [...] (Latest Contact Info) Description 03/17/2024 1:00 PM OVEN BAKER Comprehensive Visit Department of Dermatology in [place], [place] [address] [place] [phone] Katrin Causey APRN C.N.P., D.N.P. [address] [place] [phone] Elizabeth Max M.D., Ph.D. [address] [place] [phone] 04/17/2024 2:30 PM OVEN BAKER Clinical Communication Virtual Review in [place], [place] 200 [place] [address] 04/20/2024 10:00 AM OVEN BAKER Ancillary Procedure Department of Ophthalmology in [place] [address] [place] [address] Annie Lamas O.D. [address] [place] [phone] 04/21/2024 7:15 AM OVEN BAKER Ancillary Procedure Department of Ophthalmology in [place], [place] [address] 04/21/2024 7:45 AM OVEN BAKER Ancillary Procedure Department of Ophthalmology in [place], [place] [address] Annie Lamas O.D. [address] [place] [phone] 04/21/2024 8:00 AM OVEN BAKER Office Visit Department of Ophthalmology in [place], [place] [phone] Annie Lamas O.D. [address] [place] [address] documented as of this encounter Results * [...] Scrotum documented in this encounter Care Teams Juvenile Justice Officer Relationship Specialty Start Date End Date Elsewhere, Pcp PCP - General Family Medicine 08/21/17 documented as of this encounter
--- OUTSIDE RECORDS SUMMARY | 2024-03-03 09:04 | XMS_ITS | Encounter Summary ---
Author Organization [facility] Address [address] [place] [address] Care Team Providers Care Metal Spray Operator Name Role Phone Elsewhere, Pcp Primary Care Provider Unavailabl e Encounter Details Date Type Department Care Team (Late st Contact Info) Description 2017 [facility] [address] [place] [address] Milo Albarado M.D. [address] [place] [phone] Personal History Of Other Diseases Of Male [...] (Latest Contact Info) Description 03/17/2024 1:00 PM LANDS RESOURCE MANAGER Comprehensive Visit Department of Dermatology in [place], [place] [address] [place] [phone] Katrin Causey APRN, C.N.P., D.N.P. [address] [place] [phone] Elizabeth Max M.D., Ph.D. [address] [place] [phone] 04/17/2024 2:30 PM LANDS RESOURCE MANAGER Clinical Communication Virtual Review in [place], [place] 200 [place] [address] 04/20/2024 10:00 AM LANDS RESOURCE MANAGER Ancillary Procedure Department of Ophthalmology in [place] [address] [place] [address] Annie Lamas O.D. [address] [place] [phone] 04/21/2024 7:15 AM LANDS RESOURCE MANAGER Ancillary Procedure Department of Ophthalmology in [place], [place] [address] [place] [address] 04/21/2024 7:45 AM LANDS RESOURCE MANAGER Ancillary Procedure Department of Ophthalmology in [place] [address] [place] [phone] Annie Lamas O.D. [address] [place] [phone] 04/21/2024 8:00 AM LANDS RESOURCE MANAGER Office Visit Department of Ophthalmology in [place] [address] [place] [address] Annie Lamas O.D. [address] [place] [phone] documented as of this encounter Visit Diagnoses Diagnosis Personal History Of Other Diseases Of Male Genital Organs- Primary Torsion Testis documented in this encounter Care Teams Metal Spray Operator Relationship Specialty Start Date End Date Elsewhere, Pcp PCP - General Family Medicine 08/21/17 documented as of this encounter
--- OUTSIDE RECORDS SUMMARY | 2024-03-03 09:04 | XMS_ITS | Encounter Summary ---
Author Organization [facility] Address [address] [place] [address] Care Team Providers Care Candles Pourer Name Role Phone Elsewhere, Pcp Primary Care Provider Unavailabl e Reason for Referral * Outpatient (Routine) - Closed Specialty Diagnoses / Procedures Referred By Contac t Referred To Contact Diagnoses Pain Right Lower Quadrant Cholecystectomy Laparoscopic Status Post Procedures US Abdomen Limited Soft Tissue Lita Jacob APRN, C.N.P. [address] [place] [phone] Phone: tel: fax: [facility] Region Referral ID Status Reason Start Date Expiration Date Visits Re quested Visits Authorized [id number] Closed 02/05/2024 02/04/2025 1 1 Encounter Details Date Type Department Care Team (Late st Contact Info) Description 02/05/2024 Orders Only Division of Trauma Critical Care and General Surgery in [place], [place] [address] [place] [phone] Lita Jacob APRN, C.N.P. [address] [place] [phone] Pain Right Lower Quadrant (Primary Dx); Cholecystectomy Laparoscopic Status Post Social History Tobacco Use Types Packs/Day Years Used Date Smoking Tobacco: Former Cigarettes 0 04/15/2002 - 04/15/2009 Smokeless Tobacco: Never Alcohol Use Standard Drinks/Week Comments Yes 0 (1 standard drink = 0.6 oz pur e alcohol) once a month [facility] Utilities Answer Date Recorded In [...] any clubs o r organizations such as [employer], unions, fraternal or athletic groups, or [...] and heating? Not hard at all 06/09/2022 [facility] [place] of Occupat ional Health - Occupational Stress [...] living situation today? I have a [facility] place to live 06/17/2023 Education [...] (Latest Contact Info) Description 03/17/2024 1:00 PM OPERATIONAL ASSISTANT Comprehensive Visit Department of Dermatology in [place], [place] [address] [place] [phone] Katrin Causey APRN, C.N.P., D.N.P. [address] [place] [phone] Elizabeth Max M.D., Ph.D. [address] [place] [phone] 04/17/2024 2:30 PM OPERATIONAL ASSISTANT Clinical Communication Virtual Review in [place], [place] 200 [place] [phone] 04/20/2024 10:00 AM OPERATIONAL ASSISTANT Ancillary Procedure Department of Ophthalmology in [place] [address] [place] [phone] Annie Lamas O.D. [address] [place] [phone] 04/21/2024 7:15 AM OPERATIONAL ASSISTANT Ancillary Procedure Department of Ophthalmology in [place] [address] [place] [phone] 04/21/2024 7:45 AM OPERATIONAL ASSISTANT Ancillary Procedure Department of Ophthalmology in [place] [address] [place] [phone] Annie Lamas O.D. [address] [place] [phone] 04/21/2024 8:00 AM OPERATIONAL ASSISTANT Office Visit Department of Ophthalmology in [place] [address] [place] [address] Annie Lamas O.D. [address] [place] [phone] documented as of this encounter Results * [...] Post documented in this encounter Care Teams Candles Pourer Relationship Specialty Start Date End Date Elsewhere, Pcp PCP - General Family Medicine 08/21/17 documented as of this encounter
--- OUTSIDE RECORDS SUMMARY | 2024-03-03 09:04 | XMS_ITS | Encounter Summary ---
Author Organization [facility] Address [address] [place] [address] Care Team Providers Care Network Liaison Name Role Phone Elsewhere, Pcp Primary Care Provider Unavailabl e Reason for Referral * Outpatient (Routine) - Closed Specialty Diagnoses / Procedures Referred By Contac t Referred To Contact Trauma Critical Care and General Surgery Sukhdev Ahumada APRN C.N.P., M.S.N. [address] [place] [phone] Phone: tel: fax: [facility] Referral ID Status Reason Start Date Expiration Date Visits Re quested Visits Authorized [id number] Closed 01/27/2024 07/28/2025 1 1 Scheduling Instructions Needs to be in HSS-B clinic with the chief Encounter Details Date Type Department Care Team (Late st Contact Info) Description 01/27/2024 Orders Only Division of Trauma Critical Care and General Surgery in [place], [place] [address] [place] [phone] Sukhdev Ahumada APRN, C.N.P., M.S.N. [address] [place] [phone] Other Specified Diseases Of Gallbladder (Primary Dx); Cholecystectomy Laparoscopic Status Post Social History Tobacco Use Types Packs/Day Years Used Date Smoking Tobacco: Former Cigarettes 0 04/15/2002 - 04/15/2009 Smokeless Tobacco: Never Alcohol Use Standard Drinks/Week Comments Yes 0 (1 standard drink = 0.6 oz pur e alcohol) once a month [facility] Utilities Answer Date Recorded In the past [...] often do you attend chur ch or episcopal services? Never 06/09/2022 Do you belong to any clubs o r organizations such as religion groups, unions, fraternal or athletic groups, or [...] and heating? Not hard at all 06/09/2022 [facility] [place] of Occupat ional [facility] - Occupational Stress Questionnaire Answer Date [...] (Latest Contact Info) Description 03/17/2024 1:00 PM STAFF PSYCHIATRIST Comprehensive Visit Department of Dermatology in [place], [place] [address] [place] [phone] Katrin Causey APRN, C.N.P., D.N.P. [address] [place] [phone] Elizabeth Max M.D., Ph.D. [address] [place] [phone] 04/17/2024 2:30 PM STAFF PSYCHIATRIST Clinical Communication Virtual Review in [place], [place] 200 [place] [phone] 04/20/2024 10:00 AM STAFF PSYCHIATRIST Ancillary Procedure Department of Ophthalmology in [place] [address] [place] [phone] Annie Lamas O.D. [address] [place] [phone] 04/21/2024 7:15 AM STAFF PSYCHIATRIST Ancillary Procedure Department of Ophthalmology in [place] [address] [place] [address] 04/21/2024 7:45 AM STAFF PSYCHIATRIST Ancillary Procedure Department of Ophthalmology in [place] [address] [place] [address] Annie Lamas O.D. [address] [place] [phone] 04/21/2024 8:00 AM STAFF PSYCHIATRIST Office Visit Department of Ophthalmology in [place] [address] [place] [phone] Annie Lamas O.D. [address] [place] [address] Scheduled Referrals Name Type Priority Associated Diagnoses Orde r Schedule Trauma Critical Care and General Surgery office visit (clinic) Outpatient Referral Routine Expected: 01/27/2024, Expires: 04/28/2025 documented as of this encounter Results * (ABNORMAL) Comprehensive Metabolic Panel (01/30/2024 11:37 AM CDT) [facility] Potassium, S 4.7 3.6 - 5.2 mmol/L [...] C.N.P., M.S.N. LAB BLOOD ADD-ON Final Result [facility] [place] [address] [place] [address], [facility] DTL [facility] [address] [place] [address] documented in this encounter Visit Diagnoses Diagnosis Other Specified Diseases Of Gallbladder- Primary Cholecystectomy Laparoscopic Status Post documented in this encounter Care Teams Network Liaison Relationship Specialty Start Date End Date Elsewhere, Pcp PCP - General Family Medicine 08/21/17 documented as of this encounter
--- OUTSIDE RECORDS SUMMARY | 2024-03-03 09:04 | XMS_ITS | Encounter Summary ---
Author Organization [facility] Address [address] [place] [address] Care Team Providers Care Machine Engraver Name Role Phone Elsewhere, Pcp Primary Care Provider Unavailabl e Reason for Referral * Outpatient (Routine) - Authorized Specialty Diagnoses / Procedures Referred By Contjeffry t Referred To Contact Ophthalmology Annie Lamas O.D. [address] [place] [phone] Phone: tel: fax: [facility] Referral ID Status Reason Start Date Expiration Date V isits Requested Visits Authorized [id number] Authorized 02/10/2024 08/11/2025 1 1 Encounter Details Date Type Department Care Team (Late st Contact Info) Description 02/10/2024 Orders Only Department of Ophthalmology in [place], [place] [address] [place] [phone] Annie Lamas O.D. [address] [place] [phone] Glaucoma (Primary Dx) Social History Tobacco Use Types Packs/Day Years Used Date Smoking Tobacco: Former Cigarettes 0 04/15/2002 - 04/15/2009 Smokeless Tobacco: Never Alcohol Use Standard Drinks/Week Comments Yes 0 (1 standard drink = 0.6 oz pur e alcohol) once a month [facility] Utilities Answer Date Recorded In the [...] often do you attend chur ch or baptist services? Never 06/09/2022 Do you belong to any clubs o r organizations such as jainism groups, unions, fraternal or athletic groups, or [...] and heating? Not hard at all 06/09/2022 [facility] [place] of Occupat ional Health - Occupational Stress [...] your living situation today? I have a [facility] place to live 06/17/2023 Education Answer [...] (Latest Contact Info) Description 03/17/2024 1:00 PM JET PIERCER OPERATOR Comprehensive Visit Department of Dermatology in [place], [place] [address] [place] [phone] Katrin Causey APRN, C.N.P., D.N.P. [address] [place] [phone] Elizabeth Max M.D., Ph.D. [address] [place] [phone] 04/17/2024 2:30 PM JET PIERCER OPERATOR Clinical Communication Virtual Review in [place], [place] 200 [place] [phone] 04/20/2024 10:00 AM JET PIERCER OPERATOR Ancillary Procedure Department of Ophthalmology in [place] [address] [place] [phone] Annie Lamas O.D. [address] [place] [phone] 04/21/2024 7:15 AM JET PIERCER OPERATOR Ancillary Procedure Department of Ophthalmology in [place] [address] [place] [phone] 04/21/2024 7:45 AM JET PIERCER OPERATOR Ancillary Procedure Department of Ophthalmology in [place] [address] [place] [phone] Annie Lamas O.D. [address] [place] [phone] 04/21/2024 8:00 AM JET PIERCER OPERATOR Office Visit Department of Ophthalmology in [place] [address] [place] [phone] Annie Lamas O.D. [address] [place] [phone] Scheduled Orders Name Type Priority Associated Diagnoses [...] Primary documented in this encounter Care Teams Machine Engraver Relationship Specialty Start Date End Date Elsewhere, Pcp PCP - General Family Medicine 08/21/17 documented as of this encounter
--- OUTSIDE RECORDS SUMMARY | 2024-03-03 09:04 | XMS_ITS | Encounter Summary ---
Author Organization [facility] Address [address] [place] [address] Care Team Providers Care Supervisor Extrusion Name Role Phone Elsewhere, Pcp Primary Care Provider Unavailabl e Reason for Visit * Reason Comments Med Refill Encounter Details Date Type Department Care Team (Late st Contact Info) Description 02/09/2024 Refill Department of Ophthalmology in [place], [place] [address] [place] [phone] Annie Lamas O.D. [address] [place] [phone] Med Refill Social History Tobacco Use Types Packs/Day Years Used Date Smoking Tobacco: Former Cigarettes 0 04/15/2002 - 04/15/2009 Smokeless Tobacco: Never Alcohol Use Standard Drinks/Week Comments Yes 0 (1 standard drink = 0.6 oz pur e alcohol) once a month [facility] Utilities Answer Date Recorded In the past 12 months has e [employer], gas, oil, or water [employer] threatened to shut off services in your [...] and heating? Not hard at all 06/09/2022 [facility] of Occupat ional Health - Occupational Stress [...] (Latest Contact Info) Description 03/17/2024 1:00 PM WORKERS COMPENSATION EXAMINER Comprehensive Visit Department of Dermatology in [place], [place] 200 [place] [phone] Katrin Causey APRN, C.N.P., D.N.P. 200 [place] [phone] Elizabeth Max M.D., Ph.D. 200 [place] [phone] 04/17/2024 2:30 PM WORKERS COMPENSATION EXAMINER Clinical Communication Virtual Review in [place], [place] 200 [place] [address] 04/20/2024 10:00 AM WORKERS COMPENSATION EXAMINER Ancillary Procedure Department of Ophthalmology in [place], [place] [address] [place] [phone] Annie Lamas O.D. [address] [place] [phone] 04/21/2024 7:15 AM WORKERS COMPENSATION EXAMINER Ancillary Procedure Department of Ophthalmology in [place], [place] [address] [place] [phone] 04/21/2024 7:45 AM WORKERS COMPENSATION EXAMINER Ancillary Procedure Department of Ophthalmology in [place] [address] [place] [phone] Annie Lamas O.D. [address] [place] [phone] 04/21/2024 8:00 AM WORKERS COMPENSATION EXAMINER Office Visit Department of Ophthalmology in [place], [place] [address] [place] [phone] Annie Lamas O.D. [address] [place] [phone] documented as of this encounter Visit Diagnoses Not on filedocumented in this encounter Care Teams Supervisor Extrusion Relationship Specialty Start Date End Date Elsewhere, Pcp PCP - General Family Medicine 08/21/17 documented as of this encounter
--- OUTSIDE RECORDS SUMMARY | 2024-03-03 09:04 | XMS_ITS | Encounter Summary ---
Author Organization [facility] Address [address] [place] [address] Care Team Providers Care Produce Field Merchandiser Name Role Phone Elsewhere, Pcp Primary Care Provider Unavailabl e Reason for Visit * Reason Comments Return Visit * Outpatient (Routine) - Closed Specialty Diagnoses / Procedures Referred By Beatrice t Referred To Contact Trauma Critical Care and General Surgery Sukhdev Ahumada APRN, C.N.P., M.S.N. [address] [place] [phone] Phone: tel: fax: [facility] Referral ID Status Reason Start Date Expiration Date Visits Re quested Visits Authorized [id number] Closed 01/27/2024 07/28/2025 1 1 Encounter Details Date Type Department Care Team (Late st Contact Info) Description 01/30/2024 1:15 PM CDT Office Visit Division of Trauma Critical Care and General Surgery in [place], [place] [address] [place] [phone] Sukhdev Ahumada APRN, C.N.P., M.S.N. [address] [place] [phone] Lita Jacob APRN, C.N.P. [address] [place] [phone] Cholecystectomy Laparoscopic Status Post (Primary Dx); Pain Right Lower Quadrant Social History Tobacco Use Types Packs/Day Years Used Date Smoking Tobacco: Former Cigarettes 0 04/15/2002 - 04/15/2009 Smokeless Tobacco: Never Alcohol Use Standard Drinks/Week Comments Yes 0 (1 standard drink = 0.6 oz pur e alcohol) once a month [facility] Utilities Answer Date Recorded In the [...] often do you attend chur ch or anabaptist services? Never 06/09/2022 Do you belong to any clubs o r organizations such as denominational groups, unions, fraternal or athletic groups, or [...] and heating? Not hard at all 06/09/2022 [facility] of Occupat ional Health - Occupational Stress [...] (Latest Contact Info) Description 03/17/2024 1:00 PM MOLD MAKER PLASTER Comprehensive Visit Department of Dermatology in [place], [place] [address] [place] [phone] Katrin Causey APRN C.N.Joyce., D.N.P. [address] [place] [phone] Elizabeth Max M.D., Ph.D. [address] [place] [phone] 04/17/2024 2:30 PM MOLD MAKER PLASTER Clinical Communication Virtual Review in [place], [place] 200 [place] [address] 04/20/2024 10:00 AM MOLD MAKER PLASTER Ancillary Procedure Department of Ophthalmology in [place] [address] [place] [phone] Annie Lamas O.D. [address] [place] [phone] 04/21/2024 7:15 AM MOLD MAKER PLASTER Ancillary Procedure Department of Ophthalmology in [place] [address] [place] [address] 04/21/2024 7:45 AM MOLD MAKER PLASTER Ancillary Procedure Department of Ophthalmology in [place] [address] [place] [address] Annie Lamas O.D. [address] [place] [phone] 04/21/2024 8:00 AM MOLD MAKER PLASTER Office Visit Department of Ophthalmology in [place] [address] [place] [phone] Annie Lamas O.D. 200 [place] [phone] documented as of this encounter Visit Diagnoses Diagnosis Cholecystectomy Laparoscopic Status Post- Primary Pain Right Lower Quadrant documented in this encounter Care Teams Produce Field Merchandiser Relationship Specialty Start Date End Date Elsewhere, Pcp PCP - General Family Medicine 08/21/17 documented as of this encounter
--- OUTSIDE RECORDS SUMMARY | 2024-03-03 09:04 | XMS_ITS | Encounter Summary ---
Author Organization [facility] Address 200 [place] [address] Care Team Providers Care Rural Sociologist Name Role Phone Elsewhere, Pcp Primary Care Provider Unavailabl e Encounter Details Date Type Department Care Team (Late st Contact Info) Description 10/29/2017 [facility] [address] [place] [address] Steven Olivares M.D. [address], [place] [phone] Tendonitis Ankle Left (Primary Dx) Social History [...] (Latest Contact Info) Description 03/17/2024 1:00 PM MACHINE STOPPAGE FREQUENCY CHECKER Comprehensive Visit Department of Dermatology in [place], [place] [address] [place] [phone] Katrin Causey APRN, C.N.P., D.N.P. 200 [place] [phone] Elizabeth Max M.D., Ph.D. [address] [place] [phone] 04/17/2024 2:30 PM MACHINE STOPPAGE FREQUENCY CHECKER Clinical Communication Virtual Review in [place], [place] 200 [place] [address] 04/20/2024 10:00 AM MACHINE STOPPAGE FREQUENCY CHECKER Ancillary Procedure Department of Ophthalmology in [place] [address] [place] [phone] Annie Lamas O.D. [address] [place] [phone] 04/21/2024 7:15 AM MACHINE STOPPAGE FREQUENCY CHECKER Ancillary Procedure Department of Ophthalmology in [place] [address] [place] [phone] 04/21/2024 7:45 AM MACHINE STOPPAGE FREQUENCY CHECKER Ancillary Procedure Department of Ophthalmology in [place] [address] [place] [phone] Annie Lamas O.D. [address] [place] [phone] 04/21/2024 8:00 AM MACHINE STOPPAGE FREQUENCY CHECKER Office Visit Department of Ophthalmology in [place] [address] [place] [phone] Annie Lamas O.D. [address] [place] [phone] documented as of this encounter Visit Diagnoses Diagnosis Tendinitis Ankle Left- Primary documented in this encounter Care Teams Rural Sociologist Relationship Specialty Start Date End Date Elsewhere, Pcp PCP - General Family Medicine 08/21/17 documented as of this encounter
--- OUTSIDE RECORDS SUMMARY | 2024-03-03 09:04 | XMS_ITS | Encounter Summary ---
Author Organization [facility] Address [address] [place] [address] Care Team Providers Care Supervisor Core Drilling Name Role Phone Elsewhere, Pcp Primary Care Provider Unavailabl e Reason for Referral * Outpatient (Routine) - Closed Specialty Diagnoses / Procedures Referred By Contac t Referred To Contact Diagnoses Pain Scrotum Procedures US Scrotum with Doppler Kristal Leon APRN, C.N.P. [address] [phone] Phone: tel: fax: [facility] Region Referral ID Status Reason Start Date Expiration Date Visits Re quested Visits Authorized [id number] Closed 12/06/2023 12/05/2024 1 1 Reason for Visit * Outpatient (Routine) - Closed Specialty Diagnoses / Procedures Referred By Contac t Referred To Contact Diagnoses Pain Scrotum Procedures US Scrotum with Doppler Kristal Leon APRN, C.N.P. [address] [place] [phone] Phone: tel: fax: [facility] Region Referral ID Status Reason Start Date Expiration Date Visits Re quested Visits Authorized [id number] Closed 12/06/2023 12/05/2024 1 1 Encounter Details Date Type Department Care Team (Latest Contact Info) Description 12/23/2023 11:30 AM CDT - 12/23/2023 11:59 PM CDT Hospital Encounter Department of Radiology in [place], [place] [address] [facility] [place] [phone] Kristal Leon APRN, C.N.P. [address] [phone] Pain Scrotum Discharge Disposition: Home or Self Care Social History Tobacco Use Types Packs/Day Years Used Date Smoking Tobacco: Former Cigarettes 0 04/15/2002 - 04/15/2009 Smokeless Tobacco: Never Alcohol Use Standard Drinks/Week Comments Yes 0 (1 standard drink = 0.6 oz pur e alcohol) once a month [facility] Utilities Answer Date Recorded In the past 12 months has [employer], gas, oil, or water [employer] threatened to shut off services in your [...] How often do you attend chur or adventism services? Never 06/09/2022 Do you belong to any clubs o r organizations such as sabianism groups, unions, fraternal or athletic groups, or [...] hard at all 06/09/2022 [facility] [place] of Occupat ional Health - Occupational Stress [...] 10/08/2022 multivitamin/iron/ folic acid (CENTRUM ORAL) 12/28/2019 oxymetazoline [...] nostril daily. Prior to sleep 02/19/20 24 latanoprost (XALATAN) 0.005 % ophthalmic solution INSTILL 1 DROP IN BOTH EYES AT BEDTIME 10 mL 3 01/21/2023 02/10/20 24 oxyCODONE (Roxicodone) 5 mg immediate release [...] (Latest Contact Info) Description 03/17/2024 1:00 PM SUPERINTENDENT AUTOMOTIVE Comprehensive Visit Department of Dermatology in [place], [place] [address] [place] [phone] Katrin Causey APRN, C.N.P., D.N.P. [address] [place] [phone] Elizabeth Max M.D., Ph.D. [address] [place] [phone] 04/17/2024 2:30 PM SUPERINTENDENT AUTOMOTIVE Clinical Communication Virtual Review in [place], [place] 200 [place] [phone] 04/20/2024 10:00 AM SUPERINTENDENT AUTOMOTIVE Ancillary Procedure Department of Ophthalmology in [place] [address] [place] [phone] Annie Lamas O.D. [address] [place] [phone] 04/21/2024 7:15 AM SUPERINTENDENT AUTOMOTIVE Ancillary Procedure Department of Ophthalmology in [place] [address] [place] [phone] 04/21/2024 7:45 AM SUPERINTENDENT AUTOMOTIVE Ancillary Procedure Department of Ophthalmology in [place] [address] [place] [phone] Annie Lamas O.D. [address] [place] [phone] 04/21/2024 8:00 AM SUPERINTENDENT AUTOMOTIVE Office Visit Department of Ophthalmology in [place] [address] [place] [phone] Annie Lamas O.D. 200 [place] [address] documented as of this encounter Procedures Procedure [...] APRN C.N.P. IMG US PROCEDURES Final Result documented in this encounter Visit Diagnoses Diagnosis Pain Scrotum documented in this encounter Care Teams Supervisor Core Drilling Relationship Specialty Start Date End Date Elsewhere, Pcp PCP - General Family Medicine 08/21/17 documented as of this encounter
--- OUTSIDE RECORDS SUMMARY | 2024-03-03 09:04 | XMS_ITS | Encounter Summary ---
Author Organization [facility] Address [address] [place] [address] Care Team Providers Care Digital Product Manager Name Role Phone Elsewhere, Pcp Primary Care Provider Unavailabl e Encounter Details Date Type Department Care Team (Latest Contact Info) Description 01/30/2024 11:30 AM CDT - 01/30/2024 11:59 PM T Hospital Encounter Department of Laboratory Medicine and Pathology, [facility] in [place], [place] [address] [place] [address] Sukhdev Ahumada APRN, C.N.P., M.S.N. [address] [place] [phone] Other Specified Diseases Of Gallbladder; Cholecystectomy Laparoscopic Status Post Discharge Disposition: Home or Self Care Social History Tobacco Use Types Packs/Day Years Used Date Smoking Tobacco: Former Cigarettes 0 04/15/2002 - 04/15/2009 Smokeless Tobacco: Never Alcohol Use Standard Drinks/Week Comments Yes 0 (1 standard drink = 0.6 oz pur e alcohol) once a month [facility] Utilities Answer Date Recorded In the [...] often do you attend chur ch or worship services? Never 06/09/2022 Do you belong to [...] Not hard at all 06/09/2022 [facility] of Occupat ional Health - Occupational Stress [...] your living situation today? I have a [facility] place to live 06/17/2023 Education Answer Date [...] (Latest Contact Info) Description 03/17/2024 1:00 PM [facility] Comprehensive Visit Department of Dermatology in [place], [place] [address] [place] [phone] Katrin Causey APRN, C.N.P., D.N.P. [address] [place] [phone] Elizabeth Max M.D., Ph.D. [address] [place] [phone] 04/17/2024 2:30 PM [facility] Clinical Communication Virtual Review in [place], [place] 200 [place] [address] 04/20/2024 10:00 AM [facility] Ancillary Procedure Department of Ophthalmology in [address] [place] [phone] Annie Lamas O.D. [address] [place] [address] 04/21/2024 7:15 AM [facility] Ancillary Procedure Department of Ophthalmology in [place] [address] [place] [address] 04/21/2024 7:45 AM [facility] Ancillary Procedure Department of Ophthalmology in [place] [address] [place] [phone] Annie Lamas O.D. [address] [place] [phone] 04/21/2024 8:00 AM [facility] Office Visit Department of Ophthalmology in [place] [address] [place] [phone] Annie Lamas O.D. [address] [place] [phone] documented as of this encounter Procedures Procedure [...] AM CDT 01/30/2024 12:15 PM CDT us Josafat Palmer APRN.N.P., M.S.N. LAB BLOOD ADD-ON Final Result [facility] [address] [place] [address], [facility] [address] [place] [address] documented in this encounter Visit Diagnoses Diagnosis Other Specified Diseases Of Gallbladder Cholecystectomy Laparoscopic Status Post documented in this encounter Care Teams Digital Product Manager Relationship Specialty Start Date End Date Elsewhere, Pcp PCP - General Family Medicine 08/21/17 documented as of this encounter
== END 2024-03-03 08:59 | disposition home or self-care (01) ==
PROVIDERS: PCP Family Medicine; Visit Provider Family Medicine
DX: E87.6 Hypokalemia (principal); D64.9 Anemia, unspecified; E53.8 Deficiency of other specified B group vitamins; F41.9 Anxiety disorder, unspecified
CPT/HCPCS: 80048; 82607; 82728; 83540; 83550

== ENCOUNTER 2024-03-31 10:58 | Outpatient (REF) | payer OTHER, SELFPAY ==
[2024-03-31 11:18] LABS: Basophils Absolute Auto 0.01 K/uL (0.00-0.30); Basophils Percent Auto 0.2 % (0.0-3.0); Eosinophils Percent Auto 2.1 % (0.0-7.0); Hematocrit 44.4 % (37.0-53.0); Hemoglobin* 14.9 gm/dL (13.5-17.5); Immature Granulocytes Abs Auto 0.02 K/uL (0.00-0.30); Immature Granulocytes Pct Auto 0.4 %; Lymphocytes Percent Auto 16.7 % (20-44); Mean Corpuscular HGB Conc 34 gm/dL (32-36); Mean Corpuscular Hemoglobin 30 pg (26-34); Mean Corpuscular Volume 90 fL (80-100); Monocytes Percent Auto 4.2 % (0.0-11.0); Neutrophils Percent Auto 76.4 % (42.0-72.0); Platelet Count* 179 K/uL (140-440); RDW Coefficient of Variation % 11.8 % (11.5-15.5); Red Blood Count 4.95 m/uL (4.30-5.90); White Blood Count* 4.74 K/uL (4.50-11.00)
[2024-03-31 11:24] LABS: Slide Review Reflex No
[2024-03-31 11:27] LABS: Chloride* 106 mmol/L (96-114); Potassium* 4.5 mmol/L (3.6-5.1); Sodium* 142 mmol/L (135-149)
[2024-03-31 11:29] LABS: Creatinine* 0.8 mg/dL (0.5-1.5); Estimated Glomerular Filt Rate 108 ml/min
[2024-03-31 11:30] LABS: Anion Gap 4 mEq/L (7-15); Blood Urea Nitrogen* 14 mg/dL (7-30); Calcium* 9.7 mg/dL (8.4-10.6); Carbon Dioxide* 32 mmol/L (20-32); Glucose* 105 mg/dL (60-115)
[2024-04-01 17:23] LABS: TPO Antibody <0.3 IU/mL (0.0-9.0); Thyroglobulin Antibody <0.9 IU/mL (0.0-4.0)
[2024-04-01 22:04] LABS: Lithium, Serum or Plasma 0.2 mmol/L (0.5-1.2)
== END 2024-03-31 10:59 | disposition home or self-care (01) ==
LOC: NPINS 10:58
PROVIDERS: PCP Family Medicine; Visit Provider Nurse Practitioner Psychiatric/Mental Health
DX: Z51.81 Encounter for therapeutic drug level monitoring (principal)
CPT/HCPCS: 80048; 80178; 85025; 86376; 86800

== ENCOUNTER 2024-04-29 15:22 | Outpatient (REF) | payer OTHER, SELFPAY ==
[2024-04-29 19:37] LABS: Albumin* 4.4 g/dL (3.3-5.0)
[2024-04-29 19:38] LABS: Chloride* 104 mmol/L (96-114); Potassium* 4.3 mmol/L (3.6-5.1); Sodium* 142 mmol/L (135-149)
[2024-04-29 19:40] LABS: Anion Gap 5 mEq/L (7-15); Aspartate Amino Transferase* 21 U/L (12-35); Bilirubin Total* 0.5 mg/dL (0.1-1.5); Carbon Dioxide* 33 mmol/L (20-32); Estimated Glomerular Filt Rate 92 ml/min; Total Protein* 6.1 g/dL (6.0-8.3)
[2024-04-29 19:41] LABS: Alanine Aminotransferase* 22 U/L (4-50); Alkaline Phosphatase* 67 U/L (40-150); Blood Urea Nitrogen* 18 mg/dL (7-30); Calcium* 9.3 mg/dL (8.4-10.6); Glucose* 81 mg/dL (60-115)
[2024-05-01 08:56] LABS: Lithium, Serum or Plasma 0.1 mmol/L (0.5-1.2)
== END 2024-04-29 15:23 | disposition home or self-care (01) ==
LOC: NPINS 15:22
PROVIDERS: PCP Family Medicine; Visit Provider Nurse Practitioner Psychiatric/Mental Health
DX: F31.81 Bipolar II disorder (principal); Z51.81 Encounter for therapeutic drug level monitoring; F42.9 Obsessive-compulsive disorder, unspecified; F41.1 Generalized anxiety disorder
CPT/HCPCS: 80053; 80178

== ENCOUNTER 2024-06-02 08:52 | Outpatient (CLI) | payer OTHER, SELFPAY ==
[2024-06-04 01:58] LABS: Lithium, Serum or Plasma 0.3 mmol/L (0.5-1.2)
== END 2024-06-02 08:53 | disposition home or self-care (01) ==
LOC: NPINS 08:55
PROVIDERS: PCP Family Medicine; Visit Provider Nurse Practitioner Psychiatric/Mental Health
DX: F31.81 Bipolar II disorder (principal); F42.9 Obsessive-compulsive disorder, unspecified; F41.1 Generalized anxiety disorder; Z51.81 Encounter for therapeutic drug level monitoring
CPT/HCPCS: 80178

== ENCOUNTER 2024-06-26 09:18 | Outpatient (CLI) | payer OTHER, SELFPAY ==
[2024-06-26 10:42] LABS: Free T4 Free Thyroxine* 1.02 ng/dL (0.70-1.85)
[2024-06-27 13:18] LABS: Lithium, Serum or Plasma 0.4 mmol/L (0.5-1.2)
== END 2024-06-26 09:19 | disposition home or self-care (01) ==
LOC: NPINS 09:19
PROVIDERS: PCP Family Medicine; Visit Provider Nurse Practitioner Psychiatric/Mental Health
DX: Z51.81 Encounter for therapeutic drug level monitoring (principal); F31.81 Bipolar II disorder; F42.9 Obsessive-compulsive disorder, unspecified; F41.1 Generalized anxiety disorder
CPT/HCPCS: 80178; 84439; 84443